=== PATIENT | male | born 1955 | race Caucasian/White ===

== ENCOUNTER 2025-03-04 19:02 | Outpatient (BNV) | payer OTHER, SELFPAY | END 2025-03-17 13:02 | PROVIDERS: Admitting Provider Psychiatry & Neurology Psychiatry; Visit Provider Radiology Diagnostic Radiology | DX: J84.9 Interstitial pulmonary disease, unspecified (principal); Z18.10 Retained metal fragments, unspecified; Z01.818 Encounter for other preprocedural examination | CPT/HCPCS: 70250; 71045; 74018 ==

== ENCOUNTER 2025-03-04 19:02 | Outpatient (BNV) | payer OTHER, SELFPAY | END 2025-03-16 09:00 | PROVIDERS: Admitting Provider Psychiatry & Neurology Psychiatry; Visit Provider Internal Medicine Cardiovascular Disease | DX: Z13.6 Encounter for screening for cardiovascular disorders (principal) | CPT/HCPCS: 93010 ==

== ENCOUNTER 2025-03-04 19:02 | Inpatient (IN) | payer OTHER, SELFPAY ==
--- OUTSIDE RECORDS SUMMARY | 2024-01-24 09:00 | XMS_ITS ---
Author Organization [facility] Address [address] [place] [address] Care Team Providers Care Color Television Console Monitor Name Role Phone King TORRES, Mukesh Primary Care Provider Trev Noel Unavailable [phone] REASON FOR VISIT bladder issues (?uti) [facility] Encounters Encounter Location Date Provider Diagnosis [facility] [address] [place] [address] 01/24/2024 Trev Guaman UTI symptoms R39.9 Assessments Encounter Date Diagnosis (ICD Code) Assessment Notes Treatment Notes Treatment Clinical Notes Section Notes 01/24/2024 UTI symptoms (ICD-10 - R39.9) Plan Of Treatment No Information Progress Notes * Jeff JOSEPH JDOB:[birth year] (69 yo M)Acc No.[id number]:01/24/2024 Progress Notes Patient: Jeff SAEZ Provider: Erin Guaman MD :1955 A ge:68 Y S ex:Male Date:01/24/2024 Address:[address] [id number] Pcp:Mukesh Malik MD Subjective: * Chief Complaints: * 1 . bladder issues (?uti) [facility]. * Medical History: * Implants: Objective: * Vitals: * Physical Examination: Assessment: * Assessment: 1. U TI symptoms - R39.9 Plan: * Treatment: * * Electronic signature of Trev Guaman MD on 03/04/2025 at 10:24 PM EST Sign off status: Pending * Provider: Erin Guaman MD Date: 1 Generated for Ajit spann/Nabil/Carlie on: 1 05/05/2024 10:24 PM EST
--- OUTSIDE RECORDS SUMMARY | 2024-01-24 09:30 | XMS_ITS ---
Author Organization [facility] Address [address] [place] [address] Care Team Providers Care Director Of Digital Marketing Name Role Phone King TORRES, Mukesh Primary Care Provider Trev Noel Unavailable [phone] Encounters Encounter Location Date Provider Diagnosis [facility] [address] [place] [address] 01/24/2024 Trev Guaman Plan Of Treatment No Information Progress Notes * Jeff JOSEPH KristiDOB:[birth year] (69 yo M)Acc No.[id number]:01/24/2024 Patient: Jeff SAEZ Provider: Erin Guaman MD :1955 A ge:68 Y S ex:Male Date:01/24/2024 Address:[address] [id number] Pcp:Mukesh Malik MD Subjective: * Chief Complaints: Objective: Assessment: Plan: * Treatment: * * Electronic signature of Trev Guaman MD on 03/04/2025 at 10:23 PM EST Sign off status: Pending * Provider: Erin Guaman MD Date: Generated for Renitai zana/Nabil/eTransmitting on: 1 05/05/2024 10:23 PM EST
--- OUTSIDE RECORDS SUMMARY | 2024-02-05 09:30 | XMS_ITS ---
Author Organization [facility] Address [address] [place] [address] Care Team Providers Care Custom Tailor Name Role Phone King TORRES, Mukesh Primary Care Provider Trev Noel Unavailable [phone] REASON FOR VISIT bladder issues [facility]CP Dr Malik Encounters Encounter Location Date Provider Diagnosis [facility] [address] [place] [address] 02/05/2024 Trev Guaman Plan Of Treatment No Information Progress Notes * Jeff JOSEPH JDOB:[birth year] (69 yo M)Acc No.[id number]:02/05/2024 Progress Notes Patient: Jeff SAEZ Provider: Erin Guaman MD :1955 A ge:68 Y S ex:Male Date:02/05/2024 Address:[address], [address] [id number] Pcp:Mukesh Malik MD Subjective: * Chief Complaints: * 1 . bladder issues [facility]CP Dr Malik. * Medical History: * Implants: Objective: * Vitals: * Physical Examination: Assessment: Plan: * Treatment: * * Electronic signature of Trev Guaman MD on 03/04/2025 at 10:24 PM EST Sign off status: Pending * Provider: Erin Guaman MD Date: 04/06/2023 Generated for Printi ng/Faxing/eTransmitting on: 05/05/2024 10:24 PM EST
--- OUTSIDE RECORDS SUMMARY | 2024-04-07 08:00 | XMS_ITS ---
Author Organization [facility] Address [address] [place] [address] Care Team Providers Care Mining And Quarrying Machinery Repairer Name Role Phone King TORRES, Mukesh Primary Care Provider Trev Noel Unavailable [phone] Alek Pereira Unavailable [phone] REASON FOR VISIT bladder issues [facility] PCP Dr Malik /pt rs 12.4 Encounters Encounter Location Date Provider Diagnosis [facility] [address] [place] [address] 04/07/2024 Alek Pereira Recurrent UTI N39.0 Assessments Encounter Date Diagnosis (ICD Code) Assessment Notes Treatment Notes Treatment Clinical Notes Section Notes 04/07/2024 Recurrent UTI (ICD-10 - N39.0) Plan Of Treatment No Information Progress Notes * Jeff JOSEPHDOB:[birth year] (69 yo M)Acc No.[id number]:04/07/2024 Progress Notes Patient: Jeff SAEZ Provider: Lucy Pereira PA-C :1955 A ge:68 Y S ex:Male Date:04/07/2024 Address:[address] [place], [place] Pcp:Mukesh Malik MD Subjective: * Chief Complaints: * 1 . bladder issues [facility] PCP Dr Malik /pt rs 12.4. * Medical History: * Implants: Objective: * Vitals: * Physical Examination: Assessment: * Assessment: 1. R ecurrent UTI - N39.0 Plan: * Treatment: * * Electronic signature of Alek Pereira PA-C on 03/04/2025 at 10:22 PM EST Sign off status: Pending * Provider: Lucy Pereira PA-C Date: 0 04/07/2024 Generated for Ajit spann/Nabil/Carlie on: 1 05/05/2024 10:22 PM EST
--- OUTSIDE RECORDS SUMMARY | 2024-04-29 08:00 | XMS_ITS ---
Author Organization [facility] Address [address] [place] [address] Care Team Providers Care Professor Of Biostatistics Name Role Phone King TORRES, Mukesh Primary Care Provider Trev Noel Unavailable [phone] Alek Pereira Unavailable [phone] REASON FOR VISIT bladder issues [facility] P[facility] Dr Malik /pt rs 12.4/pt rs 04/07 hurt back Encounters Encounter Location Date Provider Diagnosis [facility] [address] [facility] [address] [place] [address] 04/29/2024 Alek Pereira Plan Of Treatment No Information Progress Notes * Jeff JOSEPHDOB:[birth year] (69 yo M)Acc No.[id number]:04/29/2024 Progress Notes Patient: Jeff SAEZ Provider: Lucy Pereira PA-C :1955 A ge:68 Y S ex:Male Date:04/29/2024 Address:[address] [id number] Pcp:Mukesh Malik MD Subjective: * Chief Complaints: * 1 . bladder issues [facility] PCP Dr Malik /pt rs 12.4/pt rs 04/07 hurt back. * Medical History: * Implants: Objective: * Vitals: * Physical Examination: Assessment: Plan: * Treatment: * * Electronic signature of Alek Pereira PA-C on 03/04/2025 at 10:24 PM EST Sign off status: Pending * Provider: Lucy Pereira PA-C Date: 0 04/29/2024 Generated for Ajit spann/Nabil/Carlie on: 1 05/05/2024 10:24 PM EST
--- OUTSIDE RECORDS SUMMARY | 2025-03-03 12:51 | XMS_ITS | Encounter Summary ---
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 [address], [facility] [address] [place] [address] * (ABNORMAL) Urinalysis with reflex to culture (03/03/2025 1:45 PM EST) Color, Ur Yellow yellow 03/03/2025 2:09 PM [facility] Appearance, Ur Cloudy slightly cloudy 03/03/2025 2:09 PM [facility] Glucose, Ur negative negative mg/dL 03/03/2025 2:09 PM [facility] Bilirubin, Ur negative negative mg/dL 03/03/2025 2:09 PM [facility] Ketones, Ur 15(A) negative mg/dL 03/03/2025 2:09 PM [facility] Specific [place], Ur 1.015 1.010 - 1.030 03/03/2025 2:09 PM [facility] Blood, Ur negative negative mg/dL 03/03/2025 2:09 PM [facility] pH, Ur 8.0 5.0 - 8.0 03/03/2025 2:09 PM [facility] Protein, Ur 30(A) negative mg/dL 03/03/2025 2:09 PM [facility] Urobilinogen, Ur 1.0 normal E.U./dL 03/03/2025 2:09 PM [facility] Comment:UF REFLEX Nitrite Level, Ur negative negative 03/03/2025 2:09 PM [facility] Leukocytes Est, Ur Moderate(A) negative mg/dL 03/03/2025 2:09 PM [facility] RBC, Ur 3-5(A) 0 - 2 /HPF 03/03/2025 2:18 PM [facility] WBC, Ur >50(H) 0 - 5 /HPF 03/03/2025 2:18 PM EST [facility] Bacteria, Ur Rare none seen /HPF 03/03/2025 2:18 PM EST [facility] Squam Epithel, Ur None Seen absent /HPF 03/03/2025 2:18 PM EST [facility] Hyaline Casts, Ur 0-5 0 - 2 /LPF 03/03/2025 2:18 PM EST [facility] 03/03/2025 1:45 PM EST 03/03/2025 2:04 PM EST us Danisha Brooks FIOS [employer] 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 URINE ORDERABLES Edited Result - Final Performing Organization Address City/[facility]/ZIP Co de Phone Number [facility] [address] [place] [address], [facility] [address] [place] [address] * Buprenorphine Suboxone Screen (03/03/2025 1:45 PM EST) Buprenorphine Suboxone Scrn None Detected 03/03/2025 2:28 PM EST [facility] 03/03/2025 1:45 PM EST 03/03/2025 2:04 PM EST us Danisha Brooks FIOS LINE INSTALLER LAB BLOOD ORDERABLES Final Resu lt [facility] [address] [place] [address], [facility] [address] [place] [id number] * Urine Drug Screen (03/03/2025 1:45 PM EST) Amphetamine Scrn, Ur None Detected 03/03/2025 2:28 PM EST [facility] Benzodiazepine Screen, Urine None Detected 03/03/2025 2:28 PM EST [facility] Cannabinoid Screen, Urine None Detected 03/03/2025 2:28 PM EST [facility] Cocaine Screen, Ur None Detected 03/03/2025 2:28 PM EST [facility] Fentanyl Screen, Urine None Detected 03/03/2025 2:28 PM EST [facility] Comment: This test was developed and its performance characteristics determined by the Clinical Biochemistry Lab. It has not been cleared or approved by the [place] Food and Drug Administration but the [place] regulations permit its development under the laboratory license. This test and method is defined in the clinical lab guide and should not be regarded as investigational or research use only. Methadone Screen, Urine None Detected 03/03/2025 2:28 PM EST [facility] Opiate Screen, Urine None Detected 03/03/2025 2:28 PM EST [facility] Comment: Note: Drug of abuse immunoassay results are from screening methods. Positive screening results that are not confirmed are reported as POSITIVE SCREEN. If confirmatory testing is desired, it must be requested as a separate order to the Toxicology Lab WITHIN 5 DAYS of sample collection. Unconfirmed screening results should only be used for medical purposes. Oxycodone Scrn, Ur None Detected 03/03/2025 2:28 PM EST [facility] Urine 03/03/2025 1:45 PM EST 03/03/2025 2:04 PM EST Danisha Brooks NP URINE ORDERABLES Final Result [facility] [address] [place] [address], [facility] [address] [place] [id number] documented in this encounter Visit Diagnoses Diagnosis Acute psychosis (CMS/HCC)- Primary Bipolar 1 disorder with moderate justin (CMS/HCC) documented in this encounter Administered Medications Active Administered Medications - up to 3 most recent administrations Medication Order MAR Action Action Date Dose Rate Site aspirin (ASA) EC tablet 325 mg 325 mg, Oral, Once Daily, First dose (after last reorder) on Sat03/04/25 at 0800, Until Discontinued, Take with food Given 03/04/2025 9:32 AM EST 325 mg busPIRone (BUSPAR) tablet 15 mg 15 mg, Oral, 2 times daily, First dose on Sat03/03/25 at 2000, Until Discontinued Given 03/04/2025 9:34 AM EST 15 mg cefpodoxime (VANTIN) tablet 400 mg 400 mg, Oral, Every 12 hours scheduled, First dose on Sat03/03/25 at 1500, 28 doses, Last dose on Sat03/16/25 at 2200, Indications: urinary tract infectionIndications:urinary tract infection Given 03/04/2025 9:31 AM EST 400 mg Given 03/03/2025 3:33 PM EST 400 mg divalproex (DEPAKOTE) Delayed Release tablet 1,000 mg 1,000 mg, Oral, 2 times daily, First dose on Sat03/03/25 at 2000, Until Discontinued Given 03/04/2025 9:34 A M EST 1,000 mg escitalopram oxalate (LEXAPRO) tablet 15 mg 15 mg, Oral, Once Daily, First dose on Sat03/04/25 at 0800, Until Discontinued, Indications: Citalopram 30mg po daily was changed to Escitalopram 15mg po dailyIndications:Citalopram 30mg po daily was changed to Escitalopram 15mg po daily Given 03/04/2025 9:32 AM EST 15 mg famotidine (PEPCID) tablet 20 mg 20 mg, Oral, 2 times daily, First dose on Sat03/03/25 at 1999, Until Discontinued Given 03/04/2025 9:31 AM EST 20 m g ferrous sulfate tablet 325 mg 325 mg, Oral, Daily with breakfast, First dose on Sat03/04/25 at 0800, Until Discontinued Given 03/04/2025 9:34 AM EST 325 mg metFORMIN (GLUCOPHAGE) tablet 1,000 mg 1,000 mg, Oral, 2 times daily with meals, First dose on Sat03/03/25 at 1700, Until Discontinued, LOOK-ALIKE/SOUND-ALIKE MEDICATION: Use caution and follow appropriate policies for medication prescribing, dispensing and administration. Given 03/04/2025 9:32 AM EST 1,000 mg Given 03/03/2025 4:28 PM EST 1,000 mg risperiDONE (RisperDAL) tablet 3 mg 3 mg, Oral, 2 times daily, First dose on Sat03/03/25 at 1999, Until Discontinued Given 03/04/2025 9:33 AM EST 3 mg Inactive Administered Medications - up to 3 most recent administrations Medication Order MAR Action Action Date Dose Rate Site diphenhydrAMINE (BENADRYL) 50 mg/mL injection 50 mg 50 mg, Intramuscular, Once, On Susan 03/04/25 at 0100, 1 dose, If given IV Push, Administer undiluted, each 25 mg fraction over 1 minute. Given 03/04/2025 12:54 AM EST 50 mg Left Anterior Thigh LORazepam (ATIVAN) tablet 1 mg 1 mg, Oral, Once, On Sat03/03/25 at 1530, 1 dose Given 03/03/2025 3:33 PM EST 1 mg OLANZapine (ZyPREXA) injection 7.5 mg 7.5 mg, Intramuscular, Once, On Susan 03/04/25 at 0100, 1 dose, LOOK-ALIKE/SOUND-ALIKE MEDICATION: Use caution and follow appropriate policies for medication prescribing, dispensing and administration. Directions for preparation of OLANZapine injection with Sterile Water for Injection: Dissolve the contents of the vial using 2.1 mL of Sterile Water for Injection to provide a solution containing approximately 5 mg/mL of OLANZapine. The resulting solution should appear clear and yellow. OLANZapine injection reconstituted with Sterile Water for Injection should be used immediately (within 1 hour) after reconstitution. Discard any unused portion. The following table provides injection volumes for delivering various doses of OLANZapine injection reconstituted with Sterile Water for Injection. See below for dose to volume instructions: 10 mg Withdraw entire contents of vial 7.5 mg (1.5 mL) 5 mg (1 mL) 2.5 mg (0.5 mL), Indications: Medication RestraintIndications:Medi cation Restraint Given 03/04/2025 12:52 AM EST 7.5 mg Right Anterior Thigh documented in this encounter Active and Recently Administered Medications Times are shown in EST. Scheduled Medication Order 03/02/2025 03/03/2025 03/04/2025 aspirin (ASA) EC tablet 325 mg 325 mg, Oral, Once Daily, First dose (after last reorder) on Sat03/04/25 at 0800, Until Discontinued, Take with food 0932 (Given - Provid er: Aba Petty RN) atorvastatin (LIPITOR) tablet 80 mg 80 mg, Oral, Bedtime, First dose on Sat03/03/25 at 2100, Until Discontinued 2216 (Not Given - Provider: Corry Arzola RN - Reason: Patient refused ordered dose) 2100 (Due) busPIRone (BUSPAR) tablet 15 mg 15 mg, Oral, 2 times daily, First dose on Sat03/03/25 at 2000, Until Discontinued 2216 (Not Given - Provider: Corry Arzola RN - Reason: Patient refused ordered dose) 0934 (Given - Provider: Aba Petty RN)1999 (Due) cefpodoxime (VANTIN) tablet 400 mg 400 mg, Oral, Every 12 hours scheduled, First dose on Sat03/03/25 at 1500, 28 doses, Last dose on Sat03/16/25 at 2200, Indications: urinary tract infection 1533 (Given - Provider: Verna Stewart RN)2214 (Not Given - Provider: Corry Arzola RN - Reason: Patient refused ordered dose - Comment: When offered medcation, pt refused stating, I'll kick it you little slut! I don't want no medication! ) 930 (Given - Provider: Aba Petty RN)2199 (Due) diphenhydrAMINE (BENADRYL) 50 mg/mL injection 50 mg (COMPLETED) 50 mg, Intramuscular, Once, On Sat03/04/25 at 0100, 1 dose, If given IV Push, Administer undiluted, each 25 mg fraction over 1 minute. 005 (Given - Provid er: Corry Arzola RN) divalproex (DEPAKOTE) Delayed Release tablet 1,000 mg 1,000 mg, Oral, 2 times daily, First dose on Sat03/03/25 at 1999, Until Discontinued 2212 (Not Given - Provider: Corry Arzola RN - Reason: Patient refused ordered dose - Comment: When offered medcation, pt refused stating, I'll kick it you little slut! I don't want no medication! ) 933 (Given - Provider: Aba Petty RN)1999 (Due) escitalopram oxalate (LEXAPRO) tablet 15 mg 15 mg, Oral, Once Daily, First dose on Sat03/04/25 at 0800, Until Discontinued, Indications: Citalopram 30mg po daily was changed to Escitalopram 15mg po daily 931 (Given - Provid er: Aba Petty RN) famotidine (PEPCID) tablet 20 mg 20 mg, Oral, 2 times daily, First dose on Sat03/03/25 at 1999, Until Discontinued 2216 (Not Given - Provider: Corry Arzola RN - Reason: Patient refused ordered dose) 0931 (Given - Provider: Aba Petty RN)1999 (Due) ferrous sulfate tablet 325 mg 325 mg, Oral, Daily with breakfast, First dose on Sat03/04/25 at 0800, Until Discontinued 0934 (Given - Provid er: Aba Petty RN) LORazepam (ATIVAN) tablet 1 mg (COMPLETED) 1 mg, Oral, Once, On Sat03/03/25 at 1530, 1 dose 1533 (Given - Provider: Verna Stewart RN) metFORMIN (GLUCOPHAGE) tablet 1,000 mg 1,000 mg, Oral, 2 times daily with meals, First dose on Sat03/03/25 at 1700, Until Discontinued, LOOK-ALIKE/SOUND-ALIKE MEDICATION: Use caution and follow appropriate policies for medication prescribing, dispensing and administration. 1628 (Given - Provider: Verna Stewart RN) 0932 (Given - Provider: Aba Petty RN)1700 (Due) nicotine (NICODERM CQ) 7 mg/24 hr 1 patch 1 patch, Transdermal, Administer over 16 Hours, Once Daily, First dose on Sat03/04/25 at 0800, Until Discontinued, Do not cut patch. Apply a new patch every 24 hours to a clean, dry, hairless site on the upper arm or hip. 42 (Not Given - Provider: Aba Petty RN - Reason: Patient refused ordered dose) OLANZapine (ZyPREXA ZYDIS) disintegrating tablet 5 mg 5 mg, Oral, Once, On Sat03/03/25 at 1715, 1 dose, LOOK-ALIKE/SOUND-ALIKE MEDICATION: Use caution and follow appropriate policies for medication prescribing, dispensing and administration. Once tablet removed from foil, must use immediately. 1720 (Not Given - Provider: Verna Stewart RN - Reason: Patient refused ordered dose - Comment: Pt. refusing to take meds.) OLANZapine (ZyPREXA) injection 7.5 mg (COMPLETED) 7.5 mg, Intramuscular, Once, On Sat03/04/25 at 0100, 1 dose, LOOK-ALIKE/SOUND-ALIKE MEDICATION: Use caution and follow appropriate policies for medication prescribing, dispensing and administration. Directions for preparation of OLANZapine injection with Sterile Water for Injection: Dissolve the contents of the vial using 2.1 mL of Sterile Water for Injection to provide a solution containing approximately 5 mg/mL of OLANZapine. The resulting solution should appear clear and yellow. OLANZapine injection reconstituted with Sterile Water for Injection should be used immediately (within 1 hour) after reconstitution. Discard any unused portion. The following table provides injection volumes for delivering various doses of OLANZapine injection reconstituted with Sterile Water for Injection. See below for dose to volume instructions: 10 mg Withdraw entire contents of vial 7.5 mg (1.5 mL) 5 mg (1 mL) 2.5 mg (0.5 mL), Indications: Medication Restraint 51 (Given - Provid er: Corry Arzola RN) risperiDONE (RisperDAL) tablet 3 mg 3 mg, Oral, 2 times daily, First dose on Sat03/03/25 at 1999, Until Discontinued 2216 (Not Given - Provider: Corry Arzola RN - Reason: Patient refused ordered dose) 09 (Given - Provider: Aba Petty RN)1999 (Due) tamsulosin (FLOMAX) 24 hr capsule 0.4 mg 0.4 mg, Oral, Once Daily, First dose on Sat03/04/25 at 1999, Until Discontinued 1999 (Due) PRN Medication Order 03/02/2025 03/03/2025 03/04/2025 bisacodyL (DULCOLAX) EC tablet 5 mg 5 mg, Oral, Once Daily PRN, constipation (first line), Starting on Sat03/03/25 at 1445, Until Discontinued documented in this encounter Care Teams Building Cleaning Supervisor Relationship Specialty Start Date End Date Mukesh Malik MD [address] [id number] PCP - General Internal Medicine 12/22/24 documented as of this encounter
--- OUTSIDE RECORDS SUMMARY | 2025-03-03 15:00 | XMS_ITS | Encounter Summary ---
Author Organization [facility] Address [address] [place] [address] Care Team Providers Care Radio Tower Technician Name Role Phone Mukesh Malik MD Primary Care Provider [phone] Chris Patel MD Unavailable Gary Alas MD Unavailable [phone] Cari Steve MD Unavailable [phone] Trudi Guerrero FACILITIES MAINTENANCE WORKER Unavailable [phone] Yaritza Kc FACILITIES MAINTENANCE WORKER Unavailable [phone] Sabrina Barbosa FACILITIES MAINTENANCE WORKER Unavailable [phone] Reason for Visit * Diagnostic Imaging (Urgent) - Authorized Specialty Diagnoses / Procedures Referred By Contac t Referred To Contact Radiology Diagnoses Other cirrhosis of liver (HCC) Colovesical fistula Unintentional weight loss Procedures CT abdomen pelvis with contrast Mukesh Malik MD [address] [place] [address] Phone: tel: fax: Referral ID Status Reason Start Date Expiration Date V isits Requested Visits Authorized [id number] Authorized 06/10/2024 06/10/2026 1 1 Encounter Details Date Type Department Care Team (Late st Contact Info) Description 03/03/2025 3:00 PM EST Hospital Encounter [address] [address] Mukesh Malik MD [address] [place], [place] [phone] Social History Tobacco Use Types Packs/Day Years Used Date Smoking Tobacco: Every Day Cigarettes 0.5 40 Started: 08/22/1982; Last attempted to quit: 08/22/2022 Smokeless Tobacco: Never Comments:10 cigs a day- pt s audra he quit last week. Alcohol Use Standard Drinks/Week Comments No 0 (1 standard drink = 0.6 oz pur e alcohol) Housing Stability - SDOH Screener Answer Date Recorded What is your living situation today? Steady hous ing 01/08/2025 Do you need help with Housing/[facility] resources? Not on file 01/08/2025 Patient indicated no issues from the most recent SDOH questionnaire Not on file 01/08/2025 Homeless diagnosis active in problem list or in an encounter in the past year? Not on file 01/08/2025 Health Literacy - SDOH Screener Answer Date Recorded Do you ever need help readin g or understanding information about your medical conditions? Yes 01/13/2024 Patient indicated no issues from the most recent THRIVE questionnaire Not on file 01/13/2024 Oral Health - SDOH Screener Answer Date Recorded Was there a time you needed dental care in the last 12 months but was not received? No 01/13/2024 Patient indicated no issues from the most recent THRIVE questionnaire Not on file 01/13/2024 Transportation - SDOH Screener Answer D ate Recorded Do you have trouble getting transportation to medical appointments? No 01/08/2025 Do you need help with Transp ortation to medical appointments? Not on file 01/08/2025 Patient indicated no issues from the most recent SDOH questionnaire Not on file 01/08/2025 Food Insecurity - SDOH Screener Answer Date Recorded Within the past 12 months, t he food you bought just didn't last and you didn't have money to get more? Never true 01/08/2025 Within the past 12 months, y ou worried whether your food would run out before you got money to buy more? Never true 2024 Do you need help with Food resources? Not on sandra e 01/08/2025 Patient indicated no issues from the most recent SDOH questionnaire Not on file 01/08/2025 Depression Answer Date Recorded PHQ-9 Total Score 2 01/13/2024 [place] Depression Scale Score Not o n file 01/13/2024 EPDS: The thought of harming myself has occurred to me Not on file 01/13/2024 PHQ-A: In the past year have you felt depressed or sad most days, even if you felt okay sometimes? Not on file 01/13/2024 PHQ-A: If you are experienci ng any of the problems on this form, how difficult have these problems made it for you to do your work, take care of things at home or get along with other people? Not on file 01/13/2024 PHQ-A: Has there been a time in the past month when you have had serious thoughts about ending your life? Not on file 12/30 PHQ-A: Have you ever, in you r whole life, tried to kill yourself or made a suicide attempt? Not on file 01/13/2024 PHQ9/A: Thoughts that you wo uld be better off , or of hurting yourself in some way? No 01/13/2024 Care Giving - SDOH Screener Answer Date Recorded Do you have trouble taking c are of a child, family member or friend? No 01/13/2024 Do you need help with Childcare/Daycare? Not on file 01/13/2024 Do you need help with Elder Care Not on file 01/13/2024 Patient indicated no issues from the most recent SDOH questionnaire Not on file 01/13/2024 Employment - SDOH Screener Answer Date Recorded Are you currently unemployed and looking for a j ob? No 01/13/2024 Are you or your parent/guard manolo currently unemployed and looking for a job? (age <= 21) Not on file 01/13/2024 Patient indicated no issues from the most recent THRIVE questionnaire (<22) Not on file 01/13/2024 Patient indicated no issues from the most recent THRIVE questionnaire (22+) Not on file 01/13/2024 Affording Medications - SDOH Screener Answer Date Recorded Do you have trouble paying for medications? No 01/13/2024 Do you need help with Paying for Medicine resour danish? Not on file 01/13/2024 Patient indicated no issues from the most recent SDOH questionnaire Not on file 01/13/2024 Fall Risk Screener Answer Date Recorded Have you had any falls in the past year no 01/13/2024 How many falls in the past year? Not on file 01/13/2024 Any fall injury in the past year? Not on file 01/13/2024 List of falls-related injuries Not on file 1 Utilities - SDOH Screener Answer Date R ecorded Do you have trouble paying y our heating and/or electricity bill? No 01/08/2025 Do you need help with Utilities? Not on file 01/08/2025 Patient indicated no issues from the most recent SDOH questionnaire Not on file 01/08/2025 Social Isolation - SDOH Screener Answer Date Recorded Are you dissatisfied with ho w often you see or talk to people that you care about and feel close to? (For example: talking to friends on the phone, visiting friends or family, going to muslim or club meetings) No 01/13/2024 Patient indicated no issues from the most recent THRIVE questionnaire Not on file 01/13/2024 Adolescent Depression Answer Date Recor ded PHQ-9 Total Score 2 01/13/2024 [place] Depression Scale Score Not o n file 01/13/2024 EPDS: The thought of harming myself has occurred to me Not on file 01/13/2024 PHQ-A: In the past year have you felt depressed or sad most days, even if you felt okay sometimes? Not on file 01/13/2024 PHQ-A: If you are experienci ng any of the problems on this form, how difficult have these problems made it for you to do your work, take care of things at home or get along with other people? Not on file 01/13/2024 PHQ-A: Has there been a time in the past month when you have had serious thoughts about ending your life? Not on file 12/30 PHQ-A: Have you ever, in you r whole life, tried to kill yourself or made a suicide attempt? Not on file 01/13/2024 PHQ9/A: Thoughts that you wo uld be better off , or of hurting yourself in some way? No 01/13/2024 Sex and Gender Information Value Date Recorded Sex Assigned at Male 03/10/2024 2:25 PM EST Legal Sex Male 8:35 PM EDT Gender Identity Male 03/10/2024 2:25 PM EST Sexual Orientation _I choose not to answer 03/10 2:25 PM EST Occupation Industry Job Start Date Job End Date Not on file Not on file Not on file Not on file documented as of this encounter Plan of Treatment Upcoming Encounters Date Type Department Care Team (Late st Contact Info) Description 05/31/2024 Procedure Pass [facility] [address] [place] [address] 03/10/2025 3:00 PM EST [facility] [address] [place] [address] Mukesh Malik MD [address] [place], [place] [phone] 04/13/2025 4:30 PM EST Telemedicine [facility] [address] [place] [address] Byron Fitzgerald MD [facility] [address] [id number] 04/20/2025 2:00 PM EST [facility] [address] [address] Fernando Da Silva MD [address] [place] [address] 05/31/2025 9:00 AM EST Appointment [facility] [address] [place] [address] 06/04/2025 1:00 PM EST [facility] [place] [address] Chris Patel MD [address] [place] [address] Scheduled Orders Name Type Priority Associated Diagnoses Orde r Schedule CT abdomen pelvis with contrast Imaging Urgent Other cirrhosis of liver (HCC) Colovesical fistula Unintentional weight loss 1 Occurrences starting 06/10/2024 until 06/10/2026 documented as of this encounter Visit Diagnoses Not on filedocumented in this encounter Care Teams Radio Tower Technician Relationship Specialty Start Date End Date Mukesh Malik MD [address] [place] [address] PCP - General Internal Medicine 07/03/18 Chris Patel MD [address] [place] [address] Physician Pulmonary Disease 06/11/23 Gary Alas MD [address] [place] [address] Surgeon General Surgery 06/03/24 Cari Steve MD [address] [facility] [place] [address] Physician Hematology and Oncology 06/10/24 Trudi Guerrero NP [address] [place] [address] Nurse Practitioner Internal Medicine 10/06/24 Yaritza Kc NP [address] [place] [address] Nurse Practitioner Internal Medicine 10/06/24 Sabrina Barbosa NP [address] [place] [address] Nurse Practitioner Internal Medicine 10/06/24 documented as of this encounter
--- NOTE | ~2025-03-04 | XR_ITS ---
EXAMINATION: XR CHEST CLINICAL INFORMATION: pre mri COMPARISON: None available. TECHNIQUE: Frontal view of the chest was obtained. FINDINGS: No metallic foreign body. Pulmonary reticular pattern. Cardiomediastinal silhouette size is normal. Hyperinflated lungs. No consolidation pleural fissure pneumothorax. Mild multilevel spondylosis. Degenerative changes in the shoulders. XR/XR chest 1V IMPRESSION: Metallic foreign body. Chronic interstitial lung disease EXAMINATION: XR ABDOMEN KUB CLINICAL INDICATION: pre mri COMPARISON: None available. TECHNIQUE: AP view of the abdomen. FINDINGS: No metallic foreign body. No gross central levels. No intestinal dilatation. Gas throughout intestine. Multilevel spondylosis. No lytic or blastic lesions. IMPRESSION: No metallic foreign body. Electronically signed by: Anant Johnson MD 03/17/2025 02:08 PM [facility]
--- NOTE | ~2025-03-04 | XR_ITS ---
EXAMINATION: XR CHEST CLINICAL INFORMATION: pre mri COMPARISON: None available. TECHNIQUE: Frontal view of the chest was obtained. FINDINGS: No metallic foreign body. Pulmonary reticular pattern. Cardiomediastinal silhouette size is normal. Hyperinflated lungs. No consolidation pleural fissure pneumothorax. Mild multilevel spondylosis. Degenerative changes in the shoulders. XR/XR abdomen 1V IMPRESSION: Metallic foreign body. Chronic interstitial lung disease EXAMINATION: XR ABDOMEN KUB CLINICAL INDICATION: pre mri COMPARISON: None available. TECHNIQUE: AP view of the abdomen. FINDINGS: No metallic foreign body. No gross central levels. No intestinal dilatation. Gas throughout intestine. Multilevel spondylosis. No lytic or blastic lesions. IMPRESSION: No metallic foreign body. Electronically signed by: Anant Johnson MD 03/17/2025 02:08 PM [facility]
--- NOTE | ~2025-03-04 | XR_ITS ---
EXAMINATION: XR SKULL CLINICAL INFORMATION: pre mri COMPARISON: None available. TECHNIQUE: PA and lateral views of the skull FINDINGS: No radiopaque foreign body projects in the region of the orbits. There is dental hardware. XR/XR skull <4V IMPRESSION: No absolute contraindication to MRI is identified. Electronically signed by: Sahil Akbar MD 03/17/2025 02:08 PM EST
--- OUTSIDE RECORDS SUMMARY | 2025-03-04 22:22 | XMS_ITS | Encounter Summary ---
Author Organization [facility] Address [address] [place] [address] Care Team Providers Care Campaign Marketing Manager Name Role Phone Mukesh Malik MD Primary Care Provider [phone] Chris Patel MD Unavailable Gary Alas MD Unavailable [phone] Cari Steve MD Unavailable [phone] Trudi Guerrero OUTSIDE CONTRACTOR SALES Unavailable [phone] Yaritza Kc OUTSIDE CONTRACTOR SALES Unavailable [phone] Sabrina Barbosa OUTSIDE CONTRACTOR SALES Unavailable [phone] Dottie Granado PharmD Unavailable Unavailable Encounter Details Date Type Department Care Team (Late st Contact Info) Description 06/10/2024 Procedure Pass [facility] - [address] [address] Social History Tobacco Use Types Packs/Day Years Used Date Smoking Tobacco: Every Day Cigarettes 0.5 40 Started: 08/22/1982; Last attempted to quit: 08/22/2022 Smokeless Tobacco: Never Comments:10 cigs a day- pt s tates he quit last week. Alcohol Use Standard Drinks/Week Comments No 0 (1 standard drink = 0.6 oz pur e alcohol) Housing Stability - SDOH Screener Answer Date Recorded What is your living situation today? Steady hous ing 01/13/2024 Do you need help with Housing/Long-Term resources? Not on file 01/13/2024 Patient indicated no issues from the most recent SDOH questionnaire Not on file 01/13/2024 Homeless diagnosis active in problem list or in an encounter in the past year? Not on file 01/13/2024 Health Literacy - SDOH Screener Answer Date [...] trouble getting transportation to medical appointments? No 01/13/2024 Do you need help with Transp ortation to medical appointments? Not on file 01/13/2024 Patient indicated no issues from the most recent SDOH questionnaire Not on file 01/13/2024 Food Insecurity - SDOH Screener Answer Date Recorded Within the past 12 months, t he food you bought just didn't last and you didn't have money to get more? Never true 01/13/2024 Within the past 12 months, y ou worried whether your food would run out before you got money to buy more? Never true 2023 Do you need help with Food resources? Not on sandra e 01/13/2024 Patient indicated no issues from the most recent SDOH questionnaire Not on file 01/13/2024 Depression Answer Date Recorded PHQ-9 Total Score 2 01/13/2024 [place] Depression Scale Score Not o n file [...] paying y our heating and/or electricity bill? Yes 01/13/2024 Do you need help with Utilities? Not on file 01/13/2024 Patient indicated no issues from the most recent SDOH questionnaire Not on file 01/13/2024 Social Isolation - SDOH Screener Answer Date Recorded Are you dissatisfied with ho w often you see or talk to people that you care about and feel close to? (For example: talking to friends on the phone, visiting friends or family, going to catholic or club meetings) No 01/13/2024 Patient indicated no issues from the most recent THRIVE questionnaire Not on file 01/13/2024 Adolescent Depression Answer Date Recor ded PHQ-9 Total Score 2 01/13/2024 [place] Depression Scale Score Not o n file [...] st Contact Info) Description 05/31/2024 [facility] [address] [place] [address] 03/10/2025 3:00 PM EST Office Visit [facility] [address] [place] [phone] Mukesh Malik MD [address] [place] [address] 04/13/2025 4:30 PM EST Telemedicine [facility] [address] [place] [phone] Byron Fitzgerald MD [address] [id number] 04/20/2025 2:00 PM EST Office Visit [facility] 235 [facility], [address]nd [place] [phone] Fernando Da Silva MD [address] [place] [address] 05/31/2025 9:00 AM EST Appointment [facility] [address] [place] [address] 06/04/2025 1:00 PM EST Pulmonary Function Test [facility] [address] [place] [phone] Chris Patel MD [address] [place] [address] documented as of this encounter Visit Diagnoses Not on filedocumented in this encounter Care Teams Campaign Marketing Manager Relationship Specialty Start Date End Date Mukesh Malik MD [address] [place] [address] PCP - General Internal Medicine 07/03/18 Chris Patel MD [address] [place] [address] Physician Pulmonary Disease 06/11/23 Gary Alas MD [address] [place] [address] Surgeon General Surgery 06/03/24 Cari Stvee MD [address] [place] [address] Physician Hematology and Oncology 06/10/24 Trudi Guerrero NP [address] [place] [address] Nurse Practitioner Internal Medicine 10/06/24 Yaritza Kc NP [address] [place] [address] Nurse Practitioner Internal Medicine 10/06/24 Sabrina Barbosa NP [address] [place] [address] Nurse Practitioner Internal Medicine 10/06/24 Dottie Granado, PharmD Pharmacist Pharmacy 12/11/24 01/11/25 documented as of this encounter
--- OUTSIDE RECORDS SUMMARY | 2025-03-04 22:22 | XMS_ITS | Encounter Summary ---
Author Organization [facility] [place] Address [address] [place] [address] Care Team Providers Care Crusher Assembler Name Role Phone Mukesh Malik MD Primary Care Provider [phone] Chris Patel MD Unavailable Gary Alas MD Unavailable [phone] Cari Steve MD Unavailable [phone] Trudi Guerrero AUTOMOTIVE DIAGNOSTIC TECHNICIAN Unavailable [phone] Yaritza Kc AUTOMOTIVE DIAGNOSTIC TECHNICIAN Unavailable [phone] Sabrina Barbosa AUTOMOTIVE DIAGNOSTIC TECHNICIAN Unavailable [phone] Reason for Referral * Consultation (Routine/First Available) - Pending Review Specialty Diagnoses / Procedures Referred By Adelfo jacobs Referred To Contact Gastroenterology Diagnoses Colovesical fistula Mukesh Malik MD [address] [place] [address] Phone: tel: fax: Referral ID Status Reason Start Date Expiration Date V isits Requested Visits Authorized [id number] Pending Review 02/21/2025 02/21/2026 1 1 Encounter Details Date Type Department Care Team (Late st Contact Info) Description 02/16/2025 Orders Only [facility] [address] [place] [address] Mukesh Malik MD [address] [place] [address] Colovesical fistula Social History Tobacco Use Types Packs/Day Years Used Date Smoking Tobacco: Every Day Cigarettes 0.5 40 Started: 08/22/1982; Last attempted to quit: 08/22/2022 Smokeless Tobacco: Never Comments:10 cigs a day- pt s zandraes he quit last week. Alcohol Use Standard Drinks/Week Comments No 0 (1 standard drink = 0.6 oz pur e alcohol) Housing Stability - SDOH Screener Answer Date Recorded What is your living situation today? Steady hous ing 01/08/2025 Do you need help with Housing/[facility] resources? Not on file 01/08/2025 Patient indicated [...] Date Recorded PHQ-9 Total Score 2 01/13/2024 [place] Depression Scale Score Not o n file [...] phone, visiting friends or family, going to yazidism or club meetings) No 01/13/2024 Patient indicated no issues from the most recent THRIVE questionnaire Not on file 01/13/2024 Adolescent Depression Answer Date Recor ded PHQ-9 Total Score 2 01/13/2024 [place] Depression Scale Score Not o n file [...] 05/31/2024 Procedure Pass [facility] [address] [place] [address] 03/10/2025 3:00 PM EST Office Visit [facility] [address] [place] [address] Mukesh Malik MD [address] [place], [place] [phone] 04/13/2025 4:30 PM EST Telemedicine [facility] [address] [place] [phone] Byron Fitzgerald MD [facility] [address] [phone] 04/20/2025 2:00 PM EST Office Visit [facility] 235 [facility], [address] [place] [phone] Fernando Da Silva MD [address] [place] [address] 05/31/2025 9:00 AM EST Appointment [facility] [address] [place] [address] 06/04/2025 1:00 PM EST [facility] [place] [phone] Chris Patel MD [address] [place] [address] Scheduled Referrals Name Type Priority Associated Diagnoses Order Schedule Outpatient referral to Gastroenterology Outpatient Referral First Available/Corey Guerreroical fistula Ordered: 02/21/2025 documented as of this encounter Visit Diagnoses Diagnosis Colovesical fistula Intestinovesical fistula documented in this encounter Care Teams Crusher Assembler Relationship Specialty Start Date End Date Mukesh Malik MD [address] [place] [address] PCP - General Internal Medicine 07/03/18 Chris Patel MD [address] [place] [address] Physician Pulmonary Disease 06/11/23 Gary Alas MD [address] [place] [address] Surgeon General Surgery 06/03/24 Cari Steve MD [address] [place] [address] [place] [address] Physician Hematology and Oncology 06/10/24 Trudi Guerrero NP [address] [place] [address] Nurse Practitioner Internal Medicine 10/06/24 Yaritza Kc NP [address] [place] [address] Nurse Practitioner Internal Medicine 10/06/24 Sabrina Barbosa NP [address] [place] [address] Nurse Practitioner Internal Medicine 10/06/24 documented as of this encounter
--- OUTSIDE RECORDS SUMMARY | 2025-03-04 22:22 | XMS_ITS | Encounter Summary ---
Author Organization [facility] Address [address] [place] [address] Care Team Providers Care Whitesmith Name Role Phone Mukesh Malik MD Primary Care Provider [phone] Chris Patel MD Unavailable Gary Alas MD Unavailable [phone] Cari Steve MD Unavailable [phone] Trudi Guerrero BUILDING MAINTENANCE ENGINEER Unavailable [phone] Yaritza Kc BUILDING MAINTENANCE ENGINEER Unavailable [phone] Sabrina Barbosa BUILDING MAINTENANCE ENGINEER Unavailable [phone] Dottie Granado PharmD Unavailable Unavailable Encounter Details Date Type Department Care Team (Late st Contact Info) Description 06/10/2024 Procedure Pass [facility] - [address] [address] Social History Tobacco Use Types [...] ing 01/13/2024 Do you need help with Housing/[facility] resources? Not on file 01/13/2024 Patient indicated [...] Date Recorded PHQ-9 Total Score 2 01/13/2024 [place] Depression Scale Score Not o n file [...] phone, visiting friends or family, going to mu-ism or club meetings) No 01/13/2024 Patient indicated no issues from the most recent THRIVE questionnaire Not on file 01/13/2024 Adolescent Depression Answer Date Recor ded PHQ-9 Total Score 2 01/13/2024 [place] Depression Scale Score Not o n file [...] st Contact Info) Description 05/31/2024 [facility] [address] [place] [address] 03/10/2025 3:00 PM EST Office Visit [facility] [address] [place] [phone] Mukesh Malik MD [address] [place] [address] 04/13/2025 4:30 PM EST Telemedicine [facility] [address] [place] [phone] Byron Fitzgerald MD [address] [phone] 04/20/2025 2:00 PM EST Office Visit [facility] 235 [facility], 2nd [place] [phone] Fernando Da Silva MD [address] [place] [address] 05/31/2025 9:00 AM EST Appointment [facility] [address] [place] [address] 06/04/2025 1:00 PM EST Pulmonary Function Test [facility] [address] [place] [phone] Chris Patel MD [address] [place] [address] documented as of this encounter Visit Diagnoses Not on filedocumented in this encounter Care Teams Whitesmith Relationship Specialty Start Date End Date Mukesh Malik MD [address] [place] [address] PCP - General Internal Medicine 07/03/18 Chris Patel MD [address] [place] [address] Physician Pulmonary Disease 06/11/23 Gary Alas MD [address] [place] [address] Surgeon General Surgery 06/03/24 Cari Steve MD [address] [place] [address] Physician Hematology and Oncology 06/10/24 Trudi Guerrero NP [address] [place] [address] Nurse Practitioner Internal Medicine 10/06/24 Yaritza Kc NP [address] [place] [address] Nurse Practitioner Internal Medicine 10/06/24 Sabrina Barbosa NP [address] [place] [address] Nurse Practitioner Internal Medicine 10/06/24 Dottie Granado, PharmD Pharmacist Pharmacy 12/11/24 01/11/25 documented as of this encounter
--- OUTSIDE RECORDS SUMMARY | 2025-03-04 22:22 | XMS_ITS | Encounter Summary ---
Author Organization [facility] Address [address] [place] [address] Care Team Providers Care Conveyor Belt Repairer Name Role Phone Mukesh Malik MD Primary Care Provider [phone] Chris Patel MD Unavailable Silvana Fernandez MD Unavailable Gary Alas MD Unavailable [phone] Cari Steve MD Unavailable [phone] Trudi Guerrero BLENDING TECHNICIAN Unavailable [phone] Yaritza Kc BLENDING TECHNICIAN Unavailable [phone] Sabrina Barbosa BLENDING TECHNICIAN Unavailable [phone] Dottie Granado PharmD Unavailable Unavailable Encounter Details Date Type Department Care Team (Late st Contact Info) Description 11/24/2021 Procedure Pass [facility] - [address] [address] Social History Tobacco Use Types Packs/Day Years Used Date Smoking Tobacco: Every Day Cigarettes Smokeless Tobacco: Never Comments:5 cigs a day Alcohol Use Standard Drinks/Week Comments No 0 (1 standard drink = 0.6 oz pur e alcohol) Sex and Gender Information Value Date Recorded [...] Info) Description 05/31/2024 [facility] [address] [place] [address] 03/10/2025 3:00 PM EST [facility] [address] [place] [address] Mukesh Malik MD [address] [place], [place] 8[address]60[address] 04/13/2025 4:30 PM EST Telemedicine [facility] [place] [address] Byron Fitzgerald MD [facility] [address] [id number] 04/20/2025 2:00 PM EST Office Visit [facility] 235 [facility], 2nd [place] [address] Fernando Da Silva MD [address] [place], [place] [address] 05/31/2025 9:00 AM EST Appointment [facility] [address] [place] [address] 06/04/2025 1:00 PM EST Pulmonary Function Test [facility] [place] [address] Chris Patel MD [address] [place] [address]27120 documented as of this encounter Visit Diagnoses Not on filedocumented in this encounter Care Teams Conveyor Belt Repairer Relationship Specialty Start Date End Date Mukesh Malik MD [address] [place], [place] [phone] PCP - General Internal Medicine 07/03/18 Chris Patel MD [address] [place] [address] Physician Pulmonary Disease 06/11/23 Silvana Fernandez MD [address] [place] [address] Physician Hematology and Oncology 01/27/24 Gary Alas MD [address] [place] [address] Surgeon General Surgery 06/03/24 Cari Steve MD [address] [place] [address] Physician Hematology and Oncology 06/10/24 Trudi Guerrero NP [address] [place] [address] Nurse Practitioner Internal Medicine 10/06/24 Yaritza Kc NP [address] [place] [address] Nurse Practitioner Internal Medicine 10/06/24 Sabrina Barbosa NP [address] [place] [address] Nurse Practitioner Internal Medicine 10/06/24 Dottie Granado, PharmD Pharmacist Pharmacy 12/11/24 01/11/25 documented as of this encounter
--- OUTSIDE RECORDS SUMMARY | 2025-03-04 22:22 | XMS_ITS | Encounter Summary ---
Author Organization [facility] Address [address] [place] [address] Care Team Providers Care Wire Stitcher Machine Name Role Phone Mukesh Malik MD Primary Care Provider [phone] Chris Patel MD Unavailable Silvana Fernandez MD Unavailable Gary Alas MD Unavailable [phone] Cari Steve MD Unavailable [phone] Trudi Guerrero MANIFOLD BUILDER Unavailable [phone] Yaritza Kc MANIFOLD BUILDER Unavailable [phone] Sabrina Barbosa MANIFOLD BUILDER Unavailable [phone] Dottie Granado PharmD Unavailable Unavailable Reason for Visit * Reason Comments Medication Refill Encounter Details Date Type Department Care Team (Late st Contact Info) Description 12/07/2018 Refill [facility] [address] [place] [address] Mukesh Malik MD [address] [place], [place] [phone] Essential hypertension Social History Tobacco Use Types Packs/Day Years Used Date Smoking Tobacco: Every Day Cigarettes 0.5 3 Started: 04/01/2013; Last attempted to quit: 04/01/2016 Smokeless Tobacco: Never Alcohol Use Standard Drinks/Week Comments No 0 [...] 05/31/2024 Procedure Pass [facility] [address] [place] [address] 03/10/2025 3:00 PM EST [facility] [address] [place] [address] Mukesh Malik MD [address] [place], [place] 7116220 04/13/2025 4:30 PM EST Telemedicine [facility] [address] [place] [address] Byron Fitzgerald MD [facility] [address] [phone] 04/20/2025 2:00 PM EST [facility] 235 [facility], 2nd [place] [address] Fernando Da Silva MD [address] [place], [place] [phone] 05/31/2025 9:00 AM EST [facility]ment [facility] [address] [place] [address] 06/04/2025 1:00 PM EST [facility]0 [place] [address] Chris Patel MD [address] [place] [address] documented as of this encounter Visit Diagnoses Diagnosis Essential hypertension Unspecified essential hypertension documented in this encounter Care Teams Wire Stitcher Machine Relationship Specialty Start Date End Date Mukesh Malik MD [address] [place] [address] PCP - General Internal Medicine 07/03/18 Chris Patel MD [address] [place] [address] Physician Pulmonary Disease 06/11/23 Silvana Fernandez MD [address] [place] [address] Physician Hematology and Oncology 01/27/24 Gary Alas MD [address] [place] [address] Surgeon General Surgery 06/03/24 Cari Steve MD [address] [place] [address] [place] [address] Physician Hematology and Oncology 06/10/24 Trudi Guerrero NP [address] [place] [address] Nurse Practitioner Internal Medicine 10/06/24 Yaritza Kc NP [address] [place] [address] Nurse Practitioner Internal Medicine 10/06/24 Sabrina Barbosa NP [address] [place] [address] Nurse Practitioner Internal Medicine 10/06/24 Dottie Granado, PharmD Pharmacist Pharmacy 12/11/24 01/11/25 documented as of this encounter
--- OUTSIDE RECORDS SUMMARY | 2025-03-04 22:22 | XMS_ITS | Encounter Summary ---
Author Organization [facility] Address [address] [place] [address] Care Team Providers Care Timber Framer Name Role Phone Mukesh Malik MD Primary Care Provider [phone] Chris Patel MD Unavailable Gary Alas MD Unavailable [phone] Cari Steve MD Unavailable [phone] Trudi Guerrero RETAIL SALES DIRECTOR Unavailable [phone] Yaritza Kc RETAIL SALES DIRECTOR Unavailable [phone] Sabrina Barbosa RETAIL SALES DIRECTOR Unavailable [phone] Reason for Visit * Reason Comments Discharge Encounter Details Date Type Department Care Team (Late st Contact Info) Description 02/18/[address] [facility] [address] [place] [address] Mukesh Malik MD [address] [place], [place] [phone] Discharge Social History Tobacco Use Types Packs/Day Years Used Date Smoking Tobacco: Every Day Cigarettes 0.5 40 Started: 08/22/1982; Last attempted to quit: 08/22/2022 Smokeless Tobacco: Never Comments:10 cigs a day- pt s tates he quit last week. Alcohol Use Standard Drinks/Week Comments No 0 (1 standard drink = 0.6 oz pur e alcohol) Housing Stability - [facility] Screener Answer Date Recorded What is your living situation today? Steady hous ing 01/08/2025 Do you need help with Housing/Intermediate resources? Not on file 01/08/2025 Patient indicated [...] Date Recorded PHQ-9 Total Score 2 01/13/2024 [place] Depression Scale Score Not o n file [...] phone, visiting friends or family, going to religious or club meetings) No 01/13/2024 Patient indicated no issues from the most recent THRIVE questionnaire Not on file 01/13/2024 Adolescent Depression Answer Date Recor ded PHQ-9 Total Score 2 01/13/2024 [place] Depression Scale Score Not o n file [...] on file documented as of this encounter Miscellaneous Notes * Telephone Encounter - Kiran Moya - 02/18/2025 8:53 AM EST Copied from [facility] #[id number]. Topic: Incoming Call for Office - Sent to Practice >> Feb 18, 2025 8:51 AM Kiran Tuttle wrote: Caller's name: Patient phone number: [phone] Facility name: [facility] Admit date: 02/14/25 Discharge date: 02/18/25 Diagnosis: Acute systitis Established ? [X] Yes Primary: Dr Mukesh Malik [ ] No Doc of Day: Hospital follow-up appt: Appt scheduled within 5 days(date)? Or within 14 days(date)? If no appointment, why? Nothing available soon with PCP or any of the relief charge nurse (External discharges) Discharge summary requested? Facility fax number: For Service Center Use Only: CALL REASON: DISCHARGE Ensure that all external discharges have our fax number to fax the discharge summary. documented in this encounter Plan of Treatment Upcoming Encounters Date Type Department Care Team (Late st Contact Info) Description 05/31/2024 Procedure Pass [facility] [address] [place] [address] 03/10/2025 3:00 PM EST Office Visit [facility] [address] [place] [address] Mukesh Malik MD [address] [place] [address] 04/13/2025 4:30 PM EST Telemedicine [facility] [address] [place] [address] Byron Fitzgerald MD [address] [place] [address] 04/20/2025 2:00 PM EST Office Visit [facility] [address] [phone] Fernando Da Silva MD [address] [place] [address] 05/31/2025 9:00 AM EST Appointment [facility] [address] [place] [address] 06/04/2025 1:00 PM EST Pulmonary Function Test [facility] [address] [place] [address] Chris Patel MD [address] [place] [address] documented as of this encounter Visit Diagnoses Not on filedocumented in this encounter Care Teams Timber Framer Relationship Specialty Start Date End Date Mukesh Malik MD [address] [place] [address] PCP - General Internal Medicine 07/03/18 Chris Patel MD [facility] [place] [address] Physician Pulmonary Disease 06/11/23 Gary Alas MD [address] [place] [address] Surgeon General Surgery 06/03/24 Cari Steve MD [address] [place] [address] Physician Hematology and Oncology 06/10/24 Trudi Guerrero NP [address] [place] [address] Nurse Practitioner Internal Medicine 10/06/24 Yaritza Kc NP [address] [place] [address] Nurse Practitioner Internal Medicine 10/06/24 Sabrina Barbosa NP [address] [place] [address] Nurse Practitioner Internal Medicine 10/06/24 documented as of this encounter
--- OUTSIDE RECORDS SUMMARY | 2025-03-04 22:22 | XMS_ITS | Encounter Summary ---
Author Organization [facility] Address [address] [place] [address] Care Team Providers Care Customs Entry Writer Name Role Phone Mukesh Malik MD Primary Care Provider [phone] Chris Patel MD Unavailable Gary Alas MD Unavailable [phone] Cari Steve MD Unavailable [phone] Trudi Guerrero ECONOMICS PROFESSOR Unavailable [phone] Yaritza Kc ECONOMICS PROFESSOR Unavailable [phone] Sabrina Barbosa ECONOMICS PROFESSOR Unavailable [phone] Dottie Granado PharmD Unavailable Unavailable Encounter Details Date Type Department Care Team (Late st Contact Info) Description 06/10/2024 Procedure Pass [facility] - [address] [address] Social History Tobacco Use Types [...] ing 01/13/2024 Do you need help with Housing/Custodial resources? Not on file 01/13/2024 Patient indicated [...] Date Recorded PHQ-9 Total Score 2 01/13/2024 [place] Depression Scale Score Not o n file [...] phone, visiting friends or family, going to islam or club meetings) No 01/13/2024 Patient indicated no issues from the most recent THRIVE questionnaire Not on file 01/13/2024 Adolescent Depression Answer Date Recor ded PHQ-9 Total Score 2 01/13/2024 [place] Depression Scale Score Not o n file [...] st Contact Info) Description 05/31/2024 [facility] [address] [place] [address] 03/10/2025 3:00 PM EST Office Visit [facility] [address] [place] [address] Mukesh Malik MD [address] [place] [address] 04/13/2025 4:30 PM EST Telemedicine [facility] [address] [place] [address] Byron Fitzgerald MD [address] [id number] 04/20/2025 2:00 PM EST Office Visit [facility] 235 [facility], 2nd [place] [address] Fernando Da Silva MD [address] [place] [address] 05/31/2025 9:00 AM EST Appointment [facility] [address] [place] [address] 06/04/2025 1:00 PM EST Pulmonary Function Test [facility] [address] [place] [address] Chris Patel MD [address] [place] [address] documented as of this encounter Visit Diagnoses Not on filedocumented in this encounter Care Teams Customs Entry Writer Relationship Specialty Start Date End Date Mukesh Malik MD [address] [place] [address] PCP - General Internal Medicine 07/03/18 Chris Patel MD [address] [place] [address] Physician Pulmonary Disease 06/11/23 Gary Alas MD [address] [place] [address] Surgeon General Surgery 06/03/24 Cari Steve MD [address] [place] [address] Physician Hematology and Oncology 06/10/24 Trudi Guerrero NP [address] [place] [address] Nurse Practitioner Internal Medicine 10/06/24 Yaritza Kc NP [address] [place] [address] Nurse Practitioner Internal Medicine 10/06/24 Sabrina Barbosa NP [address] [place] [address] Nurse Practitioner Internal Medicine 10/06/24 Dottie Granado, PharmD Pharmacist Pharmacy 12/11/24 01/11/25 documented as of this encounter
--- OUTSIDE RECORDS SUMMARY | 2025-03-04 22:22 | XMS_ITS | Encounter Summary ---
Author Organization [facility] Address [address] [place] [address] Care Team Providers Care Handle Bender Name Role Phone Mukesh Malik MD Primary Care Provider [phone] Chris Patel MD Unavailable Gary Alas MD Unavailable [phone] Cari Steve MD Unavailable [phone] Trudi Guerrero BOOKSTORE MANAGER Unavailable Yaritza Kc BOOKSTORE MANAGER Unavailable [phone] Sabrina Barbosa BOOKSTORE MANAGER Unavailable [phone] Reason for Visit * Reason Onset Date Comments Sick Call 02/18/2025 APPT Encounter Details Date Type Department Care Team (Late st Contact Info) Description 02/18/2025 Nurse Triage [facility] [address] [place] [address] Mukesh Malik MD [address] [place] [address] Sick Call (APPT ) Social History Tobacco Use Types Packs/Day Years Used Date Smoking Tobacco: Every Day Cigarettes 0.5 40 Started: 08/22/1982; Last attempted to quit: 08/22/2022 Smokeless Tobacco: Never Comments:10 cigs a day- pt s tates he quit last week. Alcohol Use Standard Drinks/Week Comments No 0 (1 standard drink = 0.6 oz pur e alcohol) Housing Stability - [facility] Screener Answer Date Recorded What is your living situation today? Steady hous ing 01/08/2025 Do you need help with Housing/Long-Term resources? Not on file 01/08/2025 Patient indicated [...] Date Recorded PHQ-9 Total Score 2 01/13/2024 [place] Depression Scale Score Not o n file [...] phone, visiting friends or family, going to confucianism or club meetings) No 01/13/2024 Patient indicated no issues from the most recent THRIVE questionnaire Not on file 01/13/2024 Adolescent Depression Answer Date Recor ded PHQ-9 Total Score 2 01/13/2024 [place] Depression Scale Score Not o n file [...] encounter Miscellaneous Notes * Telephone Encounter - Aicha Bustillos RN - 02/18/2025 6:55 AM EST Reason for Conversation Sick Call (APPT ) Objective and Symptom Summary Pt calling for Disposition Call PCP When Office is Open Reason for Disposition [1] Caller requesting NON-URGENT health information AND [2] PCP's office is the best resource No Initial Assessment on file. No Additional Information on file. Protocols Used Information Only Call - No Triage-A-AH documented in this encounter Plan of Treatment Upcoming Encounters Date Type Department Care Team (Late st Contact Info) Description 05/31/2024 [facility] [address] [place] [address] 03/10/2025 3:00 PM EST [facility] [address] [place] [address] Mukesh Malik MD [address] [place], [place] [address]646[address] 04/13/2025 4:30 PM EST Telemedicine [facility] [address] [place] [address] Byron Fitzgerald MD [address] [id number] 04/20/2025 2:00 PM EST [facility] 235 [facility], 2nd [place] [address] Fernando Da Silva MD [address] [place], [place] [phone] 05/31/2025 9:00 AM EST [facility]ointment [facility] [address] [place] [address] 06/04/2025 1:00 PM EST Pulmonary Function Test [facility] [address] [place] [address] Chirs Patel MD [address] [place], [place] 28226[address] documented as of this encounter Visit Diagnoses Not on filedocumented in this encounter Care Teams Handle Bender Relationship Specialty Start Date End Date Mukesh Malik MD [address] [place] [address] PCP - General Internal Medicine 07/03/18 Chris Patel MD [address] [place] [address] Physician Pulmonary Disease 06/11/23 Gary Alas MD [address] [place] [address] Surgeon General Surgery 06/03/24 Cari Steve MD [address] [place] [address] [place] [address] Physician Hematology and Oncology 06/10/24 Trudi Guerrero NP [address] [place] [address] Nurse Practitioner Internal Medicine 10/06/24 Yaritza Kc NP [address] [place] [address] Nurse Practitioner Internal Medicine 10/06/24 Sabrina Barbosa NP [address] [place] [address] Nurse Practitioner Internal Medicine 10/06/24 documented as of this encounter
--- OUTSIDE RECORDS SUMMARY | 2025-03-04 22:22 | XMS_ITS | Encounter Summary ---
Author Organization [facility] Address [address] [place] [address] Care Team Providers Care Bicycle Repairer Name Role Phone Mukesh Malik MD Primary Care Provider [phone] Chris Patel MD Unavailable Gary Alas MD Unavailable [phone] Cari Steve MD Unavailable [phone] Trudi Guerrero NET APPLICATIONS DEVELOPER Unavailable [phone] Yaritza Kc NET APPLICATIONS DEVELOPER Unavailable [phone] Sabrina Barbosa NET APPLICATIONS DEVELOPER Unavailable [phone] Dottie Granado PharmD Unavailable Unavailable Encounter Details Date Type Department Care Team (Late st Contact Info) Description 06/10/2024 Procedure Pass [facility] - [address] [address] Social History Tobacco Use Types [...] ing 01/13/2024 Do you need help with Housing/Alf resources? Not on file 01/13/2024 Patient indicated [...] Date Recorded PHQ-9 Total Score 2 01/13/2024 [place] Depression Scale Score Not o n file [...] phone, visiting friends or family, going to yazidi or club meetings) No 01/13/2024 Patient indicated no issues from the most recent THRIVE questionnaire Not on file 01/13/2024 Adolescent Depression Answer Date Recor ded PHQ-9 Total Score 2 01/13/2024 [place] Depression Scale Score Not o n file [...] Contact Info) Description 05/31/2024 [facility] [address] [place] [address] 03/10/2025 3:00 PM EST Office Visit [facility] [address] [place] [address] Mukesh Malik MD [address] [place] [address] 04/13/2025 4:30 PM EST Telemedicine [facility] [address] [place] [address] Byron Fitzgerald MD [address] [phone] 04/20/2025 2:00 PM EST Office Visit [facility] 235 [facility], 2nd [place] [address] Fernando Da Silva MD [address] [place] [address] 05/31/2025 9:00 AM EST Appointment [facility] [address] [place] [address] 06/04/2025 1:00 PM EST Pulmonary Function Test [facility] [address] [place] [address] Chris Patel MD [address] [place] [address] documented as of this encounter Visit Diagnoses Not on filedocumented in this encounter Care Teams Bicycle Repairer Relationship Specialty Start Date End Date Mukesh Malik MD [address] [place] [address] PCP - General Internal Medicine 07/03/18 Chris Patel MD [address] [place] [address] Physician Pulmonary Disease 06/11/23 Gary lAas MD [address] [place] [address] Surgeon General Surgery 06/03/24 Cari Steve MD [address] [place] [address] Physician Hematology and Oncology 06/10/24 Trudi Guerrero NP [address] [place] [address] Nurse Practitioner Internal Medicine 10/06/24 Yaritza Kc NP [address] [place] [address] Nurse Practitioner Internal Medicine 10/06/24 Sabrina Barbosa NP [address] [place] [address] Nurse Practitioner Internal Medicine 10/06/24 Dottie Granado, PharmD Pharmacist Pharmacy 12/11/24 01/11/25 documented as of this encounter
--- OUTSIDE RECORDS SUMMARY | 2025-03-04 22:22 | XMS_ITS | Encounter Summary ---
Author Organization [facility] Address [address] [place] [address] Care Team Providers Care Medical Affairs Director Name Role Phone Mukesh Malik MD Primary Care Provider Chris Patel MD Unavailable Gary Alas MD Unavailable [phone] Cari Steve MD Unavailable [phone] Trudi Guerrero MANAGER COMBINATION Unavailable Yaritza Kc MANAGER COMBINATION Unavailable [phone] Sabrina Barbosa MANAGER COMBINATION Unavailable [phone] Dottie Granado PharmD Unavailable Unavailable Reason for Visit * Reason Onset Date Comments urinary symptoms 06/25/2024 Encounter Details Date Type Department Care Team (Late st Contact Info) Description 06/25/2024 Nurse Triage [facility] [address] [place] [address] Mukesh Malik MD [address] [place], [place] [phone] urinary symptoms Social History Tobacco Use Types Packs/Day Years Used Date Smoking Tobacco: Former Cigarettes 0.5 40 0 08/22/1982 - 08/22/2022 Smokeless Tobacco: Never Comments:10 cigs a day- pt s tates he quit last week. Alcohol Use Standard Drinks/Week Comments No 0 (1 standard drink = 0.6 oz pur e alcohol) Housing Stability - [facility] Screener Answer Date Recorded What is your living situation today? Steady hous ing 01/13/2024 Do you need help with Housing/Skilled Nursing resources? Not on file 01/13/2024 Patient indicated [...] Date Recorded PHQ-9 Total Score 2 01/13/2024 [place] Depression Scale Score Not o n file [...] phone, visiting friends or family, going to jew or club meetings) No 01/13/2024 Patient indicated no issues from the most recent THRIVE questionnaire Not on file 01/13/2024 Adolescent Depression Answer Date Recor ded PHQ-9 Total Score 2 01/13/2024 [place] Depression Scale Score Not o n file [...] encounter Miscellaneous Notes * Telephone Encounter - Dulce Maria Mcknight RN - 06/25/2024 2:08 PM EDT Call received from patient. Per last triage note, patient acknowledges symptoms previously documented. He spoke of not being available today for appointment as he can't hold his urine and he is shopping for [employer]. Waiting for call back regarding possible appointment to be seen tomorrow. I advised the message has been sent over to the office, and he should be hearing in regards to an appointment. He acknowledged understanding of same, and will await the call. documented in this encounter Plan of Treatment Upcoming Encounters Date Type Department Care Team (Late st Contact Info) Description 05/31/2024 Procedure Pass [facility] [address] [place] [address] 03/10/2025 3:00 PM EST Office Visit [facility] [address] [place] [address] Mukesh Malik MD [address] [place], [place] [phone] 04/13/2025 4:30 PM EST Telemedicine [facility] [address] [place] [phone] Byron Fitzgerald MD [address] [id number] 04/20/2025 2:00 PM EST Office Visit [facility] 235 [facility], 2nd [place] [address] Fernando Da Silva MD [address] [place], [place] [phone] 05/31/2025 9:00 AM EST Appointment [facility] [address] [place] [address] 06/04/2025 1:00 PM EST Pulmonary Function Test [facility] [place] [address] Chris Patel MD [address] [place] [address] documented as of this encounter Visit Diagnoses Not on filedocumented in this encounter Care Teams Medical Affairs Director Relationship Specialty Start Date End Date Mukesh Malik MD [address] [place] [address] PCP - General Internal Medicine 07/03/18 Chris Patel MD [address] [place] [address] Physician Pulmonary Disease 06/11/23 Gary Alas MD [address] [place] [address] Surgeon General Surgery 06/03/24 Cari Steve MD [address] [place] [address] [place] [address] Physician Hematology and Oncology 06/10/24 Trudi Guerrero NP [address] [place] [address] Nurse Practitioner Internal Medicine 10/06/24 Yaritza Kc NP [address] [place] [address] Nurse Practitioner Internal Medicine 10/06/24 Sabrina Barbosa NP [address] [place] [address] Nurse Practitioner Internal Medicine 10/06/24 Dottie Granado, PharmD Pharmacist Pharmacy 12/11/24 01/11/25 documented as of this encounter
--- OUTSIDE RECORDS SUMMARY | 2025-03-04 22:22 | XMS_ITS | Encounter Summary ---
Author Organization [facility] Address [address] [place] [address] Care Team Providers Care Paralegal Specialist Name Role Phone Mukesh Malik MD Primary Care Provider [phone] Chris Patel MD Unavailable Silvana Fernandez MD Unavailable Gary Alas MD Unavailable [phone] Cari Steve MD Unavailable [phone] Trudi Guerrero CHIEF MEDICAL DIRECTOR Unavailable [phone] Yaritza Kc CHIEF MEDICAL DIRECTOR Unavailable [phone] Sabrina Barbosa CHIEF MEDICAL DIRECTOR Unavailable [phone] Dottie Granado PharmD Unavailable Unavailable Reason for Visit * Reason Comments Medication Refill Encounter Details Date Type Department Care Team (Late st Contact Info) Description 09/08/2018 Refill [facility] [address] [place] [address] Yaritza Kc NP [address] [place], [place] [phone] Right shoulder pain Social History Tobacco Use Types Packs/Day Years [...] 05/31/2024 Procedure Pass [facility] [address] [place] [address] 03/10/2025 3:00 PM EST [facility] [address] [place] [address] Mukesh Malik MD [address] [place], [place] [address] 04/13/2025 4:30 PM EST Telemedicine [facility]0 [place] [address] Byron Fitzgerald MD [facility] [address] [id number] 04/20/2025 2:00 PM EST [facility] 235 [facility], [address] [place] [address] Fernando Da Silva MD [address] [place] [address] 05/31/2025 9:00 AM EST [facility]ment [facility] [address] [place] [address] 06/04/2025 1:00 PM EST Pulmonary [facility] [address] [place] [phone] [place] [address] [place] [address] documented as of this encounter Visit Diagnoses Diagnosis Right shoulder pain Pain in joint, shoulder region documented in this encounter Care Teams Paralegal Specialist Relationship Specialty Start Date End Date Mukesh Malik MD [address] [place] [address] PCP - General Internal Medicine 07/03/18 Chris Patel MD [address] [place] [address] Physician Pulmonary Disease 06/11/23 Silvana Fernandez MD [address] [place] [address] Physician Hematology and Oncology 01/27/24 Gary Alas MD [address] [place] [address] Surgeon General Surgery 06/03/24 Cari Steve MD [address] [place] [address] [place] [address] Physician Hematology and Oncology 06/10/24 Trudi Guerrero NP [address] [place] [address] Nurse Practitioner Internal Medicine 10/06/24 Yaritza Kc NP [address] [place] [address] Nurse Practitioner Internal Medicine 10/06/24 Sabrina Barbosa NP [address] [place] [address] Nurse Practitioner Internal Medicine 10/06/24 Dottie Granado, PharmD Pharmacist Pharmacy 12/11/24 01/11/25 documented as of this encounter
--- OUTSIDE RECORDS SUMMARY | 2025-03-04 22:23 | XMS_ITS | Encounter Summary ---
Author Organization [facility] Address [address] [place] [address] Care Team Providers Care Vision Teacher Name Role Phone Mukesh Malik MD Primary Care Provider [phone] Chris Patel MD Unavailable Gary Alas MD Unavailable [phone] Cari Steve MD Unavailable [phone] Trudi Guerrero SHOVEL ENGINEER Unavailable Yaritza Kc SHOVEL ENGINEER Unavailable [phone] Sabrina Barbosa SHOVEL ENGINEER Unavailable [phone] Dottie Granado PharmD Unavailable Unavailable Reason for Visit * Reason Onset Date Comments Medication Refill 12/11/2024 Encounter Details Date Type Department Care Team (Late st Contact Info) Description 12/11/2024 Refill [facility] [address] [place] [address] Mukesh Malik MD [address] [place], [place] [phone] Social History Tobacco Use Types Packs/Day Years Used Date Smoking Tobacco: Former Cigarettes 0.5 40 0 08/22/1982 - 08/22/2022 Smokeless Tobacco: Never Comments:10 cigs a day- pt s tates he quit last week. Alcohol Use Standard Drinks/Week Comments No 0 (1 standard drink = 0.6 oz pur e alcohol) Housing Stability - [facility] Screener Answer Date Recorded What is your [...] Date Recorded PHQ-9 Total Score 2 01/13/2024 [place] Depression Scale Score Not o n file [...] Recor ded PHQ-9 Total Score 2 01/13/2024 [place] Depression Scale Score Not o n file [...] st Contact Info) Description 05/31/2024 Procedure Pass [facility] [address] [place] [address] 03/10/2025 3:00 PM EST Office Visit [facility] [address] [place] [address] Mukesh Malik MD [address] [place] [address] 04/13/2025 4:30 PM EST Telemedicine [facility] 10[address] [place] [phone] Byron Fitzgerald MD [address] [id number] 04/20/2025 2:00 PM EST Office Visit [facility] [address] [phone] Fernando Da Silva MD 235 [place] [address] 05/31/2025 9:00 AM EST Appointment [facility] [address] [place] [address] 06/04/2025 1:00 PM EST Pulmonary Function Test [facility] 10[address] [place] [phone] Chris Patel MD [address] [place] [address] documented as of this encounter Visit Diagnoses Not on filedocumented in this encounter Care Teams Vision Teacher Relationship Specialty Start Date End Date Mukesh Malik MD [address] [place] [address] PCP - General Internal Medicine 07/03/18 Chris Patel MD [facility] [place] [address] Physician Pulmonary Disease 06/11/23 Gary Alas MD [address] [place] [address] Surgeon General Surgery 06/03/24 Cari Steve MD [address] [place] [address] Physician Hematology and Oncology 06/10/24 Trudi Guerrero NP [address] [place] [address] Nurse Practitioner Internal Medicine 10/06/24 Yaritza Kc NP [address] [place] [address] Nurse Practitioner Internal Medicine 10/06/24 Sabrina Barbosa NP [address] [place] [address] Nurse Practitioner Internal Medicine 10/06/24 Dottie Granado, PharmD Pharmacist Pharmacy 12/11/24 01/11/25 documented as of this encounter
--- OUTSIDE RECORDS SUMMARY | 2025-03-04 22:23 | XMS_ITS | Encounter Summary ---
Author Organization [facility] Address [address] [place] [address] Care Team Providers Care Brooch And Bracelet Maker Name Role Phone Mukesh Malik MD Primary Care Provider [phone] Chris Patel MD Unavailable Gary Alas MD Unavailable [phone] Cari Steve MD Unavailable [phone] Trudi Guerrero HOT SAW HELPER Unavailable Yaritza Kc HOT SAW HELPER Unavailable [phone] Sabrina Barbosa HOT SAW HELPER Unavailable [phone] Dottie Granado PharmD Unavailable Unavailable Reason for Visit * Reason Onset Date Comments Sick Call 01/10/2025 QUESTION ON ANDREO DWCLAU Encounter Details Date Type Department Care Team (Late st Contact Info) Description 01/10/2025 Nurse Triage [facility] [address] [place] [address] Mukesh Malik MD [address] [place], [place] [phone] Sick Call (QUESTION ON BLOODWORK) Social History Tobacco Use Types Packs/Day Years Used Date Smoking Tobacco: Every Day Cigarettes 0.5 40 Started: 08/22/1982; Last attempted to quit: 08/22/2022 Smokeless Tobacco: Never Comments:10 cigs a day- pt s tates he quit last week. Alcohol Use Standard Drinks/Week Comments No 0 (1 standard drink = 0.6 oz pur e alcohol) Housing Stability - [facility] Screener Answer Date Recorded What is your living situation today? Steady hous ing 01/08/2025 Do you need help with Housing/Senior Care resources? Not on file 01/08/2025 Patient indicated [...] Date Recorded PHQ-9 Total Score 2 01/13/2024 [place] Depression Scale Score Not o n file [...] phone, visiting friends or family, going to scientology or club meetings) No 01/13/2024 Patient indicated no issues from the most recent THRIVE questionnaire Not on file 01/13/2024 Adolescent Depression Answer Date Recor ded PHQ-9 Total Score 2 01/13/2024 [place] Depression Scale Score Not o n file [...] encounter Miscellaneous Notes * Telephone Encounter - Deena Mott RN - 01/10/2025 10:04 PM EDT Reason for Conversation Sick Call (QUESTION ON BLOODWORK) Objective and Symptom Summary Pt calling asking for blood results and urine analysis results [phone] is his number for nursingto follow up with him tomorrow. Disposition Call PCP When Office is Open Reason for Disposition [1] Caller requesting NON-URGENT health information AND [2] PCP's office is the best resource 1. REASON FOR CALL or QUESTION: What is your reason for calling today? or How can I best help you? or What question do you have that I can help answer? Lab results No Additional Information on file. Protocols Used Information Only Call - No Triage-A-AH documented in this encounter Plan of Treatment Upcoming Encounters Date Type Department Care Team (Late st Contact Info) Description 05/31/2024 Procedure Pass [facility] [address] [place] [address] 03/10/2025 3:00 PM EST Office Visit [facility] [address] [place] [address] Mukesh Malik MD [address] [place], [place] [phone] 04/13/2025 4:30 PM EST Telemedicine [facility] [address] [place] [phone] Byron Fitzgerald MD [address] [place] [phone] 04/20/2025 2:00 PM EST Office Visit [facility] 235 [facility], [address] [place] [phone] Fernando Da Silva MD [address] [place], [place] [phone] 05/31/2025 9:00 AM EST [facility]ointment [facility] [address] [place] [phone] 06/04/2025 1:00 PM EST Pulmonary Function Test [facility] [address] [place] [address] Chris Patel MD [address] [place] [address] documented as of this encounter Visit Diagnoses Not on filedocumented in this encounter Care Teams Brooch And Bracelet Maker Relationship Specialty Start Date End Date Mukesh Malik MD [address] [place] [address] PCP - General Internal Medicine 07/03/18 Chris Patel MD [address] [place] [address] Physician Pulmonary Disease 06/11/23 Gary Alas MD [address] [place] [address] Surgeon General Surgery 06/03/24 Cari Steve MD [address] [place] [address] Physician Hematology and Oncology 06/10/24 Trudi Guerrero NP [address] [place] [address] Nurse Practitioner Internal Medicine 10/06/24 Yaritza Kc NP [address] [place] [address] Nurse Practitioner Internal Medicine 10/06/24 Sabrina Barbosa NP [address] [place] [address] Nurse Practitioner Internal Medicine 10/06/24 Dottie Granado, PharmD Pharmacist Pharmacy 12/11/24 01/11/25 documented as of this encounter
--- OUTSIDE RECORDS SUMMARY | 2025-03-04 22:23 | XMS_ITS | Encounter Summary ---
Author Organization [facility] Address [address] [place] [address] Care Team Providers Care Nuclear Security Officer Name Role Phone Mukesh Malik MD Primary Care Provider [phone] Chris Patel MD Unavailable Silvana Fernandez MD Unavailable Gary Alas MD Unavailable [phone] Cari Steve MD Unavailable [phone] Trudi Guerrero PLUMBER ASSISTANT Unavailable [phone] Yaritza Kc PLUMBER ASSISTANT Unavailable [phone] Sabrina Barbosa PLUMBER ASSISTANT Unavailable [phone] Dottie Granado PharmD Unavailable Unavailable Encounter Details Date Type Department Care Team (Late st Contact Info) Description 07/03/2021 Procedure Pass [facility] - [address] [address] Social History Tobacco Use Types [...] Description 05/31/2024 [facility] [address] [place] [address] 03/10/2025 3:00 PM EST [facility] [address] [place] [address] Mukesh Malik MD [address] [place], [place] [phone] 04/13/2025 4:30 PM EST [facility]medicine [facility]0 [place] [phone] Byron Fitzgerald MD [facility] [address] [phone] 04/20/2025 2:00 PM EST Office Visit [facility] 235 [facility], 2nd [place] [address] Fernando Da Silva MD 235 [place], [place] [phone] 05/31/2025 9:00 AM EST Appointment [facility] [address] [place] [address] 06/04/2025 1:00 PM EST Pulmonary Function Test [facility]0 [place] [phone] Chris Patel MD [address] [place] [phone] documented as of this encounter Visit Diagnoses Not on filedocumented in this encounter Care Teams Nuclear Security Officer Relationship Specialty Start Date End Date Mukesh Malik MD [address] [place], [place] [phone] PCP - General Internal Medicine 07/03/18 Chris Patel MD [address] [place] [address] Physician Pulmonary Disease 06/11/23 Silvana Fernandez MD [address] [place] [address] Physician Hematology and Oncology 01/27/24 Gary Alas MD [address] [place] [address] Surgeon General Surgery 06/03/24 Cari Steve MD [address] [place] [address] Physician Hematology and Oncology 06/10/24 Trudi Guerrero NP [address] [place] [address] Nurse Practitioner Internal Medicine 10/06/24 Yaritza Kc NP [address] [place] [address] Nurse Practitioner Internal Medicine 10/06/24 Sabrina Barbosa NP [address] [place] [address] Nurse Practitioner Internal Medicine 10/06/24 Dottie Granado, PharmD Pharmacist Pharmacy 12/11/24 01/11/25 documented as of this encounter
--- OUTSIDE RECORDS SUMMARY | 2025-03-04 22:23 | XMS_ITS | Encounter Summary ---
Author Organization [facility] Address [address] [place] [address] Care Team Providers Care Dredge Pump Operator Name Role Phone Daniel Abarca MD Primary Care Provider Dano Monsalve DO Primary Care Provider [phone] Dano Monsalve DO Primary Care Provider [phone] Mukesh Malik MD Primary Care Provider Mukesh Malik MD Primary Care Provider Chris Patel MD Unavailable Silvana Fernandez MD Unavailable Gary Alas MD Unavailable [phone] Cari Steve MD Unavailable Trudi Guerrero MANAGER SUBWAY Unavailable Yaritza Kc MANAGER SUBWAY Unavailable [phone] Sabrina Barbosa MANAGER SUBWAY Unavailable [phone] Dottie Granado PharmD Unavailable Unavailable Reason for Visit * Reason Comments Medication Refill Encounter Details Date Type Department Care Team (Late st Contact Info) Description 06/19/2017 Refill [facility] [address] [place] [phone] Daniel Abarca MD [address] [place], [place] [phone] Social History Tobacco Use Types Packs/Day Years Used Date Smoking Tobacco: Former Cigarettes Q uit: 04/01/2016 Comments:1 cigarette a day p rior Alcohol Use Standard Drinks/Week Comments No 0 [...] st Contact Info) Description 05/31/2024 [facility] [address] [place] [address] 03/10/2025 3:00 PM EST Office Visit [facility] [address] [place] [address] Mukesh Malik MD [address] [place] [address] 04/13/2025 4:30 PM EST Telemedicine [facility] [address] [place] [address] Byron Fitzegrald MD [facility] [address] [address] 04/20/2025 2:00 PM EST Office Visit [facility] [address] [address] Fernando Da Silva MD 235 [place] [address] 05/31/2025 9:00 AM EST [facility]ment [facility] [address] [place] [address] 06/04/2025 1:00 PM EST Pulmonary Function Test [facility] [address] [place] [address] Chris Patel MD [address] [place], [place] documented as of this encounter Visit Diagnoses Not on filedocumented in this encounter Care Teams Dredge Pump Operator Relationship Specialty Start Date End Date Daniel Abarca MD [address] [place] [address] PCP - General Internal Medicine 03/04/15 06/11/18 Dano Monsalve DO [address] [address] PCP - General Internal Medicine 06/12/18 06/15/18 Dano Monsalve DO [address] [address] PCP - General Internal Medicine 06/25/18 07/02/18 Mukesh Malik MD [address] [place] [address] PCP - General Internal Medicine 06/16/18 06/24/18 Mukesh Malik MD [address] [place] [address] PCP - General Internal Medicine 07/03/18 Chris Patel MD [address] [place] [address] Physician Pulmonary Disease 06/11/23 Silvana Fernandez MD [address] [place] [address] Physician Hematology and Oncology 01/27/24 Gary Alas MD [address] [place] [address] Surgeon General Surgery 06/03/24 Cari Steve MD [address] [place] [address] Physician Hematology and Oncology 06/10/24 Trudi Guerrero NP [address] [place] [address] Nurse Practitioner Internal Medicine 10/06/24 Yaritza Kc NP [address] [place] [address] Nurse Practitioner Internal Medicine 10/06/24 Sabrina Barbosa NP [address] [place] [address] Nurse Practitioner Internal Medicine 10/06/24 Dottie Granado, PharmD Pharmacist Pharmacy 12/11/24 01/11/25 documented as of this encounter
--- OUTSIDE RECORDS SUMMARY | 2025-03-04 22:23 | XMS_ITS | Encounter Summary ---
Author Organization [facility] Address [address] [place] [address] Care Team Providers Care Plastics Bench Mechanic Name Role Phone Mukesh Malik MD Primary Care Provider [phone] Chris Patel MD Unavailable Gary Alas MD Unavailable [phone] Cari Steve MD Unavailable [phone] Trudi Guerrero RETAIL PARTS PROFESSIONAL Unavailable [phone] Yaritza Kc RETAIL PARTS PROFESSIONAL Unavailable [phone] Sabrina Barbosa RETAIL PARTS PROFESSIONAL Unavailable [phone] Dottie Granado PharmD Unavailable Unavailable Encounter Details Date Type Department Care Team (Late st Contact Info) Description 01/09/2025 Pharmacy Visit [facility] [address] [place] [address] Social History Tobacco Use Types Packs/Day Years [...] ing 01/08/2025 Do you need help with Housing/Fdc resources? Not on file 01/08/2025 Patient indicated [...] Date Recorded PHQ-9 Total Score 2 01/13/2024 Grant Depression Scale Score Not o n file [...] phone, visiting friends or family, going to mandaen or club meetings) No 01/13/2024 Patient indicated no issues from the most recent THRIVE questionnaire Not on file 01/13/2024 Adolescent Depression Answer Date Recor ded PHQ-9 Total Score 2 01/13/2024 [place] Depression Scale Score Not o n file [...] Info) Description 05/31/2024 [facility] [address] [place] [address] 03/10/2025 3:00 PM EST [facility] [address] [place] [address] Mukesh Malik MD [address] [place] [address] 04/13/2025 4:30 PM EST Telemedicine [facility] [address] [place] [address] Byron Fitzgerald MD [address] [id number] 04/20/2025 2:00 PM EST Office Visit [facility] 235 [facility], [address] [place] [phone] Fernando Da Silva MD [address] [place], [place] [phone] 05/31/2025 9:00 AM EST Appointment [facility] [address] [place] [address] 06/04/2025 1:00 PM EST Pulmonary Function Test [facility] 10[address] [place] [phone] Chris Patel MD [facility] [place] [address] documented as of this encounter Visit Diagnoses Not on filedocumented in this encounter Care Teams Plastics Bench Mechanic Relationship Specialty Start Date End Date Mukesh Malik MD [address] [place] [address] PCP - General Internal Medicine 07/03/18 Chris Patel MD [address] [place] [address] Physician Pulmonary Disease 06/11/23 Gary Alas MD [address] [place] [address] Surgeon General Surgery 06/03/24 Cari Steve MD [address] [place] [address] Physician Hematology and Oncology 06/10/24 Trudi Guerrero NP [address] [place] [address] Nurse Practitioner Internal Medicine 10/06/24 Yaritza Kc NP [address] [place] [address] Nurse Practitioner Internal Medicine 10/06/24 Sabrina Barbosa NP [address] [place] [address] Nurse Practitioner Internal Medicine 10/06/24 Dottie Granado, PharmD Pharmacist Pharmacy 12/11/24 01/11/25 documented as of this encounter
--- OUTSIDE RECORDS SUMMARY | 2025-03-04 22:23 | XMS_ITS | Encounter Summary ---
Author Organization [facility] Address [address] [place] [address] Care Team Providers Care Placement Assistant Name Role Phone Daniel Abarca MD Primary Care Provider Dano Monsalve DO Primary Care Provider Dano Monsalve DO Primary Care Provider Mukesh Malik MD Primary Care Provider Mukesh Malik MD Primary Care Provider Chris Patel MD Unavailable Silvana Fernandez MD Unavailable Gary Alas MD Unavailable [phone] Cari Steve MD Unavailable Trudi Guerrero TAILING MACHINE OPERATOR Unavailable Yaritza Kc TAILING MACHINE OPERATOR Unavailable [phone] Sabrina Barbosa TAILING MACHINE OPERATOR Unavailable [phone] Dottie Granado PharmD Unavailable Unavailable Reason for Visit * Reason Comments Medication Refill Encounter Details Date Type Department Care Team (Late st Contact Info) Description 04/19/2018 Refill [facility] [address] [place] [phone] Daniel Abarca MD [address] [place], [place] [phone] Social History Tobacco Use Types Packs/Day Years Used Date Smoking Tobacco: Every Day Cigarettes Last attempted to quit: 04/01/2016 Smokeless Tobacco: Never Comments:1 cigarette a day p rior; now a half a cig.a day. Alcohol Use Standard Drinks/Week Comments No 0 [...] st Contact Info) Description 05/31/2024 [facility] [address] [place] [address] 03/10/2025 3:00 PM EST [facility] [address] [place] [address] Mukesh Malik MD [address] [place] [address] 04/13/2025 4:30 PM EST [facility]icine [facility] [place] [address] Byron Fitzgerald MD [address] [place] [address] 04/20/2025 2:00 PM EST [facility] [address] [phone] Fernando Da Silva MD 235 [place] [address] 05/31/2025 9:00 AM EST Appointment [facility] [address] [place] [address] 06/04/2025 1:00 PM EST Pulmonary Function Test [facility] [address] [place] [address] Chris Patel MD [address] [place] [address] documented as of this encounter Visit Diagnoses Not on filedocumented in this encounter Care Teams Placement Assistant Relationship Specialty Start Date End Date Daniel Abarca MD [address] [place] [address] PCP - General Internal Medicine 03/04/15 06/11/18 Dano Monsalve DO [address] [address] PCP - General Internal Medicine 06/12/18 06/15/18 Dano Monsalve DO [address] [address] PCP - General Internal Medicine 06/25/18 07/02/18 Mukesh Malik MD [address] [place] [address] PCP - General Internal Medicine 06/16/18 06/24/18 Mukesh Malik MD [address] [place] [address] PCP - General Internal Medicine 07/03/18 Chris Patel MD [address] [place] [address] Physician Pulmonary Disease 06/11/23 Silvana Fernandez MD [address] [place] [address] Physician Hematology and Oncology 01/27/24 Gary Alas MD [address] [place] [address] Surgeon General Surgery 06/03/24 Cari Steve MD [address] [place] [address] Physician Hematology and Oncology 06/10/24 Trudi Guerrero NP [address] [place] [address] Nurse Practitioner Internal Medicine 10/06/24 Yaritza Kc NP [address] [place] [address] Nurse Practitioner Internal Medicine 10/06/24 Sabrina Barbosa NP [address] [place] [address] Nurse Practitioner Internal Medicine 10/06/24 Dottie Granado, PharmD Pharmacist Pharmacy 12/11/24 01/11/25 documented as of this encounter
--- OUTSIDE RECORDS SUMMARY | 2025-03-04 22:23 | XMS_ITS | Encounter Summary ---
Author Organization [facility] Address [address] [place] [address] Care Team Providers Care Pressurised Container Filler Name Role Phone Mukesh Malik MD Primary Care Provider [phone] Chris Patel MD Unavailable Silvana Fernandez MD Unavailable Gary Alas MD Unavailable [phone] Cari Steve MD Unavailable [phone] Trudi Guerrero SYSTEMS DEVELOPMENT CONSULTANT Unavailable [phone] Yaritza Kc SYSTEMS DEVELOPMENT CONSULTANT Unavailable [phone] Sabrina Barbosa SYSTEMS DEVELOPMENT CONSULTANT Unavailable [phone] Dottie Granado PharmD Unavailable Unavailable Encounter Details Date Type Department Care Team (Late st Contact Info) Description 06/28/2020 Procedure Pass [facility] - [address] [address] Social History Tobacco Use Types Packs/Day Years Used Date Smoking Tobacco: Every Day Cigarettes 0.3 3 Smokeless Tobacco: Never Comments:1 cig a day now Alcohol Use Standard Drinks/Week Comments No 0 [...] 05/31/2024 Procedure Pass [facility] [address] [place] [address] 03/10/2025 3:00 PM EST [facility] [address] [place] [address] Mukesh Malik MD [address] [place] [address] 04/13/2025 4:30 PM EST [facility]icine [facility]0 [place] [phone] Byron Fitzgerald MD [facility] [address] [phone] 04/20/2025 2:00 PM EST Office Visit [facility] 235 [facility], 2nd [place] [address] Fernando Da Silva MD 235 [place], [place] [address] 05/31/2025 9:00 AM EST Appointment [facility] [address] [place] [address] 06/04/2025 1:00 PM EST [facility]monary [facility] [place] [address] Chris Patel MD [facility] [place], [place] [phone] documented as of this encounter Visit Diagnoses Not on filedocumented in this encounter Care Teams Pressurised Container Filler Relationship Specialty Start Date End Date Mukesh Malik MD [address] [place], [place] [phone] PCP - General Internal Medicine 07/03/18 Chris Patel MD [address] [place] [address] Physician Pulmonary Disease 06/11/23 Silvana Fernandez MD [address] [place] [address] Physician Hematology and Oncology 01/27/24 Gary Alas MD [address] [place] [address] Surgeon General Surgery 06/03/24 Cari Steve MD [address] [place] [address] [place] [address] Physician Hematology and Oncology 06/10/24 Trudi Guerrero NP [address] [place] [address] Nurse Practitioner Internal Medicine 10/06/24 Yaritza Kc NP [address] [place] [address] Nurse Practitioner Internal Medicine 10/06/24 Sabrina Barbosa NP [address] [place] [address] Nurse Practitioner Internal Medicine 10/06/24 Dottie Granado, PharmD Pharmacist Pharmacy 12/11/24 01/11/25 documented as of this encounter
--- OUTSIDE RECORDS SUMMARY | 2025-03-04 22:23 | XMS_ITS | Encounter Summary ---
Author Organization [facility] Address [address] [place] [address] Care Team Providers Care Administrative Law Judge Name Role Phone Mukesh Malik MD Primary Care Provider [phone] Chris Patel MD Unavailable Gary Alas MD Unavailable [phone] Cari Steve MD Unavailable [phone] Trudi Guerrero MACHINE OPERATOR HAY STACKER Unavailable [phone] Yaritza Kc MACHINE OPERATOR HAY STACKER Unavailable [phone] Sabrina Barbosa MACHINE OPERATOR HAY STACKER Unavailable [phone] Dottie Granado PharmD Unavailable Unavailable Reason for Visit * Reason Comments Results Encounter Details Date Type Department Care Team (Late st Contact Info) Description 01/01/2025 Telephone [facility] [address] [place] [address] Esteban Saenz MD [address] [place] [address] Results Social History Tobacco Use Types Packs/Day Years Used Date Smoking Tobacco: Former Cigarettes 0.5 40 0 08/22/1982 - 08/22/2022 Smokeless Tobacco: Never Comments:10 cigs a day- pt s tates he quit last week. Alcohol Use Standard Drinks/Week Comments No 0 (1 standard drink = 0.6 oz pur e alcohol) Housing Stability - [facility] Screener Answer Date Recorded What is your living situation today? Steady hous ing 01/13/2024 Do you need help with Housing/[facility] resources? 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 Pt states he needs medication today and isnt feeling well. * Telephone Encounter - Jeanne Lam - 01/01/2025 4:15 PM EDT [phone] Pt would like a call back today to advise if something will be called in. Pt uses [facility] listed * Telephone Encounter - Keturah Lin - 01/01/2025 1:36 PM EDT Copied from [facility] #[id number]. Topic: Incoming Call for Office - Sent to Practice >> Jan 01, 2025 1:33 PM Keturah wrote: [phone] Pt called stating his pcp did a urine and was told to call Dr. Saenz to get an antibiotic. He states food particles has been coming out of his urine. He would like a call back. documented in this encounter Plan of Treatment Upcoming Encounters Date Type Department Care Team (Late st Contact Info) Description 05/31/2024 Procedure Pass [facility] [address] [place] [address] 03/10/2025 3:00 PM EST Office Visit [facility] [address] [place] [address] Mukesh Malik MD [address] [place] [address] 04/13/2025 4:30 PM EST Telemedicine [facility] [address] [place] [address] Byron Fitzgerald MD [address] [address] 04/20/2025 2:00 PM EST Office Visit [facility] 235 [facility], [address] [place] [address] Fernando Da Silva MD 235 [place] [address] 05/31/2025 9:00 AM EST Appointment [facility] [address] [place] [address] 06/04/2025 1:00 PM EST Pulmonary Function Test [facility] [address] [place] [phone] Chris Patel MD [address] [place] [address] documented as of this encounter Visit Diagnoses Not on filedocumented in this encounter Care Teams Administrative Law Judge Relationship Specialty Start Date End Date Mukesh Malik MD [address] [place] [address] PCP - General Internal Medicine 07/03/18 Chris Patel MD [address] [place] [address] Physician Pulmonary Disease 06/11/23 Gary Alas MD [address] [place] [address] Surgeon General Surgery 06/03/24 Cari Steve MD [address] [place] [address] Physician Hematology and Oncology 06/10/24 Trudi Guerrero NP [address] [place] [address] Nurse Practitioner Internal Medicine 10/06/24 Yaritza Kc NP [address] [place] [address] Nurse Practitioner Internal Medicine 10/06/24 Sabrina Barbosa NP [address] [place] [address] Nurse Practitioner Internal Medicine 10/06/24 Dottie Granado, PharmD Pharmacist Pharmacy 12/11/24 01/11/25 documented as of this encounter
--- OUTSIDE RECORDS SUMMARY | 2025-03-04 22:23 | XMS_ITS | Encounter Summary ---
Author Organization [facility] Address [address] [place] [address] Care Team Providers Care Template Maker Name Role Phone Mukesh Malik MD Primary Care Provider [phone] Chris Patel MD Unavailable Silvana Fernandez MD Unavailable Gary Alas MD Unavailable [phone] Cari Steve MD Unavailable [phone] Trudi Guerrero AERIAL GUNNER SUPERINTENDENT Unavailable [phone] Yaritza Kc AERIAL GUNNER SUPERINTENDENT Unavailable [phone] Sabrina Barbosa AERIAL GUNNER SUPERINTENDENT Unavailable [phone] Dottie Granado PharmD Unavailable Unavailable Reason for Visit * Reason Comments Medication Refill Encounter Details Date Type Department Care Team (Late st Contact Info) Description 06/05/2021 Refill [facility] [address] [place] [address] Tj King PA [address] [place] [address] Social History Tobacco Use Types Packs/Day Years [...] 05/31/2024 Procedure Pass [facility] [address] [place] [address] 03/10/2025 3:00 PM EST Office Visit [facility] [address] [place] [address] Mukesh Malik MD [address] [place], [place] [address] 04/13/2025 4:30 PM EST Telemedicine [facility] [place] [address] Byron Fitzgerald MD [facility] [address] [address] 04/20/2025 2:00 PM EST Office Visit [facility] 235 [facility], [address] [place] [address] Fernando Da Silva MD [address] [place] [address] 05/31/2025 9:00 AM EST Appointment [facility] [address] [place] [address] 06/04/2025 1:00 PM EST [facility] [place] [address] [place] [address] [place] [address] documented as of this encounter Visit Diagnoses Not on filedocumented in this encounter Care Teams Template Maker Relationship Specialty Start Date End Date Mukesh Malik MD [address] [place] [address] PCP - General Internal Medicine 07/03/18 Chris Patel MD [address] [place] [address] Physician Pulmonary Disease 06/11/23 Silvana Fernandez MD [address] [place] [address] Physician Hematology and Oncology 01/27/24 Gary Alas MD [address] [place] [address] Surgeon General Surgery 06/03/24 Cari Steve MD [address] [place] [address] [place] [address] Physician Hematology and Oncology 06/10/24 Trudi Guerrero NP [address] [place] [address] Nurse Practitioner Internal Medicine 10/06/24 Yaritza Kc NP [address] [place] [address] Nurse Practitioner Internal Medicine 10/06/24 Sabrina Barbosa NP [address] [place] [address] Nurse Practitioner Internal Medicine 10/06/24 Dottie Granado, PharmD Pharmacist Pharmacy 12/11/24 01/11/25 documented as of this encounter
--- OUTSIDE RECORDS SUMMARY | 2025-03-04 22:23 | XMS_ITS | Encounter Summary ---
Author Organization [facility] Address [address] [place] [address] Care Team Providers Care Offset Printing Pressmen Name Role Phone Daniel Abarca MD Primary Care Provider [phone] Dano Monsalve DO Primary Care Provider Dano Monsalve DO Primary Care Provider Mukesh Malik MD Primary Care Provider Mukesh Malik MD Primary Care Provider Chris Patel MD Unavailable Silvana Fernandez MD Unavailable Gary Alas MD Unavailable [phone] Cari Steve MD Unavailable Trudi Guerrero CURRICULUM WRITER Unavailable Yaritza Kc CURRICULUM WRITER Unavailable [phone] Sabrina Barbosa CURRICULUM WRITER Unavailable Dottie Granado PharmD Unavailable Unavailable Reason for Visit * Reason Comments Medication Refill Encounter Details Date Type Department Care Team (Late st Contact Info) Description 10/10/2017 Refill [facility] [address] [place] [phone] Daniel Abarca MD [address] [place], [place] [phone] Social History Tobacco Use Types Packs/Day Years [...] st Contact Info) Description 05/31/2024 [facility] [address] [place] [address] 03/10/2025 3:00 PM EST [facility] [address] [place] [address] Mukesh Malik MD [address] [place] [address] 04/13/2025 4:30 PM EST Telemedicine [facility] [place] [address] Byron Fitzgerald MD [address] [place] [address] 04/20/2025 2:00 PM EST [facility] [address] [phone] Fernando Da Silva MD 235 [place] [address] 05/31/2025 9:00 AM EST [facility]ointment [facility] [address] [place] [address] 06/04/2025 1:00 PM EST Pulmonary Function Test [facility] [address] [place] [address] Chris Patel MD [address] [place] [address] documented as of this encounter Visit Diagnoses Not on filedocumented in this encounter Care Teams Offset Printing Pressmen Relationship Specialty Start Date End Date Daniel Abarca MD [address] [place] [address] PCP - General Internal Medicine 03/04/15 06/11/18 Dano Monsalve DO [address] [address] PCP - General Internal Medicine 06/12/18 06/15/18 Dano Monsalve DO [address] [address] PCP - General Internal Medicine 06/25/18 07/02/18 Mukesh Malik MD [address] [place] [address] PCP - General Internal Medicine 06/16/18 06/24/18 Mukesh Malik MD [address] [place] [address] PCP - General Internal Medicine 07/03/18 Chris Patel MD [address] [place] [address] Physician Pulmonary Disease 06/11/23 Silvana Fernandez MD [address] [place] [address] Physician Hematology and Oncology 01/27/24 Gary Alas MD [address] [place] [address] Surgeon General Surgery 06/03/24 Cari Steve MD [address] [place] [address] Physician Hematology and Oncology 06/10/24 Trudi Guerrero NP [address] [place] [address] Nurse Practitioner Internal Medicine 10/06/24 Yaritza Kc NP [address] [place] [address] Nurse Practitioner Internal Medicine 10/06/24 Sabrina Barbosa NP [address] [place] [address] Nurse Practitioner Internal Medicine 10/06/24 Dottie Granado, PharmD Pharmacist Pharmacy 12/11/24 01/11/25 documented as of this encounter
--- OUTSIDE RECORDS SUMMARY | 2025-03-04 22:23 | XMS_ITS | Clinical Summary ---
Author Organization [facility] Address [address] [place] [address] Care Team Providers Care Supervisor Data Processing Name Role Phone Mukesh Malik MD Primary Care Provider [phone] Chris Patel MD Unavailable Gary Alas MD Unavailable [phone] Cari Steve MD Unavailable [phone] Trudi Guerrero MATTRESS STRIPPER Unavailable Yaritza Kc MATTRESS STRIPPER Unavailable [phone] Sabrina Barbosa MATTRESS STRIPPER Unavailable [phone] Allergies Active Allergy Reactions Criticality Noted Date Comments Prochlorperazine Edisylate 4 Haloperidol Lactate 03/24/2014 Levocetirizine Unable to Recall 12/09/2024 Thiothixene (Tiotixene) 03/24/2014 Fluphenazine 03/24/2014 Chlorpromazine 03/24/2014 Medications citalopram (CeleXA) 20 MG tablet Take 1.5 tablets (30 mg total) by mouth daily Active divalproex (DEPAKOTE) 500 MG EC tablet Take 2 tablets (1,000 mg total) by mouth 2 (two) times a day Active Incontinence Supply Disposable (FITTED BRIEFS LARGE) MISC 2 briefs daily for urinary incontinence 60 each 5 06/15/19 20 Active Additional Information Patient not taking.Reported on 01/20/2025 Continuous Blood Gluc Sensor (FREESTYLE MARINA SENSOR SYSTEM)Indications :Type 2 diabetes mellitus with microalbuminuria, without long-term current use of insulin (HCC) Daily 1 each 2 11/25/19 Active Additional Information Patient not taking.Reported on 01/20/2025 Blood Glucose Monitoring Suppl (PixelOpticsSTYLE LITE) DEVIIndications:Ty pe 2 diabetes mellitus with microalbuminuria, without long-term current use of insulin (HCC) To test BS daily 1 each 11/25/19 Active Additional Information Patient not taking.Reported on 01/20/2025 Lancets (OnlineSheetMusicyle) lancetsIndications :Type 2 diabetes mellitus with microalbuminuria, without long-term current use of insulin (HCC) TEST ONCE DAILY DIRECTED 100 each 2 11/25/19 Active Additional Information Patient not taking.Reported on 01/20/2025 Blood Glucose Monitoring Suppl (PixelOpticsSTYLE LITE) DEVIIndications:Ty pe 2 diabetes mellitus with microalbuminuria, without long-term current use of insulin (HCC) Daily 1 each 11/25/19 Active Additional Information Patient not taking.Reported on 01/20/2025 glucose blood test stripIndications:T ype 2 diabetes mellitus with microalbuminuria, without long-term current use of insulin (HCC) Use as instructed 100 each 11 11/25/19 Active Additional Information Patient not taking.Reported on 01/20/2025 Blood Glucose Monitoring Suppl (PixelOpticsSTYLE LITE) w/Device kitIndications:Typ e 2 diabetes mellitus with microalbuminuria, without long-term current use of insulin (HCC) Check blood sugar daily E11.29 1 kit 09/22/19 23 Active Additional Information Patient not taking.Reported on 01/20/2025 risperiDONE 3 MG tablet Take 1 tablet (3 mg total) by mouth daily 01/17/20 24 Active OIL OF OREGANO ORAL Take 1 tablet by mouth 2 (two) times a day Active nicotine polacrilex 2 MG gumIndications:Tob acco use Chew 1 gum (2 mg total) slowly in mouth every 2 (two) hours as needed for smoking cessation 100 gum 2 04/24/19 25 Active Misc. DevicesIndications :Frequent falls,Left leg weakness,Left knee pain, unspecified chronicity,Unable to manage stairs without assistance,Low back pain, unspecified back pain laterality, unspecified chronicity, unspecified whether sciatica present,Mid back pain Please provide stair lift CHANDLER: 99 1 each 03/14/20 25 Active Additional Information Patient not taking.Reported on 01/20/2025 busPIRone (BUSPAR) 15 MG tabletIndications: Colovesical fistula,UTI symptoms Take 1 tablet (15 mg total) by mouth 3 (three) times a day 09/06/19 25 Active diclofenac sodium 1 % topical gelIndications:Mid back pain,Low back pain, unspecified back pain laterality, unspecified chronicity, unspecified whether sciatica present (REFILL REQUEST) APPLY 2 GRAMS TOPICALLY 4 TIMES DAILY NEEDED FOR MUSCLE PAIN. APPLY TO BACK 100 g 12/14/19 25 Active nicotine 14 MG/24HR transdermal system patchIndications:T obacco use Place 1 patch on the skin daily 28 patch 01/21/20 25 Active aspirin 325 MG EC tablet Take 1 tablet (325 mg total) by mouth daily 90 tablet 3 02/20/20 25 Active oxyBUTYnin 10 MG extended release tablet Take 1 tablet (10 mg total) by mouth daily 90 tablet 1 02/20/20 25 Active simvastatin (ZOCOR) 80 MG tabletIndications: Hyperlipidemia, unspecified hyperlipidemia type Take 1 tablet (80 mg total) by mouth every evening 90 tablet 3 02/20/20 25 Active tamsulosin (FLOMAX) 0.4 MG capsule Take 1 capsule (0.4 mg total) by mouth at bedtime 90 capsule 02/20/20 25 Active famotidine 20 MG tablet Take 1 tablet (20 mg total) by mouth 2 (two) times a day 180 tablet 3 02/20/20 25 Active ferrous sulfate (FEROSUL) 325 mg (65 mg of elemental Iron) per tablet Take 1 tablet (325 mg total) by mouth daily 90 tablet 1 02/20/20 25 Active famotidine 20 MG tablet TAKE 1 TABLET(20 MG) BY MOUTH TWICE DAILY 180 tablet 3 07/16/19 25 025 Discontin ued(Reord er) aspirin 325 MG EC tablet TAKE 1 TABLET(325 MG) BY MOUTH DAILY 90 tablet 3 11/02/19 25 025 Discontin ued(Reord er) FEROSUL 325 mg (65 mg of elemental Iron) per tablet (REFILL REQUEST) TAKE 1 TABLET BY MOUTH EVERY DAY 90 tablet 12/14/19 25 025 Discontin ued(Reord er) oxyBUTYnin 10 MG extended release tablet (REFILL REQUEST) TAKE 1 TABLET BY MOUTH EVERY DAY 90 tablet 12/13/19 25 025 Discontin ued(Reord er) tamsulosin (FLOMAX) 0.4 MG capsule TAKE 1 CAPSULE(0.4 MG) BY MOUTH AT BEDTIME 90 capsule 12/29/19 25 025 Discontin ued(Reord er) simvastatin (ZOCOR) 80 MG tabletIndications: Hyperlipidemia, unspecified hyperlipidemia type TAKE 1 TABLET(80 MG) BY MOUTH EVERY EVENING 90 tablet 3 01/17/20 25 025 Discontin ued(Reord er) Active Problems Problem Noted Date Diagnosed Date Other emphysema 04/30/2024 Elevated PSA 09/16/2023 Other cirrhosis of liver 09/16/2023 Multiple pulmonary nodules 06/21/2022 Tobacco use 01/01/2022 Pleural effusion 01/01/2022 Colovesical fistula 01/18/2020 Pulmonary nodule 01/11/2020 Type 2 diabetes mellitus wit h microalbuminuria, without long-term current use of insulin 09/05/2018 Overview (02/16/2021): Documentation OV 02/15/21 Dr. Veronica TORRES. 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 06/10/2024 Overview (12/30/2021): IMO Update December 2021 automatic problem replacement Cognitive impairment 09/05/2018 024 Depression 02/16/2021 Obesity 02/16/2021 Non-insulin dependent type 2 diabetes mellitus 09/05/2018 Non-insulin dependent type 2 diabetes mellitus 09/05/2018 Overview (03/24/2014): 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 [address] [place] [phone] Mukesh Malik MD 02/19/2025 Telephone [facility] [address] [place] [phone] Mukesh aMlik MD 02/19/2025 Telephone [facility] [address] [place] [phone] Mukesh Malik MD Medication Refill 02/19/2025 Telephone [facility] [address] [place] [phone] Mukesh Malik MD TCM 02/18/2025 Telephone [facility] [address] [place] [phone] Mukesh Malik MD 02/18/2025 Telephone [facility] [address] [place] [phone] Mukesh Malik MD Discharge 02/18/2025 Nurse Triage [facility] [address] [place] [address] Mukesh Malik MD Sick Call (APPT ) 02/16/2025 Orders Only [facility] [address] [place] [address] Mukesh Malik MD Colovesical fistula 02/16/2025 Telephone [facility] [address] [place], [place] [phone] Mukesh Malik MD Office Message 02/12/2025 Telephone [facility] [address] [place], [place] [phone] Mukesh Malik MD VNA 02/08/2025 Telephone [facility] [address] [place], [place] [phone] Mukesh Malik MD Appointment 02/08/2025 Telephone [facility] [address] [place], [place] [phone] Mukesh Malik MD VNA 02/08/2025 Telephone [facility] [address] [place], [place] [phone] Mukesh Malik MD VNA; Follow-up 01/25/2025 Clinical Pharmacy Visit [facility] [address] [place], [place] [phone] Dottie Granado, PharmD 01/21/2025 Telephone [facility] [address] [place], [place] [phone] Mukesh Malik MD Phone Call - Care Team 01/21/2025 [facility] [address] [place] [phone] Mukesh Malik MD 01/20/2025 4:30 PM EDT Office Visit [facility] [address] [place], [place] [phone] Mukesh Malik MD Colovesical fistula (Primary Dx); Type 2 diabetes mellitus with microalbuminuria, without long-term current use of insulin (HCC); Multiple pulmonary nodules; Other emphysema (HCC); Pure hypercholesterolemia; Seizures (HCC); Rising PSA level; Bipolar 1 disorder (HCC); Polypharmacy; Tobacco use 01/19/2025 Telephone [facility] [address] [place], [place] [phone] Mukesh Malik MD TCM 01/15/2025 Refill [facility] [address] [place] [phone] Mukesh Malik MD Hyperlipidemia, unspecified hyperlipidemia type 01/15/2025 Nurse Triage [facility] [address] [place] [phone] Mukesh Malik MD Medication Clarification 01/15/2025 Telephone [facility] [address] [place] [phone] Mukesh Malik MD Question On Medication 01/15/2025 Nurse Triage [facility] [address] [place] [phone] Mukesh Malik MD 01/15/2025 Telephone [facility] [address] [place] [phone] Mukesh Malik MD Discharge 01/14/2025 Telephone [facility] [address] [place] [phone] Mukesh Malik MD Phone Call; information only 01/13/2025 Telephone [facility] [address] [place] [phone] Mukesh Malik MD 01/13/2025 Nurse Triage [facility] [address] [place] [phone] Mukesh Malik MD Advice Only 01/11/2025 Telephone [facility] [address] [place] [phone] Mukesh Malik MD PCP - Notification Patient is Refusing 01/11/2025 Pharmacy Visit [facility] [address] [place] [phone] 01/11/2025 Nurse Triage [facility] [address] [place] [phone] Mukesh Malik MD Advice Only 01/11/2025 Telephone [facility] [address] [place] [phone] Mukesh aMlik MD Results 01/10/2025 Nurse Triage [facility] [address] [place] [address] Mukesh Malik MD Sick Call (QUESTION ON BLOODWORK) 01/09/2025 Nurse Triage [facility] [address] [place] [phone] Mukesh Malik MD PT has discharge questions 01/09/2025 Pharmacy Visit [facility] [address] [place] [phone] 01/09/2025 Telephone [facility] [address] [place] [phone] Mukesh Malik MD Sick Call 01/09/2025 Pharmacy Visit [facility] [address] [place] [address] 01/08/2025 2:51 PM EDT - 01/09/2025 10:16 AM EDT Hospital Encounter [facility] - [address] [phone] Mikhail Trevizo NP Nsereko, Patrick, MD Bittar, Azzam, MD Cystitis due to Pseudomonas (Primary Dx); Colovascular fistula; UTI (urinary tract infection) with pyuria Discharge Disposition: Against Medical Advice (AMA) 01/08/2025 Telephone [facility] [address] [place] [phone] Mukesh Malik MD 01/08/2025 Travel 01/07/2025 Nurse Triage [facility] [address] [place] [phone] Mukesh Malik MD Information Only 01/06/2025 Results Follow-Up [facility] [address] [place] [phone] Mukesh Malik MD Urine Culture and [place] Count, CBC and Auto Differential, Comprehensive metabolic panel, Additional followed-up results: 8 01/05/2025 Telephone [facility] [address] [place] [phone] Mukesh Malik MD Personal Problem 01/05/2025 Telephone [facility] [address] [place] [phone] Mukesh Malik MD Appointment 01/04/2025 11:10 AM EDT Lab [facility] [address] [place] [phone] Abnormal urinalysis; Dark brown urine; Colovesical fistula; Other cirrhosis of liver (HCC); Multiple pulmonary nodules; Primary hypertension; Pure hypercholesterolemia; Urinary tract infection without hematuria, site unspecified; Macrocytic anemia 01/04/2025 Telephone [facility] [address] [place] [phone] Mukesh Malik MD 01/01/2025 Telephone [facility] [address] [place] [address] Esteban Saenz MD 01/01/2025 Telephone [facility] [address] [place] [phone] Esteban Saenz MD Results 01/01/2025 Nurse Triage [facility] [address] [place] [phone] Mukesh Malik MD EAC - Follow Up Call 12/31/2024 12:40 PM EDT Lab [facility] [address] [place] [address] Dark brown urine 12/31/2024 Results Follow-Up [facility] [address] [place] [phone] Yaritza Kc, KATHYA Urinalysis, Reflex to Culture, Urine Microscopic (sediment only), Urine Culture and [place] Count 12/31/2024 Nurse Triage [facility] [address] [place] [phone] Mukesh Malik MD dark brown urine 12/31/2024 Orders Only [facility] - [address] [place] [phone] Samantha Manzano RN 12/27/2024 Refill [facility] [address] [place] [address] Trudi Guerrero, MATTRESS STRIPPER Urinary tract infection without hematuria, site unspecified 12/27/2024 Refill [facility] [address] [place] [address] Esteban Saenz MD 12/24/2024 Nurse Triage [facility] [address] [place] [phone] Mukesh Malik MD urinary symptoms 12/17/2024 Telephone [facility] [address] [place] [phone] Mukesh Malik MD Office Message 12/13/2024 Home Care Visit [facility] [address] [place] [address] Rosa Frausto, SHEREE TELEPHONE ENCOUNTER 12/12/2024 Home Care Visit [facility] [place] [address] [place] [phone] Juanita Green, RN TELEPHONE ENCOUNTER 12/11/2024 Telephone [facility] [address] [place] [address] Mukesh Malik MD 12/11/2024 Refill [facility] [address] [place] [phone] Mukesh Malik MD 12/11/2024 Refill [facility] [address] [place] [address] Mukesh Malik MD Mid back pain; Low back pain, unspecified back pain laterality, unspecified chronicity, unspecified whether sciatica present 12/11/2024 Telephone [facility] [address] [place] [address] Mukesh Malik MD Emergent Symptom 12/11/2024 Telephone [facility] [address] [place] [phone] Mukesh Malik MD 12/11/2024 Refill [facility] [address] [place] [address] Mukesh Malik MD 12/11/2024 Telephone [facility] [address] [place] [phone] Samantha Garcia 12/11/2024 Telephone [facility] [address] [place] [address] Mukesh Malik MD 12/11/2024 Enrollment [facility] 12/11/2024 Clinical Pharmacy Visit [facility] [address] [place] [address] Dottie Granado, PharmD 12/10/2024 Telephone [facility] [address] [place] [address] Samantha Garcia 12/10/2024 Transcribe Orders [facility] [address] [place] [address] Mukesh Malik MD UTI (urinary tract infection) (Primary Dx); HTN (hypertension) 12/10/2024 Results Follow-Up [facility] [address] [place] [address] Mukesh Malik MD Urinalysis, Reflex to Culture, Urine Microscopic (sediment only) 12/10/2024 Telephone [facility] [address] [place] [phone] Mukesh Malik MD urine 12/09/2024 1:30 PM EDT Office Visit [facility] [address] [place] [address] Mukesh Malik MD Colovesical fistula (Primary Dx); Other cirrhosis of liver (HCC); Type 2 diabetes mellitus with microalbuminuria, without long-term current use of insulin (HCC); Multiple pulmonary nodules; Primary hypertension; Seizures (HCC); Pure hypercholesterolemia; Bipolar 1 disorder (HCC); Elevated PSA; Non compliance w medication regimen 12/08/2024 Telephone [facility] [address] [place] [address] Mukesh Malik MD Appointment 12/08/2024 Telephone [facility] [address] [place] [address] Mukesh Malik MD information only 12/05/2024 Nurse Triage [facility] [address] [place] [address] Mukesh Malik MD Sick Call (LOSING A LOT OF WEIGHT AND PT IS WEAK) 12/03/2024 Nurse Triage [facility] [address] [place] [address] Mukesh Malik MD Urinary Tract Infection (PARTICLES OF FOOD IN URINE WELL , CALLED OFFICE 4 X TODAY ) 12/03/2024 Nurse Triage [facility] [address] [place] [address] Mukesh Malik MD Sick Call (PT IS URINATING PARTICLES AND HAS INFECTION) 12/03/2024 Orders Only [facility] [address] [place] [address] Tash Solorio LPN Colovesical fistula (Primary Dx) 12/03/2024 Telephone [facility] [address] [place] [address] Esteban Saenz MD Sick Call 12/03/2024 Nurse Triage [facility] [address] [place] [address] Mukesh Malik MD urinary symptoms 12/03/2024 Telephone [facility] [address] [place] [phone] Mukesh Malik MD 06/10/2024 Procedure Pass [address] [address] 06/10/2024 Procedure Pass [address] [address] 06/10/2024 Procedure Pass [address] [address] 06/10/2024 Procedure Pass [address] [phone] from Last 3 Months Immunizations Immunization Administration Dates Next Due Influenza (Fluad), Trivalent , Adjuvanted, Preservative Free 12/04/2024,12/17/2023 Influenza (Flucelvax), Egg F ree, Quadrivalent, Preservative Free 03/01/2023 Influenza (IM) preservative free 11/12/2012 Influenza Split 11/05/2011 Influenza TIV (IM) 12/04/2024, 4,11/05/2011,11/30,01/03/2010 Influenza, Adult 11/23/2016,11/29/2015, 5 Influenza, Quadrivalent WITH Preservative 01/19/2019 Influenza, Quadrivalent, Pre servative Free 11/20/2021,01/17/2021,12/03/2019,01/19,12/31/2017 Influenza, Trivalent, Preser vative Free 11/23/2016 Pfizer (Covid-19) 30 mcg/0.3 ml, mRNA, PF, philipp-sucrose 07/27/2021 Pfizer (Covid-19) mRNA Vacci ne, Preservative Free 03/03/2021,08/05/2020,07/15/2020 Pneumococcal Conjugate PCV20 , Adjuvant, PF 06/05/2023 Pneumococcal Polysaccharide (PPSV 23/Pneumovax) 12/31/2017,01/01/2008 Respiratory Syncytial Virus (Abrysvo), Bivalent, PF 01/26/2023 TDAP 05/09/2010 Zoster Recombinant (Shingrix) Vaccine 02/02/2021 ,01/18/2020 Family History Medical History Relation Name Comments No Known Problems Father Cancer Mother colon Heart disease Mother Stroke Mother Relation Name Status Comments Brother Alive DM w/kidney dis ease. Father unknown Mother (Age 73) cva, colon cancer Sister 1 Alive leg ulcers, PVD Sister 2 Social History Tobacco Use Types Packs/Day Years Used Date Smoking Tobacco: Every Day Cigarettes 0.5 40 Started: 08/22/1982; Last attempted to quit: 08/22/2022 Smokeless Tobacco: Never Tobacco Cessation:Ready to Q uit: No Comments:10 cigs a day- pt states he quit last week. Alcohol Use Standard Drinks/Week Comments No 0 (1 standard drink = 0.6 oz pur e alcohol) Housing Stability - [facility] Screener Answer Date Recorded What is your living situation today? Steady hous ing 01/08/2025 Do you need help with Housing/Assisted resources? Not on file 01/08/2025 Patient indicated [...] Date Recorded PHQ-9 Total Score 2 01/13/2024 [place] Depression Scale Score Not o n file [...] phone, visiting friends or family, going to jainism or club meetings) No 01/13/2024 Patient indicated no issues from the most recent THRIVE questionnaire Not on file 01/13/2024 Adolescent Depression Answer Date Recor ded PHQ-9 Total Score 2 01/13/2024 [place] Depression Scale Score Not o n file [...] file Not on file Not on file Last Filed Vital Signs Vital Sign Reading Time Taken Comments Blood Pressure 112/80 01/20/2025 4:39 PM EDT Pulse 62 01/20/2025 4:39 PM EDT Temperature 36.9 C (98.5 F) 01/20/2025 4:39 PM EDT Respiratory Rate 16 01/20/2025 4:39 PM EDT Oxygen Saturation 98% 01/20/2025 4:39 PM EDT Inhaled Oxygen Concentration - - Weight 76.2 kg (168 lb) 01/20/2025 4:39 PM EDT Height 180.3 cm (5' 11 ) 01/20/2025 4:39 PM EDT Body Mass Index 23.43 01/20/2025 4:39 PM EDT Plan of Treatment Upcoming Encounters Date Type Department Care Team (Late st Contact Info) Description 05/31/2024 Procedure Pass [facility] [address] [place] [address] 03/10/2025 3:00 PM EST Office Visit [facility] [address] [place] [phone] Mukesh Malik MD [address] [place], [place] [phone] 04/13/2025 4:30 PM EST Telemedicine [facility] [address] [place] [phone] Byron Fitzgerald MD [facility] [address] [phone] 04/20/2025 2:00 PM EST Office Visit [facility] [address] [facility] [place] [phone] Fernando Da Silva MD [address] [place] [address] 05/31/2025 9:00 AM EST Appointment [facility] [address] [place] [address] 06/04/2025 1:00 PM EST Pulmonary Function Test [facility] [facility] [place] [id number] Chris Patel MD [address] [place] [address] Health Maintenance Due Date Last Done Comments Hepatocellular Carcinoma Screening 1955 Hepatitis B Screening 11/12/1975 Hepatitis A Vaccine (1 of 2 - Risk 2-dose series) 1976 CT Colonography 2002 FIT-DNA 2002 FOBT 2002 Sigmoidoscopy 2002 Diabetes Retinopathy Screening 08/13/2015 08/12/2014, 12/24/2011 Diabetes Foot Screening 12/31/2018 01/01/20, 11/26/2016, 11/26/2014, Additional history exists DTaP,Tdap,and Td Vaccines (2 - Td or Tdap) 05/09/2020 05/09/2010 Abdominal Aorta Aneurysm Screening 2022 Medicare Annual Wellness 01/13/2025 01/13/2024 Diabetes Nephropathy Screening 01/16/2025 01/17/2024, 09/13/2023, 04/09/2023, Additional history exists Lung Cancer Screening 05/30/2025 05/29/2024 , 05/22/2023, 12/21/2021, Additional history exists Diabetes LDL Screening 06/16/2025 , 03/10/2024, 01/17/2024, Additional history exists Diabetes A1c Monitoring 07/05/2025 01/05/20, 06/16/2024, 03/10/2024, Additional history exists COVID-19 Vaccine ( season) 2025 01/16/2025, 12/17/2023, 01/26/2023, Additional history exists Diabetes eGFR Screening 01/09/2026 01/10/20, 01/08/2025, 01/04/2025, Additional history exists Colonoscopy 06/02/2029 06/02/2024, 12/31, 12/01/2015 Colorectal Cancer Screening 06/02/2029 Cholesterol Screening 06/16/2029 06/16/2024 , 03/10/2024, 01/17/2024, Additional history exists Hepatitis C Screening Completed 11/26/2014 Zoster Standard Vaccine Completed 02/02/2021, 01/17 RSV Immunization Patients 60+ years or Completed 01/26/2023 Pneumococcal Vaccines 50+ yrs Completed 06/05/2023, 12/31/2017, 01/01/2008 Influenza Vaccine Completed 12/04/2024, , 12/17/2023, Additional history exists HIB Vaccines Aged Out No longer eligi ble based on patient's age to complete this topic Procedures Procedure Name Priority Date/Time Associated Diagnosis Comments CBC (NO DIFFERENTIAL) Routine 01/09/2025 4:50 AM EDT BASIC METABOLIC PANEL Routine 01/09/2025 4:50 AM EDT LACTIC ACID,PLASMA WITH REFLEX STAT 01/08/2025 4:09 PM EDT BLOOD CULTURE STAT 01/08/2025 4:09 PM EDT BLOOD CULTURE STAT 01/08/2025 3:59 PM EDT LIPASE STAT 01/08/2025 2:57 PM EDT COMPREHENSIVE METABOLIC PANEL STAT 01/08/2025 2:57 PM EDT CBC AND AUTO DIFFERENTIAL STAT 01/08/2025 2:57 PM EDT VALPROIC ACID LEVEL STAT 01/08/2025 2 :57 PM EDT IRON AND TIBC Routine 01/04/2025 10:56 AM EDT Macrocytic anemia PROTIME-INR Routine 01/04/2025 10:56 AM EDT Abnormal urinalysis Dark brown urine Colovesical fistula Other cirrhosis of liver (HCC) Multiple pulmonary nodules Primary hypertension Pure hypercholesterolemi a Urinary tract infection without hematuria, site unspecified AFP TUMOR MARKER Routine 01/04/2025 10:5 6 AM EDT Abnormal urinalysis Dark brown urine Colovesical fistula Other cirrhosis of liver (HCC) Multiple pulmonary nodules Primary hypertension Pure hypercholesterolemi a Urinary tract infection without hematuria, site unspecified CK Routine 01/04/2025 10:56 AM EDT Abnormal urinalysis Dark brown urine Colovesical fistula Other cirrhosis of liver (HCC) Multiple pulmonary nodules Primary hypertension Pure hypercholesterolemi a Urinary tract infection without hematuria, site unspecified HEMOGLOBIN A1C Routine 01/04/2025 10:56 AM EDT Abnormal urinalysis Dark brown urine Colovesical fistula Other cirrhosis of liver (HCC) Multiple pulmonary nodules Primary hypertension Pure hypercholesterolemi a Urinary tract infection without hematuria, site unspecified TSH WITH REFLEX TO FREE T4 Routine 01/04/2025 10:56 AM EDT Abnormal urinalysis Dark brown urine Colovesical fistula Other cirrhosis of liver (HCC) Multiple pulmonary nodules Primary hypertension Pure hypercholesterolemi a Urinary tract infection without hematuria, site unspecified COMPREHENSIVE METABOLIC PANEL Routine 01/04/2025 10:56 AM EDT Abnormal urinalysis Dark brown urine Colovesical fistula Other cirrhosis of liver (HCC) Multiple pulmonary nodules Primary hypertension Pure hypercholesterolemi a Urinary tract infection without hematuria, site unspecified CBC AND AUTO DIFFERENTIAL Routine 01/04/2025 10:56 AM EDT Abnormal urinalysis Dark brown urine Colovesical fistula Other cirrhosis of liver (HCC) Multiple pulmonary nodules Primary hypertension Pure hypercholesterolemi a Urinary tract infection without hematuria, site unspecified BLOOD CULTURE Routine 01/04/2025 10:56 AM EDT Abnormal urinalysis Dark brown urine Colovesical fistula Other cirrhosis of liver (HCC) Multiple pulmonary nodules Primary hypertension Pure hypercholesterolemi a Urinary tract infection without hematuria, site unspecified BLOOD CULTURE Routine 01/04/2025 10:56 AM EDT Abnormal urinalysis Dark brown urine Colovesical fistula Other cirrhosis of liver (HCC) Multiple pulmonary nodules Primary hypertension Pure hypercholesterolemi a Urinary tract infection without hematuria, site unspecified URINE CULTURE AND COLONY COUNT Routine 01/04/2025 10:56 AM EDT Abnormal urinalysis URINE MICROSCOPIC (SEDIMENT ONLY) STAT 12/31/2024 12:36 PM EDT Dark brown urine URINALYSIS, REFLEX TO CULTURE STAT 12/31/2024 12:36 PM EDT Dark brown urine URINE CULTURE AND COLONY COUNT STAT 12/31/2024 12:36 PM EDT Dark brown urine URINE MICROSCOPIC (SEDIMENT ONLY) Routine 12/09/2024 1:58 PM EDT Colovesical fistula URINALYSIS, REFLEX TO CULTURE Routine 12/09/2024 1:58 PM EDT Colovesical fistula URINE CULTURE AND COLONY COUNT Routine 12/09/2024 1:58 PM EDT Colovesical fistula LIPID PANEL Routine 06/16/2024 12:41 PM EDT Type 2 diabetes mellitus with microalbuminuria, without long-term current use of insulin (HCC) Other cirrhosis of liver (HCC) Colovesical fistula Colon adenomas Pure hypercholesterolemi a Seizures (HCC) Frequent falls Ataxia Left leg weakness COLONOSCOPY Routine 06/02/2024 9:12 AM EST Intestinovesical fistula CT LUNG SCREENING Routine 05/29/2024 9:1 5 AM EST Personal history of nicotine dependence MICROALBUMIN WITH CREAT, RANDOM URINE Routine 01/17/2024 1:09 PM EDT Type 2 diabetes mellitus with microalbuminuria, without long-term current use of insulin (HCC) Multiple pulmonary nodules 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 Other cirrhosis of liver (HCC) HEPATITIS C AB W/REFLEX TO HCV QUANT NAAT IF POSITIVE Routine 11/26/2014 3:24 PM EDT from Last 3 Months or Most Recently Relevant to Health Maintenance Results * (ABNORMAL) CBC (No Differential) (01/09/2025 4:50 AM EDT) WBC 6.3 4.8 - 11.2 10*3/ L 01/09/2025 5:16 AM EDT [facility] RBC 3.72(L) 4.00 - 5.90 10*6/ L 01/09/2025 5:16 AM EDT [facility] HGB 12.7(L) 14.0 - 17.2 g/dL 01/09/2025 5:16 AM EDT [facility] HCT 37.8(L) 40.0 - 52.0 % 01/09/2025 5:16 AM EDT [facility] MCV 101.6(H) 82.0 - 98.0 fL 01/09/2025 5:16 AM EDT [facility] MCH 34.1 27.0 - 35.0 pg 01/09/2025 5:16 AM EDT [facility] MCHC 33.6 32.0 - 37.0 g/dL 01/09/2025 5:16 AM EDT [facility] RDW 16.5(H) 12.0 - 15.0 % 01/09/2025 5:16 AM EDT [facility] PLT 173 150 - 400 10*3/ L 01/09/2025 5:16 AM EDT [facility] MPV 9.9 7.0 - 14.0 fL 01/09/2025 5:16 AM [facility] Blood Venipuncture / Unknown 01/09/2025 4:50 AM EDT 01/09/2025 5:10 AM EDT us Romie Nicole MD LAB BLOOD ORDERABLES Final Re sult [facility] [address] [place] [phone] * (ABNORMAL) Basic metabolic panel (01/09/2025 4:50 AM EDT) Sodium 141 136 - 145 mEq/L 01/09/2025 5:46 AM EDT [facility] Potassium 4.5 3.5 - 5.1 mEq/L 01/09/2025 5:46 AM EDT [facility] Chloride 106 98 - 109 mEq/L 01/09/2025 5:46 AM EDT [facility] CO2 30 20 - 31 mEq/L 01/09/2025 5:46 AM EDT [facility] Anion Gap 5 4 - 15 mEq/L 01/09/2025 5:46 AM EDT [facility] Glucose 92 70 - 100 mg/dL 01/09/2025 5:46 AM EDT [facility] Creatinine 0.73 0.60 - 1.10 mg/dL 01/09/2025 5:46 AM EDT [facility] eGFR (Male) >60 60 - 115 mL/min 01/09/2025 5:46 AM EDT [facility] BUN 17 9 - 23 mg/dL 01/09/2025 5:46 AM EDT [facility] Calcium 8.2(L) 8.3 - 10.6 mg/dL 01/09/2025 5:46 AM EDT [facility] Blood Venipuncture / Unknown 01/09/2025 4:50 AM EDT 01/09/2025 5:10 AM EDT Narrative [facility] - 01/09/2025 5:46 AM EDT Calculation based on the Chronic Kidney Disease Epidemiology Collaboration (CKD- EPI) equation refit without adjustment for race. us Romie Nicole MD LAB BLOOD ORDERABLES Final Re sult [facility] [address] [place] [address] * Lactic acid (01/08/2025 4:09 PM EDT) Lactate 1.80 0.50 - 2.00 mmol/L 01/08/2025 4:26 PM EDT [facility] Blood Venipuncture / Unknown 01/08/2025 4:09 PM EDT 01/08/2025 4:13 PM EDT us Mikhail Trevizo [employer]PER LAB BLOOD ORDERABLES Final Res ult [facility] [address] [place] [phone] * Blood Culture (01/08/2025 4:09 PM EDT) Only the most recent of4 resultswithin the time period is included. Culture No Growth at 120 hrs. 01/13/2025 4:16 PM EDT [facility] Blood Venipuncture / Unknown 01/08/2025 4:09 PM EDT 01/08/2025 4:13 PM EDT us Romie Nicole MD MICROBIOLOGY - GENERAL ORDERA BLES Final Result Performing Organization Address [facility]/ZIP Co de Phone Number [facility] [address] [place] [phone] * (ABNORMAL) CBC and Auto Differential (01/08/2025 2:57 PM EDT) Only the most recent of2 resultswithin the time period is included. WBC 7.5 4.8 - 11.2 10*3/ L 01/08/2025 3:14 PM EDT [facility] RBC 3.96(L) 4.00 - 5.90 10*6/ L 01/08/2025 3:14 PM EDT [facility] HGB 13.7(L) 14.0 - 17.2 g/dL 01/08/2025 3:14 PM EDT [facility] HCT 39.2(L) 40.0 - 52.0 % 01/08/2025 3:14 PM EDT [facility] MCV 99.0(H) 82.0 - 98.0 fL 01/08/2025 3:14 PM EDT [facility] MCH 34.6 27.0 - 35.0 pg 01/08/2025 3:14 PM EDT [facility] MCHC 34.9 32.0 - 37.0 g/dL 01/08/2025 3:14 PM [facility] RDW 15.9(H) 12.0 - 15.0 % 01/08/2025 3:14 PM T [facility] PLT 181 150 - 400 10*3/ L 01/08/2025 3:14 PM [facility] MPV 9.9 7.0 - 14.0 fL 01/08/2025 3:14 PM T [facility] Neut % 53.8 45.0 - 85.0 % 01/08/2025 3:14 PM [facility] Immature Granulocytes % 0.3 0 - 5.0 % 01/08/2025 3:14 PM [facility] Lymph % 32.9 15.0 - 45.0 % 01/08/2025 3:14 PM [facility] Davie % 12.0 0.0 - 12.0 % 01/08/2025 3:14 PM [facility] Eos % 0.3 0.0 - 7.0 % 01/08/2025 3:14 PM [facility] Baso % 0.7 0.0 - 3.0 % 01/08/2025 3:14 PM [facility] NRBC% 0 0 /100 WBC /100 WBC 01/08/2025 3:14 PM [facility] Neut # 4.1 2.2 - 9.5 10*3/ L 01/08/2025 3:14 PM [facility] Immature Granulocytes Absolute 0.02 0.00 - 0.56 10*3/ L 01/08/2025 3:14 PM [facility] Lym # 2.5 0.7 - 5.0 10*3/ L 01/08/2025 3:14 PM [facility] [place]ie # 0.9 0.0 - 1.3 10*3/ L 01/08/2025 3:14 PM [facility] Eos # 0.0 0.0 - 0.4 10*3/ L 01/08/2025 3:14 PM [facility] Baso # 0.1 0.0 - 0.3 10*3/ L 01/08/2025 3:14 PM EDT [facility] Blood Venipuncture / Unknown 01/08/2025 2:57 PM EDT 01/08/2025 3:02 PM EDT [facility] Santhosh [employer]PER LAB BLOOD ORDERABLES Final Res ult [facility] [address] [place] [phone] * Lipase (01/08/2025 2:57 PM EDT) Lipase 31 12 - 53 U/L 01/08/2025 3:48 PM EDT [facility] Blood Venipuncture / Unknown 01/08/2025 2:57 PM EDT 01/08/2025 3:02 PM EDT [facility] Santhosh [employer] LAB BLOOD ORDERABLES Final Res ult Performing Organization Address [facility] Co de Phone Number [facility] [address] [place] [phone] * Valproic Acid Level (01/08/2025 2:57 PM EDT) Valproic Acid 80.7 50.0 - 100.0 ug/mL 01/08/2025 4:12 PM EDT [facility] Blood Venipuncture / Unknown 01/08/2025 2:57 PM EDT 01/08/2025 3:02 PM EDT [facility] Santhosh [employer] LAB BLOOD ORDERABLES Final Res ult Performing Organization Address [facility] Co de Phone Number [facility] [address] [place] [phone] * (ABNORMAL) Comprehensive metabolic panel (01/08/2025 2:57 PM EDT) Only the most recent of2 resultswithin the time period is included. Sodium 138 136 - 145 mEq/L 01/08/2025 3:48 PM T [facility] Potassium 4.4 3.5 - 5.1 mEq/L 01/08/2025 3:48 PM T [facility] Chloride 104 98 - 109 mEq/L 01/08/2025 3:48 PM T [facility] CO2 26 20 - 31 mEq/L 01/08/2025 3:48 PM T [facility] Anion Gap 8 4 - 15 mEq/L 01/08/2025 3:48 PM [facility] Glucose 147(H) 70 - 100 mg/dL 01/08/2025 3:48 PM [facility] Creatinine 0.85 0.60 - 1.10 mg/dL 01/08/2025 3:48 PM [facility] eGFR (Male) >60 60 - 115 mL/min 01/08/2025 3:48 PM [facility] BUN 19 9 - 23 mg/dL 01/08/2025 3:48 PM [facility] Calcium 9.0 8.3 - 10.6 mg/dL 01/08/2025 3:48 PM [facility] Total Protein 6.5 5.7 - 8.2 g/dL 01/08/2025 3:48 PM [facility] Albumin 3.9 3.2 - 4.8 g/dL 01/08/2025 3:48 PM [facility] A/G Ratio 1.5 1.0 - 2.3 01/08/2025 3:48 PM [facility] Total Bilirubin 0.4 0.2 - 1.0 mg/dL 01/08/2025 3:48 PM [facility] AST 20 13 - 40 U/L 01/08/2025 3:48 PM [facility] Alkaline Phosphatase 56 46 - 116 IU/L 01/08/2025 3:48 PM T [facility] ALT 16 7 - 40 U/L 01/08/2025 3:48 PM EDT [facility] Blood Venipuncture / Unknown 01/08/2025 2:57 PM EDT 01/08/2025 3:02 PM EDT Narrative [facility] - 01/08/2025 3:48 PM EDT Calculation based on the Chronic Kidney Disease Epidemiology Collaboration (CKD- EPI) equation refit without adjustment for race. Mikhail Trevizo NP LAB BLOOD ORDERABLES Final Res ult [facility] [address] [place] [address] * (ABNORMAL) Iron and TIBC (01/04/2025 10:56 AM EDT) Iron 165 65 - 175 ug/dL 01/05/2025 3:59 PM EDT [facility] UIBC 153 110 - 370 ug/dL 01/05/2025 3:59 PM EDT [facility] TIBC 318 250 - 425 ug/dL 01/05/2025 3:59 PM EDT [facility] Iron Saturation 52(H) 20 - 50 % 3:59 PM EDT [facility] Blood Venipuncture / Unknown 01/04/2025 10:56 AM EDT 01/04/2025 10:56 AM EDT Mukesh Malik MD LAB BLOOD ORDERABLES Final Re sult [facility] [address] [place] [address] * AFP tumor marker (01/04/2025 10:56 AM EDT) AFP-Tumor Marker <2.2 0.0 - 8.0 ng/mL 01/04/2025 5:50 PM EDT [facility] Blood Venipuncture / Unknown 01/04/2025 10:56 AM EDT 01/04/2025 10:56 AM EDT [facility] - 01/04/2025 5:50 PM EDT Results determined by assays using different manufacturers or methods may not be comparable. Mukesh Malik MD LAB BLOOD ORDERABLES Final Re sult Performing Organization Address [facility]/ZIP Co de Phone Number [facility] [address] [place] [address] * Protime-INR (01/04/2025 10:56 AM EDT) Protime 12.0 9.4 - 12.5 seconds 01/04/2025 2:18 PM EDT [facility] INR 1.03 0.79 - 1.06 01/04/2025 2:18 PM EDT [facility] Blood Venipuncture / Unknown 01/04/2025 10:56 AM EDT 01/04/2025 10:56 AM EDT [facility] - 01/04/2025 2:18 PM EDT New reference range reflects new method INR Recommendations for Oral Anticoagulant Therapy Populations INR Value Low Intensity OAC Therapy 1.5-2.0 Mod Intensity OAC Therapy 2.0-3.0 High Intensity OAC Therapy 2.5-4.0 Mukesh Malik MD LAB BLOOD ORDERABLES Final Re sult Performing Organization Address City/[facility]/ZIP Co de Phone Number [facility] [address] [place] [phone] * (ABNORMAL) Urine Culture and [place] Count (01/04/2025 10:56 AM EDT) Only the most recent of3 resultswithin the time period is included. Culture < 10,000 colonies/ml Mixed Gram Positive Organisms SUSCEPTIBIL ITY TESTING 01/06/2025 3:04 PM EDT [facility] Culture < 10,000 colonies/ml Pseudomonas aeruginosa(A) 01/06/2025 3:04 PM EDT [facility] Urine Urine specimen obtained by clean catch procedure / Unknown Collection / Unknown 01/04/2025 10:56 AM EDT 01/04/2025 10:56 AM EDT Narrative Organism Antibiotic Method Susceptibility Pseudomonas aeruginosa Cefepime 2: Susceptible Pseudomonas aeruginosa Ceftazidime <=1: Susceptible Pseudomonas aeruginosa Gentamicin Comment:Pseudomonas aeruginosa is intrinsically resistant to Gentamicin Pseudomonas aeruginosa Levofloxacin >=8: Resistant Pseudomonas aeruginosa Meropenem <=0.25: Susceptible Pseudomonas aeruginosa Piperacillin + Tazobactam <=4: Susceptible Pseudomonas aeruginosa Tobramycin <=1: Susceptible Mukesh Malik MD MICROBIOLOGY - GENERAL ORDERA BLES Final Result Performing Organization Address City/[facility]/ZIP Co de Phone Number [facility] [address] [place] [address] * TSH with reflex to Free T4 (01/04/2025 10:56 AM EDT) TSH 3.183 0.550 - 4.780 uIU/mL 01/04/2025 2:56 PM EDT [facility] Blood Venipuncture / Unknown 01/04/2025 10:56 AM EDT 01/04/2025 10:56 AM EDT Mukesh Malik MD LAB BLOOD ORDERABLES Final Re sult [facility] [address] [place] [phone] * Hemoglobin A1c (01/04/2025 10:56 AM EDT) Hemoglobin A1C 5.5 4.0 - 6.0 % 01/04/2025 2:45 PM EDT [facility] Estimated Average Glucose eAG 111.2 85.0 - 126.0 mg/dL 01/04/2025 2:45 PM EDT [facility] Blood Venipuncture / Unknown 01/04/2025 10:56 AM EDT 01/04/2025 10:56 AM EDT us Mukesh Malik MD LAB BLOOD ORDERABLES Final Re sult [facility] [address] [place] [phone] * CK (01/04/2025 10:56 AM EDT) Total CPK 98 46 - 171 IU/L 01/04/2025 2:56 PM EDT [facility] Blood Venipuncture / Unknown 01/04/2025 10:56 AM EDT 01/04/2025 10:56 AM EDT us Mukesh Malik MD LAB BLOOD ORDERABLES Final Re sult Performing Organization Address [facility]/ZIP Co de Phone Number [facility] [address] [place] [phone] * (ABNORMAL) Urine Microscopic (sediment only) (12/31/2024 12:36 PM EDT) Only the most recent of2 resultswithin the time period is included. WBC 51-100(A) 0 - 2 HPF 12/31/2024 2:21 PM EDT [facility] RBC 6-10(A) 0-2 HPF HPF 12/31/2024 2:21 PM EDT [facility] Squam Epithelial Few Few HPF 12/31/2024 2:21 PM EDT [facility] Mucus Few Few HPF 12/31/2024 2:21 PM EDT [facility] Bacteria Few(A) None Seen HPF 12/31/2024 2:21 PM EDT [facility] Urine Urine specimen obtained by clean catch procedure / Unknown Collection / Unknown 12/31/2024 12:36 PM EDT 12/31/2024 12:36 PM EDT us Yaritza Kc [employer]IPPER URINE ORDERABLES Final Result Performing Organization Address City/[facility]/ZIP Co de Phone Number [facility] [address] [place] [phone] * (ABNORMAL) Urinalysis, Reflex to Culture (12/31/2024 12:36 PM EDT) Only the most recent of2 resultswithin the time period is included. Color Yellow Colorless, Yellow, Light-Yellow , Dark-Yellow 12/31/2024 2:10 PM EDT [facility] Clarity, UA Turbid(A) Clear 12/31/2024 2:10 PM EDT [facility] Specific [place] 1.022 1.000 - 1.025 12/31/2024 2:10 PM EDT [facility] pH 6.5 5.0 - 8.0 12/31/2024 2:10 PM EDT [facility] Protein Negative Negative, 10 , 20 mg/dL 12/31/2024 2:10 PM T [facility] Glucose Normal Normal, 30 , 50 mg/dL 12/31/2024 2:[facility] Ketones Negative Negative, Trace mg/dL 12/31/2024 2:10 PM T [facility] Blood Negative Negative, 0.03 mg/dL 12/31/2024 2:10 PM [facility] Bilirubin UA Negative Negative mg/dL 12/31/2024 2:10 PM EDT [facility] Urobilinogen Normal Normal mg/dL 12/31/2024 2:10 PM [facility] Nitrite Negative Negative 12/31/2024 2:10 PM [facility] Leukocyte Esterase 500(A) Negative, 25 Ragini/uL 12/31/2024 2:10 PM T [facility] Urine Urine specimen obtained by clean catch procedure / Unknown Collection / Unknown 12/31/2024 12:36 PM EDT 12/31/2024 12:36 PM EDT Narrative [facility] - 12/31/2024 2:10 PM EDT A urine culture is being performed on this specimen due to established reflex criteria us Yaritza Kc NP URINE ORDERABLES Final Result [facility] [address] [place] [address] * (ABNORMAL) Lipid panel (06/16/2024 12:41 PM EDT) Cholesterol 128 <200 mg/dL 06/16/2024 3:52 PM EDT [facility] Triglycerides 64 <150 mg/dL 06/16/2024 3:52 PM EDT [facility] HDL 49.8(L) >=60.0 mg/dL 06/16/2024 3:52 PM EDT [facility] LDL Calculated 65 0 - 100 mg/dL 06/16/2024 3:52 PM EDT [facility] Cardiac Risk Factor 2.6 0.0 - 5.0 06/16/2024 3:52 PM EDT [facility] Blood Venipuncture / Unknown 06/16/2024 12:41 PM EDT 06/16/2024 12:41 PM EDT Narrative [facility] - 06/16/2024 3:52 PM EDT Cardiac Risk Factor: Males Females 2x Average Risk 9.6 7.1 3x Average Risk 23.4 11.0 us Mukesh Malik MD LAB BLOOD ORDERABLES Final Re sult [facility] [address] [place] [phone] * Colonoscopy (06/02/2024 9:12 AM EST) Anatomical Region Laterality Modality Endoscopy Narrative 06/02/2024 9:16 AM EST Table formatting from the original result was not included. Images from the original result were not included. Colonoscopy Report [facility] Proceduralist Rainer Banks MD Patient Name: Jeff Lay Date of : 1955 PCP Mukesh Malik MD Date of Procedure: 06/02/2024 Pre-op Diagnosis Intestinovesical fistula Post-op Diagnosis Sigmoid tics. Polyps Indication This 68 y/o M has colovescial fistula. Preprocedure A history and physical has been performed, and patient medication allergies have been reviewed. The patient's tolerance of previous anesthesia has been reviewed. The risks and benefits of the procedure and the sedation options and risks were discussed with the patient. All questions were answered and informed consent obtained. Details of the Procedure The patient underwent monitored anesthesia care, which was administered by an anesthesia professional. The patient's blood pressure, heart rate, level of consciousness, oxygen, respirations, ECG and ETCO2 were monitored throughout the procedure. A digital rectal exam was performed. The scope was introduced through the anus and advanced to the cecum. Retroflexion was performed in the rectum. The quality of bowel preparation was evaluated using the [place] Bowel Preparation Scale with scores of: right colon = 3, transverse colon = 3, left colon = 3. The total BBPS score was 9. Bowel prep was adequate. The patient experienced no blood loss. The procedure was not difficult. The patient tolerated the procedure well. There were no apparent adverse events. Findings Multiple diverticula in the mid sigmoid colon, distal sigmoid colon and rectosigmoid 5 mm polyp in the cecum; performed cold snare with complete en bloc removal and retrieved specimen 6 mm sessile polyp in the distal transverse colon; performed cold snare with en bloc removal and retrieved specimen Polyp measuring smaller than 5 mm in the rectosigmoid; performed cold forceps biopsy Specimens ID Type Source Tests Collected by Time A : cold snare cecum polyp Tissue Large Intestine, Cecum SURGICAL PATHOLOGY EXAM Rainer Banks MD 06/02/2024 0900 B : cold snare transverse polyp Tissue Large Intestine, Transverse Colon SURGICAL PATHOLOGY EXAM Rainer Banks MD 06/02/2024 0908 C : cold forcep sigmoid polyp Tissue Large Intestine, Sigmoid Colon SURGICAL PATHOLOGY EXAM Rainer Banks MD 06/02/2024 0911 Events Procedure Events Event Event Time ENDO SCOPE IN TIME 06/02/2024 8:47 AM ENDO SCOPE OUT TIME 06/02/2024 8:49 AM ENDO SCOPE IN TIME 06/02/2024 8:53 AM ENDO CECUM REACHED 06/02/2024 8:59 AM ENDO SCOPE OUT TIME 06/02/2024 9:12 AM No case tracking events are documented in the log. Withdrawal time: 12m 52s Impression Sigmoid diverticulosis Polyps (3) Recommendation IF there are 3 adenomas, then f/u 3 years. If not , then follow up 5 years. Rainer Banks MD GI PROCEDURE ORDERABLES Final Result * CT lung screening (05/29/2024 9:15 AM EST) Anatomical Region Laterality Modality Chest Computed Tomogra phy 05/29/2024 10:2 6 AM EST Impressions 05/29/2024 4:03 PM EST IMPRESSION: No new/concerning pulmonary nodules. Pulmonary nodules measuring up to 5 mm similar to prior. Additional details as above. Lung-RADS Category: 2 - Benign. The patient will be placed in the [facility] Lung Cancer Screening Database and will be scheduled for continued screening in one year. RS: [id number] Narrative 05/29/2024 4:[address] LUNG SCREENING History: Screening for bronchopulmonary malignancy. Over 20 pack years of smoking history Comparison: Prior chest CT examinations most recently 22 May 2023 TECHNIQUE: CT images of the chest were acquired without intravenous contrast as per low- dose lung cancer screening protocol, including MIPS reconstructed images. This exam was performed with the following dose reduction techniques: automated exposure control, adjustment of milliamperage and/or kilovoltage according to patient size, and use of iterative reconstruction technique. FINDINGS: Pleural spaces bilaterally no effusion or pneumothorax. Lungs bilaterally no infiltrate. Emphysematous changes are present. There are calcified granulomas. No new/concerning pulmonary nodule. There is stable pulmonary nodules measuring up to 5 mm. Trachea and mainstem bronchi are clear. Mediastinum, no adenopathy. No pericardial effusion or cardiomegaly. There is atherosclerotic calcification in the coronary arteries. Upper abdomen, limited evaluation demonstrates no discernible acute process. Osseous structures notable for degenerative changes. Procedure Note Zaki Monte MD - 05/29/2024 CT LUNG SCREENING History: Screening for bronchopulmonary malignancy. Over 20 pack years ofsmoking history Comparison: Prior chest CT examinations most recently 22 May 2023 TECHNIQUE: CT images of the chest were acquired without intravenous contrast as perlow-dose lung cancer screening protocol, including MIPS reconstructedimages. This exam was performed with the following dose reduction techniques:automated exposure control, adjustment of milliamperage and/or kilovoltageaccording to patient size, and use of iterative reconstructiontechnique. FINDINGS: Pleural spaces bilaterally no effusion or pneumothorax. Lungs bilaterally no infiltrate. Emphysematous changes are present. Thereare calcified granulomas. No new/concerning pulmonary nodule. There isstable pulmonary nodules measuring up to 5 mm. Trachea and mainstem bronchi are clear. Mediastinum, no adenopathy. No pericardial effusion or cardiomegaly. Thereis atherosclerotic calcification in the coronary arteries. Upper abdomen, limited evaluation demonstrates no discernible acuteprocess. Osseous structures notable for degenerative changes. IMPRESSION: No new/concerning pulmonary nodules. Pulmonary nodules measuring up to 5 mm similar to prior. Additional details as above. Lung-RADS Category: 2 - Benign. [facility] and will be scheduled forcontinued screening in one year. RS: [id number] Mukesh Malik MD IMG CT ORDERABLES Final Resul t * (ABNORMAL) Microalbumin with Creat, Random Urine (01/17/2024 1:09 PM EDT) [facility] Microalb, Ur 31.5(H) 0.0 - 1.9 mg/dL 01/17/2024 6:51 PM EDT [facility] Creatinine, Ur 220.0 20.0 - 400.0 mg/dL 01/17/2024 6:51 PM EDT [facility] Microalb Creat Ratio 143.18(H) 0.00 - 24.90 mcg/mg 01/17/2024 6:51 PM EDT [facility] Urine Collection / Unknown 01/17/2024 1:09 PM EDT 01/17/2024 1:09 PM EDT Mukesh Malik MD URINE ORDERABLES Final Result [facility] [address] [place] [address] * Hepatitis C antibody (11/26/2014 3:24 PM EDT) [facility] HCV Ab NEGATIVE NEGATIVE 11/29/2014 10:18 AM EDT [facility] Comment: A Neg. result does not exclude exposure or infection with HCV as antibody levels can be below detectable limits. A Pos. result may be due to antibodies to HCV recombinant antigens which are unrelated to HCV infection. More specific testing should be considered if clinically indicated. 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 * Full Code (Latest Code Status on File) Date Activated Date Inactivated Comments 01/08/2025 7:05 PM 01/09/2025 1:45 PM * Full Code Date Activated Date Inactivated Comments 10/29/2021 1:20 AM 11/03/2021 5:32 PM Care Teams Supervisor Data Processing Relationship Specialty Start Date End Date Mukesh Malik MD [address] [place] [address] PCP - General Internal Medicine 07/03/18 Chris Patel MD [address] [place] [address] Physician Pulmonary Disease 06/11/23 Gary Alas MD [address] [place] [address] Surgeon General Surgery 06/03/24 Cari Steve MD [address] [place] [address] Physician Hematology and Oncology 06/10/24 Trudi Guerrero NP [address] [place] [address] Nurse Practitioner Internal Medicine 10/06/24 Yaritza Kc NP [address] [place] [address] Nurse Practitioner Internal Medicine 10/06/24 Sabrina Barbosa NP [address] [place] [address] Nurse Practitioner Internal Medicine 10/06/24
--- OUTSIDE RECORDS SUMMARY | 2025-03-04 22:23 | XMS_ITS | Encounter Summary ---
Author Organization [facility] Address [address] [place] [address] Care Team Providers Care School Bus Operator Name Role Phone Mukesh Malik MD Primary Care Provider [phone] Chris Patel MD Unavailable Gary Alas MD Unavailable [phone] Cari Steve MD Unavailable [phone] Trudi Guerrero PRELOAD SUPERVISOR Unavailable [phone] Yaritza Kc PRELOAD SUPERVISOR Unavailable [phone] Sabrina Barbosa PRELOAD SUPERVISOR Unavailable [phone] Dottie Granado PharmD Unavailable Unavailable Reason for Visit * Reason Onset Date Comments Sick Call 01/09/2025 Encounter Details Date Type Department Care Team (Late st Contact Info) Description 01/09/2025 Telephone [facility] [address] [place] [address] Mukesh Malik MD [address] [place], [place] [phone] Sick Call Social History Tobacco Use Types Packs/Day Years Used Date Smoking Tobacco: Every Day Cigarettes 0.5 40 Started: 08/22/1982; Last attempted to quit: 08/22/2022 Smokeless Tobacco: Never Comments:10 cigs a day- pt s tates he quit last week. Alcohol Use Standard Drinks/Week Comments No 0 (1 standard drink = 0.6 oz pur e alcohol) Housing Stability - [facility] Screener Answer Date Recorded What is your living situation today? Steady hous ing 01/08/2025 Do you need help with Housing/Longterm resources? Not on file 01/08/2025 Patient indicated [...] Date Recorded PHQ-9 Total Score 2 01/13/2024 [place] Depression Scale Score Not o n file [...] phone, visiting friends or family, going to mosque or club meetings) No 01/13/2024 Patient indicated no issues from the most recent THRIVE questionnaire Not on file 01/13/2024 Adolescent Depression Answer Date Recor ded PHQ-9 Total Score 2 01/13/2024 [place] Depression Scale Score Not o n file [...] st Contact Info) Description 05/31/2024 Procedure Pass [facility] [address] [place] [phone] 03/10/2025 3:00 PM EST Office Visit [facility] [address] [place] [address] Mukesh Malik MD [address] [place] [address] 04/13/2025 4:30 PM EST Telemedicine [facility] [address] [place] [address] Byron Fitzgerald MD [facility] [address] [phone] 04/20/2025 2:00 PM EST Office Visit [facility] [address] [facility], [address] [place] [address], [place] [address] Fernando Da Silva MD [address] [place] [address] 05/31/2025 9:00 AM EST Appointment [facility] [address] [place] [address] 06/04/2025 1:00 PM EST Pulmonary Function Test [facility] [address] [place] [address] Chris Patel MD [address] [place] [address] documented as of this encounter Visit Diagnoses Not on filedocumented in this encounter Care Teams School Bus Operator Relationship Specialty Start Date End Date Mukesh Malik MD [address] [place] [address] PCP - General Internal Medicine 07/03/18 Chris Patel MD [address] [place] [address] Physician Pulmonary Disease 06/11/23 Gary Alas MD [address] [place] [address] Surgeon General Surgery 06/03/24 Cari Steve MD [address] [place] [address] Physician Hematology and Oncology 06/10/24 Trudi Guerrero NP [address] [place] [address] Nurse Practitioner Internal Medicine 10/06/24 Yaritza Kc NP [address] [place] [address] Nurse Practitioner Internal Medicine 10/06/24 Sabrina Barbosa NP [address] [place] [address] Nurse Practitioner Internal Medicine 10/06/24 Dottie Granado, PharmD Pharmacist Pharmacy 12/11/24 01/11/25 documented as of this encounter
--- OUTSIDE RECORDS SUMMARY | 2025-03-04 22:23 | XMS_ITS | Encounter Summary ---
Author Organization [facility] Address [address] [place] [address] Care Team Providers Care Press Set Up Name Role Phone Mukesh Malik MD Primary Care Provider [phone] Chris Patel MD Unavailable Silvana Fernandez MD Unavailable Gary Alas MD Unavailable [phone] Cari Steve MD Unavailable [phone] Trudi Guerrero ORE CHARGER Unavailable [phone] Yaritza Kc ORE CHARGER Unavailable [phone] Sabrina Barbosa ORE CHARGER Unavailable [phone] Dottie Granado PharmD Unavailable Unavailable Reason for Referral * GI Referral (Routine) - Closed Specialty Diagnoses / Procedures Referred By Contac t Referred To Contact Gastroenterology Diagnoses Intestinovesical fistula Procedures Colonoscopy Rainer Banks MD [address] [facility] [address] [place] [address] Phone: tel: fax: Referral ID Status Reason Start Date Expiration Date Visits Re quested Visits Authorized [id number] Closed 12/05/2023 12/04/2024 1 1 Encounter Details Date Type Department Care Team (Latest Contact Info) Description 12/05/2023 Ancillary Orders [facility] [address] [place] [phone] Rainer Banks MD [address] [place] [address] Intestinovesical fistula (Primary Dx) Social History Tobacco Use Types Packs/Day Years Used Date Smoking Tobacco: Former Cigarettes 0.5 40 0 08/22/1982 - 08/22/2022 Smokeless Tobacco: Never Comments:10 cigs a day- pt s tates he quit last week. Alcohol Use Standard Drinks/Week Comments No 0 (1 standard drink = 0.6 oz pur e alcohol) Housing Stability - [facility] Screener Answer Date Recorded What is your living situation today? Not on file 09/05/2022 Do you need help with Housing/Intermediate resources? Not on file 09/05/2022 Did patient answer all No's for Social Determina nts? Yes 09/05/2022 Homeless diagnosis active in problem list or in an encounter in the past year? Not on file 09/05/2022 Transportation - [facility] Screener Answer D ate Recorded Do you have trouble getting transportation to medical appointments? Not on file 09/05/2022 Do you need help with Transp ortation to medical appointments? Not on file 09/05/2022 Did patient answer all No's for Social Determina nts? Yes 09/05/2022 Food Insecurity - [facility] Screener Answer Date Recorded Within the past 12 months, t he food you bought just didn't last and you didn't have enough money to get more? Not on file 09/2022 Within the past 12 months, y ou worried whether your food would run out before you got money to buy more? Not on file 2022 Do you need help with Food resources? Not on sandra e 09/05/2022 Did patient answer all No's for Social Determina nts? Yes 09/05/2022 Depression Answer Date Recorded PHQ-9 Total Score 0 09/05/2022 [place] Depression Scale Score Not o n file 09/05/2022 EPDS: The thought of harming myself has occurred to me Not on file 09/05/2022 PHQ-A: In the past year have you felt depressed or sad most days, even if you felt okay sometimes? Not on file 09/05/2022 PHQ-A: If you are experienci ng any of the problems on this form, how difficult have these problems made it for you to do your work, take care of things at home or get along with other people? Not on file 09/05/2022 PHQ-A: Has there been a time in the past month when you have had serious thoughts about ending your life? Not on file 09/2022 PHQ-A: Have you ever, in you r whole life, tried to kill yourself or made a suicide attempt? Not on file 09/05/2022 PHQ9/A: Thoughts that you wo uld be better off , or of hurting yourself in some way? No 09/05/2022 Care Giving - [facility] Screener Answer Date Recorded Do you have trouble taking c are of a child, family member or friend? Not on file 09/05/2022 Do you need help with Childcare/Daycare? Not on file 09/05/2022 Do you need help with Elder Care Not on file 09/05/2022 Did patient answer all No's for Social Determina nts? Yes 09/05/2022 Employment - [place] Screener Answer Date Recorded Are you currently unemployed and looking for a job or do you need help with Job Search/Training? (age 22+) Not on file 12/30 Are you or your parent/guard manolo currently unemployed and looking for a job? (age <= 21) Not on file 01/10/2023 Patient indicated no issues from the most recent THRIVE questionnaire (<22) Not on file 01/10/2023 Patient indicated no issues from the most recent THRIVE questionnaire (22+) Yes 01/10/2023 Affording Medications - SDOH Screener Answer Date Recorded Do you have trouble paying for medications? Not on file 09/05/2022 Do you need help with Paying for Medicine resour danish? Not on file 09/05/2022 Did patient answer all No's for Social Determina nts? Yes 09/05/2022 Utilities - SDOH Screener Answer Date R ecorded Do you have trouble paying y our heating/electricity/water bill? Not on file 09/05/2022 Do you need help with Utilities? Not on file 09/05/2022 Did patient answer all No's for Social Determina nts? Yes 09/05/2022 Adolescent Depression Answer Date Recor ded PHQ-9 Total Score 0 09/05/2022 [place] Depression Scale Score Not o n file 09/05/2022 EPDS: The thought of harming myself has occurred to me Not on file 09/05/2022 PHQ-A: In the past year have you felt depressed or sad most days, even if you felt okay sometimes? Not on file 09/05/2022 PHQ-A: If you are experienci ng any of the problems on this form, how difficult have these problems made it for you to do your work, take care of things at home or get along with other people? Not on file 09/05/2022 PHQ-A: Has there been a time in the past month when you have had serious thoughts about ending your life? Not on file 09/2022 PHQ-A: Have you ever, in you r whole life, tried to kill yourself or made a suicide attempt? Not on file 09/05/2022 PHQ9/A: Thoughts that you wo uld be better off , or of hurting yourself in some way? No 09/05/2022 Sex and Gender Information Value Date Recorded [...] 05/31/2024 Procedure Pass [facility] [address] [place] [address] 03/10/2025 3:00 PM EST Office Visit [facility] [address] [place] [phone] Mukesh Malik MD [address] [place] [address] 04/13/2025 4:30 PM EST Telemedicine [facility] [address] [place] [address] Byron Fitzgerald MD [address] [facility] [id number] [place] [address] 04/20/2025 2:00 PM EST Office Visit [facility] 235 [facility], 2nd [place] [phone] Fernando Da Silva MD [address] [place], [place] [phone] 05/31/2025 9:00 AM EST Appointment [facility] [address] [place] [address] 06/04/2025 1:00 PM EST Pulmonary Function Test [facility] [address] [place] [address] Chris Patel MD [address] [place] [address] documented as of this encounter Results * Colonoscopy (06/02/2024 9:12 AM EST) Anatomical Region Laterality Modality Endoscopy Narrative 06/02/2024 9:16 AM EST Table formatting from the original result was not included. Images from the original result were not included. Colonoscopy Report [facility] Proceduralist Rainer Banks MD Patient Name: [...] of bowel preparation was evaluated using the [place] Bowel Preparation Scale with scores of: right [...] not , then follow up 5 years. us Rainer Banks MD GI PROCEDURE ORDERABLES Final Result documented in this encounter Visit Diagnoses Diagnosis Intestinovesical fistula- Primary Intestinovesical fistula Iron deficiency anemia, unspecified iron deficiency anemia type documented in this encounter Care Teams Press Set Up Relationship Specialty Start Date End Date Mukesh Malik MD [address] [place] [address] PCP - General Internal Medicine 07/03/18 Chris Patel MD [address] [place] [address] Physician Pulmonary Disease 06/11/23 Silvana Fernandez MD [address] [place] [address] Physician Hematology and Oncology 01/27/24 Gary Alas MD [address] [place] [address] Surgeon General Surgery 06/03/24 Cari Steve MD [address] [place] [address] [place] [address] Physician Hematology and Oncology 06/10/24 Trudi Guerrero NP [address] [place] [address] Nurse Practitioner Internal Medicine 10/06/24 Yaritza Kc NP [address] [place] [address] Nurse Practitioner Internal Medicine 10/06/24 Sabrina Barbosa NP [address] [place] [address] Nurse Practitioner Internal Medicine 10/06/24 Loy, Printa, PharmD Pharmacist Pharmacy 12/11/24 01/11/25 documented as of this encounter
--- OUTSIDE RECORDS SUMMARY | 2025-03-04 22:23 | XMS_ITS | Encounter Summary ---
Author Organization [facility] Address [address] [place] [address] Care Team Providers Care Postie Name Role Phone Mukesh Malik MD Primary Care Provider Chris Patel MD Unavailable Gary Alas MD Unavailable [phone] Cari Steve MD Unavailable [phone] Trudi Guerrero CUSHION SPRING ASSEMBLER Unavailable [phone] Yaritza Kc CUSHION SPRING ASSEMBLER Unavailable [phone] Sabrina Barbosa CUSHION SPRING ASSEMBLER Unavailable [phone] Dottie Granado PharmD Unavailable Unavailable Encounter Details Date Type Department Care Team (Late st Contact Info) Description 12/11/2024 Telephone [facility] [address] [place] [address] Mukesh Malik MD [address] [place] [id number] Social History Tobacco Use Types Packs/Day Years Used Date Smoking Tobacco: Former Cigarettes 0.5 40 0 08/22/1982 - 08/22/2022 Smokeless Tobacco: Never Comments:10 cigs a day- pt s tates he quit last week. Alcohol Use Standard Drinks/Week Comments No 0 (1 standard drink = 0.6 oz pur e alcohol) Housing Stability - [facility] Screener Answer Date Recorded What is your living situation today? Steady hous ing 01/13/2024 Do you need help with Housing/Correction resources? Not on file 01/13/2024 Patient indicated [...] Date Recorded PHQ-9 Total Score 2 01/13/2024 [place] Depression Scale Score Not o n file [...] phone, visiting friends or family, going to rastafari or club meetings) No 01/13/2024 Patient indicated no issues from the most recent THRIVE questionnaire Not on file 01/13/2024 Adolescent Depression Answer Date Recor ded PHQ-9 Total Score 2 01/13/2024 [place] Depression Scale Score Not o n file [...] Contact Info) Description 05/31/2024 Procedure Pass [facility] [address] [place] [address] 03/10/2025 3:00 PM EST Office Visit [facility] [address] [place] [address] Mukesh Malik MD [address] [place], [place] [phone] 04/13/2025 4:30 PM EST [facility]medicine [email or web address] [address] [place] [address] Byron Fitzgerald MD [address] [id number] 04/20/2025 2:00 PM EST Office Visit [facility] [address] [address] Fernando Da Silva MD [address] [place] [address] 05/31/2025 9:00 AM EST Appointment [facility] [address] [place] [address] 06/04/2025 1:00 PM EST Pulmonary Function Test [facility] [address] [place] [address] Chirs Patel MD [address] [place] [address] documented as of this encounter Visit Diagnoses Not on filedocumented in this encounter Care Teams Postie Relationship Specialty Start Date End Date Mukesh Malik MD [address] [place] [address] PCP - General Internal Medicine 07/03/18 Chris Patel MD [address] [place] [address] Physician Pulmonary Disease 06/11/23 Gary Alas MD [address] [place] [address] Surgeon General Surgery 06/03/24 Cari Steve MD [address] [place] [address] Physician Hematology and Oncology 06/10/24 Trudi Guerrero NP [address] [place] [address] Nurse Practitioner Internal Medicine 10/06/24 Yaritza Kc NP [address] [place] [address] Nurse Practitioner Internal Medicine 10/06/24 Sabrina Barbosa NP [address] [place] [address] Nurse Practitioner Internal Medicine 10/06/24 Dottie Granado, PharmD Pharmacist Pharmacy 12/11/24 01/11/25 documented as of this encounter
--- OUTSIDE RECORDS SUMMARY | 2025-03-04 22:23 | XMS_ITS | Encounter Summary ---
Author Organization [facility] Address [address] [place] [address] Care Team Providers Care College Archivist Name Role Phone Robe Malik MD Primary Care Provider [phone] Chris Patel MD Unavailable Gary Alas MD Unavailable [phone] Cari Steve MD Unavailable [phone] Trudi Guerrero ROOF BOLTER Unavailable [phone] Yaritza Kc ROOF BOLTER Unavailable [phone] Sabrina Barbosa ROOF BOLTER Unavailable [phone] Encounter Details Date Type Department Care Team (Late st Contact Info) Description 03/01/2025 Telephone [facility] [address] [place] [address] Robe Malik MD [address] [place], [place] [phone] Social History Tobacco Use Types Packs/Day Years Used Date Smoking Tobacco: Every Day Cigarettes 0.5 40 Started: 08/22/1982; Last attempted to quit: 08/22/2022 Smokeless Tobacco: Never Comments:10 cigs a day- pt s tates he quit last week. Alcohol Use Standard Drinks/Week Comments No 0 (1 standard drink = 0.6 oz pur e alcohol) Housing Stability - [facility] Screener Answer Date Recorded What is your living situation today? Steady hous ing 01/08/2025 Do you need help with Housing/Long Term resources? Not on file 01/08/2025 Patient indicated [...] Date Recorded PHQ-9 Total Score 2 01/13/2024 [place] Depression Scale Score Not o n file [...] phone, visiting friends or family, going to protestant or club meetings) No 01/13/2024 Patient indicated no issues from the most recent THRIVE questionnaire Not on file 01/13/2024 Adolescent Depression Answer Date Recor ded PHQ-9 Total Score 2 01/13/2024 [place] Depression Scale Score Not o n file [...] encounter Miscellaneous Notes * Telephone Encounter - Cari Urrutia RN - 03/03/2025 1:12 PM EST Attempted to call patient regarding message below. Patient did not answer phone. LMOM informing patient to call office back. * Addendum Note - Robe Malik MD - 03/02/2025 4:18 PM ESTAddended by: ROBE MALIK on: 03/02/2025 04:18 PM Modules accepted: Orders * Telephone Encounter - Robe Malik MD - 03/02/2025 4:10 PM EST [facility] was consulted but they could not get into his house as his house is condemned. IV medications at home will require [facility]. I am not sure if the patient would be able to manage IV medications by himself. I understand that he is taking care of his brother but he needs to take care of himself to be able to take care of his brother. I ordered follow-up labs and urine test for him. If he continues to have urinary tract infection, he will need to go back to the hospital. He needs to bring to his upcoming office visit the medications that he is currently taking not all previously prescribed medications. * Telephone Encounter - Radha Pierson RN - 03/02/2025 11:59 AM EST Patient called back, apologetic about his brother's behavior yesterday. asking about a nurse cominginto his house for medication. This nurse explain to patient again that a nurse cannot come in twice a day for IV medication, that the recommendations are to proceed to the ER. Pt understood, still requesting a nurse to come in to help with his other medications. Pt did report brother in past brother helps him, but did report he has been doing it and doesn't want to make any mistakes. Advised pt again, nursing can not come in multiple times a day for medication administration, reporting they would could possibly come for education. Pt advised message would be sent to provider. * Telephone Encounter - Robe Malik MD - 03/01/2025 1:55 PM EST Agree with recommendations to proceed to the ER. Patient is scheduled on Saturday for CT abdomen, MRI lumbar spine, MRI cervical spine and MRI brain. * Telephone Encounter - Radha Pierson RN - 03/01/2025 12:13 PM EST Patient called reporting that [facility] will be in contact about a nurse coming to the house. Pt also reporting he will be going to have his testing done on Saturday. Pt reporting he looks forward to seeing provider 03/10 ad hung up. Reviewed chart, unsure what testing patient is referring to and came across TE from 02/19 advising patient to seek ED. Attempted to call patient again to advise him to seek ED and to ask what testinghe will be getting done on Saturday. Pt reporting pelvis, spine and brain scan. Advised patient again of going to ED. Pt reporting he cannot because his brother is sick. Advised patient the importance of going and to prevent pt from getting sick. Patient's brother Mike came on the phone without nurse being made aware, yelling What am I suppose to do while he is in the hospital, I am sick in bed, shitting myself in the bed. What am I suppose to do? 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 Mike reporting he will fall out of the bed, reporting he has fell 8 times thisyear, reporting that is what happens when you get old. Mike yelling, asking this nurse. Don't you understand that? What am I suppose to do? I advised Mike I am giving medical recommendations to Jeff, it is his choice to refuse or go through with the recommendations. Advised Mike of [facility] elder for help. Mike reporting he has for the last three weeks, asking what he should do again. Advised Mike of calling again. Mike stated, Are you an idiot? Phone was disconnected by this nurse. documented in this encounter Plan of Treatment Upcoming Encounters Date Type Department Care Team (Late st Contact Info) Description 05/31/2024 [facility] [address] [place] [address] 03/10/2025 3:00 PM EST Office [facility] [address] [place] [address] Robe Malik MD [address] [place], [place] [phone] 04/13/2025 4:30 PM EST [facility] [address] [place] [phone] Byron Fitzgerald MD [address] [place] [address] [phone] 04/20/2025 2:00 PM EST Office Visit [facility] 235 [facility], [address] [place] [phone] Fernando Da Silva MD [address] [place], [place] [phone] 05/31/2025 9:00 AM EST Appointment [facility] [address] [place] [address] 06/04/2025 1:00 PM EST Pulmonary Function Test [facility] [address] [place] [phone] Chris Patel MD [address] [place] [address] [phone] Scheduled Orders Name Type Priority Associated Diagnoses Orde r Schedule CBC and Auto Differential Lab Routine Hyperlipidemia, unspecified hyperlipidemia type Colovesical fistula Seizures (HCC) Bipolar 1 disorder (HCC) Rising PSA level 1 Occurrences starting 03/02/2025 until 03/02/2026 Comprehensive metabolic panel Lab Routine Hyperlipidemia, unspecified hyperlipidemia type Colovesical fistula Seizures (HCC) Bipolar 1 disorder (HCC) Rising PSA level 1 Occurrences starting 03/02/2025 until 03/02/2026 Lipid panel Lab Routine Hyperlipidemia, unspecified hyperlipidemia type Colovesical fistula Seizures (HCC) Bipolar 1 disorder (HCC) Rising PSA level 1 Occurrences starting 03/02/2025 until 03/02/2026 Microalbumin with Creat, Random Urine Lab Routine Hyperlipidemia, unspecified hyperlipidemia type Colovesical fistula Seizures (HCC) Bipolar 1 disorder (HCC) Rising PSA level 1 Occurrences starting 03/02/2025 until 03/02/2026 TSH with reflex to Free T4 Lab Routine Hyperlipidemia, unspecified hyperlipidemia type Colovesical fistula Seizures (HCC) Bipolar 1 disorder (HCC) Rising PSA level 1 Occurrences starting 03/02/2025 until 03/02/2026 Urine Complete Lab Routine Hyperlipidemia, unspecified hyperlipidemia type Colovesical fistula Seizures (HCC) Bipolar 1 disorder (HCC) Rising PSA level 1 Occurrences starting 03/02/2025 until 05/31/2026 Hemoglobin A1c Lab Routine Hyperlipidemia, unspecified hyperlipidemia type Colovesical fistula Seizures (HCC) Bipolar 1 disorder (HCC) Rising PSA level 1 Occurrences starting 03/02/2025 until 03/02/2026 PSA, Diagnostic Lab Routine Hyperlipidemia, unspecified hyperlipidemia type Colovesical fistula Seizures (HCC) Bipolar 1 disorder (HCC) Rising PSA level 1 Occurrences starting 03/02/2025 until 05/31/2026 documented as of this encounter Visit Diagnoses Diagnosis Hyperlipidemia, unspecified hyperlipidemia type- Primary Colovesical fistula Intestinovesical fistula Seizures (HCC) Other convulsions Bipolar 1 disorder (HCC) Rising PSA level documented in this encounter Care Teams College Archivist Relationship Specialty Start Date End Date Robe Malik MD [address] [place] [address] PCP - General Internal Medicine 07/03/18 Chris Patel MD [address] [place] [address] Physician Pulmonary Disease 06/11/23 Gary Alas MD [address] [place] [address] Surgeon General Surgery 06/03/24 Cari Steve MD [address] [place] [address] Physician Hematology and Oncology 06/10/24 Trudi Guerrero NP [address] [place] [address] Nurse Practitioner Internal Medicine 10/06/24 Yaritza Kc NP [address] [place] [address] Nurse Practitioner Internal Medicine 10/06/24 Sabrina Barbosa NP [address] [place] [address] Nurse Practitioner Internal Medicine 10/06/24 documented as of this encounter
--- OUTSIDE RECORDS SUMMARY | 2025-03-04 22:23 | XMS_ITS | Encounter Summary ---
Author Organization [facility] Address [address] [place] [address] Care Team Providers Care Protective Officer Name Role Phone Mukesh Malik MD Primary Care Provider [phone] Chris Patel MD Unavailable Gary Alas MD Unavailable [phone] Cari Steve MD Unavailable [phone] Trudi Guerrero UNIT CONTROL CLERK Unavailable Yaritza Kc UNIT CONTROL CLERK Unavailable [phone] Sabrina Barbosa UNIT CONTROL CLERK Unavailable [phone] Dottie Granado PharmD Unavailable Unavailable Encounter Details Date Type Department Care Team (Late st Contact Info) Description 01/06/2025 Results Follow-Up [facility] [address] [place] [address] Mukesh Malik MD [address] [place], [place] [phone] Urine Culture and [place] Count, CBC and Auto Differential, Comprehensive metabolic panel, Additional followed-up results: 8 Social History Tobacco Use Types Packs/Day Years Used Date Smoking Tobacco: Former Cigarettes 0.5 40 0 08/22/1982 - 08/22/2022 Smokeless Tobacco: Never Comments:10 cigs a day- pt s tates he quit last week. Alcohol Use Standard Drinks/Week Comments No 0 (1 standard drink = 0.6 oz pur e alcohol) Housing Stability - [facility] Screener Answer Date Recorded What is your [...] Date Recorded PHQ-9 Total Score 2 01/13/2024 [place] Depression Scale Score Not o n file [...] phone, visiting friends or family, going to temple or club meetings) No 01/13/2024 Patient indicated no issues from the most recent THRIVE questionnaire Not on file 01/13/2024 Adolescent Depression Answer Date Recor ded PHQ-9 Total Score 2 01/13/2024 [place] Depression Scale Score Not o n file [...] Telephone Encounter - Cari Urrutia RN - 01/08/2025 1:48 PM EDT Patient has not gone to ED at this time. Attempted to contact patient on both phones listed in EMR. Patient did not answer either phone. Unable to leave messages on either phone. One mailbox was full and the other had no voicemail set up. * Telephone Encounter - Cari Urrutia RN - 01/08/2025 8:17 AM EDT Spoke to patient again today to advise him to seek medical care at ED today for positive pseudomonas in urine culture. Patient informed of importance of going to ED. Patient states he will go to ED around noon today. Report called to ED * Telephone Encounter - Cari Urrutia RN - 01/07/2025 11:25 AM EDT Spoke to patient. Patient calling back to state he will go to ED tomorrow. 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 Patient strongly urged to go to ED SAADIA dueto infection. Patient states he will go tomorrow morning. documented in this encounter Plan of Treatment Upcoming Encounters Date Type Department Care Team (Late st Contact Info) Description 05/31/2024 Procedure Pass [facility] [address] [place] [address] 03/10/2025 3:00 PM EST Office Visit [facility] [address] [place] [address] Mukesh Malik MD [address] [place] [address] 04/13/2025 4:30 PM EST Telemedicine [facility] [place] [phone] Byron Fitzgerald MD [address] [address] 04/20/2025 2:00 PM EST Office Visit [facility] 235 [facility], [address] [place] [phone] Fernando Da Silva MD [address] [place] [address] 05/31/2025 9:00 AM EST [facility]ment [facility] [address] [place] [address] 06/04/2025 1:00 PM EST Pulmonary Function Test [facility] [address] [place] [address] Chris Patel MD [address] [place] [address] documented as of this encounter Visit Diagnoses Diagnosis Urinary tract infection without hematuria, site unspecified- Primary documented in this encounter Care Teams Protective Officer Relationship Specialty Start Date End Date Mukesh Malik MD [address] [place] [address] PCP - General Internal Medicine 07/03/18 Chris Patel MD [address] [place] [address] Physician Pulmonary Disease 06/11/23 Gary Alas MD [address] [place] [address] Surgeon General Surgery 06/03/24 Cari Steve MD [address] [place] [address] Physician Hematology and Oncology 06/10/24 Trudi Guerrero NP [address] [place] [address] Nurse Practitioner Internal Medicine 10/06/24 Yaritza Kc NP [address] [place] [address] Nurse Practitioner Internal Medicine 10/06/24 Sabrina Barbosa NP [address] [place] [address] Nurse Practitioner Internal Medicine 10/06/24 Dottie Granado, PharmD Pharmacist Pharmacy 12/11/24 01/11/25 documented as of this encounter
--- OUTSIDE RECORDS SUMMARY | 2025-03-04 22:23 | XMS_ITS | Encounter Summary ---
Author Organization [facility] Address [address] [place] [address] Care Team Providers Care Mold Construction Supervisor Name Role Phone Mukesh Malik MD Primary Care Provider [phone] Chris Patel MD Unavailable Gary Alas MD Unavailable [phone] Cari Steve MD Unavailable [phone] Trudi Guerrero RESIDENTIAL NURSE Unavailable [phone] Yaritza Kc RESIDENTIAL NURSE Unavailable [phone] Sabrina Barbosa RESIDENTIAL NURSE Unavailable [phone] Dottie Granado PharmD Unavailable Unavailable Encounter Details Date Type Department Care Team (Late st Contact Info) Description 01/11/2025 Pharmacy Visit Counts include 234 beds at the [facility] [address] [place] [address] Social History Tobacco Use Types [...] ing 01/08/2025 Do you need help with Housing/Prison resources? Not on file 01/08/2025 Patient indicated [...] Date Recorded PHQ-9 Total Score 2 01/13/2024 [place] Depression Scale Score Not o n file [...] phone, visiting friends or family, going to yarsani or club meetings) No 01/13/2024 Patient indicated no issues from the most recent THRIVE questionnaire Not on file 01/13/2024 Adolescent Depression Answer Date Recor ded PHQ-9 Total Score 2 01/13/2024 [place] Depression Scale Score Not o n file [...] st Contact Info) Description 05/31/2024 [facility] [address] [place] [address] 03/10/2025 3:00 PM EST [facility] [address] [place] [address] Mukesh Malik MD [address] [place] [address] 04/13/2025 4:30 PM EST Telemedicine [facility] [address] [place] [phone] Byron Fitzgerald MD [address] [phone] 04/20/2025 2:00 PM EST Office Visit [facility] 235 [facility], [address] [place] [phone] Fernando Da Silva MD [address] [place], [place] [phone] 05/31/2025 9:00 AM EST Appointment [facility] [address] [place] [address] 06/04/2025 1:00 PM EST Pulmonary Function Test [facility] [address] [place] [phone] Chris Patel MD [facility] [place] [address] documented as of this encounter Visit Diagnoses Not on filedocumented in this encounter Care Teams Mold Construction Supervisor Relationship Specialty Start Date End Date Mukesh Malik MD [address] [place] [address] PCP - General Internal Medicine 07/03/18 Chris Patel MD [address] [place] [address] Physician Pulmonary Disease 06/11/23 Gary Alas MD [address] [place] [address] Surgeon General Surgery 06/03/24 Cari Steve MD [address] [place] [address] Physician Hematology and Oncology 06/10/24 Trudi Guerrero NP [address] [place] [address] Nurse Practitioner Internal Medicine 10/06/24 Yaritza Kc NP [address] [place] [address] Nurse Practitioner Internal Medicine 10/06/24 Sabrina Barbosa NP [address] [place] [address] Nurse Practitioner Internal Medicine 10/06/24 Dottie Granado, PharmD Pharmacist Pharmacy 12/11/24 01/11/25 documented as of this encounter
--- OUTSIDE RECORDS SUMMARY | 2025-03-04 22:23 | XMS_ITS | Encounter Summary ---
Author Organization [facility] Address [address] [place] [address] Care Team Providers Care Cassandra Developer Name Role Phone Mukesh Malik MD Primary Care Provider [phone] Chris Patel MD Unavailable Silvana Fernandez MD Unavailable Gary Alas MD Unavailable [phone] Cari Steve MD Unavailable [phone] Trudi Guerrreo GROUND NUCLEAR WEAPONS ASSEMBLY OFFICER Unavailable [phone] Yaritza Kc GROUND NUCLEAR WEAPONS ASSEMBLY OFFICER Unavailable [phone] Sabrina Barbosa GROUND NUCLEAR WEAPONS ASSEMBLY OFFICER Unavailable [phone] Dottie Granado PharmD Unavailable Unavailable Encounter Details Date Type Department Care Team (Late st Contact Info) Description 10/29/2021 Procedure Pass [facility] - [address] [address] Social History Tobacco Use Types [...] st Contact Info) Description 05/31/2024 [facility] [address] [place] [address] 03/10/2025 3:00 PM EST [facility] [address] [place] [address] Mukesh Malik MD [address] [place], [place] [phone] 04/13/2025 4:30 PM EST Telemedicine [facility] [place] [phone] Byron Fitzgerald MD [facility] [address] [phone] 04/20/2025 2:00 PM EST Office Visit [facility] 235 [facility] [address] [place] [address] Fernando Da Silva MD [address] [place], [place] [phone] 05/31/2025 9:00 AM EST Appointment [facility] [address] [place] [address] 06/04/2025 1:00 PM EST Pulmonary Function Test [facility] [place] [phone] Chris Patel MD [address] [place] [address] [phone] documented as of this encounter Visit Diagnoses Not on filedocumented in this encounter Care Teams Cassandra Developer Relationship Specialty Start Date End Date Mukesh Malik MD [address] [place], [place] [phone] PCP - General Internal Medicine 07/03/18 Chris Patel MD [address] [place] [address] Physician Pulmonary Disease 06/11/23 Silvana Fernandez MD [address] [place] [address] Physician Hematology and Oncology 01/27/24 Gary Alas MD [address] [place] [address] Surgeon General Surgery 06/03/24 Cari Steve MD [address] [place] [address] Physician Hematology and Oncology 06/10/24 Trudi Guerrero NP [address] [place] [address] Nurse Practitioner Internal Medicine 10/06/24 Yaritza Kc NP [address] [place] [address] Nurse Practitioner Internal Medicine 10/06/24 Sabrina Barbosa NP [address] [place] [address] Nurse Practitioner Internal Medicine 10/06/24 Dottie Granado, PharmD Pharmacist Pharmacy 12/11/24 01/11/25 documented as of this encounter
--- OUTSIDE RECORDS SUMMARY | 2025-03-04 22:23 | XMS_ITS | Encounter Summary ---
Author Organization [facility][Note 3] Address [address] [place] [address] Care Team Providers Care Senior Quality Assurance Specialist Name Role Phone Mukesh Malik MD Primary Care Provider [phone] Chris Patel MD Unavailable Gary Alas MD Unavailable [phone] Cari Steve MD Unavailable [phone] Trudi Guerrero LEAD INVESTIGATOR Unavailable Yaritza Kc LEAD INVESTIGATOR Unavailable [phone] Sabrina Barbosa LEAD INVESTIGATOR Unavailable [phone] Dottie Granado PharmD Unavailable Unavailable Reason for Visit * Reason Comments Emergent Symptom Encounter Details Date Type Department Care Team (Late st Contact Info) Description 12/11/2024 Telephone [facility] [address] [place] [address] Mukesh Malik MD [address] [place], [place] [phone] Emergent Symptom Social History Tobacco Use Types Packs/Day Years Used Date Smoking Tobacco: Former Cigarettes 0.5 40 0 08/22/1982 - 08/22/2022 Smokeless Tobacco: Never Comments:10 cigs a day- pt s tates he quit last week. Alcohol Use Standard Drinks/Week Comments No 0 (1 standard drink = 0.6 oz pur e alcohol) Housing Stability - [facility] Screener Answer Date Recorded What is your living situation today? Steady hous ing 01/13/2024 Do you need help with Housing/Long Term resources? Not on file 01/13/2024 Patient indicated [...] Date Recorded PHQ-9 Total Score 2 01/13/2024 [place] Depression Scale Score Not o n file [...] phone, visiting friends or family, going to methodist or club meetings) No 01/13/2024 Patient indicated no issues from the most recent THRIVE questionnaire Not on file 01/13/2024 Adolescent Depression Answer Date Recor ded PHQ-9 Total Score 2 01/13/2024 [place] Depression Scale Score Not o n file [...] encounter Miscellaneous Notes * Telephone Encounter - Mukesh Malik MD - 12/11/2024 3:27 PM EDT Noted * Telephone Encounter - Bere Goddard LPN - 12/11/2024 2:18 PM EDT Patient states today he has shit coming out of his penis Did he prescribe anything yet? This nurse relays that patient was sent in Ceftin to the pharmacy but given current symptoms needs to proceed immediately to the ER. Patient will get a ride from [facility] [email or web address] transportation to [facility] at this time. * Telephone Encounter - Silvestre Lemons - 12/11/2024 2:18 PM EDT Copied from [facility] #[id number]. Topic: Incoming Call for Office - Sent to Practice >> Dec 11, 2024 2:15 PM Silvestre Tuttle wrote: EMERGENT SYMPTOMS Patient reporting one or more of the following symptoms: [ ] ABDOMINAL PAIN [ ] ABNORMAL VITALS WITH SYMPTOMS (PATIENT-REPORTED) VITALS REPORTED [ ] ABUSE/ ASSAULT [ ] ALCOHOL & OPIATE WITHDRAWALS [ ] CHANGE IN MENTAL STATUS [ ] CHEST HEAVINESS / PAIN / TIGHTNESS [ ] DIZZINESS [ ] FACIAL DROOPING [ ] FAINTING / LOSS OF CONSCIOUSNESS [ ] FALL [ ] HEAD TRAUMA [ ] HOMICIDAL / SUICIDAL IDEATION [ ] LEG SWELLING (NEW ONSET / WORSENING) [ ] PERSISTENT VOMITING [ ] SEIZURE [ ] SEVERE HEADACHE [ ] SHORTNESS OF BREATH [ ] SLURRED SPEECH [ ] TINGLING/NUMBNESS OF FACE / EXTREMETIES How long has patient been experiencing this: Poop coming out of penis Warm transferred call to: Bere documented in this encounter Plan of Treatment Upcoming Encounters Date Type Department Care Team (Late st Contact Info) Description 05/31/2024 Procedure Pass [facility] [address] [place] [address] 03/10/2025 3:00 PM EST Office Visit [facility] [address] [place] [address] Mukesh Malik MD [address] [place] [address] 04/13/2025 4:30 PM EST Telemedicine [facility] 10[address] [place] [phone] Byron Fitzgerald MD [address] [address] 04/20/2025 2:00 PM EST Office Visit [facility] 235 [facility], 2nd [place] [address] Fernando Da Silva MD [address] [place], [place] [phone] 05/31/2025 9:00 AM EST Appointment [facility] [address] [place] [address] 06/04/2025 1:00 PM EST Pulmonary Function Test [facility] 10[address] [place] [phone] [place] [address] [place] [address] documented as of this encounter Visit Diagnoses Not on filedocumented in this encounter Care Teams Senior Quality Assurance Specialist Relationship Specialty Start Date End Date Mukesh Malik MD [address] [place] [address] PCP - General Internal Medicine 07/03/18 Chris Patel MD [address] [place] [address] Physician Pulmonary Disease 06/11/23 Gary Alas MD [address] [place] [address] Surgeon General Surgery 06/03/24 Cari Steve MD [address] [place] [address] Physician Hematology and Oncology 06/10/24 Trudi Guerrero NP [address] [place] [address] Nurse Practitioner Internal Medicine 10/06/24 Yaritza Kc NP [address] [place] [address] Nurse Practitioner Internal Medicine 10/06/24 Sabrina Barbosa NP [address] [place] [address] Nurse Practitioner Internal Medicine 10/06/24 Dottie Granado, PharmD Pharmacist Pharmacy 12/11/24 01/11/25 documented as of this encounter
--- OUTSIDE RECORDS SUMMARY | 2025-03-04 22:23 | XMS_ITS | Encounter Summary ---
Author Organization [facility] Address [address] [place] [address] Care Team Providers Care Tour Agent Name Role Phone Mukesh Malik MD Primary Care Provider [phone] Chris Patel MD Unavailable Silvana Fernandez MD Unavailable Gary Alas MD Unavailable [phone] Cari Steve MD Unavailable [phone] Trudi Guerrero TRANSPORTATION ESCORT Unavailable [phone] Yaritza Kc TRANSPORTATION ESCORT Unavailable [phone] Sabrina Barbosa TRANSPORTATION ESCORT Unavailable [phone] Dottie Granado PharmD Unavailable Unavailable Encounter Details Date Type Department Care Team (Late st Contact Info) Description 11/02/2021 Procedure Pass [facility] - [address] [address] Social History Tobacco Use Types [...] st Contact Info) Description 05/31/2024 [facility] [address] [place] [address] 03/10/2025 3:00 PM EST [facility] [address] [place] [address] Mukesh Malik MD [address] [place], [place] [address] 04/13/2025 4:30 PM EST [facility]medicine [facility] [place] [phone] Byron Fitzgerald MD [facility] [address] [id number] 04/20/2025 2:00 PM EST Office Visit [facility] 235 [facility], 2nd [place] [address] Fernando Da Silva MD 235 [place], [place] [phone] 05/31/2025 9:00 AM EST Appointment [facility] [address] [place] [address] 06/04/2025 1:00 PM EST Pulmonary Function Test [facility] [place] [phone] Chris Patel MD [address] [place] [address]6559[address] documented as of this encounter Visit Diagnoses Not on filedocumented in this encounter Care Teams Tour Agent Relationship Specialty Start Date End Date Mukesh Malik MD [address] [place], [place] [phone] PCP - General Internal Medicine 07/03/18 Chris Patel MD [address] [place] [address] Physician Pulmonary Disease 06/11/23 Silvana Fernandez MD [address] [place] [address] Physician Hematology and Oncology 01/27/24 Gary Alas MD [address] [place] [address] Surgeon General Surgery 06/03/24 Cari Steve MD [address] [place] [address] Physician Hematology and Oncology 06/10/24 Trudi Guerrero NP [address] [place] [address] Nurse Practitioner Internal Medicine 10/06/24 Yaritza Kc NP [address] [place] [address] Nurse Practitioner Internal Medicine 10/06/24 Sabrina Barbosa NP [address] [place] [address] Nurse Practitioner Internal Medicine 10/06/24 Dottie Granado, PharmD Pharmacist Pharmacy 12/11/24 01/11/25 documented as of this encounter
--- OUTSIDE RECORDS SUMMARY | 2025-03-04 22:23 | XMS_ITS | Encounter Summary ---
Author Organization [facility] Address [address] [place] [address] Care Team Providers Care Head Concierge Name Role Phone Daniel Abarca MD Primary Care Provider Dano Monsalve DO Primary Care Provider [phone] Dano Monsalve DO Primary Care Provider [phone] Mukesh Malik MD Primary Care Provider Mukesh Malik MD Primary Care Provider Chris Patel MD Unavailable Silvana Fernandez MD Unavailable Gary Alas MD Unavailable [phone] Cari Steve MD Unavailable Trudi Guerrero TISSUE RECOVERY TECHNICIAN Unavailable Yaritza Kc TISSUE RECOVERY TECHNICIAN Unavailable [phone] Sabrina Barbosa TISSUE RECOVERY TECHNICIAN Unavailable [phone] Dottie Granado PharmD Unavailable Unavailable Reason for Visit * Reason Comments Medication Refill Encounter Details Date Type Department Care Team (Late st Contact Info) Description 05/28/2018 Refill [facility] [address] [place] [phone] Monty Marquez MD [address] [place] [address] Social History Tobacco Use Types Packs/Day Years [...] st Contact Info) Description 05/31/2024 [facility] [address] [place] [address] 03/10/2025 3:00 PM EST Office Visit [facility] [address] [place] [address] Mukesh Malik MD [address] [place] [address] 04/13/2025 4:30 PM EST Telemedicine [facility] [address] [place] [address] Byron Fitzgerald MD [address] [place] [address] 04/20/2025 2:00 PM EST [facility] 235 [facility], [address] [place] [phone] Fernando Da Silva MD [address] [place] [address] 05/31/2025 9:00 AM EST [facility]ment [facility] [address] [place] [address] 06/04/2025 1:00 PM EST Pulmonary Function Test [facility] [address] [place] [address] Chris Patel MD [address] [place] [address] documented as of this encounter Visit Diagnoses Not on filedocumented in this encounter Care Teams Head Concierge Relationship Specialty Start Date End Date Daniel Abarca MD [address] [place] [address] PCP - General Internal Medicine 03/04/15 06/11/18 Dano Monsalve DO [address] [address] PCP - General Internal Medicine 06/12/18 06/15/18 Dano Monsalve DO [address] [address] PCP - General Internal Medicine 06/25/18 07/02/18 Mukesh Malik MD [address] [place] [address] PCP - General Internal Medicine 06/16/18 06/24/18 Mukesh Malik MD [address] [place] [address] PCP - General Internal Medicine 07/03/18 Chris Patel MD [address] [place] [address] Physician Pulmonary Disease 06/11/23 Silvana Fernandez MD [address] [place] [address] Physician Hematology and Oncology 01/27/24 Gary Alas MD [address] [place] [address] Surgeon General Surgery 06/03/24 Cari Steve MD [address] [place] [address] Physician Hematology and Oncology 06/10/24 Trudi Guerrero NP [address] [place] [address] Nurse Practitioner Internal Medicine 10/06/24 Yaritza Kc NP [address] [place] [address] Nurse Practitioner Internal Medicine 10/06/24 Sabrina Barbosa NP [address] [place] [address] Nurse Practitioner Internal Medicine 10/06/24 Dottie Granado, PharmD Pharmacist Pharmacy 12/11/24 01/11/25 documented as of this encounter
--- OUTSIDE RECORDS SUMMARY | 2025-03-04 22:23 | XMS_ITS | Encounter Summary ---
Author Organization [facility] Address [address] [place] [address] Care Team Providers Care Audio Technician Name Role Phone Mukesh Malik MD Primary Care Provider [phone] Chris Patel MD Unavailable Gary Alas MD Unavailable [phone] Cari Steve MD Unavailable [phone] Trudi Guerrero ADVERTISING OPERATIONS COORDINATOR Unavailable [phone] Yaritza Kc ADVERTISING OPERATIONS COORDINATOR Unavailable [phone] Sabrina Barbosa ADVERTISING OPERATIONS COORDINATOR Unavailable [phone] Dottie Granado PharmD Unavailable Unavailable Encounter Details Date Type Department Care Team (Late st Contact Info) Description 12/11/2024 Telephone [facility] [address] [place] [address] Mukesh Malik MD [address] [place], [place] [phone] Social History Tobacco Use Types Packs/Day Years Used Date Smoking Tobacco: Former Cigarettes 0.5 40 0 08/22/1982 - 08/22/2022 Smokeless Tobacco: Never Comments:10 cigs a day- pt s tates he quit last week. Alcohol Use Standard Drinks/Week Comments No 0 (1 standard drink = 0.6 oz pur e alcohol) Housing Stability - [facility] Screener Answer Date Recorded What is your living situation today? Steady hous ing 01/13/2024 Do you need help with Housing/Care Home resources? Not on file 01/13/2024 Patient indicated [...] Date Recorded PHQ-9 Total Score 2 01/13/2024 [place] Depression Scale Score Not o n file [...] phone, visiting friends or family, going to sikh or club meetings) No 01/13/2024 Patient indicated no issues from the most recent THRIVE questionnaire Not on file 01/13/2024 Adolescent Depression Answer Date Recor ded PHQ-9 Total Score 2 01/13/2024 [place] Depression Scale Score Not o n file [...] st Contact Info) Description 05/31/2024 Procedure Pass [facility] [address] [place] [address] 03/10/2025 3:00 PM EST Office Visit [facility] 534 [place] [address] Mukesh Malik MD [address] [place], [place] [phone] 04/13/2025 4:30 PM EST [facility]medicine [facility] 10[address] [place] [address] Byron Fitzgerald MD [address] [address] 04/20/2025 2:00 PM EST Office Visit [facility] [address] [address] Fernando Da Silva MD 235 [place] [address] 05/31/2025 9:00 AM EST Appointment [facility] [address] [place] [address] 06/04/2025 1:00 PM EST Pulmonary Function Test [facility] [address] [place] [address] Chris Patel MD [address] [place] [address] documented as of this encounter Visit Diagnoses Not on filedocumented in this encounter Care Teams Audio Technician Relationship Specialty Start Date End Date Mukesh Malik MD [address] [place] [address] PCP - General Internal Medicine 07/03/18 Chris Patel MD [address] [place] [address] Physician Pulmonary Disease 06/11/23 Gary Alas MD [address] [place] [address] Surgeon General Surgery 06/03/24 Cari Steve MD [address] [place] [address] Physician Hematology and Oncology 06/10/24 Trudi Guerrero NP [address] [place] [address] Nurse Practitioner Internal Medicine 10/06/24 Yaritza Kc NP [address] [place] [address] Nurse Practitioner Internal Medicine 10/06/24 Sabrina Barbosa NP [address] [place] [address] Nurse Practitioner Internal Medicine 10/06/24 Dottie Granado, PharmD Pharmacist Pharmacy 12/11/24 01/11/25 documented as of this encounter
--- OUTSIDE RECORDS SUMMARY | 2025-03-04 22:23 | XMS_ITS | Encounter Summary ---
Author Organization [facility] Address [address] [place] [address] Care Team Providers Care Tube Machine Operator Helper Name Role Phone Mukesh Malik MD Primary Care Provider [phone] Chris Patel MD Unavailable Gary Alas MD Unavailable [phone] Cari Steve MD Unavailable [phone] Trudi Guerrero MATERIAL HANDLER 1ST SHIFT Unavailable [phone] Yaritza Kc MATERIAL HANDLER 1ST SHIFT Unavailable [phone] Sabrina Barbosa MATERIAL HANDLER 1ST SHIFT Unavailable [phone] Dottie Granado PharmD Unavailable Unavailable Encounter Details Date Type Department Care Team (Late st Contact Info) Description 01/09/2025 Pharmacy Visit [facility] [address] [place] [address] Social History Tobacco Use Types Packs/Day [...] ing 01/08/2025 Do you need help with Housing/Skilled Nursing resources? Not on file 01/08/2025 Patient indicated [...] Date Recorded PHQ-9 Total Score 2 01/13/2024 [place] Depression Scale Score Not o n file [...] phone, visiting friends or family, going to gnosticism or club meetings) No 01/13/2024 Patient indicated no issues from the most recent THRIVE questionnaire Not on file 01/13/2024 Adolescent Depression Answer Date Recor ded PHQ-9 Total Score 2 01/13/2024 [place] Depression Scale Score Not o n file [...] Contact Info) Description 05/31/2024 [facility] [address] [place] [address] 03/10/2025 3:00 PM EST Office Visit [facility] [address] [place] [address] Mukesh Malik MD [address] [place] [address] 04/13/2025 4:30 PM EST Telemedicine [facility] [address] [place] [address] Byron Fitzgerald MD [address] [address] 04/20/2025 2:00 PM EST Office Visit [facility] 235 [facility], [address] [place] [phone] Fernando Da Silva MD [address] [place], [place] [address] 05/31/2025 9:00 AM EST Appointment [facility] [address] [place] [address] 06/04/2025 1:00 PM EST Pulmonary Function Test [facility] 10[address] [place] [address] Chris Patel MD [address] [place] [address] documented as of this encounter Visit Diagnoses Not on filedocumented in this encounter Care Teams Tube Machine Operator Helper Relationship Specialty Start Date End Date Mukesh Malik MD [address] [place] [address] PCP - General Internal Medicine 07/03/18 Chris Patel MD [address] [place] [address] Physician Pulmonary Disease 06/11/23 Gary Alas MD [address] [place] [address] Surgeon General Surgery 06/03/24 Cari Steve MD [address] [place] [address] Physician Hematology and Oncology 06/10/24 Trudi Guerrero NP [address] [place] [address] Nurse Practitioner Internal Medicine 10/06/24 Yaritza Kc NP [address] [place] [address] Nurse Practitioner Internal Medicine 10/06/24 Sabrina Barbosa NP [address] [place] [address] Nurse Practitioner Internal Medicine 10/06/24 Dottie Granado, PharmD Pharmacist Pharmacy 12/11/24 01/11/25 documented as of this encounter
--- OUTSIDE RECORDS SUMMARY | 2025-03-04 22:23 | XMS_ITS | Encounter Summary ---
Author Organization [facility] Address [address] [place] [address] Care Team Providers Care Pipeline Engineer Name Role Phone Daniel Abarca MD Primary Care Provider Dano Monsalve DO Primary Care Provider Dano Monsalve DO Primary Care Provider Mukesh Malik MD Primary Care Provider [phone] Mukesh Malik MD Primary Care Provider [phone] Chris Patel MD Unavailable Silvana Fernandez MD Unavailable Gary Alas MD Unavailable Cari Steve MD Unavailable Trudi Guerrero TELEPHONE COLLECTOR Unavailable Yaritza Kc TELEPHONE COLLECTOR Unavailable [phone] Sabrina Barbosa TELEPHONE COLLECTOR Unavailable [phone] Dottie Granado PharmD Unavailable Unavailable Reason for Visit * Reason Comments Medication Refill Encounter Details Date Type Department Care Team (Late st Contact Info) Description 05/28/2018 Refill [facility] [address] [place] [phone] Daniel Abarca MD [address] [place], [place] [phone] Social History Tobacco Use Types Packs/Day Years [...] st Contact Info) Description 05/31/2024 [facility] [address] [place] [address] 03/10/2025 3:00 PM EST [facility] [address] [place] [address] Mukesh Malik MD [address] [place] [address] 04/13/2025 4:30 PM EST [facility]medicine [facility] [place] [address] Byron Fitzgerald MD [address] [place] [address] 04/20/2025 2:00 PM EST [facility] [address] [phone] Fernando Da Silva MD [address] [place] [address] 05/31/2025 9:00 AM EST Appointment [facility] [address] [place] [address] 06/04/2025 1:00 PM EST Pulmonary Function Test [facility] [address] [place] [address] Chris Patel MD [address] [place] [address] documented as of this encounter Visit Diagnoses Not on filedocumented in this encounter Care Teams Pipeline Engineer Relationship Specialty Start Date End Date Daniel Abarca MD [address] [place] [address] PCP - General Internal Medicine 03/04/15 06/11/18 Dano Monsalve DO [address] [address] PCP - General Internal Medicine 06/12/18 06/15/18 Dano Monsalve DO [address] [address] PCP - General Internal Medicine 06/25/18 07/02/18 Mukesh Malik MD [address] [place] [address] PCP - General Internal Medicine 06/16/18 06/24/18 Mukesh Malik MD [address] [place] [address] PCP - General Internal Medicine 07/03/18 Chris Patel MD [address] [place] [address] Physician Pulmonary Disease 06/11/23 Silvana Fernandez MD [address] [place] [address] Physician Hematology and Oncology 01/27/24 Gary Alas MD [address] [place] [address] Surgeon General Surgery 06/03/24 Cari Steve MD [address] [place] [address] Physician Hematology and Oncology 06/10/24 Trudi Guerrero NP [address] [place] [address] Nurse Practitioner Internal Medicine 10/06/24 Yaritza Kc NP [address] [place] [address] Nurse Practitioner Internal Medicine 10/06/24 Sabrina Barbosa NP [address] [place] [address] Nurse Practitioner Internal Medicine 10/06/24 Dottie Granado, PharmD Pharmacist Pharmacy 12/11/24 01/11/25 documented as of this encounter
--- OUTSIDE RECORDS SUMMARY | 2025-03-04 22:23 | XMS_ITS | Patient Health Record ---
Author Organization [facility] Address [address] [place] [address] Care Team Providers Care Rd Project Manager Name Role Phone Mukesh Malik MD Primary Care Provider Trev Noel Unavailable [phone] Alek Pereira Unavailable [phone] Results Component Value Reference Range Notes Urine Dipstick (UROLOGY ONLY ) ([facility]) Reviewed date:02/11/2025 02:28:44 PM Interpretation: Performing Lab: Notes/Report: Reason For Referral No Information Encounters Encounter Location Date Provider Diagnosis [facility] [address] [place] [address] 03/06/2024 Trev Guaman Plan Of Treatment Future Test Test Name Order Date CT ABDOMEN AND PELVIS 02/05/2024 Insurance Providers Payer Name Payer Address Payer Phone Subscriber Number Group Number Insured Name Patient Relationship to Insured Coverage Start Date Coverage End Date [facility] [address] [address] [place] [id number] [facility] Barnes Self - patient is the insured 4 Devin [employer] t Plan [address] [address] [place], [place] [id number] [facility] Jeff Mack Self - patient is the insured 9 3 Medicaid [address] [place] [address] [id number] Jeff Lay Self - patient is the insured
--- OUTSIDE RECORDS SUMMARY | 2025-03-04 22:24 | XMS_ITS | Encounter Summary ---
Author Organization [facility] Address [address] [place] [address] Care Team Providers Care Ribbon Winder Name Role Phone Daniel Abarca MD Primary Care Provider [phone] Dano Monsalve DO Primary Care Provider Dano Monsalve DO Primary Care Provider [phone] Mukesh Malik MD Primary Care Provider Mukesh Malik MD Primary Care Provider Chris Patel MD Unavailable Silvana Fernandez MD Unavailable Gary Alas MD Unavailable Cari Steve MD Unavailable Trudi Guerrero OPTICAL GLASS INSPECTOR Unavailable Yaritza Kc OPTICAL GLASS INSPECTOR Unavailable [phone] Sabrina Barbosa OPTICAL GLASS INSPECTOR Unavailable Dottie Granado PharmD Unavailable Unavailable Reason for Referral * Diagnostic (Routine) - Closed Specialty Diagnoses / Procedures Referred By Adelfo jacobs Referred To Contact Procedures COLONOSCOPY [facility] [address] [place] [address] Phone: tel: fax: Referral ID Status Reason Start Date Expiration Date Visits Re quested Visits Authorized [id number] Closed 12/23/2015 06/20/2016 1 1 Encounter Details Date Type Department Care Team (Late st Contact Info) Description 12/23/2015 Orders Only [facility] [address] [place] [address] ProviderЕлена MD [facility] [place], [place] [address] Social History Tobacco Use Types Packs/Day Years Used Date Smoking Tobacco: Light Smoker Comments:1 cigarette a day Alcohol Use Standard Drinks/Week Comments No 0 (1 standard drink = 0.6 oz pur e alcohol) Sex and Gender Information Value Date Recorded Sex Assigned at Male 03/10/2024 2:25 PM EST Legal Sex Male 8:35 PM EDT Gender Identity Male 03/10/2024 2:25 PM EST Sexual Orientation _I choose not to answer 03/10 2:25 PM EST documented as of this encounter Plan of Treatment Upcoming Encounters Date Type Department Care Team (Late st Contact Info) Description 05/31/2024 Procedure Pass [facility] [address] [place] [address] 03/10/2025 3:00 PM EST Office Visit [facility] [address] [place] [address] Mukesh Malik MD [address] [place] [address] 04/13/2025 4:30 PM EST Telemedicine [facility] [address] [place] [address] Byron Fitzgerald MD [address] [address] 04/20/2025 2:00 PM EST Office Visit [facility] 235 [facility], [address] [place] [address] Fernando Da Silva MD [address] [place] [address] 05/31/2025 9:00 AM EST Appointment [facility] [address] [place] [phone] 06/04/2025 1:00 PM EST Pulmonary Function Test [facility] [address] [place] [phone] Chris Patel MD [address] [place] [address] documented as of this encounter Procedures Procedure Name Priority Date/Time Associated Diagnosis Comments COLONOSCOPY Routine 12/01/2015 documented in this encounter Results * COLONOSCOPY (12/01/2015) us Historical Provider HEALTH MAINTENANCE Final Result documented in this encounter Visit Diagnoses Not on filedocumented in this encounter Care Teams Ribbon Winder Relationship Specialty Start Date End Date Daniel Abarca MD [address] [place] [address] PCP - General Internal Medicine 03/04/15 06/11/18 Dano Monsalve DO [address] [address] PCP - General Internal Medicine 06/12/18 06/15/18 Dano Monsalve DO [address] [address] PCP - General Internal Medicine 06/25/18 07/02/18 Mukesh Malik MD [address] [place] [address] PCP - General Internal Medicine 06/16/18 06/24/18 Mukesh Malik MD [address] [place] [address] PCP - General Internal Medicine 07/03/18 Chris Patel MD [address] [place] [address] Physician Pulmonary Disease 06/11/23 Silvana Fernandez MD [address] [place] [address] Physician Hematology and Oncology 01/27/24 Gary Alas MD [address], [place] [address] Surgeon General Surgery 06/03/24 Cari Steve MD [address] [place] [address] [place] [address] Physician Hematology and Oncology 06/10/24 Trudi Guerrero NP [address] [place] [address] Nurse Practitioner Internal Medicine 10/06/24 Yaritza Kc NP [address] [place] [address] Nurse Practitioner Internal Medicine 10/06/24 Sabrina Barbosa NP [address] [place] [address] Nurse Practitioner Internal Medicine 10/06/24 Dottie Granado, PharmD Pharmacist Pharmacy 12/11/24 01/11/25 documented as of this encounter
--- OUTSIDE RECORDS SUMMARY | 2025-03-04 22:24 | XMS_ITS | Encounter Summary ---
Author Organization [facility] Address [address] [place] [address] Care Team Providers Care Blanket Folder Name Role Phone Mukesh Malik MD Primary Care Provider [phone] Chris Patel MD Unavailable Silvana Fernandez MD Unavailable Gary Alas MD Unavailable [phone] Cari Steve MD Unavailable [phone] Trudi Guerrero SEARCH ENGINE OPTIMIZER Unavailable [phone] Yaritza Kc SEARCH ENGINE OPTIMIZER Unavailable [phone] Sabrina Barbosa SEARCH ENGINE OPTIMIZER Unavailable [phone] Dottie Granado PharmD Unavailable Unavailable Encounter Details Date Type Department Care Team (Late st Contact Info) Description 09/25/2023 Procedure Pass [facility] [address] [place] [phone] Social History Tobacco Use Types Packs/Day Years Used Date Smoking Tobacco: Former Cigarettes 0.5 40 0 08/22/1982 - 08/22/2022 Smokeless Tobacco: Never Comments:10 cigs a day- pt s tates he quit last week. Alcohol Use Standard Drinks/Week Comments No 0 (1 standard drink = 0.6 oz pur e alcohol) Housing Stability - SDWI Screener Answer Date Recorded What is your living situation today? Not on file 09/05/2022 Do you need help with Housing/Penitentiary resources? Not on file 09/05/2022 Did patient [...] Date Recorded PHQ-9 Total Score 0 09/05/2022 [place] Depression Scale Score Not o n file [...] Recor ded PHQ-9 Total Score 0 09/05/2022 [place] Depression Scale Score Not o n file [...] st Contact Info) Description 05/31/2024 Procedure Pass [facility] [address] [place] [address] 03/10/2025 3:00 PM EST Office Visit [facility] [address] [place] [address] Mukesh Malik MD [address] [place], [place] [address] 04/13/2025 4:30 PM EST Telemedicine [facility] [address] [place] [phone] Byron Fitzgerald MD [address] [place] [address] 04/20/2025 2:00 PM EST Office Visit [facility] [address] [phone] Fernando Da Silva MD [address] [place] [address] 05/31/2025 9:00 AM EST Appointment [facility] [address] [place] [address] 06/04/2025 1:00 PM EST Pulmonary Function Test [facility] [address] [place] [address] Chris Patel MD [address] [place] [address] documented as of this encounter Visit Diagnoses Not on filedocumented in this encounter Care Teams Blanket Folder Relationship Specialty Start Date End Date Mukesh Malik MD [address] [place] [address] PCP - General Internal Medicine 07/03/18 Chris Patel MD [address] [place] [address] Physician Pulmonary Disease 06/11/23 Silvana Fernandez MD [address] [place] [address] Physician Hematology and Oncology 01/27/24 Gary Alas MD [address] [place] [address] Surgeon General Surgery 06/03/24 Cari Steve MD [address] [place] [address] [place] [address] Physician Hematology and Oncology 06/10/24 Trudi Guerrero NP [address] [place] [address] Nurse Practitioner Internal Medicine 10/06/24 Yaritza Kc NP [address] [place] [address] [place] [address] Nurse Practitioner Internal Medicine 10/06/24 Sabrina Barbosa NP [address] [place] [address] Nurse Practitioner Internal Medicine 10/06/24 Dottie Granado, PharmD Pharmacist Pharmacy 12/11/24 01/11/25 documented as of this encounter
--- OUTSIDE RECORDS SUMMARY | 2025-03-04 22:24 | XMS_ITS | Encounter Summary ---
Author Organization [facility] Address [address] [place] [address] Care Team Providers Care Equal Opportunity Assistant Name Role Phone Mukesh Malik MD Primary Care Provider [phone] Chris Patel MD Unavailable Silvana Fernandez MD Unavailable Gary Alas MD Unavailable [phone] Cari Steve MD Unavailable [phone] Trudi Guerrero SUMMER SCHOOL COORDINATOR Unavailable [phone] Yaritza Kc SUMMER SCHOOL COORDINATOR Unavailable [phone] Sabrina Barbosa SUMMER SCHOOL COORDINATOR Unavailable [phone] Dottie Granado PharmD Unavailable Unavailable Encounter Details Date Type Department Care Team (Late st Contact Info) Description 01/14/2024 Procedure Pass [facility] [address] [address] Social History Tobacco Use Types Packs/Day Years Used Date Smoking Tobacco: Former Cigarettes 0.5 40 0 08/22/1982 - 08/22/2022 Smokeless Tobacco: Never Comments:10 cigs a day- pt s tates he quit last week. Alcohol Use Standard Drinks/Week Comments No 0 (1 standard drink = 0.6 oz pur e alcohol) Housing Stability - SDKS Screener Answer Date Recorded What is your living situation today? Steady hous ing 01/13/2024 Do you need help with Housing/Usp resources? Not on file 01/13/2024 Patient indicated [...] Date Recorded PHQ-9 Total Score 2 01/13/2024 [place] Depression Scale Score Not o n file [...] phone, visiting friends or family, going to [employer] or club meetings) No 01/13/2024 Patient indicated no issues from the most recent THRIVE questionnaire Not on file 01/13/2024 Adolescent Depression Answer Date Recor ded PHQ-9 Total Score 2 01/13/2024 [place] Depression Scale Score Not o n file [...] st Contact Info) Description 05/31/2024 Procedure Pass [facility] [address] [place] [address] 03/10/2025 3:00 PM EST Office Visit [facility] [address] [place] [address] Mukesh Malik MD [address] [place] [address] 04/13/2025 4:30 PM EST Telemedicine [facility] [address] [place] [address] Byron Fitzgerald MD [facility] [address] [phone] 04/20/2025 2:00 PM EST Office Visit [facility] [address] [phone] Fernando Da Silva MD [address] [place] [address] 05/31/2025 9:00 AM EST Appointment [facility] [address] [place] [address] 06/04/2025 1:00 PM EST Pulmonary Function Test [facility]0 [place] [address] Chris Patel MD [address] [place] [address] documented as of this encounter Visit Diagnoses Not on filedocumented in this encounter Care Teams Equal Opportunity Assistant Relationship Specialty Start Date End Date Mukesh Malik MD [address] [place] [address] PCP - General Internal Medicine 07/03/18 Chris Patel MD [address] [place] [address] Physician Pulmonary Disease 06/11/23 Silvana Fernandez MD [address] [place] [address] Physician Hematology and Oncology 01/27/24 Gary Alas MD [address] [place] [address] Surgeon General Surgery 06/03/24 Cari Steve MD [address] [place] [address] Physician Hematology and Oncology 06/10/24 Trudi Guerrero NP [address] [place] [address] Nurse Practitioner Internal Medicine 10/06/24 Yaritza Kc NP [address] [place] [address] Nurse Practitioner Internal Medicine 10/06/24 Sabrina Barbosa NP [address] [place] [address] Nurse Practitioner Internal Medicine 10/06/24 Dottie Granado, PharmD Pharmacist Pharmacy 12/11/24 01/11/25 documented as of this encounter
--- OUTSIDE RECORDS SUMMARY | 2025-03-04 22:24 | XMS_ITS | Encounter Summary ---
Author Organization [facility] Address [address] [place] [address] Care Team Providers Care Mixing Machine Tender Cork Rod Name Role Phone Daniel Abarca MD Primary Care Provider Dano Monsalve DO Primary Care Provider [phone] Dano Monsalve DO Primary Care Provider [phone] Mukesh Malik MD Primary Care Provider Mukesh Malik MD Primary Care Provider Chris Patel MD Unavailable Silvana Fernandez MD Unavailable Gary Alas MD Unavailable [phone] Cari Steve MD Unavailable Trudi Guerrero WIND UP OPERATOR Unavailable Yaritza Kc WIND UP OPERATOR Unavailable [phone] Sabrina Babrosa WIND UP OPERATOR Unavailable Dottie Granado PharmD Unavailable Unavailable Reason for Visit * Reason Comments Medication Refill Encounter Details Date Type Department Care Team (Late st Contact Info) Description 08/24/2016 Refill [facility] [address] [place] [phone] Daniel Abarca MD [address] [place], [place] [phone] Social History Tobacco Use Types Packs/Day Years [...] st Contact Info) Description 05/31/2024 [facility] [address] [place] [address] 03/10/2025 3:00 PM EST Office Visit [facility] [address] [place] [address] Mukesh Malik MD [address] [place] [address] 04/13/2025 4:30 PM EST Telemedicine [facility] [address] [place] [address] Byron Fitzgerald MD [facility] [address] [address] 04/20/2025 2:00 PM EST Office Visit [facility] [address] [address] Fernando Da Silva MD [address] [place] [address] 05/31/2025 9:00 AM EST [facility]ointment [facility] [address] [place] [address] 06/04/2025 1:00 PM EST Pulmonary Function Test [facility] [address] [place] [address] Chris Patel MD [address] [place] documented as of this encounter Visit Diagnoses Not on filedocumented in this encounter Care Teams Mixing Machine Tender Cork Rod Relationship Specialty Start Date End Date Daniel Abarca MD [address] [place] [address] PCP - General Internal Medicine 03/04/15 06/11/18 Dano Monsalve DO [address] [address] PCP - General Internal Medicine 06/12/18 06/15/18 Dano Monsalve DO [address] [address] PCP - General Internal Medicine 06/25/18 07/02/18 Mukesh Malik MD [address] [place] [address] PCP - General Internal Medicine 06/16/18 06/24/18 Mukesh Malik MD [address] [place] [address] PCP - General Internal Medicine 07/03/18 Chris Patel MD [address] [place] [address] Physician Pulmonary Disease 06/11/23 Silvana Fernandez MD [address] [place] [address] Physician Hematology and Oncology 01/27/24 Gary Alas MD [address] [place] [address] Surgeon General Surgery 06/03/24 Cari Steve MD [address] [place] [address] Physician Hematology and Oncology 06/10/24 Trudi Guerrero NP [address] [place] [address] Nurse Practitioner Internal Medicine 10/06/24 Yaritza Kc NP [address] [place] [address] Nurse Practitioner Internal Medicine 10/06/24 Sabrina Barbosa NP [address] [place] [address] Nurse Practitioner Internal Medicine 10/06/24 Dottie Granado, PharmD Pharmacist Pharmacy 12/11/24 01/11/25 documented as of this encounter
--- OUTSIDE RECORDS SUMMARY | 2025-03-04 22:24 | XMS_ITS | Encounter Summary ---
Author Organization [facility] Address [address] [place] [address] Care Team Providers Care Airplane Patroller Name Role Phone Mukesh Malik MD Primary Care Provider [phone] Chris Patel MD Unavailable Silvana Fernandez MD Unavailable Gary Alas MD Unavailable [phone] Cari Steve MD Unavailable [phone] Trudi Guerrero LLAMA FARMER Unavailable [phone] Yaritza Kc LLAMA FARMER Unavailable [phone] Sabrina Barbosa LLAMA FARMER Unavailable [phone] Dottie Granado PharmD Unavailable Unavailable Reason for Referral * Diagnostic (Routine) - Authorized Specialty Diagnoses / Procedures Referred By Contac t Referred To Contact Radiology Diagnoses Neck pain Procedures X-ray cervical spine complete 4 or 5 views X-ray cervical spine 2 or 3 views Timi Hyde NP [address] [place] [address] Phone: tel: fax: Referral ID Status Reason Start Date Expiration Date V isits Requested Visits Authorized [id number] Authorized 01/24/2024 01/23/2026 1 1 Encounter Details Date Type Department Care Team (Late st Contact Info) Description 03/10/2024 Ancillary Orders [facility] [address] [place] [address] Timi Hyde, LLAMA FARMER [address] [place] [address] Neck pain (Primary Dx); Macrocytosis; Colovesical fistula Social History Tobacco Use Types [...] ing 01/13/2024 Do you need help with Housing/Halfway resources? Not on file 01/13/2024 Patient indicated [...] Date Recorded PHQ-9 Total Score 2 01/13/2024 [place] Depression Scale Score Not o n file [...] phone, visiting friends or family, going to hoahaoism or club meetings) No 01/13/2024 Patient indicated no issues from the most recent THRIVE questionnaire Not on file 01/13/2024 Adolescent Depression Answer Date Recor ded PHQ-9 Total Score 2 01/13/2024 [place] Depression Scale Score Not o n file [...] st Contact Info) Description 05/31/2024 [facility] [address] [place] [address] 03/10/2025 3:00 PM EST [facility] [address] [place] [address] Mukesh Malik MD [address] [place], [place] [address] 04/13/2025 4:30 PM EST Telemedicine [facility] [address] [place] [phone] Byron Fitzgerald MD [address] [address] 04/20/2025 2:00 PM EST Office Visit [facility] [address] [address] Fernando Da Silva MD [address] [place] [address] 05/31/2025 9:00 AM EST Appointment [facility] [address] [place] [address] 06/04/2025 1:00 PM EST Pulmonary Function Test [facility] [address] [place] [address] Chris Patel MD [address] [place] [address] documented as of this encounter Results * X-ray cervical spine complete 4 or 5 views (03/10/2024 2:55 PM EST) Anatomical Region Laterality Modality C-spine, Ortho C-spine Digital R adiography 03/10/2024 3:50 PM EST Impressions 03/10/2024 11:39 PM EST FINDINGS / IMPRESSION: Cervical spine: There is preservation of vertebral body heights. There is straightening and slight reversal of the cervical lordosis with 2 mm anterolisthesis C3 on C4. There is loss of intervertebral space C5-6 and C6-7. Oblique views demonstrate neural foraminal narrowing in the upper and mid cervical spine bilaterally. Thoracic spine: There is preservation of vertebral body heights. Thoracic kyphosis is preserved. There is multilevel degenerative change. Lumbar spine: L2 vertebral body demonstrates 25% compression deformity which appears chronic There is grade 1 anterolisthesis of L5 on S1 with bilateral spondylolysis. Otherwise lumbar lordosis is preserved. There is multilevel facet joint hypertrophy. Left knee: No dislocation or acute fracture. No effusion. RS: [id number] Narrative 03/10/2024 11:39 PM EST History: low back pain/Low back pain, unspecified back pain laterality, unspecified chronicity, unspecified whether sciatica present Procedure Note Zaki Monte MD - 03/10/2024 History: low back pain/Low back pain, unspecified back pain laterality, unspecifiedchronicity, unspecified whether sciatica present FINDINGS / IMPRESSION: Cervical spine: There is preservation of vertebral body heights. There is straightening and slight reversal of the cervical lordosis with 2mm anterolisthesis C3 on C4. There is loss of intervertebral space C5-6 and C6-7. Oblique views demonstrate neural foraminal narrowing in the upper and midcervical spine bilaterally. Thoracic spine: There is preservation of vertebral body heights. Thoracic kyphosis is preserved. There is multilevel degenerative change. Lumbar spine: L2 vertebral body demonstrates 25% compression deformity which appearschronic There is grade 1 anterolisthesis of L5 on S1 with bilateral spondylolysis.Otherwise lumbar lordosis is preserved. There is multilevel facet joint hypertrophy. Left knee: No dislocation or acute fracture. No effusion. RS: [id number] Timi Khan Barrett LLAMA FARMER IMG DIAGNOSTIC IMAGING LARA MEYER Final Result documented in this encounter Visit Diagnoses Diagnosis Neck pain Cervicalgia Acute pain of left knee Low back pain, unspecified back pain laterality, unspecified chronicity, unspecified whether sciatica present Mid back pain Neck pain- Primary Cervicalgia Macrocytosis Other specified diseases of blood and blood-forming organs Colovesical fistula Intestinovesical fistula documented in this encounter Care Teams Airplane Patroller Relationship Specialty Start Date End Date Mukesh Malik MD [address] [place] [address] PCP - General Internal Medicine 07/03/18 Chris Patel MD [address] [place] [address] Physician Pulmonary Disease 06/11/23 Silvana Fernandez MD [address] [place] [address] Physician Hematology and Oncology 01/27/24 Gary Alas MD [address] [place] [address] Surgeon General Surgery 06/03/24 Cari Steve MD 206 [facility] [address] Physician Hematology and Oncology 06/10/24 Trudi Guerrero NP [address] [place] [address] Nurse Practitioner Internal Medicine 10/06/24 Yaritza Kc NP [address] [place] [address] Nurse Practitioner Internal Medicine 10/06/24 Sabrina Barbosa NP [address] [place] [address] Nurse Practitioner Internal Medicine 10/06/24 Dottie Granado, PharmD Pharmacist Pharmacy 12/11/24 01/11/25 documented as of this encounter
--- OUTSIDE RECORDS SUMMARY | 2025-03-04 22:24 | XMS_ITS | Encounter Summary ---
Author Organization [facility] Address [address] [place] [address] Care Team Providers Care Analytical Technician Name Role Phone Mukesh Malik MD Primary Care Provider [phone] Chris Patel MD Unavailable Gary Alas MD Unavailable [phone] Cari Steve MD Unavailable [phone] Trudi Guerrero DRUM SANDER OFFBEARER Unavailable [phone] Yaritza Kc DRUM SANDER OFFBEARER Unavailable [phone] Sabrina Barbosa DRUM SANDER OFFBEARER Unavailable [phone] Dottie Granado PharmD Unavailable Unavailable Encounter Details Date Type Department Care Team (Late st Contact Info) Description 10/14/2024 Telephone [facility] [address] [place] [address] Mukesh Malik MD [address] [place], [place] [phone] Social History Tobacco Use Types Packs/Day Years Used Date Smoking Tobacco: Former Cigarettes 0.5 40 0 08/22/1982 - 08/22/2022 Smokeless Tobacco: Never Comments:10 cigs a day- pt s tates he quit last week. Alcohol Use Standard Drinks/Week Comments No 0 (1 standard drink = 0.6 oz pur e alcohol) Housing Stability - [facility] Screener Answer Date Recorded What is your living situation today? Steady hous ing 01/13/2024 Do you need help with Housing/Residential resources? Not on file 01/13/2024 Patient indicated [...] Date Recorded PHQ-9 Total Score 2 01/13/2024 [place] Depression Scale Score Not o n file [...] phone, visiting friends or family, going to jehovah's witness or club meetings) No 01/13/2024 Patient indicated no issues from the most recent THRIVE questionnaire Not on file 01/13/2024 Adolescent Depression Answer Date Recor ded PHQ-9 Total Score 2 01/13/2024 [place] Depression Scale Score Not o n file [...] encounter Miscellaneous Notes * Telephone Encounter - Emely uStherland RN - 10/15/2024 10:51 AM EDT Pt returning call, pt can be reached at [phone]. * Telephone Encounter - Candi Santos RN - 10/14/2024 1:20 PM EDT 1:15pm- placed call to patient returning his call from this morning. He had question regarding chair lift. I left a message with my name and contact info asking him to call me back documented in this encounter Plan of Treatment Upcoming Encounters Date Type Department Care Team (Late st Contact Info) Description 05/31/2024 [facility] [address] [place] [address] 03/10/2025 3:00 PM EST [facility] [address] [place] [address] Mukesh Malik MD [address] [place] [address] 04/13/2025 4:30 PM EST Telemedicine [facility]0 [place] [address] Byron Fitzgerald MD [address] [place] [address] 04/20/2025 2:00 PM EST [facility] 235 [facility], [address] [place] [address] Fernando Da Silva MD [address] [place] [address] 05/31/2025 9:00 AM EST Appointment [facility] [address] [place] [address] 06/04/2025 1:00 PM EST Pulmonary Function Test [facility]0 [place] [address] Chris Patel MD [address] [place] [address] documented as of this encounter Visit Diagnoses Not on filedocumented in this encounter Care Teams Analytical Technician Relationship Specialty Start Date End Date Mukesh Malik MD [address] [place] [address] PCP - General Internal Medicine 07/03/18 Chris Patel MD [address] [place] [address] Physician Pulmonary Disease 06/11/23 Gary Alas MD [address] [place] [address] Surgeon General Surgery 06/03/24 Cari Steve MD [address] [place] [address] [place] [address] Physician Hematology and Oncology 06/10/24 Trudi Guerrero NP [address] [place] [address] Nurse Practitioner Internal Medicine 10/06/24 Yaritza Kc NP [address] [place] [address] Nurse Practitioner Internal Medicine 10/06/24 Sabrina Barbosa NP [address] [place] [address] Nurse Practitioner Internal Medicine 10/06/24 Dottie Granado, PharmD Pharmacist Pharmacy 12/11/24 01/11/25 documented as of this encounter
--- OUTSIDE RECORDS SUMMARY | 2025-03-04 22:24 | XMS_ITS | Encounter Summary ---
Author Organization [facility] Address [address] [place] [address] Care Team Providers Care Customer Complaint Clerk Name Role Phone Mukesh Malik MD Primary Care Provider [phone] Chris Patel MD Unavailable Silvana Fernandez MD Unavailable Gary Alas MD Unavailable [phone] Cari Steve MD Unavailable [phone] Trudi Guerrero CHILD WELFARE SOCIAL WORKER Unavailable [phone] Yaritza Kc CHILD WELFARE SOCIAL WORKER Unavailable [phone] Sabrina Barbosa CHILD WELFARE SOCIAL WORKER Unavailable [phone] Dottie Granado PharmD Unavailable Unavailable Encounter Details Date Type Department Care Team (Late st Contact Info) Description 12/10/2022 Procedure Pass [facility] - [address] [address] Social History Tobacco Use Types Packs/Day Years Used Date Smoking Tobacco: Former Cigarettes 0.5 40 0 08/22/1982 - 08/22/2022 Smokeless Tobacco: Never Comments:10 cigs a day- pt s tates he quit last week. Alcohol Use Standard Drinks/Week Comments No 0 (1 standard drink = 0.6 oz pur e alcohol) Housing Stability - [facility] Screener Answer Date Recorded What is your living situation today? Not on file 09/05/2022 Do you need help with Housing/Senior Living resources? Not on file 09/05/2022 Did patient [...] Date Recorded PHQ-9 Total Score 0 09/05/2022 [place] Depression Scale Score Not o n file [...] No's for Social Determina nts? Yes 09/05/2022 Affording Medications - SDOH Screener Answer Date [...] Recor ded PHQ-9 Total Score 0 09/05/2022 [place] Depression Scale Score Not o n file [...] 05/31/2024 Procedure Pass [facility] [address] [place] [address] 03/10/2025 3:00 PM EST Office Visit [facility] [address] [place] [address] Mukesh Malik MD [address] [place], [place] [address] 04/13/2025 4:30 PM EST Telemedicine [facility] [address] [place] [address] Byron Fitzgerald MD [facility] [id number] 04/20/2025 2:00 PM EST Office Visit [facility] 235 [facility], [address] [place] [address] Fernando Da Silva MD [address] [place] [address] 05/31/2025 9:00 AM EST Appointment [facility] [address] [place] [address] 06/04/2025 1:00 PM EST Pulmonary Function Test [facility]0 [place] [phone] Chris Patel MD [address] [place] [address] documented as of this encounter Visit Diagnoses Not on filedocumented in this encounter Care Teams Customer Complaint Clerk Relationship Specialty Start Date End Date Mukesh Malik MD [address] [place] [address] PCP - General Internal Medicine 07/03/18 Chris Patel MD [address] [place] [address] Physician Pulmonary Disease 06/11/23 Silvana Fernandez MD [address] [place] [address] Physician Hematology and Oncology 01/27/24 Gary Alas MD [address] [place] [address] Surgeon General Surgery 06/03/24 Cari Steve MD [address] [facility] [place] [address] Physician Hematology and Oncology 06/10/24 Turdi Guerrero NP [address] [place] [address] Nurse Practitioner Internal Medicine 10/06/24 Yaritza Kc NP [address] [place] [address] Nurse Practitioner Internal Medicine 10/06/24 Sabrina Barbosa NP [address] [place] [address] Nurse Practitioner Internal Medicine 10/06/24 Dottie Granado, PharmD Pharmacist Pharmacy 12/11/24 01/11/25 documented as of this encounter
--- OUTSIDE RECORDS SUMMARY | 2025-03-04 22:24 | XMS_ITS | Encounter Summary ---
Author Organization [facility] Address [address] [place] [address] Care Team Providers Care Human Resources Operations Manager Name Role Phone Mukesh Malik MD Primary Care Provider Chris Patel MD Unavailable Silvana Fernandez MD Unavailable Gary Alas MD Unavailable [phone] Cari Steve MD Unavailable [phone] Trudi Guerrero RETAIL CLIENT MANAGER Unavailable [phone] Yaritza Kc RETAIL CLIENT MANAGER Unavailable [phone] Sabrina Barbosa RETAIL CLIENT MANAGER Unavailable [phone] Dottie Granado PharmD Unavailable Unavailable Reason for Visit * Reason Comments Medication Refill Encounter Details Date Type Department Care Team (Late st Contact Info) Description 01/30/2020 Refill [facility] [address] [place] [address] Rina Hyde, RETAIL CLIENT MANAGER [address] [place] [address] Social History Tobacco Use Types Packs/Day Years Used Date Smoking Tobacco: Every Day Cigarettes 1 3 Started: 04/01/2013; Last attempted to quit: [...] Telephone Encounter - Rina Hyde NP - 02/02/2020 8:51 AM EST Pending surgery. Needs to follow up documented in this encounter Plan of Treatment Upcoming Encounters Date Type Department Care Team (Late st Contact Info) Description 05/31/2024 Procedure Pass [facility] [address] [place] [address] 03/10/2025 3:00 PM EST [facility] [address] [place] [address] Mukesh Malik MD [address] [place] [address] 04/13/2025 4:30 PM EST Telemedicine [facility] [place] [address] Byron Fitzgerald MD [address] [place] [address] 04/20/2025 2:00 PM EST Office Visit [facility] 235 [facility] [place] [address] Fernando Da Silva MD [address] [place] [address] 05/31/2025 9:00 AM EST Appointment [facility] [address] [place] [address] 06/04/2025 1:00 PM EST Pulmonary Function Test [facility] [address] [place] [address] Chris Patel MD [address] [place] [address] documented as of this encounter Visit Diagnoses Not on filedocumented in this encounter Care Teams Human Resources Operations Manager Relationship Specialty Start Date End Date Mukesh Malik MD [address] [place] [address] PCP - General Internal Medicine 07/03/18 Chris Patel MD [address] [place] [address] Physician Pulmonary Disease 06/11/23 Silvana Fernandez MD [address] [place] [address] Physician Hematology and Oncology 01/27/24 Gary Alas MD [address] [place] [address] Surgeon General Surgery 06/03/24 Cari Steve MD [address] [place] [address] [place] [address] Physician Hematology and Oncology 06/10/24 Trudi Guerrero NP [address] [place] [address] Nurse Practitioner Internal Medicine 10/06/24 Yaritza Kc NP [address] [place] [address] Nurse Practitioner Internal Medicine 10/06/24 Sabrina Barbosa NP [address] [place] [address] Nurse Practitioner Internal Medicine 10/06/24 Dottie Granado, PharmD Pharmacist Pharmacy 12/11/24 01/11/25 documented as of this encounter
--- OUTSIDE RECORDS SUMMARY | 2025-03-04 22:24 | XMS_ITS | Encounter Summary ---
Author Organization [facility] Address [address] [place] [address] Care Team Providers Care Malthouse Laborer Name Role Phone Daniel Abarca MD Primary Care Provider Terry Shoemaker MD Primary Care Provider [phone] Daniel Abarca MD Primary Care Provider [phone] Dano Monsalve DO Primary Care Provider [phone] Dano Monsalve DO Primary Care Provider Mukesh Malik MD Primary Care Provider Mukesh Malik MD Primary Care Provider Chris Patel MD Unavailable Silvana Fernandez MD Unavailable Gary Alas MD Unavailable [phone] Cari Steve MD Unavailable Trudi Guerrero MALT HOUSE OPERATOR Unavailable Yaritza Kc MALT HOUSE OPERATOR Unavailable [phone] Sabrina Barbosa MALT HOUSE OPERATOR Unavailable [phone] Dottie Granado PharmD Unavailable Unavailable Reason for Visit * Reason Comments Medication Refill Encounter Details Date Type Department Care Team (Late st Contact Info) Description 09/27/2014 Refill [facility] [address] [place] [address] Daniel Abarca MD [address] [place] [address] Social History Tobacco Use Types Packs/Day Years [...] 05/31/2024 Procedure Pass [facility] [address] [place] [address] 03/10/2025 3:00 PM EST Office Visit [facility] [address] [place] [address] Mukesh Malik MD [address] [place] [address] 04/13/2025 4:30 PM EST Telemedicine [facility] [address] [place] [address] Byron Fitzgerald MD [facility] [address] [address] 04/20/2025 2:00 PM EST Office Visit [facility] 235 [facility], 2nd [place] [address] Fernando Da Silva MD [address] [place] [address] 05/31/2025 9:00 AM EST Appointment [facility] [address] [place] [address] 06/04/2025 1:00 PM EST Pulmonary Function Test [facility] [address] [place] [address] Chris Patel MD [address] [place] [address] documented as of this encounter Visit Diagnoses Not on filedocumented in this encounter Care Teams Malthouse Laborer Relationship Specialty Start Date End Date Daniel Abarca MD [address] [place] [address] PCP - General Internal Medicine 05/04/14 11/25/14 Terry Shoemaker MD [address] [place] [address] [place] [address] PCP - General 11/26/14 03/03/15 Daniel Abarca MD [address] [place] [address] PCP - General Internal Medicine 03/04/15 06/11/18 Dano Monsalve DO 40 [facility] 103 [place] [address] PCP - General Internal Medicine 06/12/18 06/15/18 Dano Monsalve DO 40 [facility] 103 [place] [address] PCP - General Internal Medicine 06/25/18 07/02/18 Mukesh Malik MD [address] [place] [address] PCP - General Internal Medicine 06/16/18 06/24/18 Mukesh Malik MD [address] [place] [address] PCP - General Internal Medicine 07/03/18 Chris Patel MD [address] [place] [address] Physician Pulmonary Disease 06/11/23 Silvana Fernandez MD [address] [place] [address] Physician Hematology and Oncology 01/27/24 Gary Alas MD [address] [place] [address] Surgeon General Surgery 06/03/24 Cari Steve MD [address] [place] [address] [place] [address] Physician Hematology and Oncology 06/10/24 Trudi Guerrero NP [address] [place] [address] Nurse Practitioner Internal Medicine 10/06/24 Yaritza Kc NP [address] [place] [address] Nurse Practitioner Internal Medicine 10/06/24 Sabrina Barbosa NP [address] [place] [address] Nurse Practitioner Internal Medicine 10/06/24 Dottie Granado, PharmD Pharmacist Pharmacy 12/11/24 01/11/25 documented as of this encounter
--- OUTSIDE RECORDS SUMMARY | 2025-03-04 22:24 | XMS_ITS | Encounter Summary ---
Author Organization [facility] Address [address] [place] [address] Care Team Providers Care Spool Winder Name Role Phone Daniel Abarca MD Primary Care Provider [phone] Terry Shoemaker MD Primary Care Provider [phone] Daniel Abarca MD Primary Care Provider Dano Monsalve DO Primary Care Provider [phone] Dano Monsalve DO Primary Care Provider Mukesh Malik MD Primary Care Provider Mukesh Malik MD Primary Care Provider [phone] Chris Patel MD Unavailable Silvana Fernandez MD Unavailable Gary Alas MD Unavailable [phone] Cari Steve MD Unavailable Trudi Guerrero SUMAC TANNER Unavailable [phone] Yaritza Kc SUMAC TANNER Unavailable [phone] Sabrina Barbosa SUMAC TANNER Unavailable [phone] Dottie Granado PharmD Unavailable Unavailable Reason for Visit * Reason Comments Medication Refill Encounter Details Date Type Department Care Team (Late st Contact Info) Description 10/30/2014 Refill [facility] [address] [place] [address] Daniel Abarca MD [address] [place] [address] Social History Tobacco Use Types Packs/Day Years [...] 05/31/2024 Procedure Pass [facility] [address] [place] [address] 03/10/2025 3:00 PM EST Office Visit [facility] 534 [place] [address] Mukesh Malik MD [address] [place] [address] 04/13/2025 4:30 PM EST Telemedicine [facility] 10[address] [place] [address] Byron Fitzgerald MD [facility] [address] [address] 04/20/2025 2:00 PM EST Office Visit [facility] 235 [facility], 2nd [place] [address] Fernando Da Silva MD [address] [place] [address] 05/31/2025 9:00 AM EST Appointment [facility] [address] [place] [address] 06/04/2025 1:00 PM EST Pulmonary Function Test [facility] 10[address] [place] [address] Chris Patel MD [address] [place] [address] documented as of this encounter Visit Diagnoses Not on filedocumented in this encounter Care Teams Spool Winder Relationship Specialty Start Date End Date Daniel Abarca MD [address] [place] [address] PCP - General Internal Medicine 05/04/14 11/25/14 Terry Shoemaker MD [address] [place] [address] [place] [address] PCP - General 11/26/14 03/03/15 Daniel Abarca MD [address] [place] [address] PCP - General Internal Medicine 03/04/15 06/11/18 Dano Monsalve DO 40 [facility] 103 [place] [address] PCP - General Internal Medicine 06/12/18 06/15/18 Dano Monsalve DO 40 [facility] 103 [place] [address] PCP - General Internal Medicine 06/25/18 07/02/18 Mukesh Malik MD [address] [place] [address] PCP - General Internal Medicine 06/16/18 06/24/18 Mukesh Malik MD [address] [place] [address] PCP - General Internal Medicine 07/03/18 Chris Patel MD [address] [place] [address] Physician Pulmonary Disease 06/11/23 Silvana Fernandez MD [address] [place] [address] Physician Hematology and Oncology 01/27/24 Gary Alas MD [address] [place] [address] Surgeon General Surgery 06/03/24 Cari Steve MD [address] [place] [address] [place] [address] Physician Hematology and Oncology 06/10/24 Trudi Guerrero NP [address] [place] [address] Nurse Practitioner Internal Medicine 10/06/24 Yaritza Kc NP [address] [place] [address] Nurse Practitioner Internal Medicine 10/06/24 Sabrina Barbosa NP [address] [place] [address] Nurse Practitioner Internal Medicine 10/06/24 Dottie Granado, PharmD Pharmacist Pharmacy 12/11/24 01/11/25 documented as of this encounter
--- OUTSIDE RECORDS SUMMARY | 2025-03-04 22:24 | XMS_ITS | Encounter Summary ---
Author Organization [facility] Address [address] [place] [address] Care Team Providers Care Ornamental Iron Worker Apprentice Name Role Phone Mukesh Malik MD Primary Care Provider [phone] Chris Patel MD Unavailable Gary Alsa MD Unavailable [phone] Cari Steve MD Unavailable [phone] Trudi Guerrero CHISELER HEAD Unavailable [phone] Yaritza Kc CHISELER HEAD Unavailable [phone] Sabrina Barbosa CHISELER HEAD Unavailable [phone] Dottie Granado PharmD Unavailable Unavailable Reason for Visit * Auth/Cert (Routine) Specialty Diagnoses / Procedures Referred By Contac t Referred To Contact Diagnoses Colovesical fistula Procedures NV LAPAROSCOPY COLECTOMY PARTIAL W/ANASTOMOSIS NV CYSTO W/INSERT URETERAL STENT LAPAROSCOPIC SIGMOID RESECTION, takedown colovesical fistula, ureteral stents by Urology CYSTOSCOPY, PREOP STENT INSERTION URETERAL STENTS Referral ID Status Reason Start Date Expiration Date Visits Re quested Visits Authorized [id number] 1 1 Encounter Details Date Type Department Care Team (Late st Contact Info) Description 07/27/2024 Hospital Encounter [facility] - [address] [address] Gary Alas MD [address] [place] [address] Social History Tobacco Use Types Packs/Day Years [...] ing 01/08/2025 Do you need help with Housing/Half-Way resources? Not on file 01/08/2025 Patient indicated [...] Recorded PHQ-9 Total Score 2 01/13/2024 [place] Depression Scale Score Not o n file [...] phone, visiting friends or family, going to advent or club meetings) No 01/13/2024 Patient indicated no issues from the most recent THRIVE questionnaire Not on file 01/13/2024 Adolescent Depression Answer Date Recor ded PHQ-9 Total Score 2 01/13/2024 [place] Depression Scale Score Not o n file [...] as of this encounter Miscellaneous Notes * Significant Event - Gary Alas MD - 07/14/2024 10:32 AM EDT I spoke to Jeff. My office has been in touch with administration and risk management. He is cancel surgery multiple times. He is still having gas in his urine. He did not undergo a CT scan recommended by his primary care physician and he has not had cross-sectional imaging in the long time. I expressed to him my desire to still proceed with surgery and that I would help him in whatever way I can. I did indicate to him that if he cancel his surgery again, I will no longer be able to helphim. He expressed an eagerness to undergo his surgery. He also expressed understanding of the necessity of the CT scan prior to surgery for surgical planning and ruling out any other ongoing intra-abdominal pathology, given unexplained weight loss, as per the physician who ordered the scan. He expressed willingness to undergo the scan and a desire to then undergo surgery. He expressed a commitment to treating my office staff with respect. He also expressed gratitude for my office staff. He did bring up getting some kind of special chair lift for his house. I indicated that after his surgery, he will be seen by Physical therapy in the hospital, and he will not be sent home if he can not safely go up and down stairs. Sometimes patients need rehab for that reason. I do not anticipatethat the surgery will have any long-term functional impact on his baseline ambulatory status. documented in this encounter Plan of Treatment Upcoming Encounters Date Type Department Care Team (Late st Contact Info) Description 05/31/2024 Procedure Pass [facility] [address] [place] [address] 03/10/2025 3:00 PM EST Office Visit [facility] [address] [place] [address] Mukesh Malik MD [address] [place] [address] 04/13/2025 4:30 PM EST Telemedicine [facility] [address] [place] [phone] Byron Fitzgerald MD [address] [address] 04/20/2025 2:00 PM EST Office Visit [facility] 235 [facility], 2nd [place] [address] Fernando Da Silva MD [address] [place] [address] 05/31/2025 9:00 AM EST Appointment [facility] [address] [place] [address] 06/04/2025 1:00 PM EST Pulmonary Function Test [facility] [address] [place] [address] Chris Patel MD [address] [place] [address] documented as of this encounter Visit Diagnoses Not on filedocumented in this encounter Care Teams Ornamental Iron Worker Apprentice Relationship Specialty Start Date End Date Mukesh Malik MD [address] [place] [address] PCP - General Internal Medicine 07/03/18 Chris Patel MD [address] [place] [address] Physician Pulmonary Disease 06/11/23 Gary Alas MD [address] [place] [address] Surgeon General Surgery 06/03/24 Cari Steve MD [address] [place] [address] Physician Hematology and Oncology 06/10/24 Trudi Guerrero NP [address] [place] [address] Nurse Practitioner Internal Medicine 10/06/24 Yaritza Kc NP [address] [place] [address] Nurse Practitioner Internal Medicine 10/06/24 Sabrina Barbosa NP [address] [place] [address] Nurse Practitioner Internal Medicine 10/06/24 Dottie Granado, PharmD Pharmacist Pharmacy 12/11/24 01/11/25 documented as of this encounter
--- OUTSIDE RECORDS SUMMARY | 2025-03-04 22:24 | XMS_ITS | Encounter Summary ---
Author Organization [facility] Address [address] [place] [address] Care Team Providers Care Marine Radio Installer And Servicer Name Role Phone Mukesh Malik MD Primary Care Provider [phone] Chris Patel MD Unavailable Gary Alas MD Unavailable [phone] Cari Steve MD Unavailable [phone] Trudi Guerrero IT SUPPORT TECHNICIAN Unavailable Yaritza Kc IT SUPPORT TECHNICIAN Unavailable [phone] Sabrina Barbosa IT SUPPORT TECHNICIAN Unavailable [phone] Dottie Granado PharmD Unavailable Unavailable Reason for Visit * Reason Onset Date Comments Release of Information 09/29/2024 Encounter Details Date Type Department Care Team (Late st Contact Info) Description 09/29/2024 Telephone [facility] [address] [place] [address] Mukesh Malik MD [address] [place], [place] [phone] Release of Information Social History Tobacco Use Types Packs/Day Years Used Date Smoking Tobacco: Former Cigarettes 0.5 40 0 08/22/1982 - 08/22/2022 Smokeless Tobacco: Never Comments:10 cigs a day- pt s tates he quit last week. Alcohol Use Standard Drinks/Week Comments No 0 (1 standard drink = 0.6 oz pur e alcohol) Housing Stability - [facility] Screener Answer Date Recorded What is [...] Date Recorded PHQ-9 Total Score 2 01/13/2024 Firth Depression Scale Score Not o n file [...] phone, visiting friends or family, going to hinduism or club meetings) No 01/13/2024 Patient indicated no issues from the most recent THRIVE questionnaire Not on file 01/13/2024 Adolescent Depression Answer Date Recor ded PHQ-9 Total Score 2 01/13/2024 Firth Depression Scale Score Not o n file [...] encounter Miscellaneous Notes * Telephone Encounter - Gonsalo Graff RN - 09/30/2024 11:03 AM EDT Incoming call Jeff Lay Calling to wish office and PCP Happy and Safe September * Telephone Encounter - Mukesh Malik MD - 09/29/2024 3:32 PM EDT Addressed in different encounter * Telephone Encounter - Gustavo Burt RN - 09/29/2024 11:28 AM EDT Pt calling, asking to speak to Dr. Malik about his new doctor, Galdino Patel. documented in this encounter Plan of Treatment Upcoming Encounters Date Type Department Care Team (Late st Contact Info) Description 05/31/2024 Procedure Pass [facility] [address] [place] [address] 03/10/2025 3:00 PM EST Office Visit [facility] [address] [place] [address] Mukesh Malik MD [address] [place] [address] 04/13/2025 4:30 PM EST Telemedicine [facility] [place] [address] Byron Fitzgerald MD [address] [place] [address] 04/20/2025 2:00 PM EST Office Visit [facility] [address] [phone] Fernando Da Silva MD 235 [place] [address] 05/31/2025 9:00 AM EST Appointment [facility] [address] [place] [address] 06/04/2025 1:00 PM EST Pulmonary Function Test [facility] [address] [place] [address] Chris Patel MD [address] [place] [address] documented as of this encounter Visit Diagnoses Not on filedocumented in this encounter Care Teams Marine Radio Installer And Servicer Relationship Specialty Start Date End Date Mukesh Malik MD [address] [place] [address] PCP - General Internal Medicine 07/03/18 Chris Patel MD [address] [place] [address] Physician Pulmonary Disease 06/11/23 Gary Alas MD [address] [place] [address] Surgeon General Surgery 06/03/24 Cari Steve MD [address] [place] [address] Physician Hematology and Oncology 06/10/24 Trudi Guerrero NP [address] [place] [address] Nurse Practitioner Internal Medicine 10/06/24 Yaritza Kc NP [address] [place] [address] Nurse Practitioner Internal Medicine 10/06/24 Sabrina Barbosa NP [address] [place] [address] Nurse Practitioner Internal Medicine 10/06/24 Dottie Granado, PharmD Pharmacist Pharmacy 12/11/24 01/11/25 documented as of this encounter
--- OUTSIDE RECORDS SUMMARY | 2025-03-04 22:24 | XMS_ITS | Encounter Summary ---
Author Organization [facility] Address [address] [place] [address] Care Team Providers Care Cashier Parking Lot Name Role Phone Mukesh Malik MD Primary Care Provider [phone] Chris Patel MD Unavailable Silvana Fernandez MD Unavailable Gary Alas MD Unavailable [phone] Cair Steve MD Unavailable [phone] Trudi Guerrero LAST WAXER Unavailable [phone] Yaritza Kc LAST WAXER Unavailable [phone] Sabrina Barbosa LAST WAXER Unavailable [phone] Dottie Granado PharmD Unavailable Unavailable Reason for Referral * Diagnostic Imaging (Routine) - Closed Specialty Diagnoses / Procedures Referred By Contac t Referred To Contact Radiology Diagnoses Tobacco abuse Unintentional weight loss Procedures CT chest with contrast CT chest without contrast Mukesh Malik MD [address] [place] [address] Phone: tel: fax: [facility] - [address] [address] Phone: tel: fax: Referral ID Status Reason Start Date Expiration Date Visits Re quested Visits Authorized [id number] Closed 11/26/2019 05/24/2020 1 1 Encounter Details Date Type Department Care Team (Late st Contact Info) Description 12/23/2019 Ancillary Orders [facility] [address] [place] [address] Mukesh Malik MD [address] [place] [address] Tobacco abuse; Unintentional weight loss Social History Tobacco Use Types Packs/Day Years [...] 05/31/2024 Procedure Pass [facility] [address] [place] [address] 03/10/2025 3:00 PM EST Office Visit [facility] [address] [place] [address] Mukesh Malik MD [address] [place] [address] 04/13/2025 4:30 PM EST Telemedicine [facility] [place] [address] Byron Fitzgerald MD [address] [place] [address] 04/20/2025 2:00 PM EST Office Visit [facility] [address] [phone] Fernando Da Silva MD 235 [facility] [place] [address] 05/31/2025 9:00 AM EST Appointment [facility] 263 [place] [address] 06/04/2025 1:00 PM EST Pulmonary Function Test [facility] 1030 [facility] [place] [phone] Chris Patel MD [address]30 [facility] [place] [address] documented as of this encounter Results * CT chest with contrast (12/23/2019 1:13 PM EDT) Anatomical Region Laterality Modality Chest, Ortho Chest Computed Lucien graphy 12/23/2019 2:42 PM EDT Impressions 12/24/2019 9:42 AM EDT IMPRESSION: Abnormal appearance of the urinary bladder and sigmoid colon concerning for fistulous communication and chronic infection. Underlying mass not excluded. Close clinical correlation recommended. No occult malignancy clearly identified chest abdomen and pelvis. 8 mm pulmonary nodule. Recommend follow-up as below. Additional findings as above. IMAGING RECOMMENDATIONS (Needs follow-up marked in EPIC): According to the UPDATED 2017 Fleischner Society recommendations, the advised follow-up imaging for a single pure ground-glass nodule measuring 6 mm or greater is: CT at 6-12 months to confirm persistence, then CT every 2 years until 5 years if it persists. Narrative 12/24/2019 9:[address] CHEST WITH CONTRAST CT ABDOMEN PELVIS WITH CONTRAST History: 100 pound weight loss. Smoker. Comparison: No prior relevant cross-sectional imaging available for comparison. TECHNIQUE: Multiple contrast enhanced axial images were acquired from the thoracic inlet through the greater trochanters. Coronal and sagittal reformatting was performed. This exam was performed with the following dose reduction techniques: automated exposure control and adjustment of milliamperage and/or kilovoltage according to patient size. FINDINGS - CHEST: No pleural effusion or pneumothorax. No dense focal pulmonary infiltrates. Emphysematous changes in the lungs. There is a 8.5 mm groundglass subpleural nodule left lower lobe (axial image 41). No mediastinal adenopathy. No pericardial effusion or cardiomegaly. There is atherosclerotic calcification of the thoracic aorta and the coronary arteries. There is degenerative change in the spine. FINDINGS - ABDOMEN AND PELVIS: Liver demonstrates fatty infiltration. There is a subcentimeter low-density focus noted in segment 8 and in segment 2/3 (axial image 49 and 51 respectively) these are incompletely characterized. Gallbladder, spleen, adrenal glands unremarkable. There is a degree of pancreatic atrophy. No solid mass identified. No ductal dilatation. Bilaterally no hydronephrosis. No small bowel obstruction. Distal colon is thickened and particularly the sigmoid colon. There is extensive colonic diverticulosis. There is loss of the fat plane between the colon and the superior anterior aspect of the urinary bladder with apparent communication (coronal image 70, sagittal image 120). There is accompanying abnormal thickening of the urinary bladder and gas within the urinary bladder. Fat stranding seen surrounding the urinary bladder. No drainable fluid collection. No free air. The abdominal aorta is nonaneurysmal. Atherosclerotic calcification is present. Degenerative changes noted in the spine and hips. Mukesh Malik MD IMG CT ORDERABLES Edited Resu lt - Final documented in this encounter Visit Diagnoses Diagnosis Tobacco abuse Tobacco use disorder Unintentional weight loss Loss of weight Pneumaturia Other specified disorders of urinary tract Tobacco abuse Tobacco use disorder Unintentional weight loss Loss of weight documented in this encounter Care Teams Cashier Parking Lot Relationship Specialty Start Date End Date Mukesh Malik MD [address] [place] [address] PCP - General Internal Medicine 07/03/18 Chris Patel MD [address] [place] [address] Physician Pulmonary Disease 06/11/23 Silvana Fernandez MD [address] [place] [address] Physician Hematology and Oncology 01/27/24 Gary Alas MD [address] [place] [address] Surgeon General Surgery 06/03/24 Cari Steve MD [address] [place] [address] Physician Hematology and Oncology 06/10/24 Trudi Guerrero NP [address] [place] [address] Nurse Practitioner Internal Medicine 10/06/24 Yaritza Kc NP [address] [place] [address] Nurse Practitioner Internal Medicine 10/06/24 Sabrina Barbosa NP [address] [place] [address] Nurse Practitioner Internal Medicine 10/06/24 Dottie Granado, PharmD Pharmacist Pharmacy 12/11/24 01/11/25 documented as of this encounter
--- OUTSIDE RECORDS SUMMARY | 2025-03-04 22:24 | XMS_ITS | Encounter Summary ---
Author Organization [facility] Address [address] [place] [address] Care Team Providers Care Local Company Truck Driver Name Role Phone Mukesh Malik MD Primary Care Provider [phone] Chris Patel MD Unavailable Silvana Fernandez MD Unavailable Gary Alas MD Unavailable [phone] Cari Stvee MD Unavailable [phone] Trudi Guerrero REHABILITATION INSPECTOR Unavailable [phone] Yaritza Kc REHABILITATION INSPECTOR Unavailable [phone] Sabrina Barbosa REHABILITATION INSPECTOR Unavailable [phone] Dottie Granado PharmD Unavailable Unavailable Encounter Details Date Type Department Care Team (Late st Contact Info) Description 03/07/2020 Procedure Pass [facility] - [address] [address] Social History Tobacco Use Types [...] 05/31/2024 Procedure Pass [facility] [address] [place] [address] 03/10/2025 3:00 PM EST Office Visit [facility] [address] [place] [address] Mukesh Malik MD [address] [place], [place] [phone] 04/13/2025 4:30 PM EST Telemedicine [facility] 10[address] [place] [phone] Byron Fitzgerald MD [facility] [address] [id number] 04/20/2025 2:00 PM EST Office Visit [facility] 235 [facility], 2nd [place] [address] Fernando Da Silva MD [address] [place], [place] [phone] 05/31/2025 9:00 AM EST Appointment [facility] [address] [place] [address] 06/04/2025 1:00 PM EST Pulmonary Function [facility] 10[address] [place] [address] Chris Patel MD [address] [place], [place] [phone] documented as of this encounter Visit Diagnoses Not on filedocumented in this encounter Care Teams Local Company Truck Driver Relationship Specialty Start Date End Date Mukesh Malik MD [address] [place] [address] PCP - General Internal Medicine 07/03/18 Chris Patel MD [address] [place] [address] Physician Pulmonary Disease 06/11/23 Silvana Fernandez MD [address] [place] [address] Physician Hematology and Oncology 01/27/24 Gary Alas MD [address] [place] [address] Surgeon General Surgery 06/03/24 Cari Steve MD [address] [place] [address] [place] [address] Physician Hematology and Oncology 06/10/24 Trudi Guerrero NP [address] [place] [address] Nurse Practitioner Internal Medicine 10/06/24 Yaritza Kc NP [address] [place] [address] Nurse Practitioner Internal Medicine 10/06/24 Sabrina Barbosa NP [address] [place] [address] Nurse Practitioner Internal Medicine 10/06/24 Dottie Granado, PharmD Pharmacist Pharmacy 12/11/24 01/11/25 documented as of this encounter
--- OUTSIDE RECORDS SUMMARY | 2025-03-04 22:24 | XMS_ITS | Encounter Summary ---
Author Organization [facility] Address [address] [place] [address] Care Team Providers Care Sock Examiner Name Role Phone Mukesh Malik MD Primary Care Provider [phone] Chris Patel MD Unavailable Gary Alas MD Unavailable [phone] Cari Steve MD Unavailable [phone] Trudi Guerrero TEASEL SETTER Unavailable [phone] Yaritza Kc TEASEL SETTER Unavailable [phone] Sabrina Barbosa TEASEL SETTER Unavailable [phone] Dottie Granado PharmD Unavailable Unavailable Reason for Visit * Reason Comments Medical Record Encounter Details Date Type Department Care Team (Late st Contact Info) Description 11/02/2024 Telephone [facility] [address] [place] [address] Mukesh Malik MD [address] [place], [place] [phone] Medical Record Social History Tobacco Use Types Packs/Day Years Used Date Smoking Tobacco: Former Cigarettes 0.5 40 0 08/22/1982 - 08/22/2022 Smokeless Tobacco: Never Comments:10 cigs a day- pt s tates he quit last week. Alcohol Use Standard Drinks/Week Comments No 0 (1 standard drink = 0.6 oz pur e alcohol) Housing Stability - [employer] Screener Answer Date Recorded What is your [...] Date Recorded PHQ-9 Total Score 2 01/13/2024 Sel[place] Depression Scale Score Not o n file [...] phone, visiting friends or family, going to mormonism or club meetings) No 01/13/2024 Patient indicated no issues from the most recent THRIVE questionnaire Not on file 01/13/2024 Adolescent Depression Answer Date Recor ded PHQ-9 Total Score 2 01/13/2024 [place] Depression Scale Score Not o n file [...] Telephone Encounter - Cari Urrutia RN - 11/03/2024 11:35 AM EDT See other TE * Telephone Encounter - Jose Manuel Veto Everett - 11/02/2024 9:46 AM EDT Copied from [facility] #[id number]. Topic: Incoming Call for Office - Sent to Practice >> Nov 02, 2024 9:42 AM Jose Manuel Tuttle wrote: Who is Calling:? Gustavo( Protective Yardage Control Operator Forming)@[email or web address] Call Back number: [phone] What documents are they requesting(when possible please be specific i.e. mri of hip etc. )? Gustavo is requesting a med list if pt has ant diagnosis and if he is getting any services . Please advise Date needed by: as soon as possible How are they being requested? If Fax: Include fax number: [phone] Department/office: Is this going to anyone's attention? Yes [ ] No [ ] If yes, who: For Service Center Use Only: CALL REASON: MEDICAL RECORDS Whenever possible, by specific as to what medical records are being requested. For example: patientneeds blood work from last visit, patient needs MRI of hip from July. Just putting medical records doesn't let the office know what they are looking for. *Please use appropriate SmartPhrase/DotPhrase and delete this line* documented in this encounter Plan of Treatment Upcoming Encounters Date Type Department Care Team (Late st Contact Info) Description 05/31/2024 Procedure Pass [facility] [address] [place] [address] 03/10/2025 3:00 PM EST Office Visit [facility] [address] [place] [address] Mukesh Malik MD [address] [place] [address] 04/13/2025 4:30 PM EST Telemedicine [facility] [address] [place] [address] Byron Fitzgerald MD [address] [address] 04/20/2025 2:00 PM EST Office Visit [facility] 235 [facility], [address]nd [place] [address] Fernando Da Silva MD 235 [place] [address] 05/31/2025 9:00 AM EST Appointment [facility] [address] [place] [address] 06/04/2025 1:00 PM EST Pulmonary Function Test [facility] 10[address] [place] [address] Chris Patel MD [address] [place] [address] documented as of this encounter Visit Diagnoses Not on filedocumented in this encounter Care Teams Sock Examiner Relationship Specialty Start Date End Date Mukesh Malik MD [address] [place] [address] PCP - General Internal Medicine 07/03/18 Chris Patel MD [address] [place] [address] Physician Pulmonary Disease 06/11/23 Gary Alas MD [address] [place] [address] Surgeon General Surgery 06/03/24 Cari Steve MD [address] [place] [address] Physician Hematology and Oncology 06/10/24 Trudi Guerrero NP [address] [place] [address] Nurse Practitioner Internal Medicine 10/06/24 Yaritza Kc NP [address] [place] [address] Nurse Practitioner Internal Medicine 10/06/24 Sabrina Barbosa NP [address] [place] [address] Nurse Practitioner Internal Medicine 10/06/24 Dottie Granado, PharmD Pharmacist Pharmacy 12/11/24 01/11/25 documented as of this encounter
--- OUTSIDE RECORDS SUMMARY | 2025-03-04 22:24 | XMS_ITS | Encounter Summary ---
Author Organization [facility] Address [address] [place] [address] Care Team Providers Care Computer Networking Instructor Adjunct Name Role Phone Mukesh Malik MD Primary Care Provider [phone] Chris Patel MD Unavailable Gary Alas MD Unavailable [phone] Cari Steve MD Unavailable [phone] Trudi Guerrero MACROECONOMICS PROFESSOR Unavailable [phone] Yaritza Kc MACROECONOMICS PROFESSOR Unavailable [phone] Sabrina Barbosa MACROECONOMICS PROFESSOR Unavailable [phone] Dottie Granado PharmD Unavailable Unavailable Encounter Details Date Type Department Care Team (Late st Contact Info) Description 07/27/2024 Procedure Pass [facility] - [address] [address] Social History Tobacco Use Types [...] Date Recorded PHQ-9 Total Score 2 01/13/2024 Arrey Depression Scale Score Not o n file [...] Recor ded PHQ-9 Total Score 2 01/13/2024 Arrey Depression Scale Score Not o n file [...] Contact Info) Description 05/31/2024 [facility] [address] [place] [address] 03/10/2025 3:00 PM EST Office Visit [facility] [address] [place] [address] Mukesh Malik MD [address] [place] [address] 04/13/2025 4:30 PM EST Telemedicine [facility] 10[address] [place] [address] Byron Fitzgerald MD [address] [phone] 04/20/2025 2:00 PM EST Office Visit [facility] 235 [facility], 2nd [place] [address] Fernando Da Silva MD [address] [place] [address] 05/31/2025 9:00 AM EST Appointment [facility] [address] [place] [address] 06/04/2025 1:00 PM EST Pulmonary Function Test [facility] [address] [place] [phone] Chris Patel MD [address] [place] [address] documented as of this encounter Visit Diagnoses Not on filedocumented in this encounter Care Teams Computer Networking Instructor Adjunct Relationship Specialty Start Date End Date Mukesh Malik MD [address] [place] [address] PCP - General Internal Medicine 07/03/18 Chris Patel MD [address] [place] [address] Physician Pulmonary Disease 06/11/23 Gary Alas MD [address] [place] [address] Surgeon General Surgery 06/03/24 Cari Steve MD [address] [place] [address] Physician Hematology and Oncology 06/10/24 Trudi Guerrero NP [address] [place] [address] Nurse Practitioner Internal Medicine 10/06/24 Yaritza Kc NP [address] [place] [address] Nurse Practitioner Internal Medicine 10/06/24 Sabrina Barbosa NP [address] [place] [address] Nurse Practitioner Internal Medicine 10/06/24 Dottie Granado, PharmD Pharmacist Pharmacy 12/11/24 01/11/25 documented as of this encounter
--- OUTSIDE RECORDS SUMMARY | 2025-03-04 22:24 | XMS_ITS | Encounter Summary ---
Author Organization [facility] Address [address] [place] [address] Care Team Providers Care Utilization Management Um Nurse Name Role Phone Mukesh Malik MD Primary Care Provider [phone] Chris Patel MD Unavailable Silvana Fernandez MD Unavailable Gary Alas MD Unavailable [phone] Cari Steve MD Unavailable [phone] Trudi Guerrero CORRECTION WARDEN Unavailable [phone] Yaritza Kc [employer]RECTION WARDEN Unavailable [phone] Sabrina Barbosa CORRECTION WARDEN Unavailable [phone] Dottie Granado PharmD Unavailable Unavailable Reason for Visit * Reason Comments Medication Refill Encounter Details Date Type Department Care Team (Late st Contact Info) Description 03/31/2020 Refill [facility] [address] [place] [address] Mukesh Malik MD [address] [place], [place] [phone] Type 2 diabetes mellitus without complication, without long-term current use of insulin (HCC) Social History Tobacco Use Types Packs/Day Years [...] encounter Miscellaneous Notes * Telephone Encounter - Briana Jon RN - 03/31/2020 8:17 AM EST Reviewed medication refill documentation including date of last refill, date of last appointment, date of next appointment, & that appropriate lab work has been ordered or completed. documented in this encounter Plan of Treatment Upcoming Encounters Date Type Department Care Team (Late st Contact Info) Description 05/31/2024 [facility] [address] [place] [address] 03/10/2025 3:00 PM EST Office Visit [facility] [address] [place] [address] Mukesh Malik MD [address] [place] [address] 04/13/2025 4:30 PM EST Telemedicine [facility] [place] [address] Byron Fitzgerald MD [address] [place] [address] 04/20/2025 2:00 PM EST Office Visit [facility] [address] [address] Fernando Da Silva MD [address] [place] [address] 05/31/2025 9:00 AM EST Appointment [facility] [address] [place] [address] 06/04/2025 1:00 PM EST Pulmonary Function Test [facility] [address] [place] [address] Chris Patel MD [address] [place] [address] documented as of this encounter Visit Diagnoses Diagnosis Type 2 diabetes mellitus without complication, without long-term current use of insulin (HCC) documented in this encounter Care Teams Utilization Management Um Nurse Relationship Specialty Start Date End Date Mukesh Malik MD [address] [place] [address] PCP - General Internal Medicine 07/03/18 Chris Patel MD [address] [place] [address] Physician Pulmonary Disease 06/11/23 Silvana Fernandez MD [address] [place] [address] Physician Hematology and Oncology 01/27/24 Gary Alas MD [address] [place] [address] Surgeon General Surgery 06/03/24 Cari Steve MD [address] [place] [address] Physician Hematology and Oncology 06/10/24 Trudi Guerrero, CORRECTION WARDEN [address] [place] [address] Nurse Practitioner Internal Medicine 10/06/24 Yaritza Kc NP [address] [place] [address] Nurse Practitioner Internal Medicine 10/06/24 Sabrina Barbosa NP [address] [place] [address] Nurse Practitioner Internal Medicine 10/06/24 Dottie Granado, PharmD Pharmacist Pharmacy 12/11/24 01/11/25 documented as of this encounter
--- OUTSIDE RECORDS SUMMARY | 2025-03-04 22:24 | XMS_ITS | Encounter Summary ---
Author Organization [facility] Address [address] [place] [address] Care Team Providers Care Salon Supervisor Name Role Phone Daniel Abarca MD Primary Care Provider [phone] Dano Monsalve DO Primary Care Provider Dano Monsalve DO Primary Care Provider [phone] Mukesh Malik MD Primary Care Provider Mukesh Malik MD Primary Care Provider Chris Patel MD Unavailable Silvana Fernandez MD Unavailable Gary Alas MD Unavailable Cari Steve MD Unavailable Trudi Guerrero HOGSHEAD HAND Unavailable Yaritza Kc [employer]GSHEAD HAND Unavailable [phone] Sabrina Barbosa [employer]GS[employer] HAND Unavailable [phone] Dottie Granado PharmD Unavailable Unavailable Reason for Visit * Reason Comments Medication Refill Encounter Details Date Type Department Care Team (Late st Contact Info) Description 09/27/2016 Refill [facility] [address] [place] [phone] Daniel Abarca MD [address] [place], [place] [phone] Social History Tobacco Use Types Packs/Day Years [...] st Contact Info) Description 05/31/[address] [facility] [address] [place] [address] 03/10/2025 3:00 PM EST Office Visit [facility] [address] [place] [address] Mukesh Malik MD [address] [place] [address] 04/13/2025 4:30 PM EST Telemedicine [facility] [address] [place] [address] Byron Fitzgerald MD [facility] [address] [address] 04/20/2025 2:00 PM EST Office Visit [facility] [address] [address] Fernando Da Silva MD [address] [place] [address] 05/31/2025 9:[address] [facility] [address] [place] [address] 06/04/2025 1:00 PM EST Pulmonary Function Test [facility] [address] [place] [address] Chris Patel MD [address] [place], [place] documented as of this encounter Visit Diagnoses Not on filedocumented in this encounter Care Teams Salon Supervisor Relationship Specialty Start Date End Date Daniel Abarca MD [address] [place] [address] PCP - General Internal Medicine 03/04/15 06/11/18 Dano Monsalve DO [address] [address] PCP - General Internal Medicine 06/12/18 06/15/18 Dano Monsalve DO [address] [address] PCP - General Internal Medicine 06/25/18 07/02/18 Mukesh Malik MD [address] [place] [address] PCP - General Internal Medicine 06/16/18 06/24/18 Mukesh Malik MD [address] [place] [address] PCP - General Internal Medicine 07/03/18 Chris Patel MD [address] [place] [address] Physician Pulmonary Disease 06/11/23 Silvana Fernandez MD [address] [place] [address] Physician Hematology and Oncology 01/27/24 Gary Alas MD [address] [place] [address] Surgeon General Surgery 06/03/24 Cari Steve MD [address] [place] [address] Physician Hematology and Oncology 06/10/24 Trudi Guerrero NP [address] [place] [address] Nurse Practitioner Internal Medicine 10/06/24 Yaritza Kc NP [address] [place] [address] Nurse Practitioner Internal Medicine 10/06/24 Sabrina Barbosa NP [address] [place] [address] Nurse Practitioner Internal Medicine 10/06/24 Dottie Granado, PharmD Pharmacist Pharmacy 12/11/24 01/11/25 documented as of this encounter
--- OUTSIDE RECORDS SUMMARY | 2025-03-04 22:24 | XMS_ITS | Encounter Summary ---
Author Organization [facility] Address [address] [place] [address] Care Team Providers Care Air Conditioning Installer Name Role Phone Mukesh Malik MD Primary Care Provider [phone] Chris Patel MD Unavailable Gary Alas MD Unavailable [phone] Cari Steve MD Unavailable [phone] Trudi Guerrero SURVEY RESEARCH ASSOCIATE Unavailable [phone] Yaritza Kc SURVEY RESEARCH ASSOCIATE Unavailable [phone] Sabrina Barbosa SURVEY RESEARCH ASSOCIATE Unavailable [phone] Dottie Granado PharmD Unavailable Unavailable Reason for Visit * Reason Onset Date Comments call back 09/02/2024 Encounter Details Date Type Department Care Team (Late st Contact Info) Description 09/02/2024 Telephone [facility] [address] [place] [address] Chris Patel MD [address] [place], [place] [phone] call back Social History Tobacco Use Types Packs/Day Years Used Date Smoking Tobacco: Former Cigarettes 0.5 40 0 08/22/1982 - 08/22/2022 Smokeless Tobacco: Never Comments:10 cigs a day- pt s tates he quit last week. Alcohol Use Standard Drinks/Week Comments No 0 (1 standard drink = 0.6 oz pur e alcohol) Housing Stability - [facility] Screener Answer Date Recorded What [...] Date Recorded PHQ-9 Total Score 2 01/13/2024 [place] Depression Scale Score Not o n file [...] phone, visiting friends or family, going to denominational or club meetings) No 01/13/2024 Patient indicated no issues from the most recent THRIVE questionnaire Not on file 01/13/2024 Adolescent Depression Answer Date Recor ded PHQ-9 Total Score 2 01/13/2024 [place] Depression Scale Score Not o n file [...] encounter Miscellaneous Notes * Telephone Encounter - Aditi Handy RN - 09/02/2024 3:24 PM EDT Per MS: Does he want nicotine patch and gum? Can pend that to me. Noted Rx pended to MS Tc to pt, aware of MS message and req nicotine patch He verbalized instructions, expressed understanding and in agreement Pt had no further questions or concerns Thanks * Telephone Encounter - Aditi Handy RN - 09/02/2024 2:14 PM EDT Pt returned call reports cont to smoke one pack a day Pt req if he may have something to quit Pt was previously taking nicotine patch 14mg and nicotine gum Pt aware MS is seeing pts and may not respond until end of day, pt expressed understanding and willing wait Pt also aware EA not in office, pt reported he is all set with the other question re: ines smoke Pt last ov with EA on 06/04/24 Please advise for tx Pt preferred [facility] Thanks * Telephone Encounter - Aditi Handy RN - 09/02/2024 10:39 AM EDT Tc to pt no ans lvm to return call Thanks * Telephone Encounter - Keturah Lin - 09/02/2024 10:27 AM EDT [phone] Pt called stating he has an appt next Saturday but he is smoking a little bit and wants to know if something can be prescribed to stop. He also has other questions regarding when he is out side about ines smoke in the air if it will affect him. documented in this encounter Plan of Treatment Upcoming Encounters Date Type Department Care Team (Late st Contact Info) Description 05/31/2024 Procedure Pass [facility] [address] [place] [address] 03/10/2025 3:00 PM EST Office Visit [facility] [address] [place] [address] Mukesh Malik MD [address] [place], [place] [address] 04/13/2025 4:30 PM EST Telemedicine [facility] [address] [place] [address] Byron Fitzgerald MD [facility] [address] [phone] 04/20/2025 2:00 PM EST Office Visit [facility] [address] [address] Fernando Da Silva MD [address] [place] [address] 05/31/2025 9:00 AM EST Appointment [facility] [address] [place] [address] 06/04/2025 1:00 PM EST Pulmonary Function Test [facility] [place] [address] Chris Patel MD [address] [place] [address] documented as of this encounter Visit Diagnoses Diagnosis Tobacco use documented in this encounter Care Teams Air Conditioning Installer Relationship Specialty Start Date End Date Mukesh Malik MD [address] [place] [address] PCP - General Internal Medicine 07/03/18 Chris Patel MD [address] [place], [place] [address] [address] Physician Pulmonary Disease 06/11/23 Gary Alas MD [address] [place] [address] Surgeon General Surgery 06/03/24 Cari Steve MD [address] [place] [address] Physician Hematology and Oncology 06/10/24 Trudi Guerrero NP [address] [place] [address] Nurse Practitioner Internal Medicine 10/06/24 Yaritza Kc NP [address] [place] [address] Nurse Practitioner Internal Medicine 10/06/24 Sabrina Barbosa NP [address] [place] [address] Nurse Practitioner Internal Medicine 10/06/24 Dottie Granado, PharmD Pharmacist Pharmacy 12/11/24 01/11/25 documented as of this encounter
--- OUTSIDE RECORDS SUMMARY | 2025-03-04 22:24 | XMS_ITS | Encounter Summary ---
Author Organization [facility] Address [address] [place] [address] Care Team Providers Care House Rn Name Role Phone Mukesh Malik MD Primary Care Provider [phone] Chris Patel MD Unavailable Silvana Fernandez MD Unavailable Gary Alas MD Unavailable [phone] Cari Steve MD Unavailable [phone] Trudi Guerrero SALES MERCHANDISE ASSOCIATE Unavailable [phone] Yaritza Kc SALES MERCHANDISE ASSOCIATE Unavailable [phone] Sabrina Barbosa SALES MERCHANDISE ASSOCIATE Unavailable [phone] Dottie Granado PharmD Unavailable Unavailable Reason for Visit * Reason Comments Medication Refill Encounter Details Date Type Department Care Team (Late st Contact Info) Description 04/28/2020 Refill [facility] [address] [place] [address] Mukesh Malik MD [address] [place], [place] [phone] Hyperlipidemia, unspecified hyperlipidemia type Social History Tobacco Use Types Packs/Day Years [...] Telephone Encounter - Briana Jon RN - 04/28/2020 6:22 PM EST Reviewed medication refill documentation including date of last refill, date of last appointment, date of next appointment, & that appropriate lab work has been ordered or completed. documented in this encounter Plan of Treatment Upcoming Encounters Date Type Department Care Team (Late st Contact Info) Description 05/31/2024 [facility] [address] [place] [address] 03/10/2025 3:00 PM EST Office Visit [facility] [address] [place] [address] Mukesh Malik MD [address] [place] [address] 04/13/2025 4:30 PM EST Telemedicine [facility] [address] [place] [address] Byron Fitzgerald MD [address] [place] [address] 04/20/2025 2:00 PM EST Office Visit [facility] [address] [address] Fernando Da Silva MD [address] [place] [address] 05/31/2025 9:00 AM EST [facility]ment [facility] [address] [place] [address] 06/04/2025 1:00 PM EST Pulmonary Function Test [facility] [address] [place] [address] Chris Patel MD [address] [place] [address] documented as of this encounter Visit Diagnoses Diagnosis Hyperlipidemia, unspecified hyperlipidemia type documented in this encounter Care Teams House Rn Relationship Specialty Start Date End Date Mukesh Malik MD [address] [place] [address] PCP - General Internal Medicine 07/03/18 Chris Patel MD [address] [place] [address] Physician Pulmonary Disease 06/11/23 Silvana Fernandez MD [address] [place] [address] Physician Hematology and Oncology 01/27/24 Gary Alas MD [address] [place] [address] Surgeon General Surgery 06/03/24 Cari Steve MD [address] [place] [address] [place] [address] Physician Hematology and Oncology 06/10/24 Trudi Guerrero NP [address] [place] [address] Nurse Practitioner Internal Medicine 10/06/24 Yaritza Kc NP [address] [place] [address] Nurse Practitioner Internal Medicine 10/06/24 Sabrina Barbosa NP [address] [place] [address] Nurse Practitioner Internal Medicine 10/06/24 Dottie Granado, PharmD Pharmacist Pharmacy 12/11/24 01/11/25 documented as of this encounter
--- OUTSIDE RECORDS SUMMARY | 2025-03-04 22:24 | XMS_ITS ---
Author Name [facility] Organization Unknown History of Medication Use Medication Directions Dispensed Refills Start Date End Date Stat docusate sodium (COLACE) capsule 100 mg 100 mg, Oral, 2 times daily, First dose on Sat02/16/25 at 1999, Until Discontinued 02/17/2025 active escitalopram oxalate (LEXAPRO) tablet 10 mg 10 mg, Oral, Once Daily, First dose on Sat02/15/25 at 0800, Until Discontinued 02/15/2025 active nicotine (NICODERM CQ) 7 mg/24 hr 1 patch 1 patch, Transdermal, Administer over 24 Hours, Once Daily, First dose on Sat02/15/25 at 0800, Until Discontinued, Do not cut patch. Apply a new patch every 24 hours to a clean, dry, hairless site on the upper arm or hip. 02/15/2025 active risperiDONE (RisperDAL) tablet 3 mg 3 mg, Oral, 2 times daily, First dose on Sat02/14/25 at 1999, Until Discontinued 02/15/2025 active morphine injection 2 mg 2 mg, Intravenous, Every 4 hours PRN, severe pain, moderate pain, Starting on Sat02/16/25 at 0728, Until Sat02/18/25 at 0727, [place] MEDICATION: Use caution and follow appropriate policies for medication prescribing, dispensing and administration., If ordered PRN for pain control, 02/14/2025 02/19/20 completed famotidine (PEPCID) injection 20 mg 20 mg, Intravenous, Once, On Sat02/14/25 at 0600, 1 dose 02/14/2025 02/15/20 completed HYDROmorphone (DILAUDID) injection 1 mg 1 mg, Intravenous, Once, On Sat02/14/25 at 1230, 1 dose, [place] MEDICATION: Use caution and follow appropriate policies for medication prescribing, dispensing and administration., If ordered PRN for pain control, patient may request to receive this medication even if experiencing h 02/14/2025 02/15/20 completed iohexoL (OMNIPAQUE) 350 mg iodine/mL injection 100 mL 100 mL, Intravenous, Once in imaging, First dose on Sat02/14/25 at 0715, 1 dose 02/14/2025 02/15/20 completed metroNIDAZOLE (FLAGYL) IVPB 500 mg 500 mg, Intravenous, Administer over 60 Minutes, Every 12 hours, First dose on Sat02/15/25 at 1900, Until Discontinued, [place] MEDICATION: Use caution and follow appropriate policies for medication prescribing, dispensing and administration., Indications: intraabdominal infection 02/14/2025 02/15/20 active ondansetron (ZOFRAN) injection 4 mg 4 mg, Intravenous, Once, On Sat02/14/25 at 0600, 1 dose, For IM use, administer undiluted; for IV push, undiluted over 2 to 5 minutes; for IV infusion, dilute and administer over 15 to 30 minutes. 02/14/2025 02/15/20 completed sodium chloride 0.9% bolus (NS) 1,000 mL 1,000 mL, Intravenous, Administer over 30 Minutes, Once, On Sat02/14/25 at 0600, 1 dose 02/14/2025 02/15/20 completed dextrose 10 % (D10W) 10% bolus 125 mL 125 mL (12.5 g), Intravenous, at 500 mL/hr, Every 15 min PRN, If blood glucose is between 50-69 mg/dL, and patient unable to swallow, or NPO, or unconscious, or rapidly deteriorating, Starting on Sat02/14/25 at 1136, Until Discontinued, Administer Dextrose 10%, 125 mL. Recheck fingerstick BG in - 02/14/2025 active dextrose 10 % (D10W) 10% bolus 250 mL 250 mL (25 g), Intravenous, at 999 mL/hr, Every 15 min PRN, If blood glucose is less than 50 mg/dL, and patient unable to swallow, or NPO, or unconscious, or rapidly deteriorating, Starting on Sat02/14/25 at 1136, Until Discontinued, Administer Dextrose 10%, 250 mL. Recheck fingerstick BG in 15-30 02/14/2025 active insulin lispro (AdmeLOG, HumaLOG) injection 0-3 Units 0-3 Units, Subcutaneous, Bedtime, First dose on Sat02/14/25 at 2100, Until Discontinued, Correction: Medium Dose Blood Sugar Insulin dose < 70 Contact practitioner 71-149 No Insulin 150-199 No Insulin 200-249 No Insulin 250 02/14/2025 active cefepime (MAXIPIME) 2 g in sodium chloride 0.9 % 50 mL IVPB (2g vial + bag) 2 g, Intravenous, at 100 mL/hr, Every 8 hours, First dose (after last reorder) on Sat01/14/25 at 0100, Until Discontinued, Indications: urinary tract infection 01/14/2025 01/15/20 aborted aspirin (ASA) EC tablet 325 mg 325 mg, Oral, Once Daily, First dose on Sat01/14/25 at 0800, Until Discontinued, Take with food 01/14/2025 active atorvastatin (LIPITOR) tablet 20 mg 20 mg, Oral, Bedtime, First dose on Sat01/13/25 at 2100, Until Discontinued 01/14/2025 active busPIRone (BUSPAR) tablet 15 mg 15 mg, Oral, 2 times daily, First dose on Sat01/13/25 at 2100, Until Discontinued 01/14/2025 active divalproex (DEPAKOTE ER) 24 hr tablet 1,000 mg 1,000 mg, Oral, 2 times daily, First dose on Sat01/13/25 at 2100, Until Discontinued 01/14/2025 active escitalopram oxalate (LEXAPRO) tablet 15 mg 15 mg, Oral, Once Daily, First dose on Sat01/14/25 at 0800, Until Discontinued 01/14/2025 active fenofibrate (TRICOR) tablet 48 mg 48 mg, Oral, Once Daily, First dose on Sat01/14/25 at 0800, Until Discontinued 01/14/2025 active metFORMIN (GLUCOPHAGE) tablet 1,000 mg 1,000 mg, Oral, 2 times daily with meals, First dose on Sat01/13/25 at 2200, Until Discontinued, [place] MEDICATION: Use caution and follow appropriate policies for medication prescribing, dispensing and administration. 01/14/2025 active phenazopyridine (PYRIDIUM) tablet 100 mg 100 mg (rounded from 95 mg), Oral, 3 times daily with meals, First dose on Sat01/13/25 at 2100, Until Discontinued 01/14/2025 active polyethylene glycol (MIRALAX) packet 17 g 17 g, Oral, Once Daily, First dose on Sat01/14/25 at 0800, Until Discontinued, Occasional constipation: Stir powder in 4-8 ounces of water, juice, soda, coffee, or tea until dissolved and drink. 01/14/2025 active risperiDONE (RisperDAL) tablet 2 mg 2 mg, Oral, 2 times daily, First dose on Sat01/13/25 at 2100, Until Discontinued 01/14/2025 active sodium chloride 0.9 % infusion 125 mL/hr, Intravenous, Continuous, Starting on Sat01/13/25 at 1930, Until Susan 01/14/25 at 2048 01/13/2025 01/16/20 completed cefepime (MAXIPIME) injection 2 g 2 g, Intravenous, Once, On Sat01/13/25 at 1715, 1 dose, IV Route: Reconstitute with 10 mL of normal saline for a concentration of 160 mg/mL. For IV push administration, give over 2 to 5 minutes, Indications: urinary tract infection 01/13/2025 01/14/20 completed lactated ringers bolus 1,000 mL 1,000 mL, Intravenous, Administer over 1 Hours, at 1,000 mL/hr, Once, On Sat01/13/25 at 1645, 1 dose 01/13/2025 01/14/20 completed lactated ringers bolus 1,500 mL 1,500 mL, Intravenous, Administer over 1 Hours, at 1,500 mL/hr, Once, On Sat01/13/25 at 1715, 1 dose 01/13/2025 01/14/20 completed sodium chloride flush 3 mL [Order 1 Start] Name: Insert peripheral IV Signed Summary: STAT, Once, On Sat01/13/25 at 1603, For 1 occurrence [Order 1 End] [Order 2 Start] Name: Maintain IV access Signed Summary: STAT, Until discontinued, Starting on Sat01/13/25 at 1603, Until Specified [Order 2 End] [Order 3 Start] Name: Sali 01/13/2025 active busPIRone (BUSPAR) 15 MG tablet 11/12/2024 active nicotine (NICODERM CQ) 14 mg/24 [address] 1 (one) patch on the skin daily. 09/29/2024 active simvastatin (ZOCOR) 80 MG tablet Take 1 (one) tablet (80 mg total) by mouth once daily. 07/19/2024 active nicotine polacrilex (NICORETTE) 2 mg gum Take 1 (one) each (2 mg total) by mouth every 2 (two) hours as needed. 04/24/2024 active diclofenac (VOLTAREN) 1 % topical gel 03/11/2024 active diclofenac (VOLTAREN) 1 % topical gel Apply 2 (two) g topically 4 (four) times a day as needed (for muscle pain). Apply to the back 03/10/2024 active RISPERDAL 3 mg tablet Take 1 tablet twice a day by oral route. 01/17/2024 active nicotine (NICODERM CQ) 7 mg/24 hr 24 hour patch 01/13/2024 active aspirin (ASA) 325 MG tablet Take 1 (one) tablet (325 mg total) by mouth once daily. active bisacodyL (DULCOLAX, BISACODYL,) 5 mg enteric coated tablet 1 (one) tablet (5 mg total) as needed. active citalopram (CELEXA) 20 MG tablet Take 1 (one) tablet (20 mg total) by mouth once daily. active citalopram (CELEXA) 20 MG tablet Take 1.5 (one and a half) tablets (30 mg total) by mouth once daily. active divalproex (DEPAKOTE) 500 MG Delayed Release tablet Take 2 (two) tablets (1,000 mg total) by mouth 2 (two) times a day. active divalproex (DEPAKOTE) 500 MG Delayed Release tablet Take 1 (one) tablet (500 mg total) by mouth 2 (two) times a day. active famotidine 20 MG tablet Take 1 (one) tablet (20 mg total) by mouth 2 (two) times a day. active ferrous sulfate 325 (65 FE) MG tablet Take 1 (one) tablet (325 mg total) by mouth daily with breakfast. active gemfibroziL (LOPID) 600 MG tablet Take 1 (one) tablet (600 mg total) by mouth 2 (two) times a day. active ibuprofen (MOTRIN) 200 MG tablet 1 (one) tablet (200 mg total) as needed. active metFORMIN (GLUCOPHAGE) 1000 MG tablet Take 1 (one) tablet (1,000 mg total) by mouth 2 (two) times a day. Pt not on it active No known medications No known medications active OREGANO OIL ORAL Take 1 tablet by mouth 2 (two) times a day. active oxyBUTYNIN (DITROPAN-XL) 10 MG 24 hr tablet Take 1 (one) tablet (10 mg total) by mouth once daily. active phenazopyridine 95 MG tablet Take by oral route. activ e polyethylene glycol (MIRALAX) 17 gram packet Take by mouth. active tamsulosin (FLOMAX) 0.4 mg capsule Take 1 (one) capsule (0.4 mg total) by mouth once daily. active Allergies Allergen Reaction Severity Comment Documented Date Source Statu s LEVOCETIRIZINE OTHER (SEE COMMENTS) 12/09/2024 [facility] active HALOPERIDOL DECANOATE HIVES 11/29/2024 [facility] active CHLORPROMAZINE OTHER (SEE COMMENTS) 03/24/2014 [facility] active FLUPHENAZINE HIVES 03/24/2014 [facility] activ e HALOPERIDOL LACTATE 03/24/2014 [facility] active PROCHLORPERAZINE EDISYLATE HIVES 03/24/2014 [facility] active THIOTHIXENE HIVES 03/24/2014 [facility] active Problems Problem Status Onset Date Problem Type Date of Resolution Source Failure to thrive in adult active EncounterDiagnosisAct [facility] Multiple pulmonary nodules active 2019-12-31 2 ProblemAct [facility] Depressive disorder active 2020-07-01 2 ProblemAct [facility] Tobacco use active 3 ProblemAct [facility] Type 2 diabetes mellitus with microalbuminuria, without long-term current use of insulin active 7 ProblemAct [facility] Cystitis due to Pseudomonas active 2024-12-30 0 ProblemAct [facility] Restrictive lung disease active 2018-05-30 8 ProblemAct [facility] Bipolar 1 disorder active 2020-07-01 2 ProblemAct [facility] Elevated PSA active 2023-08-31 7 ProblemAct [facility] Hypercholesteremia active 2 ProblemAct [facility] Sepsis due to Pseudomonas active 2024-12-30 5 ProblemAct [facility] Other cirrhosis of liver active 2023-08-31 7 ProblemAct [facility] Shoulder dislocation active 2 ProblemAct [facility] Cigarette nicotine dependence active 2018-05-30 8 ProblemAct [facility] Hyperlipidemia active 2020-07-01 2 ProblemAct [facility] Seizures active 2018-05-30 8 ProblemAct [facility] UTI (urinary tract infection) with pyuria active 2021-10-01 1 ProblemAct [facility] Benign hypertension active 2 ProblemAct [facility] Acute cystitis active EncounterDiagnosisAct [facility] Colon adenomas active 2 ProblemAct [facility] Other emphysema active 2024-04-03 0 ProblemAct [facility] Pleural effusion active 3 ProblemAct [facility] Colovesical fistula active 2019-12-31 9 ProblemAct [facility] Immunizations Vaccine Date Source Lot Number Status Influenza, adjuvanted, trivalent, PF 12/04/2024 [facility] [id number] completed Influenza TIV (IM) 12/04/2024 [facility] [id number] comple teagan Influenza, adjuvanted, trivalent, PF 12/17/2023 [facility] [id number] completed SARS-COV-2(COVID-19) vaccine, UNSPECIFIED 12/17/2023 [facility] [id number] completed Prevnar 20 Pneumococcal Conj. 20 Valent 06/05/2023 [facility] [id number] completed Respiratory syncytial vaccin e Adult, preF, subunit, bivalent, for intramuscular use (0.5ml PF) 01/26/2023 [facility] [id number] completed Zoster Recombinant (Shingrix) 02/02/2021 [facility] [id number] completed Magnasense COVID-19 Vaccine (Pur ple), mRNA, LNP-S, PF, 30 mcg/0.3 mL dose 08/05/2020 [facility] co mpleted PFIZER COVID-19 Vaccine (Pur ple), mRNA, LNP-S, PF, 30 mcg/0.3 mL dose 08/05/2020 [facility] co mpleted Zoster Recombinant (Shingrix) 01/18/2020 [facility] [id number] completed Zoster Recombinant (Shingrix) 01/18/2020 [facility] [id number] completed Pneumococcal Polysaccharide 12/31/2017 [facility] [id number] completed Tdap 05/09/2010 [facility] completed Pneumococcal Polysaccharide 01/01/2008 [facility] completed Encounters Encounter Type Encounter Reason Primary Diagnosis Location Date Emergency Acute psychosis ([facility] Acute psychosis ([facility] 03/03/2025 Emergency Failure to thrive in adult Failure to thrive in adult [facility] 02/22/2025 Inpatient Acute cystitis Acute cystitis [facility] 02/14/2025 Inpatient Sepsis ([facility]) Sepsis ([facility]) [facility] 01/13/2025 Emergency Chest wall pain Chest wall pain [facility] 12/20/2024 Emergency Syncope, unspecified syncope type Syncope, unspecified syncope type [facility] 11/30/2024 Emergency Acute pain of right shoulder Acute pain of right shoulder [facility] 11/29/2024 Care Team Organization Name Specialty Phone Email Start Date End Da te [facility] 2024 [facility] 2024
--- OUTSIDE RECORDS SUMMARY | 2025-03-04 22:24 | XMS_ITS | Encounter Summary ---
Author Organization [facility] Address [address] [place] [address] Care Team Providers Care Liquor Merchant Name Role Phone Mukesh Malik MD Primary Care Provider [phone] Chris Patel MD Unavailable Silvana Fernandez MD Unavailable Gary Alas MD Unavailable [phone] Cari Steve MD Unavailable [phone] Trudi Guerrero CLEARANCE REPRESENTATIVE Unavailable [phone] Yaritza Kc CLEARANCE REPRESENTATIVE Unavailable [phone] Sabrina Barbosa CLEARANCE REPRESENTATIVE Unavailable [phone] Dottie Granado PharmD Unavailable Unavailable Encounter Details Date Type Department Care Team (Late st Contact Info) Description 09/06/2022 Procedure Pass [facility] - [address] [phone] Social History Tobacco Use Types Packs/Day Years Used Date Smoking Tobacco: Former Cigarettes 0.5 40 0 08/22/1982 - 08/22/2022 Smokeless Tobacco: Never Comments:10 cigs a day- pt s tates he quit last week. Alcohol Use Standard Drinks/Week Comments No 0 (1 standard drink = 0.6 oz pur e alcohol) Housing Stability - [facility] Screener Answer Date Recorded What is your living situation today? Not on file 09/05/2022 Do you need help with Housing/Residential resources? Not on file 09/05/2022 Did patient [...] Date Recorded PHQ-9 Total Score 0 09/05/2022 [place] Depression Scale Score Not o n file [...] Recor ded PHQ-9 Total Score 0 09/05/2022 [place] Depression Scale Score Not o n file [...] 05/31/2024 Procedure Pass [facility] [address] [place] [address] 03/10/2025 3:00 PM EST Office Visit [facility] [address] [place] [address] Mukesh Malki MD [address] [place], [place] [phone] 04/13/2025 4:30 PM EST Telemedicine [facility] [address] [place] [phone] Byron Fitzgerald MD [facility] [address] [phone] 04/20/2025 2:00 PM EST Office Visit [facility] [address] [facility], [address] [place] [phone] Fernando Da Silva MD [address] [place] [address] 05/31/2025 9:00 AM EST Appointment [facility] [address] [place] [address] 06/04/2025 1:00 PM EST Pulmonary Function Test [facility] [place] [phone] Chris Patel MD [address] [place] [address] documented as of this encounter Visit Diagnoses Not on filedocumented in this encounter Care Teams Liquor Merchant Relationship Specialty Start Date End Date Mukesh Malik MD [address] [place] [address] PCP - General Internal Medicine 07/03/18 Chris Patel MD [address] [place] [address] Physician Pulmonary Disease 06/11/23 Silvana Fernandez MD [address] [place] [address] Physician Hematology and Oncology 01/27/24 Gary Alas MD [address] [place] [address] Surgeon General Surgery 06/03/24 Cari Steve MD [address] [facility] [place] [address] Physician Hematology and Oncology 06/10/24 Trudi Guerrero NP [address] [place] [address] Nurse Practitioner Internal Medicine 10/06/24 Yaritza Kc NP [address] [place] [address] Nurse Practitioner Internal Medicine 10/06/24 Sabrina Barbosa NP [address] [place] [address] Nurse Practitioner Internal Medicine 10/06/24 Dottie Granado, PharmD Pharmacist Pharmacy 12/11/24 01/11/25 documented as of this encounter
--- OUTSIDE RECORDS SUMMARY | 2025-03-04 22:24 | XMS_ITS | Encounter Summary ---
Author Organization [facility] Address [address] [place] [address] Care Team Providers Care Flash Developer Name Role Phone Mukesh Malik MD Primary Care Provider [phone] Chris Patel MD Unavailable Gary Alas MD Unavailable [phone] Cari Steve MD Unavailable [phone] Trudi Guerrero TAX ATTORNEY Unavailable Yaritza Kc TAX ATTORNEY Unavailable [phone] Sabrina Barbosa TAX ATTORNEY Unavailable [phone] Dottie Granado PharmD Unavailable Unavailable Reason for Visit * Reason Onset Date Comments Release of Information 09/28/2024 Encounter Details Date Type Department Care Team (Late st Contact Info) Description 09/28/2024 Telephone [facility] [address] [place] [address] Mukesh Malik MD [address] [place], [place] [phone] Release of Information Social History Tobacco Use Types Packs/Day Years Used Date Smoking Tobacco: Former Cigarettes 0.5 40 0 08/22/1982 - 08/22/2022 Smokeless Tobacco: Never Comments:10 cigs a day- pt s tates he quit last week. Alcohol Use Standard Drinks/Week Comments No 0 (1 standard drink = 0.6 oz pur e alcohol) Housing Stability - [facility] Screener Answer Date Recorded What is [...] Date Recorded PHQ-9 Total Score 2 01/13/2024 [place] Depression Scale Score Not o n file [...] phone, visiting friends or family, going to orthodoxy or club meetings) No 01/13/2024 Patient indicated no issues from the most recent THRIVE questionnaire Not on file 01/13/2024 Adolescent Depression Answer Date Recor ded PHQ-9 Total Score 2 01/13/2024 [place] Depression Scale Score Not o n file [...] encounter Miscellaneous Notes * Telephone Encounter - Gustavo Burt RN - 09/28/2024 8:18 AM EDT Pt calling for time of appt tomorrow w/Dr. Patel. Pt given time & the office phone number. Pt satisfied documented in this encounter Plan of Treatment Upcoming Encounters Date Type Department Care Team (Late st Contact Info) Description 05/31/2024 Procedure Pass [facility] [address] [place] [address] 03/10/2025 3:00 PM EST Office Visit [facility] [address] [place] [address] Mukesh Malik MD [address] [place] [address] 04/13/2025 4:30 PM EST Telemedicine [facility] [address] [place] [phone] Byron Fitzgerald MD [address] [place] [phone] 04/20/2025 2:00 PM EST [facility] [address] [facility], [address]nd [place] [phone] Fernando Da Silva MD [address] [place] [address] 05/31/2025 9:00 AM EST Appointment [facility] [address] [place] [address] 06/04/2025 1:00 PM EST Pulmonary Function Test [facility] [address] [place] [phone] Chris Patel MD [address] [place] [phone] documented as of this encounter Visit Diagnoses Not on filedocumented in this encounter Care Teams Flash Developer Relationship Specialty Start Date End Date Mukesh Malik MD [address] [place] [address] PCP - General Internal Medicine 07/03/18 Chris Patel MD [address] [place] [address] Physician Pulmonary Disease 06/11/23 Gary Alas MD [address] [place] [address] Surgeon General Surgery 06/03/24 Cari Steve MD [address] [place] [address] Physician Hematology and Oncology 06/10/24 Trudi Guerrero NP [address] [place] [address] Nurse Practitioner Internal Medicine 10/06/24 Yaritza Kc NP [address] [place] [address] Nurse Practitioner Internal Medicine 10/06/24 Sabrina Barbosa NP [address] [place] [address] Nurse Practitioner Internal Medicine 10/06/24 Dottie Granado, PharmD Pharmacist Pharmacy 12/11/24 01/11/25 documented as of this encounter
--- OUTSIDE RECORDS SUMMARY | 2025-03-04 22:24 | XMS_ITS | Encounter Summary ---
Author Organization [facility] Address [address] [place] [address] Care Team Providers Care Bell Tier Name Role Phone Terry Shoemaker MD Primary Care Provider Daniel Abarca MD Primary Care Provider [phone] Dano Monsalve DO Primary Care Provider [phone] Dano Monsalve DO Primary Care Provider Mukesh Malik MD Primary Care Provider [phone] Mukesh Malik MD Primary Care Provider Chris Patel MD Unavailable Silvana Fernandez MD Unavailable Gary Alas MD Unavailable Cari Steve MD Unavailable Trudi Guerrero MIRROR FRAMER Unavailable Yaritza Kc MIRROR FRAMER Unavailable [phone] Sabrina Barbosa MIRROR FRAMER Unavailable [phone] Dottie Granado PharmD Unavailable Unavailable Reason for Visit * Reason Comments Medication Refill Encounter Details Date Type Department Care Team (Late st Contact Info) Description 02/27/2015 Refill [facility] [address] [place] [phone] Daniel Abarca MD [address] [place] [address] Social History Tobacco Use Types [...] st Contact Info) Description 05/31/2024 [facility] [address] [place] [address] 03/10/2025 3:00 PM EST [facility] [address] [place] [address] Mukesh Malik MD [address] [place] [address] 04/13/2025 4:30 PM EST Telemedicine [facility] [address] [place] [phone] Byron Fitzgerald MD [address] [address] 04/20/2025 2:00 PM EST Office Visit [facility] 235 [facility], 2nd [place] [address] Fernando Da Silva MD [address] [place] [address] 05/31/2025 9:00 AM EST Appointment [facility] [address] [place] [address] 06/04/2025 1:00 PM EST Pulmonary Function Test [facility] 10[address] [place] [address] Chris Patel MD 1030 [facility] [place] [address] documented as of this encounter Visit Diagnoses Not on filedocumented in this encounter Care Teams Bell Tier Relationship Specialty Start Date End Date Terry Shoemaker MD 103 [facility] [address] [place] [address] PCP - General 11/26/14 03/03/15 Daniel Abarca MD 1029 [facility] [place] [place] PCP - General Internal Medicine 03/04/15 06/11/18 Dano Monsalve DO 40 [facility] [address] [place] [address] PCP - General Internal Medicine 06/12/18 06/15/18 Dano Monsalve DO [address] [address] PCP - General Internal Medicine 06/25/18 07/02/18 Mukesh Malik MD [address] [place] [address] PCP - General Internal Medicine 06/16/18 06/24/18 Mukesh Malik MD [address] [place] [address] PCP - General Internal Medicine 07/03/18 Chris Patel MD 0 [place] [address] Physician Pulmonary Disease 06/11/23 Silvana Fernandez MD [address] [place] [address] Physician Hematology and Oncology 01/27/24 Gary Alas MD [address] [place] [address] Surgeon General Surgery 06/03/24 Cari Steve MD [address] [place] [address] Physician Hematology and Oncology 06/10/24 Trudi Guerrero NP [address] [place] [address] Nurse Practitioner Internal Medicine 10/06/24 Yaritza Kc NP [address] [place] [address] Nurse Practitioner Internal Medicine 10/06/24 Sabrina Barbosa NP [address] [place] [address] Nurse Practitioner Internal Medicine 10/06/24 Dottie Granado, PharmD Pharmacist Pharmacy 12/11/24 01/11/25 documented as of this encounter
--- OUTSIDE RECORDS SUMMARY | 2025-03-04 22:24 | XMS_ITS | Encounter Summary ---
Author Organization [facility] Address [address] [place] [address] Care Team Providers Care Wireless Architect Name Role Phone Daniel Abarca MD Primary Care Provider [phone] Terry Shoemaker MD Primary Care Provider [phone] Daniel Abarca MD Primary Care Provider [phone] Dano Monsalve DO Primary Care Provider [phone] Dano Monsalve DO Primary Care Provider [phone] Mukesh Malik MD Primary Care Provider Mukesh Malik MD Primary Care Provider [phone] Chris Patel MD Unavailable Silvana Fernandez MD Unavailable Gary Alas MD Unavailable [phone] Cari Steve MD Unavailable Trudi Guerrero SEWER CLEANER Unavailable [phone] Yaritza Kc SEWER CLEANER Unavailable [phone] Sabrina Barbosa SEWER CLEANER Unavailable [phone] Dottie Granado PharmD Unavailable Unavailable Reason for Visit * Reason Comments Medication Refill Encounter Details Date Type Department Care Team (Late st Contact Info) Description 03/02/2014 Refill [facility] [address] [place] [address] Daniel Abarca MD [address]30 [place] [address] Social History Tobacco Use Types Packs/Day Years Used Date Smoking Tobacco: Never Assessed Sex and Gender Information Value Date Recorded [...] [facility] [address] [place] [address] 03/10/2025 3:00 PM EST [facility] [address] [place] [address] Mukesh Malik MD [address] [place] [address] 04/13/2025 4:30 PM EST Telemedicine [facility] [address] [place] [phone] Byron Fitzgerald MD [address] [address] 04/20/2025 2:00 PM EST Office Visit [facility] 235 [facility], 2nd [place] [address] Fernando Da Silva MD [address] [place] [address] 05/31/2025 9:00 AM EST Appointment [facility] [address] [place] [address] 06/04/2025 1:00 PM EST Pulmonary Function Test [facility]0 [place] [phone] Chris Patel MD 1030 [facility] [place] [address] documented as of this encounter Visit Diagnoses Not on filedocumented in this encounter Care Teams Wireless Architect Relationship Specialty Start Date End Date Daniel Abarca MD 1030 [facility] [place] [address] PCP - General Internal Medicine 05/04/14 11/25/14 Terry Shoemaker MD 1030 [facility] [address] [place] [address] PCP - General 11/26/14 03/03/15 Daniel Abarca MD 1030 [facility] [address] PCP - General Internal Medicine 03/04/15 06/11/18 Dano Monsalve DO 40 [facility] 103 [place] [address] PCP - General Internal Medicine 06/12/18 06/15/18 Dano Monsalve DO 40 [facility] 103 [place] [address] PCP - General Internal Medicine 06/25/18 07/02/18 Mukesh Malik MD [address] [place] [address] PCP - General Internal Medicine 06/16/18 06/24/18 Mukesh Malik MD [address] [place] [address] PCP - General Internal Medicine 07/03/18 Chris Patel MD [address] [place] [address] Physician Pulmonary Disease 06/11/23 Silvana Fernandez MD [address] [place] [address] Physician Hematology and Oncology 01/27/24 Gary Alas MD [address] [place] [address] Surgeon General Surgery 06/03/24 Cari Steve MD [address] [place] [address] [place] [address] Physician Hematology and Oncology 06/10/24 Trudi Guerrero NP [address] [place] [address] Nurse Practitioner Internal Medicine 10/06/24 Yaritza Kc NP [address] [place] [address] Nurse Practitioner Internal Medicine 10/06/24 Sabrina Barbosa NP [address] [place] [address] Nurse Practitioner Internal Medicine 10/06/24 Dottie Granado, PharmD Pharmacist Pharmacy 12/11/24 01/11/25 documented as of this encounter
--- OUTSIDE RECORDS SUMMARY | 2025-03-04 22:24 | XMS_ITS | Encounter Summary ---
Author Organization [facility] Address [address] [place] [address] Care Team Providers Care Pulmonary Physician Name Role Phone Mukesh Malik MD Primary Care Provider [phone] Chris Patel MD Unavailable Gary Alas MD Unavailable [phone] Cari Steve MD Unavailable [phone] Trudi Guerrero MANIPULATOR OPERATOR Unavailable Yaritza Kc MANIPULATOR OPERATOR Unavailable [phone] Sabrina Barbosa MANIPULATOR OPERATOR Unavailable [phone] Dottie Granado PharmD Unavailable Unavailable Reason for Visit * Reason Onset Date Comments sched. telehealth 09/22/2024 Encounter Details Date Type Department Care Team (Late st Contact Info) Description 09/22/2024 Telephone [facility] [address] [place] [address] Byron Fitzgerald MD [address] [id number] sched. telehealth Social History Tobacco Use Types Packs/Day Years [...] Date Recorded PHQ-9 Total Score 2 01/13/2024 [place] Depression Scale Score Not o n file [...] phone, visiting friends or family, going to baptist or club meetings) No 01/13/2024 Patient indicated no issues from the most recent THRIVE questionnaire Not on file 01/13/2024 Adolescent Depression Answer Date Recor ded PHQ-9 Total Score 2 01/13/2024 [place] Depression Scale Score Not o n file [...] encounter Miscellaneous Notes * Telephone Encounter - Gurpreet Gonzalez - 09/22/2024 2:33 PM EDT Appt has been changed to a telehealth * Telephone Encounter - Kylie Clayton - 09/22/2024 2:23 PM EDT [phone] Pt called office to sched his [address] month follow up with Dr Fitzgerald. Pt is asking for a televisit. I can not sched televisit. Could office please change visit on 04/06/25 at 4:15pm to a televisit. * Telephone Encounter - Gurpreet Gonzalez - 09/22/2024 2:21 PM EDT Called and LVM for the patient to call the office back to R/S his appt in January ( in office) with Dr. Fitzgerald. Please connect to office. (GURPREET) * Telephone Encounter - Kiley Tineo - 09/22/2024 2:12 PM EDT Telephone Information: Pt of Dr. Fitzgerald calling to schedule 6 mo telehealth f/u documented in this encounter Plan of Treatment Upcoming Encounters Date Type Department Care Team (Late st Contact Info) Description 05/31/2024 Procedure Pass [facility] [address] [place] [address] 03/10/2025 3:00 PM EST Office Visit [facility] [address] [place] [address] Mukesh Malik MD [address] [place] [address] 04/13/2025 4:30 PM EST Telemedicine [facility] [address] [place] [phone] Byron Fitzgerald MD [address] [address] 04/20/2025 2:00 PM EST Office Visit [facility] 235 [facility], [address] [place] [address] Fernando Da Silva MD [address] [place] [address] 05/31/2025 9:00 AM EST Appointment [facility] [address] [place] [address] 06/04/2025 1:00 PM EST Pulmonary Function Test [facility] [place] [address] Chris Patel MD [address] [place] [address] documented as of this encounter Visit Diagnoses Not on filedocumented in this encounter Care Teams Pulmonary Physician Relationship Specialty Start Date End Date Mukesh Malik MD [address] [place] [address] PCP - General Internal Medicine 07/03/18 Chris Patel MD [address] [place] [address] Physician Pulmonary Disease 06/11/23 Gary Alas MD [address] [place] [address] Surgeon General Surgery 06/03/24 Cari Steve MD [address] [place] [address] Physician Hematology and Oncology 06/10/24 Trudi Guerrero NP 4 [place] [address] Nurse Practitioner Internal Medicine 10/06/24 Yaritza Kc NP [address] [place] [address] Nurse Practitioner Internal Medicine 10/06/24 Sabrina Barbosa NP [address] [place] [address] Nurse Practitioner Internal Medicine 10/06/24 Dottie Granado, PharmD Pharmacist Pharmacy 12/11/24 01/11/25 documented as of this encounter
--- OUTSIDE RECORDS SUMMARY | 2025-03-04 22:24 | XMS_ITS | Encounter Summary ---
Author Organization [facility] Address [address] [place] [address] Care Team Providers Care Candle Wicker Name Role Phone Mukesh Malik MD Primary Care Provider Chris Patel MD Unavailable Silvana Fernandez MD Unavailable Gary Alas MD Unavailable [phone] Cari Steve MD Unavailable [phone] Trudi Guerrero HYDROELECTRIC PLANT ELECTRICAL ENGINEER Unavailable [phone] Yaritza Kc HYDROELECTRIC PLANT ELECTRICAL ENGINEER Unavailable [phone] Sabrina Barbosa HYDROELECTRIC PLANT ELECTRICAL ENGINEER Unavailable [phone] Dottie Granado PharmD Unavailable Unavailable Reason for Referral * Diagnostic Imaging (Routine) - Closed Specialty Diagnoses / Procedures Referred By Contac t Referred To Contact Radiology Diagnoses Pneumaturia Procedures CT abdomen pelvis with contrast CT abdomen pelvis with and without contrast Rina Hyde NP [address] [place] [address] Phone: tel: fax: [facility] [address] [place] [address] Phone: tel: fax: Referral ID Status Reason Start Date Expiration Date Visits Re quested Visits Authorized [id number] Closed 12/11/2019 06/08/2020 1 1 Encounter Details Date Type Department Care Team (Late st Contact Info) Description 12/23/2019 Ancillary Orders [facility] [address] [place] [address] Rina Hyde NP [address] [place] [address] Pneumaturia Social History Tobacco Use Types Packs/Day Years [...] st Contact Info) Description 05/31/2024 Procedure Pass [facility] [address] [place] [address] 03/10/2025 3:00 PM EST [facility] [address] [place] [address] Mukesh Malik MD [address] [place] [address] 04/13/2025 4:30 PM EST Telemedicine [facility] 10[address] [place] [phone] Byron Fitzgerald MD [facility] [address] [address] 04/20/2025 2:00 PM EST Office Visit [facility] [address] [place] [address] Fernando Da Silva MD 235 [place] [address] 05/31/2025 9:00 AM EST Appointment [facility] 263 [place] [address] 06/04/2025 1:00 PM EST Pulmonary Function Test [facility] 1030 [facility] [place] [phone] Chris Patel MD 1030 [facility] [place] [phone] documented as of this encounter Results * CT abdomen pelvis with contrast (12/23/2019 1:13 PM EDT) Anatomical Region Laterality Modality Abdomen, Ortho Abdomen Computed Tomography 12/23/2019 2:42 PM EDT Impressions 12/24/2019 9:42 [...] changes noted in the spine and hips. Procedure Note Zaki Monte MD - 12/24/2019 CT CHEST WITH CONTRAST CT ABDOMEN PELVIS WITH CONTRAST History: 100 pound weight loss. Smoker. Comparison: No prior relevant cross-sectional imaging available forcomparison. TECHNIQUE: Multiple contrast enhanced axial images were acquired from the thoracicinlet through the greater trochanters. Coronal and sagittal reformattingwas performed. This exam was performed with the following dose reduction techniques:automated exposure control and adjustment of milliamperage and/orkilovoltage according to patient size. FINDINGS - CHEST: No pleural effusion or pneumothorax. No dense focal pulmonary infiltrates. Emphysematous changes in the lungs.There is a 8.5 mm groundglass subpleural nodule left lower lobe (axialimage 41). No mediastinal adenopathy. No pericardial effusion or cardiomegaly. Thereis atherosclerotic calcification of the thoracic aorta and the coronaryarteries. There is degenerative change in the spine. FINDINGS - ABDOMEN AND PELVIS: Liver demonstrates fatty infiltration. There is a subcentimeterlow-density focus noted in segment 8 and in segment 2/3 (axial image 49and 51 respectively) these are incompletely characterized. Gallbladder, spleen, adrenal glands unremarkable. There is a degree of pancreatic atrophy. No solid mass identified. Noductal dilatation. Bilaterally no hydronephrosis. No small bowel obstruction. Distal colon is thickened and particularly thesigmoid colon. There is extensive colonic diverticulosis. There is loss ofthe fat plane between the colon and the superior anterior aspect of theurinary bladder with apparent communication (coronal image 70, sagittal image 120). There isaccompanying abnormal thickening of the urinary bladder and gas within theurinary bladder. Fat stranding seen surrounding the urinary bladder. No drainable fluid collection. No free air. The abdominal aorta is nonaneurysmal. Atherosclerotic calcification ispresent. Degenerative changes noted in the spine and hips. IMPRESSION: Abnormal appearance of the urinary bladder and sigmoid colon concerningfor fistulous communication and chronic infection. Underlying mass notexcluded. Close clinical correlation recommended. No occult malignancy clearly identified chest abdomen and pelvis. 8 mm pulmonary nodule. Recommend follow-up as below. Additional findings as above. IMAGING RECOMMENDATIONS (Needs follow-up marked in EPIC): According to the UPDATED 2017 Fleischner Society recommendations, theadvised follow-up imaging for a single pure ground-glass nodule measuring6 mm or greater is: CT at 6-12 months to confirm persistence, then CT every 2 years until 5years if it persists. Rina Hyde HYDROELECTRIC PLANT ELECTRICAL ENGINEER IMG CT ORDERABLES Final Res ult documented in this encounter Visit Diagnoses Diagnosis Tobacco abuse Tobacco use disorder Unintentional weight loss Loss of weight Pneumaturia Other specified disorders of urinary tract Pneumaturia Other specified disorders of urinary tract documented in this encounter Care Teams Candle Wicker Relationship Specialty Start Date End Date Mukesh Malik MD [address] [place] [address] PCP - General Internal Medicine 07/03/18 Chris Patel MD [address] [place] [address] Physician Pulmonary Disease 06/11/23 Silvana Fernandez MD [address] [place] [address] Physician Hematology and Oncology 01/27/24 Gary Alas MD [address] [place] [address] Surgeon General Surgery 06/03/24 Cari Steve MD [address] [place] [address] Physician Hematology and Oncology 06/10/24 Trudi Guerrero NP [address] [place] [address] Nurse Practitioner Internal Medicine 10/06/24 Yaritza Kc NP [address] [place] [address] Nurse Practitioner Internal Medicine 10/06/24 Sabrina Barbosa NP [address] [place] [address] Nurse Practitioner Internal Medicine 10/06/24 Dottie Granado, PharmD Pharmacist Pharmacy 12/11/24 01/11/25 documented as of this encounter
--- OUTSIDE RECORDS SUMMARY | 2025-03-04 22:24 | XMS_ITS | Encounter Summary ---
Author Organization [facility] Address [address] [place] [address] Care Team Providers Care Facilities Maintenance Manager Name Role Phone Mukesh Malik MD Primary Care Provider [phone] Chirs Patel MD Unavailable Silvana Fernandez MD Unavailable Gary Alas MD Unavailable [phone] Cari Steve MD Unavailable [phone] Trudi Guerrero JAILKEEPER Unavailable [phone] Yaritza Kc JAILKEEPER Unavailable [phone] Sabrina Barbosa JAILKEEPER Unavailable [phone] Dottie Granado PharmD Unavailable Unavailable Encounter Details Date Type Department Care Team (Late st Contact Info) Description 06/14/2020 Procedure Pass [facility] - [address] [address] Social History Tobacco Use Types [...] 05/31/2024 Procedure Pass [facility] [address] [place] [address] 03/10/2025 3:00 PM EST [facility] [address] [place] [address] Mukesh Malik MD [address] [place] [address] 04/13/2025 4:30 PM EST [facility]medicine [facility] [place] [phone] Byron Fitzgerald MD [facility] [address] [phone] 04/20/2025 2:00 PM EST Office Visit [facility] 235 [facility], 2nd [place] [address] Fernando Da Silva MD 235 [place], [place] [address] 05/31/2025 9:00 AM EST Appointment [facility] [address] [place] [address] 06/04/2025 1:00 PM EST Pulmonary Function [facility] [place] [phone] Chris Patel MD [facility] [place], [place] [phone] documented as of this encounter Visit Diagnoses Not on filedocumented in this encounter Care Teams Facilities Maintenance Manager Relationship Specialty Start Date End Date Mukesh Malik MD [address] [place], [place] [phone] PCP - General Internal Medicine 07/03/18 Chris Patel MD [address] [place] [address] Physician Pulmonary Disease 06/11/23 Silvana Fernandez MD [address] [place] [address] Physician Hematology and Oncology 01/27/24 Gary Alas MD [address] [place] [address] Surgeon General Surgery 06/03/24 Cari Steve MD [address] [place] [address] [place] [address] Physician Hematology and Oncology 06/10/24 Trudi Guerrero NP [address] [place] [address] Nurse Practitioner Internal Medicine 10/06/24 Yaritza Kc NP [address] [place] [address] Nurse Practitioner Internal Medicine 10/06/24 Sabrina Barbosa NP [address] [place] [address] Nurse Practitioner Internal Medicine 10/06/24 Dottie Granado, PharmD Pharmacist Pharmacy 12/11/24 01/11/25 documented as of this encounter
--- OUTSIDE RECORDS SUMMARY | 2025-03-04 22:24 | XMS_ITS | Encounter Summary ---
Author Organization [facility] Address [address] [place] [address] Care Team Providers Care Put In Beat Adjuster Name Role Phone Mukesh Malik MD Primary Care Provider [phone] Chris Patel MD Unavailable Silvana Fernandez MD Unavailable Gary Alas MD Unavailable [phone] Cari Steve MD Unavailable [phone] Trudi Guerrero MERGERS AND ACQUISITIONS MANAGER Unavailable [phone] Yaritza Kc MERGERS AND ACQUISITIONS MANAGER Unavailable [phone] Sabrina Barbosa MERGERS AND ACQUISITIONS MANAGER Unavailable [phone] Dottie Granado PharmD Unavailable Unavailable Encounter Details Date Type Department Care Team (Late st Contact Info) Description 12/05/2023 Procedure Pass [facility] - [address] [address] Social History Tobacco Use Types Packs/Day Years Used Date Smoking Tobacco: Former Cigarettes 0.5 40 0 08/22/1982 - 08/22/2022 Smokeless Tobacco: Never Comments:10 cigs a day- pt s tates he quit last week. Alcohol Use Standard Drinks/Week Comments No 0 (1 standard drink = 0.6 oz pur e alcohol) Housing Stability - [facility] Screener Answer Date Recorded What is your living situation today? Not on file 09/05/2022 Do you need help with Housing/Usp resources? Not on file 09/05/2022 Did patient [...] Date Recorded PHQ-9 Total Score 0 09/05/2022 [place] Depression Scale Score Not o n file [...] Recor ded PHQ-9 Total Score 0 09/05/2022 [place] Depression Scale Score Not o n file [...] [facility] [address] [place] [address] 03/10/2025 3:00 PM EST Office [facility] [address] [place] [address] Mukesh Malik MD [address] [place] [address] 04/13/2025 4:30 PM EST Telemedicine [facility]0 [place] [address] Byron Fitzgerald MD [address] [place] [address] 04/20/2025 2:00 PM EST [facility] [address] [phone] Fernando Da Silva MD [address] [place] [address] 05/31/2025 9:00 AM EST Appointment [facility] [address] [place] [address] 06/04/2025 1:00 PM EST Pulmonary Function Test [facility] [address] [place] [address] Chris Patel MD [address] [place] [address] documented as of this encounter Visit Diagnoses Not on filedocumented in this encounter Care Teams Put In Beat Adjuster Relationship Specialty Start Date End Date Mukesh Malik MD [address] [place] [address] PCP - General Internal Medicine 07/03/18 Chris Patel MD [address] [place] [address] Physician Pulmonary Disease 06/11/23 Silvana Fernandez MD [address] [place] [address] Physician Hematology and Oncology 01/27/24 Gary Alas MD [address] [place] [address] Surgeon General Surgery 06/03/24 Cari Steve MD [address] [place] [address] [place] [address] Physician Hematology and Oncology 06/10/24 Trudi Guerrero NP [address] [place] [address] Nurse Practitioner Internal Medicine 10/06/24 Yaritza Kc NP [address] [place] [address] Nurse Practitioner Internal Medicine 10/06/24 Sabrina Barbosa NP [address] [place] [address] Nurse Practitioner Internal Medicine 10/06/24 Dottie Granado, PharmD Pharmacist Pharmacy 12/11/24 01/11/25 documented as of this encounter
--- OUTSIDE RECORDS SUMMARY | 2025-03-04 22:24 | XMS_ITS | Encounter Summary ---
Author Organization [facility] Address [address] [place] [address] Care Team Providers Care Fleet Manager Name Role Phone Mukesh Malik MD Primary Care Provider [phone] Chris Patel MD Unavailable Silvana Fernandez MD Unavailable Gary Alas MD Unavailable [phone] Cari Steve MD Unavailable [phone] Trudi Guerrero LADDER OPERATOR Unavailable [phone] Yaritza Kc LADDER OPERATOR Unavailable [phone] Sabrina Barbosa LADDER OPERATOR Unavailable [phone] Dottie Granado PharmD Unavailable Unavailable Reason for Referral * Diagnostic (Routine) - Authorized Specialty Diagnoses / Procedures Referred By Contac t Referred To Contact Radiology Diagnoses Mid back pain Procedures X-ray thoracic spine 2 views X-ray thoracic spine 4+ views Mukesh Malik MD [address] [place] [address] Phone: tel: fax: Referral ID Status Reason Start Date Expiration Date V isits Requested Visits Authorized [id number] Authorized 03/09/2024 03/09/2026 1 1 Encounter Details Date Type Department Care Team (Latest Contact Info) Description 03/10/2024 Ancillary Orders [facility] [address] [place] [address] Mukesh Malik MD [address] [place] [address] Pure hypercholesterolemia (Primary Dx); Low back pain, unspecified back pain laterality, unspecified chronicity, unspecified whether sciatica present; Mid back pain; Colon adenomas; Type 2 diabetes mellitus with microalbuminuria, without long-term current use of insulin (HCC); Other cirrhosis of liver (HCC); Secondary diabetes mellitus with ophthalmic complication (HCC); Pulmonary nodule; Primary hypertension; Bipolar 1 disorder (HCC); Seizures (HCC) Social History Tobacco Use Types Packs/Day [...] Date Recorded PHQ-9 Total Score 2 01/13/2024 [place] Depression Scale Score Not o n file [...] Recor ded PHQ-9 Total Score 2 01/13/2024 [place] Depression Scale Score Not o n file [...] st Contact Info) Description 05/31/2024 Procedure Pass [facility] [address] [place] [address] 03/10/2025 3:00 PM EST Office Visit [facility] [address] [place] [address] Mukesh Malik MD [address] [place] [address] 04/13/2025 4:30 PM EST Telemedicine [facility] [place] [address] Byron Fitzgerald MD [address] [place] [address] 04/20/2025 2:00 PM EST Office Visit [facility] [address] [phone] Fernando Da Silva MD 235 [place] [address] 05/31/2025 9:00 AM EST Appointment [facility] [address] [place] [address] 06/04/2025 1:00 PM EST Pulmonary Function Test [facility] [address] [place] [address] Chris Patel MD [address] [place] [address] documented as of this encounter Results * X-ray thoracic spine 2 views (03/10/2024 2:55 PM EST) Anatomical Region Laterality Modality C-spine, Ortho Spine Digital Rad iography 03/10/2024 3:50 PM EST Impressions 03/10/2024 11:39 [...] dislocation or acute fracture. No effusion. RS: [id number] Narrative 03/10/2024 11:39 PM EST History: low [...] dislocation or acute fracture. No effusion. RS: [id number] Mukesh Malik MD IMG DIAGNOSTIC IMAGING ORDERA BLES Final Result documented in this encounter Visit Diagnoses Diagnosis Neck pain Cervicalgia Acute pain of left knee Low back pain, unspecified back pain laterality, unspecified chronicity, unspecified whether sciatica present Mid back pain Pure hypercholesterolemia- Primary Low back pain, unspecified back pain laterality, unspecified chronicity, unspecified whether sciatica present Mid back pain Colon adenomas Benign neoplasm of colon Type 2 diabetes mellitus with microalbuminuria, without long-term current use of insulin (HCC) Other cirrhosis of liver (HCC) Secondary diabetes mellitus with ophthalmic complication (HCC) Pulmonary nodule Other diseases of lung, not elsewhere classified Primary hypertension Unspecified essential hypertension Bipolar 1 disorder (HCC) Seizures (HCC) Other convulsions documented in this encounter Care Teams Fleet Manager Relationship Specialty Start Date End Date Mukesh Malik MD [address] [place] [address] PCP - General Internal Medicine 07/03/18 Chris Patel MD [address] [place] [address] Physician Pulmonary Disease 06/11/23 Silvana Fernandez MD [address] [place] [address] Physician Hematology and Oncology 01/27/24 Gary Alas MD [address] [place] [address] Surgeon General Surgery 06/03/24 Cari Steve MD [address] [place] [address] Physician Hematology and Oncology 06/10/24 Trudi Guerrero NP [address] [place] [address] Nurse Practitioner Internal Medicine 10/06/24 Yaritza Kc NP [address] [place] [address] Nurse Practitioner Internal Medicine 10/06/24 Sabrina Barbosa NP [address] [place] [address] Nurse Practitioner Internal Medicine 10/06/24 Dottie Granado, PharmD Pharmacist Pharmacy 12/11/24 01/11/25 documented as of this encounter
--- OUTSIDE RECORDS SUMMARY | 2025-03-04 22:24 | XMS_ITS | Encounter Summary ---
Author Organization [facility] Address [address] [place] [address] Care Team Providers Care Pie Crust Mixer Name Role Phone Mukesh Malik MD Primary Care Provider [phone] Chris Patel MD Unavailable Gary Alas MD Unavailable [phone] Cari Steve MD Unavailable [phone] Trudi Guerrero HEEL SCORER Unavailable Yaritza Kc HEEL SCORER Unavailable [phone] Sabrina Barbosa HEEL SCORER Unavailable [phone] Dottie Granado PharmD Unavailable Unavailable Reason for Visit * Reason Comments Office Message Encounter Details Date Type Department Care Team (Late st Contact Info) Description 10/30/2024 Telephone [facility] [address] [place] [address] Mukesh Malik MD [address] [place], [place] [phone] Office Message Social History Tobacco Use Types Packs/Day Years Used Date Smoking Tobacco: Former Cigarettes 0.5 40 0 08/22/1982 - 08/22/2022 Smokeless Tobacco: Never Comments:10 cigs a day- pt s tates he quit last week. Alcohol Use Standard Drinks/Week Comments No 0 (1 standard drink = 0.6 oz pur e alcohol) Housing Stability - [facility] Screener Answer Date Recorded What is your living situation today? Steady hous ing 01/13/2024 Do you need help with Housing/Intermediate resources? Not on file 01/13/2024 Patient indicated [...] Date Recorded PHQ-9 Total Score 2 01/13/2024 [place] Depression Scale Score Not o n file [...] Recor ded PHQ-9 Total Score 2 01/13/2024 [place] Depression Scale Score Not o n file [...] Encounter - Cari Urrutia RN - 11/03/2024 11:58 AM EDT Received fax from Gustavo at [facility] with information needed on letter head. Spoke with Gustavo and he was given answers to questions he had regarding patient. * Telephone Encounter - Cari Urrutia RN - 11/03/2024 11:35 AM EDT Received second message from Gustavo: Who is Calling:? Gustavo( Protective R D Engineer)@[email or web address] Call Back number: [phone] What documents are they requesting(when possible please be specific i.e. mri of hip etc. )? Gustavo is requesting a med list if pt has ant diagnosis and if he is getting any services . Please advise Date needed by: as soon as possible How are they being requested? fax number: [phone] Spoke to Gustavo and he was informed he will need to sent a fax on his letterhead requesting the information needed. Gustavo in agreement with plan. * Telephone Encounter - Christine Tapia RN - 10/30/2024 3:25 PM EDT Attempted to contact Gustavo, no answer. LMTCB * Telephone Encounter - Mukesh Malik MD - 10/30/2024 3:22 PM EDT He is making his own decisions. He consults with his brother * Telephone Encounter - Jose Manuel Everett - 10/30/2024 1:37 PM EDT Copied from [facility] #[id number]. Topic: Incoming Call for Office - Sent to Practice >> Oct 30, 2024 1:33 PM Jose Manuel Tuttle wrote: Incoming caller to practice: MercedesProtective R D Engineer) @ [facility] Communication Message: Gustavo is calling in seeking some information on pt on whether or not he has a guardian assisting him or if he is on his own in decision making. Please advise Requesting a call back: yes For Service Center Use Only: Use this smartphrase when the call is anything that is not covered under normal call reasons/smart phrases and does not need a nurse triage *Please use appropriate SmartPhrase/DotPhrase and delete this line* documented in this encounter Plan of Treatment Upcoming Encounters Date Type Department Care Team (Late st Contact Info) Description 05/31/2024 [facility] [address] [place] [address] 03/10/2025 3:00 PM EST Office [facility] [address] [place] [address] Mukesh Malik MD [address] [place], [place] [address] 04/13/2025 4:30 PM EST [facility]icine [facility] [address] [place] [address] Byron Fitzgerald MD [facility] [address] [address] 04/20/2025 2:00 PM EST Office Visit [facility] 235 [facility], 2nd [place] [address] Fernando Da Silva MD [address] [place] [address] 05/31/2025 9:00 AM EST Appointment [facility] [address] [place] [address] 06/04/2025 1:00 PM EST Pulmonary Function Test [facility] [place] [address] Chris Patel MD [address] [place] [address] documented as of this encounter Visit Diagnoses Not on filedocumented in this encounter Care Teams Pie Crust Mixer Relationship Specialty Start Date End Date Mukesh Malik MD [address] [place] [address] PCP - General Internal Medicine 07/03/18 Chris Patel MD [address] [place] [address] Physician Pulmonary Disease 06/11/23 Gary Alas MD [address] [place] [address] Surgeon General Surgery 06/03/24 Cari Steve MD [address] [place] [address] Physician Hematology and Oncology 06/10/24 Trudi Guerrero NP [address] [place] [address] Nurse Practitioner Internal Medicine 10/06/24 Yaritza Kc NP [address] [place] [address] Nurse Practitioner Internal Medicine 10/06/24 Sabrina Barbosa NP [address] [place] [address] Nurse Practitioner Internal Medicine 10/06/24 Dottie Granado, PharmD Pharmacist Pharmacy 12/11/24 01/11/25 documented as of this encounter
--- OUTSIDE RECORDS SUMMARY | 2025-03-04 22:24 | XMS_ITS | Encounter Summary ---
Author Organization [facility] Address [address] [place] [address] Care Team Providers Care Sausage Smoker Name Role Phone Daniel Abarca MD Primary Care Provider [phone] Terry Shoemaker MD Primary Care Provider [phone] Daniel Abarca MD Primary Care Provider [phone] Dano Monsalve DO Primary Care Provider Dano Monsalve DO Primary Care Provider Mukesh Malik MD Primary Care Provider [phone] Mukesh Malik MD Primary Care Provider Chris Patel MD Unavailable Silvana Fernandez MD Unavailable Gary Alas MD Unavailable [phone] Cari Steve MD Unavailable [phone] Trudi Guerrero CLEAN ROOM ASSEMBLER Unavailable Yaritza Kc CLEAN ROOM ASSEMBLER Unavailable [phone] Sabrina Barbosa CLEAN ROOM ASSEMBLER Unavailable [phone] Dottie Granado PharmD Unavailable Unavailable Reason for Visit * Reason Comments Medication Refill Encounter Details Date Type Department Care Team (Late st Contact Info) Description 03/05/2014 Refill [facility] [address] [place] [address] Daniel Abarca MD [address] [place] [address] Social History Tobacco Use Types Packs/Day Years [...] st Contact Info) Description 05/31/2024 [facility] [address] [place] [address] 03/10/2025 3:00 PM EST Office [facility] [address] [place] [address] Mukesh Malik MD [address] [place] [address] 04/13/2025 4:30 PM EST Telemedicine [facility] [address] [place] [address] Byron Fitzgerald MD [address] [address] 04/20/2025 2:00 PM EST Office Visit [facility] 235 [facility], 2nd [place] [address] Fernando Da Silva MD [address] [place] [address] 05/31/2025 9:00 AM EST Appointment [facility] [address] [place] [address] 06/04/2025 1:00 PM EST Pulmonary Function Test [facility] [place] [address] Chris Patel MD [address] [facility] [place] [address] documented as of this encounter Visit Diagnoses Not on filedocumented in this encounter Care Teams Sausage Smoker Relationship Specialty Start Date End Date Daniel Abarca MD [address] [facility] [place] [address] PCP - General Internal Medicine 05/04/14 11/25/14 Terry Shoemaker MD 1030 [facility] [address] [place] [address] PCP - General 11/26/14 03/03/15 Daniel Abarca MD [address] [facility] [address] PCP - General Internal Medicine 03/04/15 06/11/18 Dano Monsalve DO 40 [facility] [place] [facility] [address] [place] [address] PCP - General Internal Medicine 06/12/18 06/15/18 Dano Monsalve DO 40 [facility] 103 [place] [address] PCP - General Internal Medicine 06/25/18 07/02/18 Mukesh Malik MD [address] [place] [address] PCP - General Internal Medicine 06/16/18 06/24/18 Mukesh Malik MD [address] [place] [address] PCP - General Internal Medicine 07/03/18 Chris Patel MD [address] [place] [address] Physician Pulmonary Disease 06/11/23 Silvana Fernandez MD [address] [place] [address] Physician Hematology and Oncology 01/27/24 Gary Alas MD [address] [place] [address] Surgeon General Surgery 06/03/24 Cari Steve MD [address] [place] [address] [place] [address] Physician Hematology and Oncology 06/10/24 Trudi Guerrero NP [address] [place] [address] Nurse Practitioner Internal Medicine 10/06/24 Yaritza Kc NP [address] [place] [address] Nurse Practitioner Internal Medicine 10/06/24 Sabrina Barbosa NP [address] [place] [address] Nurse Practitioner Internal Medicine 10/06/24 Dottie Granado, PharmD Pharmacist Pharmacy 12/11/24 01/11/25 documented as of this encounter
--- OUTSIDE RECORDS SUMMARY | 2025-03-04 22:25 | XMS_ITS | Encounter Summary ---
Author Organization [facility] Address [address] [place] [address] Care Team Providers Care Sample Cutter Name Role Phone Mukesh Malik MD Primary Care Provider [phone] Chris Patel MD Unavailable Silvana Fernandez MD Unavailable Gary Alas MD Unavailable [phone] Cari Steve MD Unavailable [phone] Trudi Guerrero LUNCH WAGON OPERATOR Unavailable [phone] Yaritza Kc LUNCH WAGON OPERATOR Unavailable [phone] Sabrina Barbosa LUNCH WAGON OPERATOR Unavailable [phone] Dottie Granado PharmD Unavailable Unavailable Reason for Visit * Reason Comments Medication Refill Encounter Details Date Type Department Care Team (Late st Contact Info) Description 09/13/2022 Refill [facility] [address] [place] [phone] Rina [place], LUNCH WAGON OPERATOR [address] [place] [address] Social History Tobacco Use Types Packs/Day Years Used Date Smoking Tobacco: Former Cigarettes 0.5 40 0 08/22/1982 - 08/22/2022 Smokeless Tobacco: Never Comments:10 cigs a day- pt s tates he quit last week. Alcohol Use Standard Drinks/Week Comments No 0 (1 standard drink = 0.6 oz pur e alcohol) Housing Stability - [facility] Screener Answer Date Recorded What is your living situation today? Not on file 09/05/2022 Do you need help with Housing/Fpc resources? Not on file 09/05/2022 Did patient [...] Date Recorded PHQ-9 Total Score 0 09/05/2022 [place] Depression Scale Score Not o n file [...] Recor ded PHQ-9 Total Score 0 09/05/2022 [place] Depression Scale Score Not o n file [...] 05/31/2024 Procedure Pass [facility] [address] [place] [address] 03/10/2025 3:00 PM EST Office Visit [facility] [address] [place] [address] Mukesh Malik MD [address] [place], [place] [address] 04/13/2025 4:30 PM EST Telemedicine [facility] [address] [place] [address] Byron Fitzgerald MD [facility]0 [address] [address] 04/20/2025 2:00 PM EST Office Visit [facility] [address] [address] Fernando Da Silva MD [address] [place] [address] 05/31/2025 9:00 AM EST Appointment [facility] [address] [place] [address] 06/04/2025 1:00 PM EST [facility]0 [place] [address] Chris Patel MD [facility] [place] [address] documented as of this encounter Visit Diagnoses Not on filedocumented in this encounter Care Teams Sample Cutter Relationship Specialty Start Date End Date Mukesh Malik MD [address] [place] [address] PCP - General Internal Medicine 07/03/18 Chris Patel MD [address] [place] [address] Physician Pulmonary Disease 06/11/23 Silvana Fernandez MD [address] [place] [address] Physician Hematology and Oncology 01/27/24 Gary Alas MD [address], [place] [address] Surgeon General Surgery 06/03/24 Cari Steve MD [address] [place] [address] [place] [address] Physician Hematology and Oncology 06/10/24 Trudi Guerrero NP [address] [place] [place] [address] Nurse Practitioner Internal Medicine 10/06/24 Yaritza Kc NP [address] [place] [address] Nurse Practitioner Internal Medicine 10/06/24 Sabrina Barbosa NP [address] [place] [address] Nurse Practitioner Internal Medicine 10/06/24 Dottie Granado, PharmD Pharmacist Pharmacy 12/11/24 01/11/25 documented as of this encounter
--- OUTSIDE RECORDS SUMMARY | 2025-03-04 22:25 | XMS_ITS | Encounter Summary ---
Author Organization [facility] Address [address] [place] [address] Care Team Providers Care Engineering Assistant Name Role Phone Mukesh Malik MD Primary Care Provider [phone] Chris Patel MD Unavailable Silvana Fernandez MD Unavailable Gary Alas MD Unavailable [phone] Cari Steve MD Unavailable [phone] Trudi Guerrero MACHINE SETTER Unavailable [phone] Yaritza Kc MACHINE SETTER Unavailable [phone] Sabrina Barbosa MACHINE SETTER Unavailable [phone] Dottie Granado PharmD Unavailable Unavailable Reason for Visit * Reason Comments Medication Refill Encounter Details Date Type Department Care Team (Late st Contact Info) Description 04/06/2019 Refill [facility] [address] [place] [address] Mukesh Malik MD [address] [place], [place] [phone] Essential hypertension Social History Tobacco Use Types [...] encounter Miscellaneous Notes * Telephone Encounter - Jaja Dc MA - 04/09/2019 11:35 AM EST Pt informed per Mukesh Valerio LPN about completing his labs before his next office visit and also that 2 of his PT-1 forms have been approved 1 still pending Misti Quiñones note made. * Telephone Encounter - Jaja Dc MA - 04/09/2019 10:02 AM EST LMOM for pt to call office note made. * Telephone Encounter - Mukesh Valerio LPN - 04/08/2019 6:25 PM EST Scripts sent. Labs ordered. * Telephone Encounter - Mukesh Henley MD - 04/08/2019 6:24 PM EST Ok to refill. Please order CBC, CMP, TSH, lipid, A1c, urine albumin, cpk before next OV. * Telephone Encounter - Mukesh Valerio LPN - 04/08/2019 6:02 PM EST Last office visit 02/23/19, next office visit 06/23/19. enalapril (VASOTEC) 5 MG tablet, TAKE 1 TABLET BY MOUTH EVERY DAY. Last filled 02/06/19. famotidine (PEPCID) 20 MG tablet, Take 1 tablet (20 mg total) by mouth 2 (two) times a day. Last filled 10/16/18. gemfibrozil (LOPID) 600 MG tablet, TAKE 1 TABLET BY MOUTH TWICE DAILY WITH MEALS. Last filled 02/06/19. metFORMIN (GLUCOPHAGE) 1000 MG tablet, TAKE 1 TABLET BY MOUTH TWICE DAILY. Last filled 02/06/19. When trying to fill: Drug-Drug: gemfibrozil and simvastatin The risk of myopathy and rhabdomyolysis may be increased by co-administration of statin therapy andgemfibrozil Specifically, co-administration of lovastatin or simvastatin with gemfibrozil should beavoided or is contraindicated in official package labeling. Reduced maximum doses of statins (otherthan lovastatin or simvastatin) may be recommended for patients receiving gemfibrozil in official package labeling for the other statin products. Okay to fill? documented in this encounter Plan of Treatment Upcoming Encounters Date Type Department Care Team (Late st Contact Info) Description 05/31/2024 [facility] [address] [place] [address] 03/10/2025 3:00 PM EST [facility] [address] [place] [phone] Mukesh Malik MD [address] [place] [address] 04/13/2025 4:30 PM EST Telemedicine [facility] [address] [place] [phone] Byron Fitzgerald MD [address] [place] [address] 04/20/2025 2:00 PM EST Office Visit [facility] [address] [place] [phone] Fernando Da Silva MD [address] [place] [address] 05/31/2025 9:00 AM EST Appointment [facility] [address] [place] [address] 06/04/2025 1:00 PM EST Pulmonary Function Test [facility] 10[address] [facility] [place] [phone] Chris Patel MD [address] [facility] [place] [address] documented as of this encounter Results * Hemoglobin A1c (06/03/2019 4:21 PM EST) [facility] Hemoglobin A1C 5.5 4.6 - 6.0 % 06/03/2019 7:52 PM EST [facility] Estimated Average Glucose eAG 111.2 85.0 - 126.0 mg/dL 06/03/2019 7:52 PM EST [facility] Blood specimen (specimen) Venipuncture / Unknown 06/03/2019 4:21 PM EST 06/03/2019 4:21 PM EST us Mukesh Malik MD LAB BLOOD ORDERABLES Final Re sult [facility] [address] [place], [place] * CK Total (06/03/2019 4:21 PM EST) [facility] Total CPK 124 70 - 155 IU/L 06/03/2019 6:29 PM EST [facility] Blood specimen (specimen) Venipuncture / Unknown 06/03/2019 4:21 PM EST 06/03/2019 4:21 PM EST Mukesh Malik MD LAB BLOOD ORDERABLES Final Re sult [facility] [address] [place] [address] * (ABNORMAL) Microalbumin Urine, Random (06/03/2019 4:21 PM EST) Microalb, Ur 25.0(H) 0.0 - 1.9 mg/dL 06/03/2019 8:06 PM EST [facility] Creatinine, Ur 307.1 mg/dL 06/03/2019 8:06 PM EST [facility] Microalb Creat Ratio 81.35(H) 0.00 - 24.90 mcg/mg 06/03/2019 8:06 PM EST [facility] Urine specimen (specimen) Collection / Unknown 06/03/2019 4:21 PM EST 06/03/2019 4:21 PM EST us Mukesh Malik MD URINE ORDERABLES Final Result [facility] [address] [place], [place] * Lipid panel (06/03/2019 4:21 PM EST) Pathologist [facility] Cholesterol 118 0 - 199 mg/dL 06/03/2019 6:14 PM EST [facility] Triglycerides 65 10 - 200 mg/dL 06/03/2019 6:14 PM EST [facility] HDL 49.4 >=40.0 mg/dL 06/03/2019 6:14 PM EST [facility] LDL Calculated 56 0 - 100 mg/dL 06/03/2019 6:14 PM EST [facility] Cardiac Risk Factor 2.4 0.0 - 5.0 06/03/2019 6:14 PM EST [facility] Blood specimen (specimen) Venipuncture / Unknown 06/03/2019 4:21 PM EST 06/03/2019 4:21 PM EST Narrative [facility] - 06/03/2019 6:14 PM EST Cardiac Risk Factor: Males Females 2x Average Risk 9.6 7.1 3x Average Risk 23.4 11.0 us Mukesh Malik MD LAB BLOOD ORDERABLES Final Re sult [facility] [address] [place] [address] * TSH with reflex to Free T4 (06/03/2019 4:21 PM EST) TSH 2.650 0.350 - 5.500 uIU/mL 06/03/2019 6:35 PM [facility] Blood specimen (specimen) Venipuncture / Unknown 06/03/2019 4:21 PM EST 06/03/2019 4:21 PM EST us Mukesh Malik MD LAB BLOOD ORDERABLES Final Re sult [facility] [address] [place] [address] * (ABNORMAL) Comprehensive metabolic panel (06/03/2019 4:21 PM EST) Pathologist [facility] Sodium 139 137 - 147 mEq/L 06/03/2019 6:14 PM [facility] Potassium 4.7 3.5 - 5.4 mEq/L 06/03/2019 6:14 PM [facility] Chloride 101 96 - 107 mEq/L 06/03/2019 6:14 PM [facility] CO2 24 24 - 34 mEq/L 06/03/2019 6:14 PM [facility] Anion Gap 14 4 - 15 mEq/L 06/03/2019 6:14 PM [facility] Glucose 106(H) 70 - 100 mg/dL 06/03/2019 6:14 PM [facility] Creatinine 0.84 0.60 - 1.50 mg/dL 06/03/2019 6:14 PM [facility] eGFR >60 60 - 115 mL/min 06/03/2019 6:14 PM [facility] BUN 14 6 - 26 mg/dL 06/03/2019 6:14 PM [facility] Calcium 9.3 8.7 - 10.5 mg/dL 06/03/2019 6:14 PM [facility] Total Protein 7.0 6.4 - 8.6 g/dL 06/03/2019 6:14 PM [facility] Albumin 3.9 3.4 - 4.8 g/dL 06/03/2019 6:14 PM [facility] A/G Ratio 1.3 1.0 - 2.3 06/03/2019 6:14 PM [facility] Total Bilirubin 0.5 0.2 - 1.2 mg/dL 06/03/2019 6:14 PM [facility] AST 22 0 - 40 U/L 06/03/2019 6:14 PM [facility] Alkaline Phosphatase 53 40 - 150 IU/L 06/03/2019 6:14 PM [facility] ALT 13 0 - 45 U/L 06/03/2019 6:14 PM [facility] Blood specimen (specimen) Venipuncture / Unknown 06/03/2019 4:21 PM EST 06/03/2019 4:21 PM EST us Mukesh Malik MD LAB BLOOD ORDERABLES Final Re sult Performing Organization Address City/State/[facility] Co de Phone Number [facility] [address] [place] [address] * (ABNORMAL) CBC and Auto Differential (06/03/2019 4:21 PM EST) WBC 10.1 4.8 - 11.2 10*3/ L 06/03/2019 6:13 PM [facility] RBC 4.31 4.00 - 5.90 10*6/ L 06/03/2019 6:13 PM [facility] HGB 15.3 14.0 - 17.2 g/dL 06/03/2019 6:13 PM [facility] HCT 43.7 40.0 - 52.0 % 06/03/2019 6:13 PM [facility] MCV 101.2(H) 82.0 - 98.0 fL 06/03/2019 6:13 PM [facility] MCH 35.4(H) 27.0 - 35.0 pg 06/03/2019 6:13 PM [facility] MCHC 35.0 32.0 - 37.0 g/dL 06/03/2019 6:13 PM [facility] RDW 14.7 12.0 - 15.0 % 06/03/2019 6:13 PM [facility] PLT 225 150 - 400 10*3/ L 06/03/2019 6:13 PM [facility] MPV 9.0 7.0 - 14.0 fL 06/03/2019 6:13 PM [facility] Neut % 64.5 45.0 - 85.0 % 06/03/2019 6:13 PM [facility] Lymph % 24.0 15.0 - 45.0 % 06/03/2019 6:13 PM [facility] [place] % 10.9 0.0 - 12.0 % 06/03/2019 6:13 PM [facility] Eos % 0.2 0.0 - 7.0 % 06/03/2019 6:13 PM [facility] Baso % 0.4 0.0 - 3.0 % 06/03/2019 6:13 PM [facility] NRBC% 0 0 /100 WBC /100 WBC 06/03/2019 6:13 PM [facility] Neut # 6.5 2.2 - 9.5 10*3/ L 06/03/2019 6:13 PM [facility] Lym # 2.4 0.7 - 5.0 10*3/ L 06/03/2019 6:13 PM [facility] [place] # 1.1 0.0 - 1.3 10*3/ L 06/03/2019 6:13 PM [facility] Eos # 0.0 0.0 - 0.4 10*3/ L 06/03/2019 6:13 PM [facility] Baso # 0.0 0.0 - 0.3 10*3/ L 06/03/2019 6:13 PM [facility] Blood specimen (specimen) Venipuncture / Unknown 06/03/2019 4:21 PM EST 06/03/2019 4:21 PM EST us Mukesh Malik MD LAB BLOOD ORDERABLES Final Re sult [facility] [address] [place] [address] documented in this encounter Visit Diagnoses Diagnosis Essential hypertension Unspecified essential hypertension documented in this encounter Care Teams Engineering Assistant Relationship Specialty Start Date End Date Mukesh Malik MD [address] [place] [address] PCP - General Internal Medicine 07/03/18 Chris Patel MD [address] [place] [address] Physician Pulmonary Disease 06/11/23 Silvana Fernandez MD [address] [place] [address] Physician Hematology and Oncology 01/27/24 Gary Alas MD [address] [place] [address] Surgeon General Surgery 06/03/24 Cari Steve MD [address] [place] [address] [place] [address] Physician Hematology and Oncology 06/10/24 Trudi Guerrero NP [address] [place] [address] Nurse Practitioner Internal Medicine 10/06/24 Yaritza Kc NP [address] [place] [address] Nurse Practitioner Internal Medicine 10/06/24 Sabrina Barbosa NP [address] [place] [address] Nurse Practitioner Internal Medicine 10/06/24 Dottie Granado, PharmD Pharmacist Pharmacy 12/11/24 01/11/25 documented as of this encounter
--- OUTSIDE RECORDS SUMMARY | 2025-03-04 22:25 | XMS_ITS | Encounter Summary ---
Author Organization [facility] Address [address] [place] [address] Care Team Providers Care Data Science And Iot Manager Name Role Phone Mukesh Malik MD Primary Care Provider [phone] Chris Patel MD Unavailable Silvana Fernandez MD Unavailable Gary Alas MD Unavailable [phone] Cari Steve MD Unavailable [phone] Trudi Guerrero DIFFERENTIAL SPECIALIST Unavailable [phone] Yaritza Kc DIFFERENTIAL SPECIALIST Unavailable [phone] Sabrina Barbosa DIFFERENTIAL SPECIALIST Unavailable [phone] Dottie Granado PharmD Unavailable Unavailable Reason for Visit * Reason Comments Medication Refill Encounter Details Date Type Department Care Team (Late st Contact Info) Description 10/03/2019 Refill [facility] [address] [place] [phone] Mukesh Malik MD [address] [place], [place] [phone] Type 2 diabetes mellitus without complication, without [...] 05/31/2024 Procedure Pass [facility] [address] [place] [address] 03/10/2025 3:00 PM EST [facility] [address] [place] [address] Mukesh Malik MD [address] [place] [address] 04/13/2025 4:30 PM EST Telemedicine [facility] [address] [place] [address] Byron Fitzgerald MD [address] [address] 04/20/2025 2:00 PM EST [facility] [address] [phone] Fernando Da Silva MD [address] [place] [address] 05/31/2025 9:00 AM EST [facility] [address] [place] [address] 06/04/2025 1:00 PM EST Pulmonary Function Test [facility] [place] [phone] Chris Patel MD [address] [place] [address] documented as of this encounter Visit Diagnoses Diagnosis Type 2 diabetes mellitus without complication, without long-term current use of insulin (HCC) documented in this encounter Care Teams Data Science And Iot Manager Relationship Specialty Start Date End Date Mukesh Malik MD [address] [place] [address] PCP - General Internal Medicine 07/03/18 Chris Patel MD [address] [place] [address] Physician Pulmonary Disease 06/11/23 Silvana Fernandez MD [address] [place] [address] Physician Hematology and Oncology 01/27/24 Gary Alas MD [address] [place] [address] Surgeon General Surgery 06/03/24 Cari Steve MD [address] [place] [address] [place] [address] Physician Hematology and Oncology 06/10/24 Trudi Guerrero NP [address] [place] [address] Nurse Practitioner Internal Medicine 10/06/24 Yaritza Kc NP [address] [place] [address] Nurse Practitioner Internal Medicine 10/06/24 Sabrina Barbosa NP [address] [place] [address] Nurse Practitioner Internal Medicine 10/06/24 Dottie Granado, PharmD Pharmacist Pharmacy 12/11/24 01/11/25 documented as of this encounter
--- OUTSIDE RECORDS SUMMARY | 2025-03-04 22:25 | XMS_ITS | Encounter Summary ---
Author Organization [facility] Address [address] [place] [address] Care Team Providers Care Roping Machine Tender Name Role Phone Mukesh Malik MD Primary Care Provider [phone] Chris Patel MD Unavailable Silvana Fernandez MD Unavailable Gary Alas MD Unavailable [phone] Cari Steve MD Unavailable [phone] Trudi Guerrero HEAD PASTRY CHEF Unavailable [phone] Yaritza Kc HEAD PASTRY CHEF Unavailable [phone] Sabrina Barbosa HEAD PASTRY CHEF Unavailable [phone] Dottie Granado PharmD Unavailable Unavailable Reason for Referral * MRI/CAT/PET Scan (Routine) - Authorized Specialty Diagnoses / Procedures Referred By Contac t Referred To Contact Radiology Diagnoses Personal history of nicotine dependence Procedures CT lung screening Mukesh Malik MD [address] [place] [address] Phone: tel: fax: Referral ID Status Reason Start Date Expiration Date V isits Requested Visits Authorized [id number] Authorized 09/25/2023 09/24/2025 1 1 Encounter Details Date Type Department Care Team (Late st Contact Info) Description 09/25/2023 Ancillary Orders [facility] [address] [place] [phone] Mukesh Malik MD [address] [place] [address] Personal history of nicotine dependence (Primary Dx) Social History Tobacco Use Types [...] file 09/05/2022 Do you need help with Housing/Chcf resources? Not on file 09/05/2022 Did patient [...] Date Recorded PHQ-9 Total Score 0 09/05/2022 Harrah Depression Scale Score Not o n file [...] Recor ded PHQ-9 Total Score 0 09/05/2022 Harrah Depression Scale Score Not o n file [...] 05/31/2024 Procedure Pass [facility] [address] [place] [address] 03/10/2025 3:00 PM EST Office Visit [facility] [address] [place] [phone] Mukesh Malik MD [address] [place] [address] 04/13/2025 4:30 PM EST Telemedicine [facility] [address] [place] [address] Byron Fitzgerald MD 1030 [facility] [address] [address] 04/20/2025 2:00 PM EST Office Visit [facility] 235 [facility], [address] [place] [address] Fernando Da Silva MD [address] [place] [address] 05/31/2025 9:00 AM EST Appointment [facility] [address] [place] [address] 06/04/2025 1:00 PM EST Pulmonary Function Test [facility] [address] [place] [address] Chris Patel MD [address] [place] [address] documented as of this encounter Results * CT lung screening (05/29/2024 9:15 AM EST) Anatomical Region Laterality Modality Chest Computed Tomogra phy 05/29/2024 10:2 6 AM EST Impressions 05/29/2024 4:03 PM EST IMPRESSION: No new/concerning pulmonary nodules. Pulmonary nodules measuring up to 5 mm similar to prior. Additional details as above. Lung-RADS Category: 2 - Benign. The patient will be placed in the [facility] Lung Cancer Screening Database and will be scheduled for continued screening in one year. RS: [id number] Narrative 05/29/2024 4:[address] LUNG [...] Benign. [facility] and will be scheduled forcontinued screening in one year. RS: [id number] Mukesh Malik MD [facility] CT ORDERABLES Final Resul t documented in this encounter Visit Diagnoses Diagnosis Personal history of nicotine dependence- Primary Personal history of nicotine dependence documented in this encounter Care Teams Roping Machine Tender Relationship Specialty Start Date End Date Mukesh Malik MD [address] [place] [address] PCP - General Internal Medicine 07/03/18 Chris Patel MD [address] [place] [address] Physician Pulmonary Disease 06/11/23 Silvana Fernandez MD [address] [place] [address] Physician Hematology and Oncology 01/27/24 Gary Alas MD [address], [place] [address] Surgeon General Surgery 06/03/24 Cari Steve MD [address] [place] [address] [place] [address] Physician Hematology and Oncology 06/10/24 Trudi Guerrero NP [address] [place] [address] Nurse Practitioner Internal Medicine 10/06/24 Yaritza Kc NP [address] [place] [address] Nurse Practitioner Internal Medicine 10/06/24 Sabrina Barbosa NP [address] [place] [address] Nurse Practitioner Internal Medicine 10/06/24 Dottie Granado, PharmD Pharmacist Pharmacy 12/11/24 01/11/25 documented as of this encounter
--- OUTSIDE RECORDS SUMMARY | 2025-03-04 22:25 | XMS_ITS | Encounter Summary ---
Author Organization [facility] Address [address] [place] [address] Care Team Providers Care Mold Cutting Machine Operator Name Role Phone Mukesh Malik MD Primary Care Provider [phone] Chris Patel MD Unavailable Silvana Fernandez MD Unavailable Gary Alas MD Unavailable [phone] Cari Steve MD Unavailable [phone] Trudi Guerrero VICE PRESIDENT [employer] Unavailable [phone] Yaritza Kc VICE PRESIDENT [employer] Unavailable [phone] Sabrina Barbosa [employer]IDENT [employer] Unavailable [phone] Dottie Granado PharmD Unavailable Unavailable Encounter Details Date Type Department Care Team (Late st Contact Info) Description 11/24/2021 Procedure Pass [facility] - [address] [address] Social History Tobacco Use Types [...] st Contact Info) Description 05/31/2024 [facility] [address] [place] [address] 03/10/2025 3:00 PM EST [facility] [address] [place] [address] Mukesh Malik MD [address] [place], [place] [phone] 04/13/2025 4:30 PM EST [facility]medicine [facility]0 [place] [phone] Byron Fitzgerald MD [facility] [address] [phone] 04/20/2025 2:00 PM EST Office Visit [facility] 235 [facility], 2nd [place] [address] Fernando Da Silva MD [address] [place], [place] [phone] 05/31/2025 9:00 AM EST Appointment [facility] [address] [place] [address] 06/04/2025 1:00 PM EST Pulmonary Function Test [facility] [place] [phone] Chris Patel MD [address] [place] [address] documented as of this encounter Visit Diagnoses Not on filedocumented in this encounter Care Teams Mold Cutting Machine Operator Relationship Specialty Start Date End Date Mukesh Malik MD [address] [place], [place] [phone] PCP - General Internal Medicine 07/03/18 Chris Patel MD [address] [place] [address] Physician Pulmonary Disease 06/11/23 Silvana Fernandez MD [address] [place] [address] Physician Hematology and Oncology 01/27/24 Gary Alas MD [address] [place] [address] Surgeon General Surgery 06/03/24 Cari Steve MD [address] [place] [address] Physician Hematology and Oncology 06/10/24 Trudi Guerrero NP [address] [place] [address] Nurse Practitioner Internal Medicine 10/06/24 Yaritza Kc NP [address] [place] [address] Nurse Practitioner Internal Medicine 10/06/24 Sabrina Barbosa NP [address] [place] [address] Nurse Practitioner Internal Medicine 10/06/24 Dottie Granado, PharmD Pharmacist Pharmacy 12/11/24 01/11/25 documented as of this encounter
--- OUTSIDE RECORDS SUMMARY | 2025-03-04 22:25 | XMS_ITS | Encounter Summary ---
Author Organization Formerly Named [facility] Address [address] [place] [address] Care Team Providers Care Ice Skating Instructor Name Role Phone Mukesh Malik MD Primary Care Provider [phone] Chris Patel MD Unavailable Silvana Fernandez MD Unavailable Gary Alas MD Unavailable [phone] Cari Steve MD Unavailable [phone] Trudi Guerrero SHRINK PIT SUPERVISOR Unavailable [phone] Yaritza Kc SHRINK PIT SUPERVISOR Unavailable [phone] Sabrina Barbosa SHRINK PIT SUPERVISOR Unavailable [phone] Dottie Granado PharmD Unavailable Unavailable Reason for Visit * Reason Comments Medication Refill Encounter Details Date Type Department Care Team (Late st Contact Info) Description 03/23/2022 Refill [facility] [address] [place] [phone] Rina Hyde, SHRINK PIT SUPERVISOR [address] [place] [address] Social History Tobacco Use Types Packs/Day Years Used Date Smoking Tobacco: Former Cigarettes Smokeless Tobacco: Never Comments:10 cigs a day- [...] 05/31/2024 Procedure Pass [facility] [address] [place] [address] 03/10/2025 3:00 PM EST Office Visit [facility] [address] [place] [address] Mukesh Malik MD [address] [place], [place] [id number] 04/13/2025 4:30 PM EST Telemedicine [facility] [address] [place] [phone] Byron Fitzgerald MD [facility] [address] [id number] 04/20/2025 2:00 PM EST Office Visit [facility] [address] [facility], [address] [place] [address] Fernando Da Silva MD [address] [place] [address] 05/31/2025 9:00 AM EST Appointment [facility] [address] [place] [address] 06/04/2025 1:00 PM EST Pulmonary Function Test [facility] [place] [phone] Chris Patel MD [address] [place] [address] documented as of this encounter Visit Diagnoses Not on filedocumented in this encounter Care Teams Ice Skating Instructor Relationship Specialty Start Date End Date Mukesh Malik MD [address] [place] [address] PCP - General Internal Medicine 07/03/18 Chris Patel MD [address] [place] [address] Physician Pulmonary Disease 06/11/23 Silvana Fernandez MD [address] [place] [address] Physician Hematology and Oncology 01/27/24 Gary Alas MD [address] [place] [address] Surgeon General Surgery 06/03/24 Cari Steve MD [address] [place] [address] [place] [address] Physician Hematology and Oncology 06/10/24 Trudi Guerrero NP [address] [place] [place] [address] Nurse Practitioner Internal Medicine 10/06/24 Yaritza Kc NP [address] [place] [address] Nurse Practitioner Internal Medicine 10/06/24 Sabrina Barbosa NP [address] [place] [address] Nurse Practitioner Internal Medicine 10/06/24 Dottie Granado, PharmD Pharmacist Pharmacy 12/11/24 01/11/25 documented as of this encounter
--- OUTSIDE RECORDS SUMMARY | 2025-03-04 22:25 | XMS_ITS | Encounter Summary ---
Author Organization [facility] Address [address] [place] [address] Care Team Providers Care Olive Grower Name Role Phone Mukesh Malik MD Primary Care Provider [phone] Chris Patel MD Unavailable Silvana Fernandez MD Unavailable Gary Alas MD Unavailable [phone] Cari Steve MD Unavailable [phone] Trudi Guerrero DIE MAINTENANCE TECHNICIAN Unavailable [phone] Yaritza Kc DIE MAINTENANCE TECHNICIAN Unavailable [phone] Sabrina Barbosa DIE MAINTENANCE TECHNICIAN Unavailable [phone] Dottie Granado PharmD Unavailable Unavailable Reason for Visit * Reason Comments Medication Refill Encounter Details Date Type Department Care Team (Late st Contact Info) Description 08/17/2022 Refill [facility] [address] [place] [phone] Rina Hyde, DIE MAINTENANCE TECHNICIAN [address] [place] [address] Social History Tobacco Use Types Packs/Day Years [...] 05/31/2024 Procedure Pass [facility] [address] [place] [address] 03/10/2025 3:00 PM EST [facility] [address] [place] [address] Mukesh Malik MD [address] [place], [place] [phone] 04/13/2025 4:30 PM EST Telemedicine [facility] [address] [place] [phone] Byron Fitzgerald MD [facility] [address] [id number] 04/20/2025 2:00 PM EST Office Visit [facility] [address] [facility], [address] [place] [address] Fernando Da Silva MD [address] [place] [address] 05/31/2025 9:00 AM EST Appointment [facility] [address] [place] [address] 06/04/2025 1:00 PM EST Pulmonary Function [facility] [place] [phone] Chris Patel MD [address] [place] [address] documented as of this encounter Visit Diagnoses Not on filedocumented in this encounter Care Teams Olive Grower Relationship Specialty Start Date End Date Mukesh Malik MD [address] [place] [address] PCP - General Internal Medicine 07/03/18 Chris Patel MD [address] [place] [address] Physician Pulmonary Disease 06/11/23 Silvana Fernandez MD [address] [place] [address] Physician Hematology and Oncology 01/27/24 Gary Alas MD [address] [place] [address] Surgeon General Surgery 06/03/24 Cari Steve MD [address] [place] [address] [place] [address] Physician Hematology and Oncology 06/10/24 Trudi Guerrero NP [address] [place] [address] Nurse Practitioner Internal Medicine 10/06/24 Yaritza Kc NP [address] [place] [address] Nurse Practitioner Internal Medicine 10/06/24 Sabrina Barbosa NP [address] [place] [address] Nurse Practitioner Internal Medicine 10/06/24 Dottie Granado, PharmD Pharmacist Pharmacy 12/11/24 01/11/25 documented as of this encounter
--- OUTSIDE RECORDS SUMMARY | 2025-03-04 22:25 | XMS_ITS | Encounter Summary ---
Author Organization [facility] Address [address] [place] [address] Care Team Providers Care Creative Services Specialist Name Role Phone Mukesh Malik MD Primary Care Provider [phone] Chris Patel MD Unavailable Silvana Fernandez MD Unavailable Gary Alas MD Unavailable [phone] Cari Steve MD Unavailable [phone] Trudi Guerrero BUSINESS EDITOR Unavailable [phone] Yaritza Kc BUSINESS EDITOR Unavailable [phone] Sabrina Barbosa BUSINESS EDITOR Unavailable [phone] Dottie Granado PharmD Unavailable Unavailable Reason for Referral * Diagnostic Imaging (Routine) - Closed Specialty Diagnoses / Procedures Referred By Contac t Referred To Contact Radiology Diagnoses Weight loss Current smoker Procedures CT chest with contrast CT chest without contrast Timi Hyde NP [address] [place] [address] Phone: tel: fax: Referral ID Status Reason Start Date Expiration Date Visits Re quested Visits Authorized [id number] Closed 12/19/2021 06/17/2022 1 1 * Diagnostic Imaging (Routine) - Closed Specialty Diagnoses / Procedures Referred By Contac t Referred To Contact Radiology Diagnoses Weight loss Current smoker Procedures CT abdomen pelvis with contrast CT abdomen pelvis with and without contrast Timi Hyde NP [address] [place] [address] Phone: tel: fax: Referral ID Status Reason Start Date Expiration Date Visits Re quested Visits Authorized [id number] Closed 12/19/2021 06/17/2022 1 1 Encounter Details Date Type Department Care Team (Late st Contact Info) Description 12/21/2021 Ancillary Orders [facility] [address] [place] [phone] Timi Hyde NP [address] [place] [address] Weight loss; Current smoker Social History Tobacco Use Types Packs/Day Years [...] 05/31/2024 Procedure Pass [facility] [address] [place] [address] 03/10/2025 3:00 PM EST Office Visit [facility] [address] [place] [address] Mukesh Malik MD [address] [place] [address] 04/13/2025 4:30 PM EST Telemedicine [facility] [address] [place] [address] Byron Fitzgerald MD [address] [facility] [address] [place] [address] 04/20/2025 2:00 PM EST Office Visit [facility] 235 [facility], [address] [place] [address] Fernando Da Silva MD [address] [place] [address] 05/31/2025 9:00 AM EST Appoint[facility] [address] [place] [address] 06/04/2025 1:00 PM EST Pulmonary Function [facility] [address] [place] [phone] Chris Patel MD [address] [place] [address] documented as of this encounter Results * CT chest with contrast (12/21/2021 7:07 PM EDT) Anatomical Region Laterality Modality Chest, Ortho Chest Computed Lucien graphy 12/22/2021 10:2 5 AM EDT Impressions 12/24/2021 9:29 AM EDT IMPRESSION: No occult malignancy identified in the chest abdomen and pelvis. Multiple stable pulmonary nodules. Persistent fistulous claudication between the sigmoid colon and the urinary bladder. There is marked thickening of the urinary bladder. Underlying lesion is not excluded. New small bilateral pleural effusions with associated atelectasis. Additional findings as above Narrative 12/24/2021 9:[address] CHEST WITH CONTRAST CT ABDOMEN PELVIS WITH CONTRAST History: Weight loss. Smoker. Evaluate for occult malignancy. Pulmonary nodule follow-up. Comparison: Comparison is made to multiple prior examinations most recent CT abdomen pelvis 01 Aug [address] 29 December 2020. TECHNIQUE: Multiple contrast enhanced axial images were acquired from the thoracic inlet through the greater trochanters. Coronal and sagittal reformatting was performed. This exam was performed with the following dose reduction techniques: automated exposure control and adjustment of milliamperage and/or kilovoltage according to patient size. FINDINGS - CHEST: Bilaterally there are small pleural effusions new from the prior examination. No pneumothorax. Emphysematous changes noted in the apices. The following pulmonary nodules are noted: -5 mm right middle lobe (axial image 34) stable -Sub-4 mm right middle lobe (axial image 35) stable -3 mm left upper lobe subsolid (axial image 20) stable -4 mm left upper lobe subpleural (axial image 28) stable -9 mm left lower lobe subsolid (axial image 38) stable No mediastinal adenopathy. No pericardial effusion or cardiomegaly. There is atherosclerotic calcification thoracic aorta and coronary arteries. There are degenerative changes in the thoracic spine. There is a healing fracture of the proximal aspect of the right 10th and 11th ribs. There are degenerative changes in the shoulders. FINDINGS - ABDOMEN AND PELVIS: There is a stable subcentimeter low-density focus in segment 5 (axial image 63). Gallbladder, spleen, pancreas, adrenal glands unremarkable. Bilaterally no hydronephrosis. There is a stable partially exophytic 12 mm fluid attenuation structure that arises from the lateral aspect of the right kidney. No small bowel obstruction. There is moderate stool throughout the colon. There is extensive diverticulosis. There is a fistulous communication between the sigmoid colon and the superior aspect of the urinary bladder. Urinary bladder is markedly thickened in particular superiorly. No drainable fluid collection. No free air. The abdominal aorta is nonaneurysmal. Atherosclerotic calcification is present. There are degenerative changes in the lumbar spine and hips. Procedure Note Zaki Monte MD - 12/24/[address] CT CHEST WITH CONTRAST CT ABDOMEN PELVIS WITH CONTRAST History: Weight loss. Smoker. Evaluate for occult malignancy. Pulmonarynodule follow-up. Comparison: Comparison is made to multiple prior examinations most recentCT abdomen pelvis 01 Aug [address] 29 December 2020. TECHNIQUE: Multiple contrast enhanced axial images were acquired from the thoracicinlet through the greater trochanters. Coronal and sagittal reformattingwas performed. This exam was performed with the following dose reduction techniques:automated exposure control and adjustment of milliamperage and/orkilovoltage according to patient size. FINDINGS - CHEST: Bilaterally there are small pleural effusions new from the priorexamination. No pneumothorax. Emphysematous changes noted in the apices. The following pulmonary nodulesare noted: -5 mm right middle lobe (axial image 34) stable -Sub-4 mm right middle lobe (axial image 35) stable -3 mm left upper lobe subsolid (axial image 20) stable -4 mm left upper lobe subpleural (axial image 28) stable -9 mm left lower lobe subsolid (axial image 38) stable No mediastinal adenopathy. No pericardial effusion or cardiomegaly. Thereis atherosclerotic calcification thoracic aorta and coronary arteries. There are degenerative changes in the thoracic spine. There is a healingfracture of the proximal aspect of the right 10th and 11th ribs. There aredegenerative changes in the shoulders. FINDINGS - ABDOMEN AND PELVIS: There is a stable subcentimeter low-density focus in segment 5 (axialimage 63). Gallbladder, spleen, pancreas, adrenal glands unremarkable. Bilaterally no hydronephrosis. There is a stable partially exophytic 12 mmfluid attenuation structure that arises from the lateral aspect of theright kidney. No small bowel obstruction. There is moderate stool throughout the colon.There is extensive diverticulosis. There is a fistulous communicationbetween the sigmoid colon and the superior aspect of the urinary bladder.Urinary bladder is markedly thickened in particular superiorly. No drainable fluid collection. No free air. The abdominal aorta is nonaneurysmal. Atherosclerotic calcification ispresent. There are degenerative changes in the lumbar spine and hips. IMPRESSION: No occult malignancy identified in the chest abdomen and pelvis. Multiple stable pulmonary nodules. Persistent fistulous claudicationbetween the sigmoid colon and the urinary bladder. There is markedthickening of the urinary bladder. Underlying lesion is not excluded. New small bilateral pleural effusions with associated atelectasis. Additional findings as above us Timi Hyde NP IMMaria Del Carmen CT ORDERABLES Final Res ult * CT abdomen pelvis with contrast (12/21/2021 7:07 PM EDT) Anatomical Region Laterality Modality Abdomen, Ortho Abdomen Computed Tomography 12/22/2021 10:2 5 AM EDT Impressions 12/24/2021 9:29 AM EDT IMPRESSION: No occult malignancy identified in the chest abdomen and pelvis. Multiple stable pulmonary nodules. Persistent fistulous claudication between the sigmoid colon and the urinary bladder. There is marked thickening of the urinary bladder. Underlying lesion is not excluded. New small bilateral pleural effusions with associated atelectasis. Additional findings as above Narrative 12/24/2021 9:[address] CHEST WITH CONTRAST CT ABDOMEN PELVIS WITH CONTRAST History: Weight loss. Smoker. Evaluate for occult malignancy. Pulmonary nodule follow-up. Comparison: Comparison is made to multiple prior examinations most recent CT abdomen pelvis 01 Aug [address] 29 December 2020. TECHNIQUE: Multiple contrast enhanced axial images were acquired from the thoracic inlet through the greater trochanters. Coronal and sagittal reformatting was performed. This exam was performed with the following dose reduction techniques: automated exposure control and adjustment of milliamperage and/or kilovoltage according to patient size. FINDINGS - CHEST: Bilaterally there are small pleural effusions new from the prior examination. No pneumothorax. Emphysematous changes noted in the apices. The following pulmonary nodules are noted: -5 mm right middle lobe (axial image 34) stable -Sub-4 mm right middle lobe (axial image 35) stable -3 mm left upper lobe subsolid (axial image 20) stable -4 mm left upper lobe subpleural (axial image 28) stable -9 mm left lower lobe subsolid (axial image 38) stable No mediastinal adenopathy. No pericardial effusion or cardiomegaly. There is atherosclerotic calcification thoracic aorta and coronary arteries. There are degenerative changes in the thoracic spine. There is a healing fracture of the proximal aspect of the right 10th and 11th ribs. There are degenerative changes in the shoulders. FINDINGS - ABDOMEN AND PELVIS: There is a stable subcentimeter low-density focus in segment 5 (axial image 63). Gallbladder, spleen, pancreas, adrenal glands unremarkable. Bilaterally no hydronephrosis. There is a stable partially exophytic 12 mm fluid attenuation structure that arises from the lateral aspect of the right kidney. No small bowel obstruction. There is moderate stool throughout the colon. There is extensive diverticulosis. There is a fistulous communication between the sigmoid colon and the superior aspect of the urinary bladder. Urinary bladder is markedly thickened in particular superiorly. No drainable fluid collection. No free air. The abdominal aorta is nonaneurysmal. Atherosclerotic calcification is present. There are degenerative changes in the lumbar spine and hips. Procedure Note Zaki Monte MD - 12/24/[address]21 CT CHEST WITH CONTRAST CT ABDOMEN PELVIS WITH CONTRAST History: Weight loss. Smoker. Evaluate for occult malignancy. Pulmonarynodule follow-up. Comparison: Comparison is made to multiple prior examinations most recentCT abdomen pelvis 01 Aug [address] 29 December 2020. TECHNIQUE: Multiple contrast enhanced axial images were acquired from the thoracicinlet through the greater trochanters. Coronal and sagittal reformattingwas performed. This exam was performed with the following dose reduction techniques:automated exposure control and adjustment of milliamperage and/orkilovoltage according to patient size. FINDINGS - CHEST: Bilaterally there are small pleural effusions new from the priorexamination. No pneumothorax. Emphysematous changes noted in the apices. The following pulmonary nodulesare noted: -5 mm right middle lobe (axial image 34) stable -Sub-4 mm right middle lobe (axial image 35) stable -3 mm left upper lobe subsolid (axial image 20) stable -4 mm left upper lobe subpleural (axial image 28) stable -9 mm left lower lobe subsolid (axial image 38) stable No mediastinal adenopathy. No pericardial effusion or cardiomegaly. Thereis atherosclerotic calcification thoracic aorta and coronary arteries. There are degenerative changes in the thoracic spine. There is a healingfracture of the proximal aspect of the right 10th and 11th ribs. There aredegenerative changes in the shoulders. FINDINGS - ABDOMEN AND PELVIS: There is a stable subcentimeter low-density focus in segment 5 (axialimage 63). Gallbladder, spleen, pancreas, adrenal glands unremarkable. Bilaterally no hydronephrosis. There is a stable partially exophytic 12 mmfluid attenuation structure that arises from the lateral aspect of theright kidney. No small bowel obstruction. There is moderate stool throughout the colon.There is extensive diverticulosis. There is a fistulous communicationbetween the sigmoid colon and the superior aspect of the urinary bladder.Urinary bladder is markedly thickened in particular superiorly. No drainable fluid collection. No free air. The abdominal aorta is nonaneurysmal. Atherosclerotic calcification ispresent. There are degenerative changes in the lumbar spine and hips. IMPRESSION: No occult malignancy identified in the chest abdomen and pelvis. Multiple stable pulmonary nodules. Persistent fistulous claudicationbetween the sigmoid colon and the urinary bladder. There is markedthickening of the urinary bladder. Underlying lesion is not excluded. New small bilateral pleural effusions with associated atelectasis. Additional findings as above us Timi Hyde BUSINESS EDITOR IMG CT ORDERABLES Final Res ult documented in this encounter Visit Diagnoses Diagnosis Weight loss Loss of weight Current smoker Weight loss Loss of weight Current smoker documented in this encounter Care Teams Creative Services Specialist Relationship Specialty Start Date End Date Mukesh Malik MD [address] [place] [address] PCP - General Internal Medicine 07/03/18 Chris Patel MD [address] [place] [address] Physician Pulmonary Disease 06/11/23 Silvana Fernandez MD [address] [place] [address] Physician Hematology and Oncology 01/27/24 Gary Alas MD [address] [place] [address] Surgeon General Surgery 06/03/24 Cari Steve MD [address] [facility] [place] [address] Physician Hematology and Oncology 06/10/24 Trudi Guerrero BUSINESS EDITOR [address] [place] [address] Nurse Practitioner Internal Medicine 10/06/24 Yaritza Kc NP [address] [place] [address] Nurse Practitioner Internal Medicine 10/06/24 Sabrina Barbosa NP [address] [place] [address] Nurse Practitioner Internal Medicine 10/06/24 Dottie Granado, PharmD Pharmacist Pharmacy 12/11/24 01/11/25 documented as of this encounter
--- OUTSIDE RECORDS SUMMARY | 2025-03-04 22:25 | XMS_ITS | Data Portability ---
Author Organization [facility] Address [address] [facility] [address] [place] [address] Care Team Providers Care Streets And Buildings Decorator Name Role Phone HERMINIOLISAROBE LATHAM Primary Care Provider NICKI LOREDO General Surgeon JAVIER VILLA Front Clerk KATIE RENTERIA Urologist Assessment No assessment recorded. Plan of Treatment Reminders Order Date Submit Date Provider Last Modified By Organization Details Last Modified Time Details Appointments None recorded. Lab urinalysi s, dipstick, reflex micro 2024 [email or web address], [address], [place], [address], 5 23:29:32 Referral general surgeon referral 2024 025 [email or web address] Chaparro MD, [address] [place] [address] [address], [place], [address], 5 09:01:08 urologist referral - r/o malignanc y prior to surgery 2020 021 [email or web address] Terry Matthews MD, [address] [place] [address], [address], 1 14:19:16 gastroent erologist referral - r/o malignanc y prior to surgery 2020 021 [email or web address] Not available 10:36:04 Procedures cystoscop y (PROC) 2024 025 [email or web address] Not available 04:23:07 Surgeries None recorded. Imaging None recorded. Medication Orders None recorded. Patient TargetsNo targets recorded. Patient InstructionsNo instructions recorded. 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 Referring Physician: Katie Renteria, Urology, Encounter Date: 10/15/2024 Results Created Date Observation Date Name Description Value Unit Range Abnormal Flag Note LastModifiedBy Organization Detail LastModifiedTime 06/17/1906/16/2024 PSA, serum or plasm a PSA 2.100 Not Available Not Availa ble 10/05/2024 15:16:37 10/16/19 25 10/15/2024 URINA LYSIS REFLE X color YELLOW yellow normal Not Available [facility] [address], [address], 10/15/2024 14:32:25 10/16/19 25 10/15/2024 URINA LYSIS REFLE X appearance CLEAR clear normal Not Available [facility] [address], [address], 10/15/2024 14:32:25 10/16/19 25 10/15/2024 URINA LYSIS REFLE X specific gravity 1.020 1.001- 1.035 normal Not Available [facility] [address], [address], 10/15/2024 14:32:25 10/16/19 25 10/15/2024 URINA LYSIS REFLE X pH 7.5 5.0-8. 0 normal Not Available [facility] [address], [place], [address], 10/15/2024 14:32:25 10/16/19 25 10/15/2024 URINA LYSIS REFLE X glucose NEGATI VE negati ve normal Not Available [facility] [address], [place], [address], 10/15/2024 14:32:25 10/16/19 25 10/15/2024 URINA LYSIS REFLE X bilirubin NEGATI VE negati ve normal Not Available [facility] [address], [place], [address], 10/15/2024 14:32:25 10/16/19 25 10/15/2024 URINA LYSIS REFLE X ketones TRACE negati ve abnormal Not Available [facility] [address], [place], [address], 10/15/2024 14:32:25 10/16/19 25 10/15/2024 URINA LYSIS REFLE X occult blood NEGATI VE negati ve normal Not Available [facility] [address], [place], [address], 10/15/2024 14:32:25 10/16/19 25 10/15/2024 URINA LYSIS REFLE X protein NEGATI VE negati ve normal Not Available [facility] [address], [place], [address], 10/15/2024 14:32:25 10/16/19 25 10/15/2024 URINA LYSIS REFLE X nitrite NEGATI VE negati ve normal Not Available [facility] [address], [place], [address], 10/15/2024 14:32:25 10/16/19 25 10/15/2024 URINA LYSIS REFLE X leukocyte esterase 1+ negati ve abnormal Not Available [facility] [address], [place], [address], 10/15/2024 14:32:25 10/16/19 25 10/15/2024 URINA LYSIS REFLE X WBC 10-20 /hpf 0-5 abnormal Not Available [facility] [address], [place], [address], 10/15/2024 14:32:25 10/16/19 25 10/15/2024 URINA LYSIS REFLE X RBC NONE SEEN /hpf 0-2 normal Not Available [facility] [address], [place], [address], 10/15/2024 14:32:25 10/16/19 25 10/15/2024 URINA LYSIS REFLE X squamous epithelial cells 0-5 /hpf < or = 5 normal Not Available [facility] [address], [place], [address], 10/15/2024 14:32:25 10/16/19 25 10/15/2024 URINA LYSIS REFLE X bacteria FEW /hpf none seen abnormal Not Available [facility] [address], [place], [address], 10/15/2024 14:32:25 10/16/19 25 10/15/2024 URINA LYSIS REFLE X hyaline cast NONE SEEN /lpf none seen normal Not Available [facility] [address], [place], [address], 10/15/2024 14:32:25 10/16/19 25 10/15/2024 MICRO SCOPI C NBAA GE note This urine was vik zed for the prese nce of WBC, RBC, bacte jenn, casts , and other forme d eleme nts. Only those eleme nts seen were repor teagan. Not Available [facility] [address], [place], [address], 10/15/2024 14:32:26 03/24/20 24 05/22/2023 CT, abdom en + pelvi s, w/ contr ast No observ ation record ed. [email or web address] Not Available 10:15:10 Result Notes None recorded. Problems Name Problem SNOMED Code Status Onset Date Resolution Date Notes Provider Name and Address Organization Details Recorded Time Bipolar I disorder 567754183 Active 2020 Kaity Merissaami null, [facility] 16:26:17 Depressive disorder 97708311 Active 2020 Kaity Sellami null, [facility] 16:26:31 Hyperlipidemia 09994034 Active 2020 Kaity Sellami null, [facility] 16:26:41 Hypertensive disorder 24560492 Active 2020 Kaity Sellami null, [facility] 16:26:51 Type 2 diabetes mellitus 59893356 Active [address] [facility] null, [facility] 16:28:11 Problem Notes None recorded. Procedures Surgical History Date Name Laterality Status Provider Name and Address Organization Details Recorded Time 9 colonoscopy completed Rosa Yoo-Quiac [facility] 03/24/2024 10:16:59 6 colonoscopy completed Rosa Yoo-Quiac [facility] 03/24/2024 10:19:49 other completed Kaity Sellami [facility] 07/21/2020 16:29:50 Imaging Results None recorded. Procedure Notes None recorded. Medical Equipment None Reported. Allergies Allergen ID Allergen Name Allergen Category Reaction Reaction Severity Criticality Documentation Date Start Date Code Code System Note Provider Name and Address Organization Details Recorded Time 875384 Compazine medicatio n Not available Not available Not available 07/21/202058848 6 RxNorm Kaity Sellami null, [facility] 1 16:20:32 553282 Haldol medicatio n Not available Not available Not available 07/21/2020 58283 9 RxNorm Kaity Joshi null, [facility] 1 16:20:40 758752 Navane medicatio n Not available Not available Not available 07/21/2020 14271 9 RxNorm Kaity Joshi null, [facility] 16:20:46 292194 fluphenaz ine hydrochlo ride medicatio n Not available Not available Not available 07/21/2020 08058 7 RxNorm Kaity jacob, [facility] 16:20:53 317930 chlorprom azine hydrochlo ride medicatio n Not available Not available Not available 07/21/2020 53954 8 RxNorm Kaity jacob, [facility] 16:21:01 Medications Name Sig Start Date Stop Date Status Note LastModified by Organization Details LastModified Time Miralax 17 gram oral powder packet Take by oral route. active not on medicati on list 10/15/24 ac Not Available Not Available Not Available Flomax 0.4 mg capsule Take 1 capsule every day by oral route at bedtime. active Not Available Not Available No t Available oxybutyni n chloride ER 10 mg tablet,ex tended release 24 hr Take 1 tablet every day by oral route. active Not Available Not Available No t Available aspirin 325 mg tablet Take 1 tablet every day by oral route. active Not Available Not Available No t Available nicotine (polacril ex) 2 mg gum Chew 1 piece of gum every 4 hours by oral route as needed. active Not Available Not Available No t Available metronida zole 500 mg tablet Take 1 tablet every 8 hours by oral route. active (flagyl) not on medicati on list 10/15/24 ac Not Available Not Available Not Available simvastat in 80 mg tablet Take 1 tablet every day by oral route. active Not Available Not Available No t Available citalopra m 20 mg tablet Take 1.5 tablets every day by oral route. active Not Available Not Available No t Available famotidin e 20 mg tablet Take 1 tablet twice a day by oral route. active Not Available Not Available No t Available phenazopy ridine 95 mg tablet Take by oral route. active Not Available Not Available No t Available gemfibroz il 600 mg tablet Take 1 tablet twice a day by oral route. 10/15 completed Not Available Not Available Not Available ferrous sulfate 325 mg (65 mg iron) tablet Take 1 tablet every day by oral route. active Not Available Not Available No t Available metformin 1,000 mg tablet Take 1 tablet twice a day by oral route. active not on medicati on list 10/15/24 ac Not Available Not Available Not Available Risperdal 3 mg tablet Take 1 tablet twice a day by oral route. active Not Available Not Available No t Available Depakote 500 mg tablet,de layed release Take 2 tablets twice a day by oral route. active Not Available Not Available No t Available buspirone 15 mg tablet Take 1 tablet 3 times a day by oral route. 10/15 completed Not Available Not Available Not Available Dulcolax (bisacody l) 5 MG PRN active Not Available Not Available Not Available ibuprofen 200 MG PRN active Not Available Not Available No t Available Maxipime active (cefepim e) IVPB Not Available Not Available Not Available neomycin sulfate (bulk) active 500mgnot on medicati on list 10/15/24 ac Not Available Not Available Not Available Voltaren Arthritis Pain 1 % topical gel APPLY 2 GRAMS TO THE AFFECTED AREA(S) BY TOPICAL ROUTE 4 TIMES PER DAY active Not Available Not Available No t Available Vitals Date Recorded Body weight Body mass index (BMI) Body height Systolic And Diastolic Provider Name and Address Organization Details Last Updated DateTime 07/22/2020 78597.17 g 30.6 kg/m2 177.8 cm 128/60 mm[Hg] Kaity Joshi [facility] 07/22/2020 11:14:23 Date Recorded Body height Body mass index (BMI) Body weight Systolic And Diastolic Provider Name and Address Organization Details Last Updated DateTime 10/15/2024 180.34 cm 24 kg/m2 50484.89 g 116/64 mm[Hg] Shahida Pfeiffer [facility] 10/15/2024 15:11:28 Social History Question Answer Notes LastModified by Organizat ion Details LastModified Time Tobacco Smoking Status Current Every Day Smoker Shahida Kentrell [facility] 10/15/2024 15:12:32 What Is Your Level Of Caffeine Consumption? Moderate 1-2 Coffee Daily Information not available 10/15/2024 What Type Of Diet Are You Following? REGULAR Information not available 07/22/2020 Which Illicit Or Recreational Drugs Have You Used? None Information not available 07/22/2020 What Was The Date Of Your Most Recent Tobacco Screening? 10/15/2024 Information not available 10/15/2024 How Many Children Do You Have? 0 Information not available 10/15/2024 What Is Your Relationship Status? Single Information not available 10/15/2024 How Much Tobacco Do You Smoke? 0.5 PPD Information not available 10/15/2024 Sex: Unknown Functional Status Question Answer Note LastModified by Organizat ion Details LastModified Time Do you use any illicit or recreational drugs? No Information not available 10/15/2024 Do you or have you ever used any other forms of tobacco or nicotine? No Information not available 10/15/2024 What is your level of alcohol consumption? None Information not available 07/22/2020 Are you currently employed? No disability Information not available 10/15/2024 Do you or have you ever used any nicotine-free cigarettes, vape, or chewing tobacco? No Information not available 10/15/2024 Mental Status None recorded. Family History Relationship Description Onset Age of this Age Resolved Age Notes LastModified by Organization Details LastModified Time Mother Malignant neoplasm of colon hsellami Not available 2020 16:29:01 Mother Cerebrovascu lar accident hsellami Not available 11:11:16 Notes:unsure if anyone in [facility] was diagnosed with bladder, kidney, or prostate cancer Medical History Condition Response HIV or AIDS N cancer N STROKE N DIVERTICULITIS N LUNG CANCER N no past medical history reported N DIABETES Y PERIPHERAL VASCULAR DISEASE N depression Y COPD N parkinson's disease N SEIZURE DISORDER Y bladder cancer N BLOOD CLOTS N BLEEDING DISORDER N aortic aneurysm N BOWEL PROBLEMS N COLON CANCER N HEART CONDITION N ANEMIA Y kidney stones N KIDNEY DISEASE N renal cancer N LIVER DISEASE N pacemaker / defibrillator N dementia N BREAST CANCER N HYPERTENSION Y prostate cancer N other Y ANXIETY DISORDER N hepatitis N ATRIAL FIBRILLATION N GLAUCOMA N Past Encounters Encounter ID Performer Location Encounter Start Date Encounter Closed Date Diagnosis/Indication Diagnosis SNOMED-CT Code Diagnosis ICD10 Code Diagnosis IMO Codes Diagnosis Note [id number] Nicki Loredo MD [facility] [address] [place] [place] [address] 07/22/2020 10:51:57 07/22/2020 15:50:10 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 I explained the findings to Jeff. Given his recurrent urinary tract infections , surgery would be indicated. I will schedule for preoperati ve colonoscop y and cystoscopy to rule out malignancy preoperati vely. I will have him follow-up after gastroente rology and urology consultati ons to further discuss and schedule surgery. 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 Now more interested in treatment. To refer to general surgery.Pl an for cystoscopy to rule out malignancy in office.May need stents at the time of surgery. Benign pro static hyperplasia with outflow obstruction 926113919 N40.1 N13.8 105538 He has signficant BPH symptoms with LUTS.Also with fistula. He is on tamsulosin 0.4 daily.Tab mmend to continue on the tamsulosin .He is on oxybutynin as well.PVR is 0 cc.PSA on 06/16/2024 was 2.1 Urgent layne marie to urinate 36622791 R39.15 112675 He presents on oxybutynin ER 10 mg daily, and PVR is 0 cc.Reviewe d with patient and to monitor his voiding. Health Concerns Section Related Observation LastModified by Organization Detai ls LastModified Time None Recorded Concern Status LastModified by Organization Details LastModified Time None Recorded Advance Directives Directive None Recorded Payers Insurance Date Sequence Insurance Name Policy Number Policy Alves Covered Member ID Alves Member ID Guarantor Name 10/15/2024 1 [place] [facility] Jeff Lay [id number] Jeff Lay 12/23/2024 2 [place] Lay [id number] Jeff Lay 12/23/2024 1 [facility] Jeff Lay [id number] Jeff Lay 10/15/2024 1 [facility] (MEDICAID HMO) [facility] Jeff Lay [id number] Jeff Lay Notes Date Note Type Note Provider Name and Address Organization Details Recorded Time 07/22/2020 text/html Jeff is a 64-year-old male who I been requested to evaluate and treat for colovesical fistula. He states that he denies any symptoms. He has had some urinary tract infections. CT scan of the abdomen and pelvis last fall revealed what appeared to be a colovesical fistula. He states that he had a colonoscopy approximately 3 years ago with some polyps. He denies any other complaints. 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 He reports air in the urine, and gas bubbles. He has nocturia x 5.On 10/15/2024 his IPSS is 35/35, Noc x 5, and QOL 5/6. Discussed his options for surgery, but this would be for his colon aspect with general surgery. He lives in [place]. Katie Renteria MD [address] [place] [address], [phone], [facility] 10/15/2024 15:47:39
--- OUTSIDE RECORDS SUMMARY | 2025-03-04 22:25 | XMS_ITS | Encounter Summary ---
Author Organization [facility] Address [address] [place] [address] Care Team Providers Care Hypertrichologist Name Role Phone Mukesh Malik MD Primary Care Provider [phone] Chris Patel MD Unavailable Silvana Fernandez MD Unavailable Gary Alas MD Unavailable [phone] Cari Steve MD Unavailable [phone] Trudi Guerrero PROFESSOR OF ECONOMICS Unavailable [phone] Yaritza Kc PROFESSOR OF ECONOMICS Unavailable [phone] Sabrina Barbosa PROFESSOR OF ECONOMICS Unavailable [phone] Dottie Granado PharmD Unavailable Unavailable Reason for Visit * Reason Onset Date Comments Knee Pain 02/12/2024 Encounter Details Date Type Department Care Team (Late st Contact Info) Description 02/12/2024 Nurse Triage [facility] [address] [place] [address] Mukesh Malik MD [address] [place], [place] [phone] Knee Pain Social History Tobacco Use Types Packs/Day Years [...] Date Recorded PHQ-9 Total Score 2 01/13/2024 [place] Depression Scale Score Not o n file [...] Recor ded PHQ-9 Total Score 2 01/13/2024 [place] Depression Scale Score Not o n file [...] encounter Miscellaneous Notes * Telephone Encounter - Trupti Nair RN - 02/12/2024 8:58 AM EST Patient calling regarding knee pain. Patient stated that it has been ongoing for over two weeks. Noted appointment for tomorrow with MD for knee pain. Reviewed care advice, tylenol dosage to take, medication safety. Patient in agreement with plan of care. Patient requesting call back from Michelle. Reason for Disposition MODERATE pain (e.g., symptoms interfere with work or school, limping) and present > 3 days Answer Assessment - Initial Assessment Questions 1. LOCATION and RADIATION: Where is the pain located? L Knee 2. QUALITY: What does the pain feel like? (e.g., sharp, dull, aching, burning) Sharp pain 3. SEVERITY: How bad is the pain? What does it keep you from doing? (Scale 1-10; or mild, moderate, severe) - MILD (1-3): doesn't interfere with normal activities - MODERATE (4-7): interferes with normal activities (e.g., work or school) or awakens from sleep, limping - SEVERE (8-10): excruciating pain, unable to do any normal activities, unable to walk Pain is mod-severe 4. ONSET: When did the pain start? Does it come and go, or is it there all the time? 2 weeks ago 5. RECURRENT: Have you had this pain before? If Yes, ask: When, and what happened then? no 6. SETTING: Has there been any recent work, exercise or other activity that involved that part of the body? no 7. AGGRAVATING FACTORS: What makes the knee pain worse? (e.g., walking, climbing stairs, running) Stairs/walking 8. ASSOCIATED SYMPTOMS: Is there any swelling or redness of the knee? no 9. OTHER SYMPTOMS: Do you have any other symptoms? (e.g., chest pain, difficulty breathing, fever, calf pain) no 10. : Is there any chance you are ? When was your last menstrual period? no Protocols used: Knee Pain-A-[place] documented in this encounter Plan of Treatment Upcoming Encounters Date Type Department Care Team (Late st Contact Info) Description 05/31/2024 Procedure Pass [facility] [address] [place] [phone] 03/10/2025 3:00 PM EST Office Visit [facility] [address] [place] [address] Mukesh Malik MD [address] [place] [address] 04/13/2025 4:30 PM EST Telemedicine [facility] [address] [place] [phone] Byron Fitzgerald MD [facility] [address] [phone] 04/20/2025 2:00 PM EST Office Visit [facility] [address] [facility], [address] [place] [phone] Fernando Da Silva MD [address] [place], [place] [phone] 05/31/2025 9:00 AM EST Appointment [facility] [address] [place] [address] 06/04/2025 1:00 PM EST Pulmonary Function Test [facility] [address] [place] [phone] Chris Patel MD [facility] [place] [address] documented as of this encounter Visit Diagnoses Not on filedocumented in this encounter Care Teams Hypertrichologist Relationship Specialty Start Date End Date Mukesh Malik MD [address] [place], [place] [phone] PCP - General Internal Medicine 07/03/18 Chris Patel MD [address] [place] [address] [id number] Physician Pulmonary Disease 06/11/23 Silvana Fernandez MD [address] [place] [address] Physician Hematology and Oncology 01/27/24 Gary Alas MD [address] [place] [address] Surgeon General Surgery 06/03/24 Cari Steve MD [address] [place] [address] Physician Hematology and Oncology 06/10/24 Trudi Guerrero NP [address] [place] [address] Nurse Practitioner Internal Medicine 10/06/24 Yaritza Kc NP [address] [place] [address] Nurse Practitioner Internal Medicine 10/06/24 Sabrina Barbosa NP [address] [place] [address] Nurse Practitioner Internal Medicine 10/06/24 Dottie Granado, PharmD Pharmacist Pharmacy 12/11/24 01/11/25 documented as of this encounter
--- OUTSIDE RECORDS SUMMARY | 2025-03-04 22:25 | XMS_ITS | Clinical Summary ---
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 Active famotidine 20 MG tablet Take 1 (one) tablet (20 mg total) by mouth 2 (two) times a day. Active ferrous sulfate 325 (65 FE) MG tablet Take 1 (one) tablet (325 mg total) by mouth daily with breakfast. Active tamsulosin (FLOMAX) 0.4 mg capsule Take 1 (one) capsule (0.4 mg total) by mouth once daily. Active metFORMIN (GLUCOPHAGE) 1000 MG tablet Take 1 (one) tablet (1,000 mg total) by mouth 2 (two) times a day. Pt not on it Active phenazopyridine 95 MG tablet Take by oral route. Active RISPERDAL 3 mg tablet Take 1 tablet twice a day by oral route. 4 Active simvastatin (ZOCOR) 80 MG tablet Take 1 (one) tablet (80 mg total) by mouth once daily. 5 Active busPIRone (BUSPAR) 15 MG tablet 5 Active nicotine (NICODERM CQ) 7 mg/24 hr 24 hour patch 4 Active nicotine polacrilex (NICORETTE) 2 mg gum Take 1 (one) each (2 mg total) by mouth every 2 (two) hours as needed. 5 Active citalopram (CELEXA) 20 MG tablet Take 1.5 (one and a half) tablets (30 mg total) by mouth once daily. Active divalproex (DEPAKOTE) 500 MG Delayed Release tablet Take 2 (two) tablets (1,000 mg total) by mouth 2 (two) times a day. Active OREGANO OIL ORAL Take 1 tablet by mouth 2 (two) times a day. Active polyethylene glycol (MIRALAX) 17 gram packet Take by mouth. Active bisacodyL (DULCOLAX, BISACODYL,) 5 mg enteric coated tablet 1 (one) tablet (5 mg total) as needed. Active diclofenac (VOLTAREN) 1 % topical gel 4 Active gemfibroziL (LOPID) 600 MG tablet Take 1 (one) tablet (600 mg total) by mouth 2 (two) times a day. Active ibuprofen (MOTRIN) 200 MG tablet 1 (one) tablet (200 mg total) as needed. 02/15/20 25 Discontinu ed(Clinici an Decision) Active Problems Problem Noted Date Diagnosed Date Sepsis due to Pseudomonas 01/13/2025 Cystitis due to Pseudomonas 01/08/2025 Benign hypertension 12/01/2024 Hypercholesteremia 12/01/2024 Colon adenomas 12/01/2024 Overview (12/01/2024): with need for colonoscopy 09/14 Shoulder dislocation 12/01/2024 Overview (12/01/2024): partial right Encounter for pre-operative cardiovascular clear ance 06/12/2024 Other emphysema 04/30/2024 Elevated PSA 09/16/2023 Other cirrhosis of liver 09/16/2023 Pleural effusion 01/01/2022 Tobacco use 01/01/2022 Bipolar 1 disorder 07/21/2020 Depressive disorder 07/21/2020 Hypertension 07/21/2020 Hyperlipidemia 07/21/2020 Colovesical fistula 01/18/2020 Multiple pulmonary nodules 01/11/2020 Type 2 diabetes mellitus wit h microalbuminuria, without long-term current use of insulin 09/05/2018 Overview (12/01/2024): Documentation OV 02/15/21 Dr. Veronica TORRES. Cigarette nicotine dependence 06/16/2018 Restrictive lung disease 06/16/2018 Seizures 06/16/2018 Resolved Problems Problem Noted Date Diagnosed Date Resolved Date UTI (urinary tract infection) with pyuria 10/29/2021 03/01/2025 Encounters Date Type Department Care Team Description 03/03/2025 12:51 PM EST - 03/04/2025 4:38 PM EST Emergency [facility] Emergency Medicine [address] [place] [id number] Terry Craft MD Fox, Victoria E, MD Ignatius, David, MD Volk, Jill, Estella, Reji, DO Acute psychosis (CMS/HCC) (Primary Dx); Bipolar 1 disorder with moderate justin (CMS/HCC) Discharge Disposition: Psych[facility] Hospital with Planned Acute Inpatient Readmission 02/22/2025 11:14 AM EST - 02/22/2025 12:20 PM EST Emergency [facility] Emergency Medicine [address] [place] [id number] Failure to thrive in adult (Primary Dx) Discharge Disposition: Left Without Being Seen (LWBS) 02/14/2025 4:57 AM EST - 02/18/2025 1:20 PM EST Hospital Encounter [address] [phone] Bhavya Nelson MD Vieira-Salvatore, Lisa, MD Wang, Xiaodan, MD Cao, Shanjin, MD Singla, Raju, MD Acute cystitis (Primary Dx); Colovesical fistula Discharge Disposition: Left Against Medical Advice 01/13/2025 4:00 PM EDT - 01/15/2025 11:33 AM EDT Hospital Encounter [address] [phone] Liv Jimenez MD Wang, Xiaodan, MD Singla, Raju, MD Sepsis ([facility]) (Primary Dx); Urinary tract infection with hematuria, site unspecified; Colovesical fistula Discharge Disposition: Home or Self Care 12/20/2024 11:37 AM EDT - 12/20/2024 12:24 PM EDT Emergency [facility] Emergency Medicine [address] [place] [phone] Rajendra Rg MD Chest wall pain (Primary Dx) Discharge Disposition: Home or Self Care from Last 3 Months Immunizations Name Administration Dates Next Due Influenza, adjuvanted, trivalent, PF 12/04/2024, 12/17/2023 Influenza TIV (IM) 12/04/2024 PFIZER COVID-19 Vaccine (Pur ple), mRNA, LNP-S, PF, 30 mcg/0.3 mL dose 08/05/2020 Pneumococcal Polysaccharide 12/31/2017, 8 Prevnar 20 Pneumococcal Conj. 20 Valent 06/05/19 24 Respiratory syncytial vaccin e Adult, preF, subunit, bivalent, for intramuscular use (0.5ml PF) 01/26/2023 SARS-COV-2(COVID-19) vaccine, UNSPECIFIED 2023 Tdap 05/09/2010 Zoster Recombinant (Shingrix) 02/02/2021, 020 Family History Medical History Relation Name Comments Colon cancer Mother malignant tumor of Colon Stroke Mother Relation Name Status Comments Mother Social History Tobacco Use Types Packs/Day Years Used Date Smoking Tobacco: Every Day Cigarettes Tobacco Cessation:Ready to Q uit: Not Asked; Counseling Given: Not Answered Alcohol Use Standard Drinks/Week Comments Never 0 (1 standard drink = 0.6 oz pur e alcohol) [facility] Utilities Answer Date Recorded In the past 12 months has e [place], gas, oil, or water freee threatened to shut off services in your [...] any time in the past 12 m [facility], were you homeless or living in a group home (including now)? No 02/14/2025 Substance Use Answer [...] on file Sexual Orientation Not on file Last Filed Vital Signs [...] Mass Index 24.47 03/03/2025 1:12 PM EST Plan of Treatment Upcoming Encounters Date Type Department Care Team (Late st Contact Info) Description 04/08/2025 3:00 PM EST Procedure visit [facility] Urology [address] [facility] [address] [place] [address] Elie Renteria MD [address] [place] [address] Health Maintenance Due Date Last Done Comments DIABETIC EYE EXAM 1956 FOOT EXAM 11/12/1967 HEPATITIS C SCREENING 1974 COLONOSCOPY (CRC) 2002 COLORECTAL CANCER SCREENING (CRC) 2002 CT COLONOGRAPHY (CRC) 2002 FIT-DNA (CRC) 2002 FIT/iFOBT (CRC) 2002 SIGMOIDOSCOPY (CRC) 2002 DTAP/TDAP/TD VACCINES (2 - Td or Tdap) 05/09/2020 05/09/2010 ABDOMINAL AORTIC ANEURYSM (AAA) SCREEN 2021 URINE MICROALBUMIN 01/16/2025 01/17/2024 HEMOGLOBIN A1C 07/16/2025 01/15/2025 eGFR Screening 03/03/2026 03/03/2025, 01/31, 02/17/2025, Additional history exists ZOSTER VACCINE Completed 02/02/2021, 01/18/2020 RSV IMMUNIZATION Completed 01/26/2023 PNEUMOCOCCAL VACCINE: 50+ YEARS Completed 06/05/2023, 12/31/2017, 01/01/2008 COVID-19 IMMUNIZATION Completed 12/17/2023 , 01/26/2023, 01/10/2022, Additional history exists INFLUENZA VACCINE Completed 12/04/2024, , 12/17/2023 IPV VACCINES Aged Out No longer eligi ble based on patient's age to complete this topic MENINGOCOCCAL B VACCINE Aged Out No l onger eligible based on patient's age to complete this topic Procedures Procedure Name Priority Date/Time Associated Diagnosis Comments ECG 12-LEAD STAT 03/04/2025 2:35 PM EST ACETAMINOPHEN LEVEL STAT 03/03/2025 2 :30 PM EST SALICYLATE LEVEL STAT 03/03/2025 2:30 PM EST ETHANOL LEVEL STAT 03/03/2025 2:30 PM EST CBC WITH DIFF STAT 03/03/2025 2:30 PM EST BASIC METABOLIC PANEL STAT 03/03/2025 2:30 PM EST URINALYSIS WITH REFLEX TO CULTURE Routine 03/03/2025 1:45 PM EST CONVERSION BUPRENORPHINE SUBOXONE SCREEN Routine 03/03/2025 1:45 PM EST URINE DRUG SCREEN STAT 03/03/2025 1:4 5 PM EST CULTURE, URINE Routine 03/03/2025 1:45 PM EST +GLUMETER Routine 02/18/2025 11:25 AM EST +GLUMETER Routine 02/18/2025 7:11 AM EST BASIC METABOLIC PANEL Routine 02/18/2025 5:54 AM EST HC AUTO CBC WITH DIFF Routine 02/18/2025 5:54 AM EST +GLUMETER Routine 02/17/2025 9:08 PM EST +GLUMETER Routine 02/17/2025 3:53 PM EST +GLUMETER Routine 02/17/2025 11:02 AM EST +GLUMETER Routine 02/17/2025 6:55 AM EST BASIC METABOLIC PANEL Routine 02/17/2025 5:50 AM EST HC AUTO CBC WITH DIFF Routine 02/17/2025 5:50 AM EST +GLUMETER Routine 02/16/2025 9:13 PM EST BASIC METABOLIC PANEL Timed 02/16/2025 7:53 PM EST HC AUTO CBC WITH DIFF Timed 02/16/2025 7:53 PM EST +GLUMETER Routine 02/16/2025 4:10 PM EST +GLUMETER Routine 02/16/2025 11:16 AM EST +GLUMETER Routine 02/16/2025 7:25 AM EST +GLUMETER Routine 02/15/2025 8:53 PM EST +GLUMETER Routine 02/15/2025 4:02 PM EST +GLUMETER Routine 02/15/2025 11:07 AM EST BASIC METABOLIC PANEL Routine 02/15/2025 7:41 AM EST HC AUTO CBC WITH DIFF Routine 02/15/2025 7:41 AM EST +GLUMETER Routine 02/15/2025 7:06 AM EST +GLUMETER Routine 02/14/2025 8:54 PM EST +GLUMETER Routine 02/14/2025 3:50 PM EST CULTURE, BLOOD Routine 02/14/2025 10:20 AM EST LACTIC ACID, PLASMA Routine 02/14/2025 1 0:03 AM EST CULTURE, BLOOD Routine 02/14/2025 10:[address] ABDOMEN PELVIS W IV CONTRAST STAT 02/14/2025 7:15 AM EST URINALYSIS WITH REFLEX TO CULTURE Routine 02/14/2025 6:16 AM EST LIPASE LEVEL STAT 02/14/2025 6:16 AM EST COMPREHENSIVE METABOLIC PANEL STAT 02/14/2025 6:16 AM EST PHOSPHORUS LEVEL STAT 02/14/2025 6:16 AM EST MAGNESIUM LEVEL, BLOOD STAT 6:16 AM EST HC AUTO CBC WITH DIFF STAT 02/14/2025 6:16 AM EST CULTURE, URINE Routine 02/14/2025 6:16 AM EST BASIC METABOLIC PANEL Routine 01/15/2025 6:04 AM EDT HC AUTO CBC WITH DIFF Routine 01/15/2025 6:04 AM EDT A1C Routine 01/15/2025 6:04 AM EDT LACTIC ACID, PLASMA Routine 01/14/2025 7 :35 PM EDT MAGNESIUM LEVEL, BLOOD Routine 6:00 AM EDT BASIC METABOLIC PANEL Routine 01/14/2025 6:00 AM EDT HC AUTO CBC WITH DIFF Routine 01/14/2025 6:00 AM EDT +GLUMETER Routine 01/13/2025 9:14 PM EDT CULTURE, BLOOD Routine 01/13/2025 4:52 PM EDT URINALYSIS WITH REFLEX TO CULTURE Routine 01/13/2025 4:42 PM EDT LACTIC ACID, PLASMA Routine 01/13/2025 4 :42 PM EDT TROPONIN T HIGH SENSITIVITY, TIMED (BUHMA ONLY) STAT 01/13/2025 4:42 PM EDT SED RATE STAT 01/13/2025 4:42 PM EDT C-REACTIVE PROTEIN STAT 01/13/2025 4: 42 PM EDT LIPASE LEVEL STAT 01/13/2025 4:42 PM EDT HEPATIC FUNCTION PANEL STAT 4:42 PM EDT BASIC METABOLIC PANEL STAT 01/13/2025 4:42 PM EDT HC AUTO CBC WITH DIFF STAT 01/13/2025 4:42 PM EDT CULTURE, BLOOD Routine 01/13/2025 4:42 PM EDT ECG 12-LEAD STAT 01/13/2025 4:39 PM EDT CULTURE, URINE Routine 01/13/2025 4:36 PM EDT X-RAY CHEST PA AND LATERAL STAT 12/20/2024 12:07 PM EDT TROPONIN T HIGH SENSITIVITY, TIMED (BUHMA ONLY) STAT 12/20/2024 11:42 AM EDT HC AUTO CBC WITH DIFF STAT 12/20/2024 11:39 AM EDT BASIC METABOLIC PANEL STAT 12/20/2024 11:39 AM EDT ECG 12-LEAD STAT 12/20/2024 11:30 AM EDT from Last 3 Months Results * (ABNORMAL) Basic Metabolic Panel (03/03/2025 2:30 PM EST) Only the most recent of9 resultswithin the time period is included. Glucose 147(H) 67 - 99 MG/DL 03/03/2025 3:18 PM [facility] BUN 18 6 - 24 MG/DL 03/03/2025 3:18 PM [facility] Creat Level 0.70 0.64 - 1.27 MG/DL 03/03/2025 3:18 PM [facility] eGFR 101 >90 mL/min/1.7 3m exp2 03/03/2025 3:18 PM [facility] Comment:Calculated using the CKD-epi 2020 race-free equation. BUN Creatinine Ratio 26 03/03/2025 3:18 PM [facility] Sodium 140 135 - 145 mEq/L 03/03/2025 3:18 PM [facility] Potassium 4.2 3.6 - 5.1 mEq/L 03/03/2025 3:18 PM [facility] Chloride 103 98 - 110 mEq/L 03/03/2025 3:18 PM [facility] CO2 26 20 - 29 mEq/L 03/03/2025 3:18 PM [facility] Anion Gap 11 3 - 13 03/03/2025 3:18 PM [facility] Calcium 9.4 8.4 - 10.2 MG/DL 03/03/2025 3:18 PM [facility] Blood 03/03/2025 2:30 PM EST 03/03/2025 2:37 PM EST us Danisha Todd RASHEED LAB BLOOD ORDERABLES Final Resu lt [facility] [address] [place] [address], [facility] [address] [place] [address] * (ABNORMAL) CBC WITH DIFF (03/03/2025 2:30 PM EST) Only the most recent of10 resultswithin the time period is included. WBC 6.9 4.2 - 10.0 [id number]/L 03/03/2025 2:45 PM [facility] RBC 4.30(L) 4.50 - 5.60 [id number]/ L 03/03/2025 2:[address] [facility] Hemoglobin 14.5 13.4 - 16.0 g/dL 03/03/2025 2:45 PM [facility] Hematocrit 43.1 41.2 - 51.0 % 03/03/2025 2:45 PM [facility] MCV 100.2 85.2 - 100.2 fL 03/03/2025 2:45 PM [facility] MCH 33.7(H) 27.0 - 32.4 pg 03/03/2025 2:45 PM [facility] MCHC 33.6 29.5 - 34.2 g/dL 03/03/2025 2:45 PM [facility] RDW 12.7 11.8 - 14.4 % 03/03/2025 2:45 PM [facility] Platelets 343 168 - 382 [id number] 03/03/2025 2:[address] [facility] MPV 9.3(L) 9.6 - 12.5 fL 03/03/2025 2:45 PM [facility] NRBC % 0.0 -1.0 - 0.0 % 03/03/2025 2:[address] [facility] NRBC (absolute) 0.0 [id number] 2:[address] [facility] Immature Granulocytes % 0.3 % 03/03/2025 2:[address] [facility] Immature Granulocytes (absolute) 0.0 0.0 - 0.1 [id number]/L 03/03/2025 2:45 PM EST [facility] Seg Neutrophil % 56.5 % 03/03/20 2:45 PM EST [facility] Seg Neutrophil (absolute) 3.9 1.9 - 6.7 [id number]/L 03/03/2025 2:45 PM EST [facility] Lymphocyte % 34.6 % 03/03/2025 2:45 PM EST [facility] Lymphocyte (absolute) 2.4 1.0 - 3.3 [id number]/L 03/03/2025 2:45 PM EST [facility] Monocyte % 7.9 % 03/03/2025 2:45 PM EST [facility] Monocyte (absolute) 0.6 0.3 - 0.9 [id number]/L 03/03/2025 2:45 PM EST [facility] Eosinophil % 0.1 % 03/03/2025 2:45 PM EST [facility] Eosinophil (absolute) 0.0 0.0 - 0.4 [id number]/L 03/03/2025 2:45 PM [facility] Basophil % 0.6 % 03/03/2025 2:45 PM EST [facility] Basophil (absolute) 0.0 0.0 - 0.1 [id number]/L 03/03/2025 2:45 PM EST [facility] 03/03/2025 2:30 PM EST 03/03/2025 2:37 PM EST us Danisha Brooks NP LAB BLOOD ORDERABLES Final Resu lt [facility] [address] [place] [address], [facility] [address] [place] [address] * Ethanol Level (03/03/2025 2:30 PM EST) Ethanol Level Not Detected Not Detected MG/DL 03/03/2025 3:18 PM EST [facility] Blood 03/03/2025 2:30 PM EST 03/03/2025 2:37 PM EST us Danisha Brooks PONY ROUGHER LAB BLOOD ORDERABLES Final Resu lt Performing Organization Address City/[facility]/ZIP Co de Phone Number [facility] [address] [place] [address], [facility] [address] [place] [address] * Acetaminophen Level (03/03/2025 2:30 PM EST) Acetaminophen Level <5 0 - 5 ug/mL 03/03/2025 3:18 PM EST [facility] Comment:Acetaminophen Refere nce Range: Negative <5 ug/mL Blood 03/03/2025 2:30 PM EST 03/03/2025 2:37 PM EST us Danisha Brooks PONY ROUGHER LAB BLOOD ORDERABLES Final Resu lt Performing Organization Address [facility] Co de Phone Number [facility] [address] [place] [address], [facility] [address] [place] [address] * (ABNORMAL) Salicylate Level (03/03/2025 2:30 PM EST) Salicylate Level 1.0(A) MG/DL 03/03/2025 3:18 PM EST [facility] Comment: Salicylate Reference Range: Negative <1.0 mg/dL Therapeutic Range: 2.0-20.0 mg/dL Blood 03/03/2025 2:30 PM EST 03/03/2025 2:37 PM EST us Danisha Brooks PONY ROUGHER LAB BLOOD ORDERABLES Final Resu lt Performing Organization Address City/[facility]/ZIP Co de Phone Number [facility] [address] [place] [address], [facility] [address] [place] [phone] * (ABNORMAL) Urinalysis with reflex to culture (03/03/2025 1:45 PM EST) Only the most recent of3 resultswithin the time period is included. Color, Ur Yellow yellow 03/03/2025 2:09 PM [facility] Appearance, Ur Cloudy slightly cloudy 03/03/2025 2:09 PM [facility] Glucose, Ur negative negative mg/dL 03/03/2025 2:09 PM [facility] Bilirubin, Ur negative negative mg/dL 03/03/2025 2:09 PM [facility] Ketones, Ur 15(A) negative mg/dL 03/03/2025 2:09 PM [facility] Specific Pierce, Ur 1.015 1.010 - 1.030 03/03/2025 2:09 PM [facility] Blood, Ur negative negative mg/dL 03/03/2025 2:09 PM [facility] pH, Ur 8.0 5.0 - 8.0 03/03/2025 2:09 PM [facility] Protein, Ur 30(A) negative mg/dL 03/03/2025 2:09 PM [facility] Urobilinogen, Ur 1.0 normal E.U./dL 03/03/2025 2:09 PM [facility] Comment:UF REFLEX Nitrite Level, Ur negative negative 03/03/2025 2:09 PM [facility] Leukocytes Est, Ur Moderate(A) negative mg/dL 03/03/2025 2:09 PM [facility] RBC, Ur 3-5(A) 0 - 2 /HPF 03/03/2025 2:18 PM [facility] WBC, Ur >50(H) 0 - 5 /HPF 03/03/2025 2:18 PM [facility] Bacteria, Ur Rare none seen /HPF 03/03/2025 2:18 PM [facility] Squam Epithel, Ur None Seen absent /HPF 03/03/2025 2:18 PM [facility] Hyaline Casts, Ur 0-5 0 - 2 /LPF 03/03/2025 2:18 PM [facility] 03/03/2025 1:45 PM EST 03/03/2025 2:04 PM EST Danisha Todd PONY ROUGHER URINE ORDERABLES Edited Result - Final [facility] [address] [place] [address], [facility] [address] [place] [address] * Urine Drug Screen (03/03/2025 1:45 PM EST) Amphetamine Scrn, Ur None Detected 03/03/2025 2:28 PM EST [facility] Benzodiazepine Screen, Urine None Detected 03/03/2025 2:28 PM [facility] Cannabinoid Screen, Urine None Detected 03/03/2025 2:28 PM [facility] Cocaine Screen, Ur None Detected 03/03/2025 2:28 PM EST [facility] Fentanyl Screen, Urine None Detected 03/03/2025 2:28 PM EST [facility] Comment: This test was developed and [...] Urine None Detected 03/03/2025 2:28 PM EST [facility] Opiate Screen, Urine None Detected 03/03/2025 2:28 PM [facility] Comment: Note: Drug of abuse [...] Scrn, Ur None Detected 03/03/2025 2:28 PM [facility] Urine 03/03/2025 1:45 PM EST 03/03/2025 2:04 PM EST Danisha Brooks PONY ROUGHER URINE ORDERABLES Final Result [facility] [address] [place] [address], [facility] [address] [place] [address] * Buprenorphine Suboxone Screen (03/03/2025 1:45 PM EST) Buprenorphine Suboxone Scrn None Detected 03/03/2025 2:28 PM EST [facility] 03/03/2025 1:45 PM EST 03/03/2025 2:04 PM EST us Danisha Brooks NP LAB BLOOD ORDERABLES Final Resu lt Performing Organization Address City/[facility]/ZIP Co de Phone Number [facility] [address] [place] [address], [facility] [address] [place] [address] * (ABNORMAL) Glumeter (02/18/2025 11:25 AM EST) Only the most recent of17 resultswithin the time period is included. Glumeter 100(H) 67 - 99 MG/DL 02/18/2025 11:25 AM EST [facility] 02/18/2025 11:2 5 AM EST 02/18/2025 11:27 AM EST us Angel Abad MD LAB BLOOD ORDERABLES Final Resul t Performing Organization Address City/[facility]/ZIP Co de Phone Number [facility] [address] [place], [place] [id number], [facility] [address] [place] [phone] * Culture, Blood (BUHMA ONLY) (02/14/2025 10:20 AM EST) Only the most recent of4 resultswithin the time period is included. BLOOD CULTURE, ROUTINE Final report 02/20/2025 12:06 AM EST [facility] Comment: Performed at: [facility] [place] [address], [address], [place], [place] [id number] Osteologist: Herman Goode MD, Phone: [phone] Previous comment was Preliminary report Performed at: [facility] [place] [address], [place], [place] [id number] Osteologist: Herman Goode MD, Phone: [phone], verified by I/AUT at 00:06 on 02/20/25. Corrected result; previously reported as: SEE BELOW reported 02/19/25 19: 06 by I/AUT SPECIMEN SOURCE Peripheral 10:07 AM EST [facility] BLOOD CULTURE RESULT 1 Comment 02/20/2025 12:06 AM EST [facility] Comment: No aerobic or anaerobic growth in five days. Performed at: [facility] [place] [address], [address], [place], [place] [id number] Osteologist: Herman Goode MD, Phone: [phone] Previous comment was No growth in 48 hours. Performed at: [facility] [employer] [facility] [address], [address], [place], [place] [id number] Osteologist: Herman Goode MD, Phone: [phone], verified by I/AUT at 00:06 on 02/20/25. 02/14/2025 10:2 0 AM EST 02/14/2025 9:41 AM EST Candi Bhakta MD MICROBIOLOGY - GENERAL ORDERABLES Edited Result - Final [facility] [address] [place] [address], [facility] [address] [place] [address] * Lactic Acid, Plasma (02/14/2025 10:03 AM EST) Only the most recent of3 resultswithin the time period is included. Lactic Acid 1.1 0.2 - 1.9 mEq/L 02/14/2025 10:34 AM EST [facility] 02/14/2025 10:0 3 AM EST 02/14/2025 10:07 AM EST Candi Bhakta MD LAB BLOOD ORDERABLES Fi nal Result Performing Organization Address City/[facility]/ZIP Co de Phone Number [facility] [address] [place] [address], [facility] [address] [place] [address] * CT Abdomen Pelvis W IV Contrast (02/14/2025 7:15 AM EST) Anatomical Region Laterality Modality Computed Tomogra phy 02/14/2025 7:08 AM EST Impressions 02/14/2025 8:54 AM EST IMPRESSION: Ground-glass airspace opacities in bilateral lung [...] workup is recommended. COMMENTS: Consistent with the [employer]'s Incidental Findings Committee white paper (J Am Abimael Radiol 2018): Any incidental renal lesion less than 1 cm or classified as too small to characterize, or any incidental cystic renal lesion characterized as simple-appearing, is likely benign. No follow-up imaging is recommended for these lesions per consensus recommendations based on imaging criteria. THIS DOCUMENT HAS BEEN ELECTRONICALLY SIGNED BY VÍCTOR CHAPA MD on 02/14/2025 08:54 AM Narrative 02/14/2025 8:54 AM EST PROCEDURE INFORMATION: Exam: CT Abdomen And Pelvis [...] old fractures. Soft tissues: See Bones/joints finding. Procedure Note Víctor Chapa - 02/14/2025 PROCEDURE INFORMATION: Exam: CT Abdomen And Pelvis With Contrast Exam date and time: 02/14/2025 7:08 AM Age: 69 years old Clinical indication: Abdominal pain; Additional info: Rlq abd tender TECHNIQUE: Imaging protocol: Computed tomography of the abdomen and pelvis withcontrast. Radiation optimization: All CT scans at this facility use at least one ofthese dose optimization techniques: automated exposure control; mA and/or kV adjustment per patient size (includes targeted exams where dose is matchedto clinical indication); or iterative reconstruction. Contrast material: OMNI 350; Contrast volume: 80 ml; Contrast route: INTRAVENOUS (IV); COMPARISON: CR X-RAY CHEST PA AND LATERAL 12/20/2024 12:01 PM FINDINGS: Lungs: Ground-glass airspace opacities in bilateral lung bases mayrepresent inflammation versus edema. There is focal nodule in the left lower lobe measuring 6.3 mm, (series 4, image 3). Nodule in the right lung basemeasuring 3 mm, (series 4, image 2). Coronary arteries: Mild coronary calcifications partially seen. Liver: Mild diffuse fatty infiltration of liver. There is 8.5 mm low-attenuation area in the dome of the liver and another in the rightlobe of the liver with Hounsfield unit density of water likely representing simple cyst. Measuring approximately 12.5 mm Gallbladder and biliary ducts: Normal. No calcified stones. No ductaldilation. Pancreas: Normal. No ductal dilation. Spleen: Normal. No splenomegaly. Adrenal glands: Normal. No mass. Kidneys and ureters: Simple cyst in the interpolar region of the rightkidney measuring 20 mm. 5 mm simple cyst in the upper pole of the left kidney. Stomach and bowel: There is marked thickening of the cecum withsurrounding inflammatory changes and small fluid. Focal thickening of the sigmoidcolon with loss of fat plan between the urinary bladder and the sigmoid colon as described below. Appendix: No evidence of appendicitis. Intraperitoneal space: Unremarkable. No free air. No significant fluid collection. Vasculature: Unremarkable. No abdominal aortic aneurysm. Lymph nodes: There are few scattered subcentimeter lymph nodes in theiliac chain on the right. Multiple subcentimeter tiny retroperitoneal andmesenteric root lymph nodes. Urinary bladder: Urinary bladder is not well distended.There is the lossof fat plan between the urinary bladder and adjacent thickened sigmoid colon with surrounding inflammatory changes . There is air in the dome of theurinary bladder with bladder wall thickening and surrounding inflammation.Findings may represent cystitis and recent instrumentation, however, given focal thickening of the sigmoid colon and loss of fat plan between the urinary bladder and the sigmoid colon, fistulous communication cannot becompletely excluded. Further workup is recommended. Reproductive: Unremarkable as visualized. Bones/joints: There is 50% loss of height of superior endplate of L2 with7.7 mm retropulsion of superior endplate resulting moderate to severe central spinal canal stenosis. Findings appears to be chronic. Posterior [id number], 10th and 9th rib fractures with callus formation representing oldfractures. Soft tissues: See Bones/joints finding. IMPRESSION: Ground-glass airspace opacities in bilateral lung bases may represent inflammation versus edema. There is focal nodule in the left lower lobe measuring 6.3 mm, (series 4, image 3). Nodule in the right lung basemeasuring 3 mm, (series 4, image 2). Further evaluation with CT chest isrecommended. There is marked thickening of the cecum with surrounding inflammatorychanges and small fluid and adjacent subcentimeter lymph nodes. Findings mayrepresent infection, however, underlying cecal mass cannot be completely excluded, further evaluation with colonoscopy is recommended. There is the loss of fat plan between the urinary bladder and adjacent thickened sigmoid colon with surrounding inflammatory changes . There isair in the dome of the urinary bladder with bladder wall thickening andsurrounding inflammation. Findings may represent cystitis and recent instrumentation, however, given focal thickening of the sigmoid colon and loss of fat plan between the urinary bladder and the sigmoid colon, fistulous communication cannot be completely excluded. Further workup is recommended. COMMENTS: Consistent with the [employer]'s Incidental Findings Committee white paper (J Am Abimael Radiol 2018): Any incidental renal lesionless than 1 cm or classified as too small to characterize, or any incidentalcystic renal lesion characterized as simple-appearing, is likely benign. Nofollow-up imaging is recommended for these lesions per consensus recommendationsbased on imaging criteria. THIS DOCUMENT HAS BEEN ELECTRONICALLY SIGNED BY VÍCTOR CHAPA MD on02/14/2025 08:54 AM us Bhavya Nelson MD IMG CT ORDERABLES Final Re sult * Magnesium Level, Blood (02/14/2025 6:16 AM EST) Only the most recent of2 resultswithin the time period is included. MAGNESIUM LEVEL, BLOOD 1.7 1.6 - 2.3 mg/dL 02/14/2025 7:02 AM EST [facility] 02/14/2025 6:16 AM EST 02/14/2025 6:20 AM EST us Bhavya Nelson MD LAB BLOOD ORDERABLES Final Result Performing Organization Address City/[facility]/ZIP Co de Phone Number [facility] [address] [place] [address], [facility] [address] [place] [address] * Culture, Urine (BUHMA ONLY) (02/14/2025 6:16 AM EST) Only the most recent of2 resultswithin the time period is included. URINE CULTURE, ROUTINE Final report 02/15/2025 5:06 PM [facility] Comment: Performed at: [facility] [address], [address], [place], [place] [id number] Osteologist: Herman Goode MD, Phone: [phone] SPECIMEN SOURCE Clean catch 02/14/2025 9:26 AM [facility] URINE CULTURE RESULT 1 Comment 02/15/2025 5:06 PM EST [facility] Comment: Mixed urogenital uvaldo Greater than 100,000 colony forming units per mL Performed at: [facility] [address], [address], [place], [place] [id number] Osteologist: Herman Goode MD, Phone: [phone] 02/14/2025 6:16 AM EST 02/14/2025 6:21 AM EST us Bhavya Nelson MD MICROBIOLOGY - GENERAL ORD ERABLES Final Result [facility] [address] [place] [address], [facility] [address] [place] [address] * (ABNORMAL) Comprehensive Metabolic Panel (02/14/2025 6:16 AM [facility]) Glucose 158(H) 67 - 99 MG/DL 02/14/2025 7:02 AM [facility] BUN 20 6 - 24 MG/DL 02/14/2025 7:02 AM [facility] Creat Level 0.60(L) 0.64 - 1.27 MG/DL 02/14/2025 7:02 AM [facility] eGFR 106 >90 mL/min/1.7 3m exp2 02/14/2025 7:02 AM [facility] Comment:Calculated using the CKD-epi 2020 race-free equation. BUN Creatinine Ratio 33 02/14/2025 7:02 AM [facility] Sodium 136 135 - 145 mEq/L 02/14/2025 7:02 AM [facility] Potassium 4.8 3.6 - 5.1 mEq/L 02/14/2025 7:02 AM [facility] Comment:Specimen hemolyzed, results affected Chloride 102 98 - 110 mEq/L 02/14/2025 7:02 AM [facility] CO2 22 20 - 29 mEq/L 02/14/2025 7:02 AM [facility] Anion Gap 12 3 - 13 02/14/2025 7:02 AM [facility] Albumin 3.7 3.4 - 5.1 G/DL 02/14/2025 7:02 AM [facility] Alkaline Phosphatase 59 40 - 129 U/L 02/14/2025 7:02 AM [facility] ALT 11(L) 14 - 63 U/L 02/14/2025 7:02 AM [facility] Comment:Gross hemolysis, kayleigh luate with caution AST (SGOT) 27 15 - 41 U/L 02/14/2025 7:02 AM [facility] Bilirubin, Total 0.4 0.1 - 1.2 mg/dL 02/14/2025 7:02 AM [facility] Calcium 9.2 8.4 - 10.2 MG/DL 02/14/2025 7:02 AM EST [facility] Protein, Total 7.0 6.1 - 8.3 g/dL 02/14/2025 7:02 AM EST [facility] Blood 02/14/2025 6:16 AM EST 02/14/2025 6:20 AM EST us Bhavya Nelson MD LAB BLOOD ORDERABLES Final Result [facility] [address] [place] [address], [facility] [address] [place] [phone] * (ABNORMAL) Phosphorus Level (02/14/2025 6:16 AM EST) Phosphorus 2.3(L) 2.4 - 4.8 MG/DL 02/14/2025 7:02 AM EST [facility] Blood 02/14/2025 6:16 AM EST 02/14/2025 6:20 AM EST us Bhavya Nelson MD LAB BLOOD ORDERABLES Final Result Performing Organization Address [facility]/ZIP Co de Phone Number [facility] [address] [place] [address], [facility] [address] [place] [address] * Lipase Level (02/14/2025 6:16 AM EST) Only the most recent of2 resultswithin the time period is included. Lipase 21 13 - 55 IU/L 02/14/2025 7:02 AM EST [facility] Blood 02/14/2025 6:16 AM EST 02/14/2025 6:20 AM EST us Bhavya Nelson MD LAB BLOOD ORDERABLES Final Result Performing Organization Address City/[facility]/ZIP Co de Phone Number [facility] [address] [place] [address], [facility] [address] [place] [address] * A1C (01/15/2025 6:04 AM EDT) A1C 5.4 4.3 - 5.6 % 01/15/2025 7:35 AM EDT [facility] Comment: The [place] [employer] recommends the following: Non-Diabetic <5.7% Prediabetes 5.7 6.4% Diabetes >/= 6.5% Blood 01/15/2025 6:04 AM EDT 01/15/2025 6:37 AM EDT us Angel Abad MD LAB BLOOD ORDERABLES Final Resul t [facility] [address] [place] [address], [facility] [address] [place] [address] * Troponin T High Sensitivity, Timed (01/13/2025 4:42 PM EDT) Only the most recent of2 resultswithin the time period is included. TROPONIN T HIGH SENSITIVITY, BASELINE 9 0 - 14 ng/L 01/13/2025 5:15 PM EDT [facility] Comment: Normal range: Females <9 ng/L Males <14 ng/L Values greater than or equal to 52 ng/L indicates acute myocardial injury/infarction Values between '10 and 51 ng/L' (for females) or '15 and 51 ng/L' (for males) require clinical correlation and is not diagnostic of acute myocardial injury. Consider repeat at 1 and 3 hours. A dynamic increase of g reater than 5 ng/L at 1 hour or 3 hours indicates of acute myocardial injury/infarction. For a patient with an estimated GFR of less than 30 mL/min/1.73 m2 or receiving dialysis, a dynamic increase of greater than 20% at 3 hours indicates acute myocardial injury. A value of less than 9 ng/L (in females) or less than 14 ng/L (in males) with a dynamic change of less than 3 ng/L, greater than 3 hours after symptom onset, generally rules out acute myocardial injury/infarction. Refer to Chest Pain order sets for additional clinical decision support (using the HEART score for the ED or the ROBBIE score for the inpatient setting). TROPONIN T HIGH SENSITIVITY, 1 HOUR 9 0 - 14 ng/L 01/13/2025 7:40 PM EDT [facility] Comment: Normal range: Females <9 ng/L Males <14 ng/L Values greater than or equal to 52 ng/L indicates acute myocardial injury/infarction Values between '10 and 51 ng/L' (for females) or '15 and 51 ng/L' (for males) require clinical correlation and is not diagnostic of acute myocardial injury. Consider repeat at 1 and 3 hours. A dynamic increase of g reater than 5 ng/L at 1 hour or 3 hours indicates of acute myocardial injury/infarction. For a patient with an estimated GFR of less than 30 mL/min/1.73 m2 or receiving dialysis, a dynamic increase of greater than 20% at 3 hours indicates acute myocardial injury. A value of less than 9 ng/L (in females) or less than 14 ng/L (in males) with a dynamic change of less than 3 ng/L, greater than 3 hours after symptom onset, generally rules out acute myocardial injury/infarction. Refer to Chest Pain order sets for additional clinical decision support (using the HEART score for the ED or the ROBBIE score for the inpatient setting). 01/13/2025 4:42 PM EDT 01/13/2025 4:49 PM EDT Liv ARDON LAB BLOOD ORDERABLES Final R esult Performing Organization Address City/[facility]/ZIP Co de Phone Number [facility] [address] [place] [address], [facility] [address] [place] [address] * Sed Rate (01/13/2025 4:42 PM EDT) Sed Rate <1 0 - 20 mm/h 01/13/2025 6:38 PM EDT [facility] Blood 01/13/2025 4:42 PM EDT 01/13/2025 4:49 PM EDT Liv Salazar [place] LAB BLOOD ORDERABLES Final R esult [facility] [address] [place] [address], [facility] [address] [place] [address] * C-reactive Protein (01/13/2025 4:42 PM EDT) CRP <0.30 0.00 - 0.50 mg/dL 01/13/2025 6:24 PM EDT [facility] Blood 01/13/2025 4:42 PM EDT 01/13/2025 4:49 PM EDT Liv ARDON LAB BLOOD ORDERABLES Final R esult [facility] [address] [place] [address], [facility] [address] [place] [address] * (ABNORMAL) Hepatic Function Panel (01/13/2025 4:42 PM EDT) Pathologist [facility] Albumin 3.3(L) 3.4 - 5.1 G/DL 01/13/2025 5:40 PM EDT [facility] Bilirubin, Total <0.2 0.1 - 1.2 mg/dL 01/13/2025 5:40 PM EDT [facility] Bilirubin, Direct <0.1 0.0 - 0.4 MG/DL 01/13/2025 6:24 PM EDT [facility] Alkaline Phosphatase 50 40 - 129 U/L 01/13/2025 5:40 PM EDT [facility] Protein, Total 5.7(L) 6.1 - 8.3 g/dL 01/13/2025 5:40 PM EDT [facility] ALT 13(L) 14 - 63 U/L 01/13/2025 5:40 PM EDT [facility] AST (SGOT) 23 15 - 41 U/L 01/13/2025 5:40 PM EDT [facility] Blood 01/13/2025 4:42 PM EDT 01/13/2025 4:49 PM EDT Liv ARDON LAB BLOOD ORDERABLES Final R esult [facility] [address] [place] [address], [facility] [address] [place] [address] * X-Ray Chest PA and Lateral (12/20/2024 12:07 PM EDT) Anatomical Region Laterality Modality Radiographic Yomaira ging Impressions 12/20/2024 12:17 PM EDT IMPRESSION: No acute pulmonary disease. Signing Doctor: Rainer Baca Contributing Doctor: Date Signed:12/20/2024 12:17 PM Patient DOS:12/20/2024 12:00 PM Exam:[id number] X-RAY CHEST PA AND LATERAL Narrative 12/20/2024 12:17 PM EDT PROCEDURE: X-RAY CHEST PA AND LATERAL INDICATION: Chest Pain ED Protocol COMPARISON: None. FINDINGS: Lines and Tubes: None. Heart and Mediastinum: The heart is not enlarged. The mediastinal contours are unremarkable. Lungs/Pleura: The lungs are clear. There are no pleural effusions. Skeletal Structures: The visualized skeletal structures are unremarkable for age. Procedure Note Rainer Baca MD - 12/20/2024 PROCEDURE: X-RAY CHEST PA AND LATERAL INDICATION: Chest Pain ED Protocol COMPARISON: None. FINDINGS: Lines and Tubes: None. Heart and Mediastinum: The heart is not enlarged. The mediastinal contoursare unremarkable. Lungs/Pleura: The lungs are clear. There are no pleural effusions. Skeletal Structures: The visualized skeletal structures are unremarkablefor age. IMPRESSION: No acute pulmonary disease. Signing Doctor: Rainer Baca Contributing Doctor:Date Signed:12/20/2024 12:17 PM Patient DOS:12/20/2024 12:00 PM Exam:[id number] X-RAY CHEST PA AND LATERAL Rajendra DUMONTG DIAGNOSTIC IMAGING ORDERABLE S Final Result from Last 3 Months Insurance [employer] MEDICARE [facility] Advance Directives For more information, please contact: [phone] Documents on File Type Date Recorded Patient Database Admin Expl anation Advance Directives and Living Will 02/14/2025 3:11 PM health care proxy * Full Code (Latest Code Status on File) Date Activated Date Inactivated Comments 02/14/2025 11:36 AM 02/22/2025 11:14 AM * Full Code Date Activated Date Inactivated Comments 01/13/2025 7:04 PM 02/14/2025 4:57 AM Care Teams Repairer [employer] Relationship Specialty Start Date End Date Mukesh Malik MD [address] [place] [address] [place] [address] PCP - General Internal Medicine 12/22/24
--- OUTSIDE RECORDS SUMMARY | 2025-03-04 22:25 | XMS_ITS | Encounter Summary ---
Author Organization [facility] Address [address] [place] [address] Care Team Providers Care Test Lab Technician Name Role Phone Mukesh Malik MD Primary Care Provider [phone] Chris Patel MD Unavailable Gary Alas MD Unavailable [phone] Cari Steve MD Unavailable [phone] Trudi Guerrero NUMERICAL CONTROL OPERATOR Unavailable [phone] Yaritza Kc NUMERICAL CONTROL OPERATOR Unavailable [phone] Sabrina Barbosa NUMERICAL CONTROL OPERATOR Unavailable [phone] Dottie Granado PharmD Unavailable Unavailable Reason for Visit * Reason Comments Medication Refill Encounter Details Date Type Department Care Team (Late st Contact Info) Description 07/19/2024 Refill [facility] [address] [place] [phone] Esteban Saenz MD [address] [place] [address] Social History Tobacco Use Types Packs/Day Years Used Date Smoking Tobacco: Former Cigarettes 0.5 40 0 08/22/1982 - 08/22/2022 Smokeless Tobacco: Never Comments:10 cigs a day- pt s tates he quit last week. Alcohol Use Standard Drinks/Week Comments No 0 (1 standard drink = 0.6 oz pur e alcohol) Housing Stability - [facility] Screener Answer Date Recorded What is your living situation today? Steady hous ing 01/13/2024 Do you need help with Housing/Prison resources? Not on file 01/13/2024 Patient indicated [...] Date Recorded PHQ-9 Total Score 2 01/13/2024 [place] Depression Scale Score Not o n file [...] Recor ded PHQ-9 Total Score 2 01/13/2024 [place] Depression Scale Score Not o n file [...] [facility] [address] [place] [address] 03/10/2025 3:00 PM EST Office Visit [facility] [address] [place] [address] Mukesh Malik MD [address] [place], [place] [id number] 04/13/2025 4:30 PM EST Telemedicine [facility] [address] [place] [phone] Byron Fitzgerald MD [address] [id number] 04/20/2025 2:00 PM EST Office Visit [facility] [address] [phone] Fernando Da Silva MD [address] [place], [place] [phone] 05/31/2025 9:00 AM EST Appointment [facility] [address] [place] [address] 06/04/2025 1:00 PM EST Pulmonary Function Test [facility] [address] [place] [phone] Chris Patel MD [facility] [place] [address] documented as of this encounter Visit Diagnoses Not on filedocumented in this encounter Care Teams Test Lab Technician Relationship Specialty Start Date End Date Mukesh Malik MD [address] [place] [address] PCP - General Internal Medicine 07/03/18 Crhis Patel MD [address] [place] [address] Physician Pulmonary Disease 06/11/23 Gary Alas MD [address] [place] [address] Surgeon General Surgery 06/03/24 Cari Steve MD [address] [place] [address] Physician Hematology and Oncology 06/10/24 Trudi Guerrero NP [address] [place] [address] Nurse Practitioner Internal Medicine 10/06/24 Yaritza Kc NP [address] [place] [address] Nurse Practitioner Internal Medicine 10/06/24 Sabrina Barbosa NP [address] [place] [address] Nurse Practitioner Internal Medicine 10/06/24 Dottie Granado, PharmD Pharmacist Pharmacy 12/11/24 01/11/25 documented as of this encounter
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
--- NOTE | 2025-03-05 13:25 | P.CONHOSP_ITS ---
History of Present Illness Data of Consult Service Date: 03/05/25 Primary Care Provider: Unknown Physician HPI Reason for consult: Medical consult 69-year-old male with a past medical history of bipolar disorder, depressive disorder, history of brain damage secondary to huffing in a young adulthood, hypertension, hyperlipidemia, elevated PSA, history of pulmonary nodules, cirrhosis of liver, emphysema, seizure disorder, type 2 diabetes, anemia, cognitive disorder and aggression was brought to the emergency department at [facility] after EMS and police conducted a safety check of him in his brother and found the home to be inconsolable condition. Patient was also living with his brother who was nonambulatory and they appeared to be unable to meet each other as needs. During transport the patient became combative with EMS, and was aggressive and threatening in the emergency department requiring restraints for his own and staff safety. His tox screen was negative. Found to have a urinary tract infection. Renal function with a creatinine level of 0.70 on admit. No leukocytosis, no anemia. When I attempted to examine the patient, he was yelling loudly that ?he wants a specialty transformer assembler?. Unable to deescalate patient, unable to examine him. Review of Systems Review of Systems: Unable to obtain review of systems due to patient's mental status PMFSH Social History Household Members: Family Housing: Apartment Do you presently have visiting nurse or other home services: Yes Patient Tobacco Use Status: Current everyday Tobacco user Tobacco use type: Cigarette Smoked in Last 30 Days: Yes e-Cigarette/Vaping Use: Currently Using Patient Interested in Nicotine Replacement: Yes Patient Given Instructions on How to Stop Smoking: No (Pt. refusing all interventions) Second Hand Smoke Exposure: Yes Currently Displaying Signs/Symptoms of Drug Intoxication Withdrawal: No Do you feel safe in your current relationship?: No Current Relationship Advance Directives: No Advance Directives Information Provided: No Do you have thoughts of harming others: None Do you have a plan to hurt others: No Plan Recently lost weight without trying: Yes How much weight loss: Unsure Meds Allergies Allergy/AdvReac Type Severity Reaction Status Date / Time chlorpromazine Allergy Unknown Verified 03/04/25 19:57 fluphenazine Allergy Unknown Verified 03/04/25 19:57 haloperidol (From Haldol) Allergy Unknown Verified 03/04/25 19:57 levocetirizine Allergy Unknown Verified 03/04/25 19:57 prochlorperazine Allergy Unknown Verified 03/04/25 19:57 thiothixene Allergy Unknown Verified 03/04/25 19:57 Active Medications: Current Medications Acetaminophen (Acetaminophen 325 Mg Tablet) 650 mg PO Q6H PRN PRN Reason: Headache/Pain, Scale 1-10 Al Hydroxide/Mg Hydroxide (Magnesium Hydrox/Alum Hydrox 30 Ml Oral.Susp) 30 ml PO Q6H PRN PRN Reason: Heartburn/Nausea Dextrose (Dextrose 50 % 25 Gm/50 Ml Syringe) 25 gm IVPUSH Q15M PRN; Protocol PRN Reason: per Hypoglycemia Standing Ord. Divalproex Sodium (Divalproex Sodium Er 500 Mg Tab.Er.24h) 500 mg PO BID GALA Glucose (Glucose Gel 15 Gm Gel..Gram.) 15 gm PO Q15M PRN; Protocol PRN Reason: per Hypoglycemia Standing Ord. Hydroxyzine HCl (Hydroxyzine Hcl 25 Mg Tablet) 25 mg PO Q6H PRN PRN Reason: mild anxiety Insulin Human Lispro (Insulin Lispro 100 Unit/Ml 3 Ml Vial) 0 unit SUBCUT QIDACHS [facility]; Protocol Last Admin: 03/05/25 12:33 Dose: Not Given Magnesium Hydroxide (Milk Of Magnesia 30 Ml Oral.Susp) 30 ml PO DAILY PRN PRN Reason: Constipation Nicotine (Nicotine 21 Mg Patch.Td24) 21 mg TRANSDERMA DAILY PRN PRN Reason: nicotine craving Nicotine Polacrilex (Nicotine Polacrilex 2 Mg Gum) 2 mg BUCCAL Q2H PRN PRN Reason: Nicotine Cravings Olanzapine (Olanzapine 5 Mg Tablet) 5 mg PO BID PRN PRN Reason: agitation Trazodone HCl (Trazodone Hcl 50 Mg Tablet) 50 mg PO BEDTIME MRX1 PRN PRN Reason: Insomnia Home Medications ?Medication ?Instructions ?Recorded ?Confirmed ?Last Taken ?Type No Known Home Meds 03/05/25 03/05/25 Un known History Physical Exam Vital Signs and Narrative: CONST: Alert and oriented, in NAD. Thin and disheveled, appears older than stated age. HEENT: Normocephalic, atraumatic RESP: Respiratory rate even and regular HEART: Decline GI: Decline : Decline SKIN: Color within normal limits, no visible lesions or rashes NEURO: Moves all extremities, Speech clear. Sitting cross-leg style on bed. PSYCH: Does not answer questions Assessment and Plan (1) HTN (hypertension): Status: Acute (2) Type 2 diabetes mellitus with microalbuminuria, without long-term current use of insulin: Status: Acute Plan 69-year-old male with past medical history listed below presented to the emergency room after a wellness check which was found to be living in a unsafe condemnable home with his non-ambulatory brother, appeared that they could not care for each other. Brought to the ED with aggressive behavior. Bipolar disorder/history of brain trauma/depression/unsafe living conditions Treatment per psychiatric team Hyperlipidemia Continue gemfibrozil, atorvastatin Follow Labs weekly Type 2 diabetes Continue metformin 1000 b.i.d. Refused labs this morning BPH Continue Flomax daily GERD Continue Pepcid b.i.d. Seizure disorder Continue Depakote 1000 mgs b.i.d. Seizure precautions Urinary tract infection Noted at outside hospital, started on Vantin Vantin not on formulary Will start Ceftin 250 b.i.d. for 7 days. Patient was uncooperative with a full examined H&P. Information obtained from outside records. If patient becomes more cooperative and amenable to exam please notify provider. Thank you for allowing me to participate in the care of this patient. Will follow with you, please notify medical provider with any changes in condition or concerns.
[2025-03-05 20:00] VITALS: RESP 15
--- NOTE | 2025-03-06 10:17 | HO.PSYCHPN ---
Subjective Subjective Date of Service: 03/06/25 Reason For Visit: Bipolar D/O Major Depressive D/O Subjective Notes: Section 12B Healthcare Proxy: No Guardianship: No Medical Problems Affecting Mental Status: No Interim History: Reviewed with team, reviewed plan of care. A calmer day for pt. Beginning to take his medication. Spending a good deal of time in his room-beginning to familiarize himself with the milieu and apologizing to some team members for his active symptoms on admission. Medication Compliance: Intermittent Side effects from medications: No Attending Groups: No Review of Systems Acute medical concerns: No Medical Review of Systems: unchanged Review of Systems Review of Systems Yes Unobtainable due to mental status Mental Status Exam Mental Status Exam Patient Appearance: Fatigued and Disheveled Patient Orientation: Person, Place and Situation Level of Consciousness: Alert Patient Behavior: Guarded, Talkative, Suspicious and Distractible Mood Description: Calm and Suspicious Affect Description: Calm Patient Cognition Impaired: Yes Ability to Follow Directions: Good Speech Pattern: Spontaneous Speech Memory Description: Remote Impaired Hallucinations: None Delusions: Paranoid Ideation Thought Process: Distracted and Rumination Thought Content: positive for Circumstantial, positive for Perseveration and positive for Preoccupation Judgement: Poor Diagnostics Vital Signs (24Hr): Vital Signs - 24 hr 03/05/25 20:00 Respiratory Rate 15 Medications Medications Current Medications Acetaminophen (Acetaminophen 325 Mg Tablet) 650 mg PO Q6H PRN PRN Reason: Headache/Pain, Scale 1-10 Al Hydroxide/Mg Hydroxide (Magnesium Hydrox/Alum Hydrox 30 Ml Oral.Susp) 30 ml PO Q6H PRN PRN Reason: Heartburn/Nausea Aspirin (Aspirin 325 Mg Tablet) 325 mg PO DAILY [facility] Last Admin: 03/06/25 09:10 Dose: Not Given Atorvastatin Calcium (Atorvastatin Calcium 40 Mg Tablet) 40 mg PO BEDTIME [facility] Last Admin: 03/05/25 21:36 Dose: Not Given Buspirone HCl (Buspirone Hcl 5 Mg Tablet) 15 mg PO TID [facility] Last Admin: 03/06/25 09:10 Dose: Not Given Cefuroxime Axetil (Cefuroxime Axetil 250 Mg Tablet) 250 mg PO Q12H [facility] Stop: 03/12/25 09:01 Last Admin: 03/06/25 09:11 Dose: Not Given Dextrose (Dextrose 50 % 25 Gm/50 Ml Syringe) 25 gm IVPUSH Q15M PRN; Protocol PRN Reason: per Hypoglycemia Standing Ord. Divalproex Sodium (Divalproex Sodium Er 500 Mg Tab.Er.24h) 1,000 mg PO BID [facility] Last Admin: 03/06/25 09:11 Dose: Not Given Escitalopram Oxalate (Escitalopram Oxalate 10 Mg Tablet) 10 mg PO DAILY [facility] Last Admin: 03/06/25 09:10 Dose: Not Given Ferrous Sulfate (Ferrous Sulfate 324 Mg Tablet.) 324 mg PO DAILY [facility] Last Admin: 03/06/25 09:10 Dose: Not Given Gemfibrozil (Gemfibrozil 600 Mg Tablet) 600 mg PO BIDAC [facility] Last Admin: 03/06/25 09:09 Dose: Not Given Glucose (Glucose Gel 15 Gm Gel..Gram.) 15 gm PO Q15M PRN; Protocol PRN Reason: per Hypoglycemia Standing Ord. Hydroxyzine HCl (Hydroxyzine Hcl 25 Mg Tablet) 25 mg PO Q6H PRN PRN Reason: mild anxiety Insulin Human Lispro (Insulin Lispro 100 Unit/Ml 3 Ml Vial) 0 unit SUBCUT QIDACHS [facility]; Protocol Last Admin: 03/06/25 09:09 Dose: Not Given Lidocaine (Lidocaine 5 % Ointment 35 Gm) 1 appl TOPICAL Q6H PRN; Protocol PRN Reason: Pain, Mild (Pain Scale 1-3) Magnesium Hydroxide (Milk Of Magnesia 30 Ml Oral.Susp) 30 ml PO DAILY PRN PRN Reason: Constipation Metformin HCl (Metformin Hcl 1,000 Mg Tablet) 1,000 mg PO BIDWM [facility] Last Admin: 03/06/25 09:10 Dose: Not Given Nicotine (Nicotine 21 Mg Patch.Td24) 21 mg TRANSDERMA DAILY PRN PRN Reason: nicotine craving Nicotine Polacrilex (Nicotine Polacrilex 2 Mg Gum) 2 mg BUCCAL Q2H PRN PRN Reason: Nicotine Cravings Olanzapine (Olanzapine 5 Mg Tablet) 5 mg PO BID PRN PRN Reason: agitation Omeprazole (Omeprazole 20 Mg Capsule.) 20 mg PO BID [facility] Last Admin: 03/06/25 09:10 Dose: Not Given Oxybutynin Chloride (Oxybutynin Chloride Er 5 Mg Tab.Er.24) 10 mg PO DAILY [facility] Last Admin: 03/06/25 09:10 Dose: Not Given Polyethylene Glycol (Polyethylene Glycol 3350 17 Gm Powd.Pack) 17 gm PO DAILY PRN PRN Reason: Constipation Risperidone (Risperidone 3 Mg Tablet) 3 mg PO BID [facility] Last Admin: 03/06/25 09:11 Dose: Not Given Tamsulosin HCl (Tamsulosin Hcl 0.4 Mg Capsule) 0.4 mg PO BEDTIME GALA Last Admin: 03/05/25 21:37 Dose: Not Given Trazodone HCl (Trazodone Hcl 50 Mg Tablet) 50 mg PO BEDTIME MRX1 PRN PRN Reason: Insomnia Allergies Allergies Allergy/AdvReac Type Severity Reaction Status Date / Time chlorpromazine Allergy Unknown Verified 03/04/25 19:57 fluphenazine Allergy Unknown Verified 03/04/25 19:57 haloperidol (From Haldol) Allergy Unknown Verified 03/04/25 19:57 levocetirizine Allergy Unknown Verified 03/04/25 19:57 prochlorperazine Allergy Unknown Verified 03/04/25 19:57 thiothixene Allergy Unknown Verified 03/04/25 19:57 Assessment & Plan Assessment & Plan (1) Bipolar 1 disorder: Status: Acute Code(s): F31.9 - Bipolar disorder, unspecified (2) Brain injury: Status: Acute Code(s): S06.9XAA - Unspecified intracranial injury with loss of consciousness status unknown, initial encounter Plan 69 yo male, hx of bipolar disorder, and cognitive damage secondary to substance abuse, transfer from [place] where he was brought in to their ER with EMS/Police after a safety check found him and his brother in a condemnable condition, with rotting food, urine, feces, trash and clutter in the home. Pt's brother Mike is non ambulatory and is medically hospitalized after this safety check. The home was condemned. EMS reported pt was combative, spitting, kicking yet was non psychotic, non suicidal, non homicidal and without delusional content, however with a lack of insight into the severity of his current situation. Pt is connected to [facility] who expressed longstanding concerns regarding self neglect, mood lability, explosive behaviors, paranoia, aggression. and being unable to provide self care. ER team reports significant weight loss. Several community providers tell ER team that pt has been declining in the past months. Met with pt and Karen BARGERW. Pt is agitated, requesting an insurance defense attorney- given [employer] number, stating he will be leaving. He is agitated and not forthcoming with history at this time. Several meetings with pt. Demands insurance defense attorney-he has the number, states he has an insurance defense attorney, Kingston Sinha, whom we are searching for. Demands discharge today Collateral contact made by team to PCP office, Dr. Malik, to Dr. Malik directly by this securities underwriter and to elder services. Psychopharm provider Daniel Torres of [facility] is off until Saturday, however we are encouraged to call on Saturday to see if they can reach him. Copies of PCP fax sheets given to pt as he reports he has talked with PCP and has been told that we should transfer him to [facility], which is not factual per Dr. Malik. 03/06/25: Reviewed with team, reviewed plan of care. A calmer day for pt. Beginning to take his medication. Spending a good deal of time in his room-beginning to familiarize himself with the milieu and apologizing to some team members for his active symptoms on admission. Plan: Admit, Section 12B, 15 minute checks Re-establish regime- refusing of meds at this time Ongoing collateral contact Diagnostics as needed Possible Section 7 Reason for continued inpatient stay Substantial Risk for: rapid decompensation Time Spent With Patient Time: Total time managing care of this patient today ____ minutes.
[2025-03-06 10:38] VITALS: BP 106/66; PULSE 98; RESP 18; TEMP 36.7; O2SAT 98
[2025-03-06] MEDS: oxyBUTYnin chloride ER 5 MG TAB.ER.24 10 MG PO (10:47)
[2025-03-06] MEDS: Ferrous Sulfate 324 MG TABLET.DR PO (10:48)
[2025-03-06 11:32] LABS: Glucose, Whole Blood 224 mg/dL (60-115)
[2025-03-06 20:18] LABS: Glucose, Whole Blood 153 mg/dL (60-115)
--- NOTE | 2025-03-07 05:53 | P.PNPSI_ITS ---
Subjective Subjective Date of Service: 03/07/25 Reason For Visit: Bipolar D/O Major Depressive D/O Subjective Notes: Section 12B Healthcare Proxy: No Guardianship: No Medical Problems Affecting Mental Status: No Interim History: I am sorry. I was mean to all of you. I know all of you are not going to hurt me. They hurt me at [facility] They told me I was a sex offender and they restrained me. I like it here. Pt is having a reasonable day. He is isolative, coming out intermittently, making needs known, asking appropriate questions about the football game and interacting with peers. He spoke briefly about his brother- we have each other. He asks if we can make arrangements to transfer brother [place] [facility] he would like it here. Pt is brother's HCP he reports and he does worry about him- and worries they (hospital) will treat brother as they treated him. Discussed that his treatment was possibly in response to him being very upset and agitated about the circumstances. Overall, calm, settled. No SI,HI,AH,VH. Pt refusing POC SS Insulin. Medication Compliance: Yes Side effects from medications: No Attending Groups: No Review of Systems Acute medical concerns: No Medical Review of Systems: unchanged Review of Systems Review of Systems I am tired, but OK. Mental Status Exam Mental Status Exam Patient Appearance: Fatigued and Appropriate Patient Orientation: Person, Place, Time and Situation Level of Consciousness: Alert Patient Behavior: Talkative, Cooperative and Good Eye Contact Mood Description: Apprehensive Affect Description: Apprehensive Patient Cognition Impaired: No Ability to Follow Directions: Good Speech Pattern: Spontaneous Speech and Soft-Spoken Memory Description: Episodic Impaired Hallucinations: None Delusions: Not Present Thought Process: Goal Oriented Thought Content: positive for Circumstantial and positive for Goal Oriented Depressive Symptoms: Increased Anxiety Judgement: Fair Diagnostics Vital Signs (24Hr): Vital Signs - 24 hr 03/06/25 10:38 Temperature 98.1 F Pulse Rate 98 Respiratory Rate 18 Blood Pressure 106/66 Pulse Oximetry 98 Oxygen Delivery Method Room Air Labs 03/08/25 07:54 Labs: Laboratory Results - last 48 hr 03/06/25 03/06/25 11:25 20:11 POC Glucose 224 H 153 H Medications Medications Current Medications Acetaminophen (Acetaminophen 325 Mg Tablet) 650 mg PO Q6H PRN PRN Reason: Headache/Pain, Scale 1-10 Al Hydroxide/Mg Hydroxide (Magnesium Hydrox/Alum Hydrox 30 Ml Oral.Susp) 30 ml PO Q6H PRN PRN Reason: Heartburn/Nausea Aspirin (Aspirin 325 Mg Tablet) 325 mg PO DAILY [facility] Last Admin: 03/06/25 10:47 Dose: 325 mg Atorvastatin Calcium (Atorvastatin Calcium 40 Mg Tablet) 40 mg PO BEDTIME [facility] Last Admin: 03/06/25 20:13 Dose: 40 mg Buspirone HCl (Buspirone Hcl 5 Mg Tablet) 15 mg PO TID [facility] Last Admin: 03/06/25 20:13 Dose: 15 mg Cefuroxime Axetil (Cefuroxime Axetil 250 Mg Tablet) 250 mg PO Q12H [facility] Stop: 03/12/25 09:01 Last Admin: 03/06/25 20:13 Dose: 250 mg Dextrose (Dextrose 50 % 25 Gm/50 Ml Syringe) 25 gm IVPUSH Q15M PRN; Protocol PRN Reason: per Hypoglycemia Standing Ord. Divalproex Sodium (Divalproex Sodium Er 500 Mg Tab.Er.24h) 1,000 mg PO BID [facility] Last Admin: 03/06/25 20:12 Dose: 1,000 mg Escitalopram Oxalate (Escitalopram Oxalate 10 Mg Tablet) 10 mg PO DAILY [facility] Last Admin: 03/06/25 10:49 Dose: 10 mg Ferrous Sulfate (Ferrous Sulfate 324 Mg Tablet.Dr) 324 mg PO DAILY [facility] Last Admin: 03/06/25 10:48 Dose: 324 mg Gemfibrozil (Gemfibrozil 600 Mg Tablet) 600 mg PO BIDAC [facility] Last Admin: 03/06/25 16:45 Dose: 600 mg Glucose (Glucose Gel 15 Gm Gel..Gram.) 15 gm PO Q15M PRN; Protocol PRN Reason: per Hypoglycemia Standing Ord. Hydroxyzine HCl (Hydroxyzine Hcl 25 Mg Tablet) 25 mg PO Q6H PRN PRN Reason: mild anxiety Insulin Human Lispro (Insulin Lispro 100 Unit/Ml 3 Ml Vial) 0 unit SUBCUT QIDACHS [facility]; Protocol Last Admin: 03/06/25 20:55 Dose: Not Given Lidocaine (Lidocaine 5 % Ointment 35 Gm) 1 appl TOPICAL Q6H PRN; Protocol PRN Reason: Pain, Mild (Pain Scale 1-3) Magnesium Hydroxide (Milk Of Magnesia 30 Ml Oral.Susp) 30 ml PO DAILY PRN PRN Reason: Constipation Metformin HCl (Metformin Hcl 1,000 Mg Tablet) 1,000 mg PO BIDWM [facility] Last Admin: 03/06/25 16:45 Dose: 1,000 mg Nicotine (Nicotine 21 Mg Patch.Td24) 21 mg TRANSDERMA DAILY PRN PRN Reason: nicotine craving Nicotine Polacrilex (Nicotine Polacrilex 2 Mg Gum) 2 mg BUCCAL Q2H PRN PRN Reason: Nicotine Cravings Olanzapine (Olanzapine 5 Mg Tablet) 5 mg PO BID PRN PRN Reason: agitation Omeprazole (Omeprazole 20 Mg Capsule.Dr) 20 mg PO BID [facility] Last Admin: 03/06/25 20:13 Dose: 20 mg Oxybutynin Chloride (Oxybutynin Chloride Er 5 Mg Tab.Er.24) 10 mg PO DAILY [facility] Last Admin: 03/06/25 10:47 Dose: 10 mg Polyethylene Glycol (Polyethylene Glycol 3350 17 Gm Powd.Pack) 17 gm PO DAILY PRN PRN Reason: Constipation Risperidone (Risperidone 3 Mg Tablet) 3 mg PO BID [facility] Last Admin: 03/06/25 20:13 Dose: 3 mg Tamsulosin HCl (Tamsulosin Hcl 0.4 Mg Capsule) 0.4 mg PO BEDTIME [facility] Last Admin: 03/06/25 20:13 Dose: 0.4 mg Trazodone HCl (Trazodone Hcl 50 Mg Tablet) 50 mg PO BEDTIME MRX1 PRN PRN Reason: Insomnia Allergies Allergies Allergy/AdvReac Type Severity Reaction Status Date / Time chlorpromazine Allergy Unknown Verified 03/04/25 19:57 fluphenazine Allergy Unknown Verified 03/04/25 19:57 haloperidol (From Haldol) Allergy Unknown Verified 03/04/25 19:57 levocetirizine Allergy Unknown Verified 03/04/25 19:57 prochlorperazine Allergy Unknown Verified 03/04/25 19:57 thiothixene Allergy Unknown Verified 03/04/25 19:57 Assessment & Plan Assessment & Plan (1) Bipolar 1 disorder: Status: Acute Code(s): F31.9 - Bipolar disorder, unspecified (2) Brain injury: Status: Acute Code(s): S06.9XAA - Unspecified intracranial injury with loss of consciousness status unknown, initial encounter Plan 69 yo male, hx of bipolar disorder, and cognitive damage secondary to substance abuse, transfer from [place] where he was brought in to their ER with EMS/Police after a safety check found him and his brother in a condemnable condition, with rotting food, urine, feces, trash and clutter in the home. Pt's brother Mike is non ambulatory and is medically hospitalized after this safety check. The home was condemned. EMS reported pt was combative, spitting, kicking yet was non psychotic, non suicidal, non homicidal and without delusional content, however with a lack of insight into the severity of his current situation. Pt is connected to [facility] who expressed longstanding concerns regarding self neglect, mood lability, explosive behaviors, paranoia, aggression. and being unable to provide self care. ER team reports significant weight loss. Several community providers tell ER team that pt has been declining in the past months. Met with pt and Karen Izquierdo [employer] WEIGHER HELPER. Pt is agitated, requesting an contract attorney- given [facility] number, stating he will be leaving. He is agitated and not forthcoming with history at this time. Several meetings with pt. Demands contract attorney-he has the number, states he has an contract attorney, Kingston Sinha, whom we are searching for. Demands discharge today Collateral contact made by team to PCP office, Dr. Malik, to Dr. Malik directly by this financial writer and [facility] Psychopharm provider Daniel Torres of [facility] is off until Saturday, however we are encouraged to call on Saturday to see if they can reach him. Copies of PCP fax sheets given to pt as he reports he has talked with PCP and has been told that we should transfer him to [facility], which is not factual per Dr. Malik. 03/06/25: Reviewed with team, reviewed plan of care. A calmer day for pt. Beginning to take his medication. Spending a good deal of time in his room-beginning to familiarize himself with the milieu and apologizing to some team members for his active symptoms on admission. 03/07: Continue tx Plan: Admit, Section 12B, 15 minute checks Re-establish regime- refusing of meds at this time Ongoing collateral contact Diagnostics as needed Possible Section 7 Reason for continued inpatient stay Substantial Risk for: rapid decompensation Time Spent With Patient Time: Total time managing care of this patient today ____ minutes.
[2025-03-07 08:05] VITALS: BP 124/73; PULSE 84; RESP 16; TEMP 37.1; O2SAT 98
[2025-03-07 08:09] LABS: Glucose, Whole Blood 145 mg/dL (60-115)
[2025-03-07 09:03] LABS: Estimated Glomerular Filt Rate > 60
[2025-03-07 09:13] LABS: Alanine Aminotransferase 14 U/L (0-40); Albumin Level 3.9 g/dL (3.5-5.0); Alkaline Phosphatase 56 U/L (39-117); Anion Gap 11 (12-20); Aspartate Amino Transferase 50 U/L (5-37); Blood Urea Nitrogen 26 mg/dL (9-16); Calcium 9.2 mg/dL (8.4-10.2); Carbon Dioxide 24 mmol/L (22-29); Chloride 111 mmol/L (96-108); Cholesterol 144 mg/dL (<200); Estimated Glomerular Filt Rate > 60; HDL Cholesterol 42 mg/dL (>40); Magnesium 1.8 mg/dL (1.6-2.6); Potassium 4.5 mmol/L (3.3-5.1); Sodium 141 mmol/L (135-145); Total Protein 6.9 g/dL (6.5-8.0); Triglycerides 114 mg/dL (<150)
[2025-03-07 09:23] LABS: Free T4 (Free Thyroxine) 1.01 ng/dL (0.71-1.85); Thyroid Stimulating Hormone 1.97 uIU/mL (0.32-4.0)
[2025-03-07] MEDS: Ferrous Sulfate 324 MG TABLET.DR PO (09:32)
[2025-03-07] MEDS: oxyBUTYnin chloride ER 5 MG TAB.ER.24 10 MG PO (09:32)
[2025-03-07 09:35] LABS: Folate 8.3 ng/mL (> or = 4.0); Vitamin B12 401 pg/mL (200-900)
[2025-03-07 20:00] VITALS: BP 137/106; PULSE 95; RESP 18; TEMP 36.6; O2SAT 98
[2025-03-07 21:51] LABS: Glucose, Whole Blood 140 mg/dL (60-115)
[2025-03-08 08:00] VITALS: BP 113/71; PULSE 98; TEMP 36.4; O2SAT 100
[2025-03-08 08:24] LABS: Alanine Aminotransferase 16 U/L (0-40); Albumin Level 4.1 g/dL (3.5-5.0); Alkaline Phosphatase 54 U/L (39-117); Anion Gap 13 (12-20); Aspartate Amino Transferase 19 U/L (5-37); Blood Urea Nitrogen 21 mg/dL (9-16); Calcium 9.5 mg/dL (8.4-10.2); Carbon Dioxide 28 mmol/L (22-29); Chloride 105 mmol/L (96-108); Estimated Glomerular Filt Rate > 60; Potassium 4.5 mmol/L (3.3-5.1); Sodium 141 mmol/L (135-145); Total Protein 7.3 g/dL (6.5-8.0)
[2025-03-08 08:28] LABS: Glucose, Whole Blood 126 mg/dL (60-115)
[2025-03-08] MEDS: Ferrous Sulfate 324 MG TABLET.DR PO (09:38)
[2025-03-08] MEDS: oxyBUTYnin chloride ER 5 MG TAB.ER.24 10 MG PO (09:39)
--- NOTE | 2025-03-08 10:09 | HO.PSYCHPN ---
Subjective Subjective Date of Service: 03/08/25 Reason For Visit: Bipolar D/O Major Depressive D/O Subjective Notes: Section 12B Healthcare Proxy: No Guardianship: No Medical Problems Affecting Mental Status: No Interim History: I'm OK. I am worried about my brother Call from [facility], health care assistant Barby [phone] or cell [phone] regarding pt's brother. He is doing better and they are beginning to plan discharge to SNF. They asked pt if they could send him to [facility] in [place]. Pt declined, I won't be able to get to [place] . We have each other and I want to be able to see him a lot. Pt's team at [facility] is working on housing for him. He may need to sign a CV. He asks to wait. If it were not for my brother, I would stay here, I like it here, but he needs me- we have each other. he is 10 years older than me. Pt denies SI, HI, AH, VH. No agitation, no sx of acute justin or psychosis. Medication Compliance: Yes Side effects from medications: No Attending Groups: No Review of Systems Acute medical concerns: No Medical Review of Systems: unchanged Review of Systems Review of Systems I feel good Mental Status Exam Mental Status Exam Patient Appearance: Appropriate Patient Orientation: Person, Place, Time and Situation Level of Consciousness: Alert Patient Behavior: Talkative, Cooperative and Good Eye Contact Mood Description: Calm and Constricted Affect Description: Calm and Constricted Patient Cognition Impaired: No Ability to Follow Directions: Good Speech Pattern: Spontaneous Speech and Soft-Spoken Memory Description: Episodic Impaired Hallucinations: None Delusions: Not Present Thought Process: Goal Oriented Thought Content: positive for Circumstantial and positive for Goal Oriented Depressive Symptoms: Increased Anxiety Judgement: Fair Diagnostics Vital Signs (24Hr): Vital Signs - 24 hr 03/07/25 20:00 03/08/25 08:00 Temperature 97.9 F 97.5 F Pulse Rate 95 98 Respiratory Rate 18 Blood Pressure 137/106 H 113/71 Pulse Oximetry 98 100 Oxygen Delivery Method Room Air Room Air Labs 03/08/25 07:54 Labs: Laboratory Results - last 48 hr 03/06/25 03/06/25 03/07/25 11:25 20:11 08:05 Sodium Potassium Chloride Carbon Dioxide Anion Gap BUN Creatinine Estim Creat Clear Calc Estimated GFR POC Glucose 224 H 153 H 145 H Random Glucose Estimat Average Glucose Hemoglobin A1c % Calcium Magnesium Total Bilirubin AST ALT Alkaline Phosphatase Total Protein Albumin Triglycerides Cholesterol LDL Cholesterol, Calc HDL Cholesterol Vitamin B12 Folate TSH Free T4 03/07/25 03/07/25 03/07/25 08:41 08:41 08:41 Sodium 141 Potassium 4.5 Chloride 111 H Carbon Dioxide 24 Anion Gap 11 L BUN 26 H Creatinine 0.62 0.63 Estim Creat Clear Calc TNP TNP Estimated GFR > 60 POC Glucose Random Glucose Estimat Average Glucose Hemoglobin A1c % Calcium Magnesium Total Bilirubin AST ALT Alkaline Phosphatase Total Protein Albumin Triglycerides Cholesterol LDL Cholesterol, Calc HDL Cholesterol Vitamin B12 Folate TSH Free T4 03/07/25 03/07/25 03/08/25 08:41 21:46 07:54 Sodium 141 Potassium 4.5 Chloride 105 Carbon Dioxide 28 Anion Gap 13 BUN 21 H Creatinine 0.72 Estim Creat Clear Calc TNP Estimated GFR > 60 > 60 POC Glucose 140 H Random Glucose 138 H 130 H Estimat Average Glucose 114 Hemoglobin A1c % 5.6 Calcium 9.2 9.5 Magnesium 1.8 Total Bilirubin 0.3 0.3 AST 50 H 19 ALT 14 16 Alkaline Phosphatase 56 54 Total Protein 6.9 7.3 Albumin 3.9 4.1 Triglycerides 114 Cholesterol 144 LDL Cholesterol, Calc 80 HDL Cholesterol 42 Vitamin B12 401 Folate 8.3 TSH 1.97 Free T4 1.01 03/08/25 08:25 Sodium Potassium Chloride Carbon Dioxide Anion Gap BUN Creatinine Estim Creat Clear Calc Estimated GFR POC Glucose 126 H Random Glucose Estimat Average Glucose Hemoglobin A1c % Calcium Magnesium Total Bilirubin AST ALT Alkaline Phosphatase Total Protein Albumin Triglycerides Cholesterol LDL Cholesterol, Calc HDL Cholesterol Vitamin B12 Folate TSH Free T4 Medications Medications Current Medications Acetaminophen (Acetaminophen 325 Mg Tablet) 650 mg PO Q6H PRN PRN Reason: Headache/Pain, Scale 1-10 Al Hydroxide/Mg Hydroxide (Magnesium Hydrox/Alum Hydrox 30 Ml Oral.Susp) 30 ml PO Q6H PRN PRN Reason: Heartburn/Nausea Aspirin (Aspirin 325 Mg Tablet) 325 mg PO DAILY [facility] Last Admin: 03/08/25 09:38 Dose: 325 mg Atorvastatin Calcium (Atorvastatin Calcium 40 Mg Tablet) 40 mg PO BEDTIME [facility] Last Admin: 03/07/25 21:50 Dose: 40 mg Buspirone HCl (Buspirone Hcl 5 Mg Tablet) 15 mg PO TID [facility] Last Admin: 03/08/25 09:39 Dose: 15 mg Cefuroxime Axetil (Cefuroxime Axetil 250 Mg Tablet) 250 mg PO Q12H [facility] Stop: 03/12/25 09:01 Last Admin: 03/08/25 09:39 Dose: 250 mg Dextrose (Dextrose 50 % 25 Gm/50 Ml Syringe) 25 gm IVPUSH Q15M PRN; Protocol PRN Reason: per Hypoglycemia Standing Ord. Divalproex Sodium (Divalproex Sodium Er 500 Mg Tab.Er.24h) 1,000 mg PO BID [facility] Last Admin: 03/08/25 09:39 Dose: 1,000 mg Escitalopram Oxalate (Escitalopram Oxalate 10 Mg Tablet) 10 mg PO DAILY [facility] Last Admin: 03/08/25 09:39 Dose: 10 mg Ferrous Sulfate (Ferrous Sulfate 324 Mg Tablet.Dr) 324 mg PO DAILY [facility] Last Admin: 03/08/25 09:38 Dose: 324 mg Gemfibrozil (Gemfibrozil 600 Mg Tablet) 600 mg PO BIDAC [facility] Last Admin: 03/08/25 09:38 Dose: 600 mg Glucose (Glucose Gel 15 Gm Gel..Gram.) 15 gm PO Q15M PRN; Protocol PRN Reason: per Hypoglycemia Standing Ord. Hydroxyzine HCl (Hydroxyzine Hcl 25 Mg Tablet) 25 mg PO Q6H PRN PRN Reason: mild anxiety Insulin Human Lispro (Insulin Lispro 100 Unit/Ml 3 Ml Vial) 0 unit SUBCUT BID [facility]; Protocol Last Admin: 03/07/25 21:53 Dose: Not Given Lidocaine (Lidocaine 5 % Ointment 35 Gm) 1 appl TOPICAL Q6H PRN; Protocol PRN Reason: Pain, Mild (Pain Scale 1-3) Magnesium Hydroxide (Milk Of Magnesia 30 Ml Oral.Susp) 30 ml PO DAILY PRN PRN Reason: Constipation Metformin HCl (Metformin Hcl 1,000 Mg Tablet) 1,000 mg PO BIDWM [facility] Last Admin: 03/08/25 09:38 Dose: 1,000 mg Nicotine (Nicotine 21 Mg Patch.Td24) 21 mg TRANSDERMA DAILY PRN PRN Reason: nicotine craving Nicotine Polacrilex (Nicotine Polacrilex 2 Mg Gum) 2 mg BUCCAL Q2H PRN PRN Reason: Nicotine Cravings Olanzapine (Olanzapine 5 Mg Tablet) 5 mg PO BID PRN PRN Reason: agitation Omeprazole (Omeprazole 20 Mg Capsule.Dr) 20 mg PO BID [facility] Last Admin: 03/08/25 09:38 Dose: 20 mg Oxybutynin Chloride (Oxybutynin Chloride Er 5 Mg Tab.Er.24) 10 mg PO DAILY [facility] Last Admin: 03/08/25 09:39 Dose: 10 mg Polyethylene Glycol (Polyethylene Glycol 3350 17 Gm Powd.Pack) 17 gm PO DAILY PRN PRN Reason: Constipation Risperidone (Risperidone 3 Mg Tablet) 3 mg PO BID [facility] Last Admin: 03/08/25 09:39 Dose: 3 mg Tamsulosin HCl (Tamsulosin Hcl 0.4 Mg Capsule) 0.4 mg PO BEDTIME [facility] Last Admin: 03/07/25 21:51 Dose: 0.4 mg Trazodone HCl (Trazodone Hcl 50 Mg Tablet) 50 mg PO BEDTIME MRX1 PRN PRN Reason: Insomnia Allergies Allergies Allergy/AdvReac Type Severity Reaction Status Date / Time chlorpromazine Allergy Unknown Verified 03/04/25 19:57 fluphenazine Allergy Unknown Verified 03/04/25 19:57 haloperidol (From Haldol) Allergy Unknown Verified 03/04/25 19:57 levocetirizine Allergy Unknown Verified 03/04/25 19:57 prochlorperazine Allergy Unknown Verified 03/04/25 19:57 thiothixene Allergy Unknown Verified 03/04/25 19:57 Assessment & Plan Assessment & Plan (1) Bipolar 1 disorder: Status: Acute Code(s): F31.9 - Bipolar disorder, unspecified (2) Brain injury: Status: Acute Code(s): S06.9XAA - Unspecified intracranial injury with loss of consciousness status unknown, initial encounter Plan 69 yo male, hx of bipolar disorder, and cognitive damage secondary to substance abuse, transfer from [place] where he was brought in to their ER with EMS/Police after a safety check found him and his brother in a condemnable condition, with rotting food, urine, feces, trash and clutter in the home. Pt's brother Mike is non ambulatory and is medically hospitalized after this safety check. The home was condemned. EMS reported pt was combative, spitting, kicking yet was non psychotic, non suicidal, non homicidal and without delusional content, however with a lack of insight into the severity of his current situation. Pt is connected to [facility] who expressed longstanding concerns regarding self neglect, mood lability, explosive behaviors, paranoia, aggression. and being unable to provide self care. ER team reports significant weight loss. Several community providers tell ER team that pt has been declining in the past months. Met with pt and Karen BARGERW. Pt is agitated, requesting an planning official- given [facility] number, stating he will be leaving. He is agitated and not forthcoming with history at this time. Several meetings with pt. Demands planning official-he has the number, states he has an planning official, Kingston Sinha, whom we are searching for. Demands discharge today Collateral contact made by team to PCP office, Dr. Malik, to Dr. Malik directly by this automotive service writer and to [facility]. Psychopharm provider Daniel Torres of [facility] is off until Saturday, however we are encouraged to call on Saturday to see if they can reach him. Copies of PCP fax sheets given to pt as he reports he has talked with PCP and has been told that we should transfer him to [facility], which is not factual per Dr. Malik. 03/06/25: Reviewed with team, reviewed plan of care. A calmer day for pt. Beginning to take his medication. Spending a good deal of time in his room-beginning to familiarize himself with the milieu and apologizing to some team members for his active symptoms on admission. 03/08/25: Continue tx Declined labs when discussed today. Plan: Admit, Section 12B, 15 minute checks Re-establish regime- refusing of meds at this time Ongoing collateral contact Diagnostics as needed Possible Section 7 Reason for continued inpatient stay Substantial Risk for: rapid decompensation Time Spent With Patient Time: Total time managing care of this patient today ____ minutes.
[2025-03-08 20:00] VITALS: BP 103/57; PULSE 98; TEMP 37; O2SAT 100
[2025-03-08 21:35] LABS: Glucose, Whole Blood 137 mg/dL (60-115)
[2025-03-09 08:00] VITALS: BP 114/58; PULSE 60; RESP 16; TEMP 36.4; O2SAT 95
[2025-03-09] MEDS: oxyBUTYnin chloride ER 5 MG TAB.ER.24 10 MG PO (09:27)
[2025-03-09] MEDS: Ferrous Sulfate 324 MG TABLET.DR PO (09:27)
[2025-03-09 12:31] LABS: Glucose, Whole Blood 97 mg/dL (60-115)
[2025-03-09 20:41] LABS: Glucose, Whole Blood 142 mg/dL (60-115)
--- NOTE | 2025-03-09 21:29 | HO.PSYCHPN ---
Subjective Subjective Date of Service: 03/09/25 Reason For Visit: Bipolar D/O Major Depressive D/O Subjective Notes: Section 7 Healthcare Proxy: No Guardianship: No Medical Problems Affecting Mental Status: No Interim History: Medical record and nursing notes reviewed; case discussed during rounds with team/nursing staff, and met with patient for supportive therapy/psychoeducation, as well as medication management. childcare worker and this provider met with patient in the assigned room, patient was lying in bed, but sits up we approach him. He asked over and over again when he will be discharged, and believe that he is discharged today. The adoption social worker and this provider explained to patient that he will not be discharged in good like him to signed voluntarily to be in the hospital for his treatment. He declines it saying that he can stay at [facility]. childcare worker confirmed with him that that is no information that he can stay there for this moment. And due to his safety, in for the safe discharge, patient would not be discharged today. Patient declines to sign in, therefore file for court commitment. Patient met with this provider again later on in the zeng asking when he is will be leaving. Patient said that he needs to well having his bladder checked out as my doctor told me I need to have my bladder check out as I have infection . Confirm with patient that he is not discharged, and that we are working on to see where he can stay safe why they can cleaning his his house, as soon as we have a better safer place for him to go, he can be discharged. Also remind patient that, tomorrow labs work need to be done as we need to withdrawal level from Depakote and other labs work to make sure that is not toxicity. Patient said getting lab work done tomorrow . He is quiet, mostly in his room, in and out for other requests/needs. No yelling. Poor ADLs, Malodorous but medication compliant, no side effects, slept and ate well. CBC w/ diff. VPA level, Ammonia, and Prolactin level ordered for 03/10/25. Medication Compliance: Yes Side effects from medications: No Attending Groups: No Review of Systems Acute medical concerns: No Medical Review of Systems: unchanged Review of Systems Review of Systems Constitutional: Denies fatigue and Denies fever(s) Cardiovascular: Denies chest pain and Denies dyspnea Respiratory: Denies dyspnea Gastrointestinal: Denies abdominal pain Psychiatric: denies suicidal ideation Endocrine: Denies fatigue Mental Status Exam Mental Status Exam Narrative: A+Ox2, not situation, wearing hospital attire, poor ADL's , malodorous, depressed, anxious with underline irritablity. Thought process is disorganized, declined in memory, not able to process well with information delivered. Thought content is perserverative on discharge. Do not want to be in the hospital. Poor judgment and poor insight. However, no aggressive behavior, more visible in the zeng in the afternoon. More acceptive to the plan later on of the day. Diagnostics Vital Signs (24Hr): Vital Signs - 24 hr 03/09/25 08:00 Temperature 97.5 F Pulse Rate 60 Respiratory Rate 16 Blood Pressure 114/58 L Pulse Oximetry 95 Oxygen Delivery Method Room Air Labs 03/08/25 07:54 Labs: Laboratory Results - last 48 hr 03/07/25 03/08/25 03/08/25 21:46 07:54 08:25 Sodium 141 Potassium 4.5 Chloride 105 Carbon Dioxide 28 Anion Gap 13 BUN 21 H Creatinine 0.72 Estim Creat Clear Calc TNP Estimated GFR > 60 POC Glucose 140 H 126 H Random Glucose 130 H Calcium 9.5 Total Bilirubin 0.3 AST 19 ALT 16 Alkaline Phosphatase 54 Total Protein 7.3 Albumin 4.1 03/08/25 03/09/25 03/09/25 21:27 12:27 20:35 Sodium Potassium Chloride Carbon Dioxide Anion Gap BUN Creatinine Estim Creat Clear Calc Estimated GFR POC Glucose 137 H 97 142 H Random Glucose Calcium Total Bilirubin AST ALT Alkaline Phosphatase Total Protein Albumin Medications Medications Current Medications Acetaminophen (Acetaminophen 325 Mg Tablet) 650 mg PO Q6H PRN PRN Reason: Headache/Pain, Scale 1-10 Al Hydroxide/Mg Hydroxide (Magnesium Hydrox/Alum Hydrox 30 Ml Oral.Susp) 30 ml PO Q6H PRN PRN Reason: Heartburn/Nausea Aspirin (Aspirin 325 Mg Tablet) 325 mg PO DAILY [facility] Last Admin: 03/09/25 09:26 Dose: 325 mg Atorvastatin Calcium (Atorvastatin Calcium 40 Mg Tablet) 40 mg PO BEDTIME [facility] Last Admin: 03/09/25 20:57 Dose: 40 mg Buspirone HCl (Buspirone Hcl 5 Mg Tablet) 15 mg PO TID [facility] Last Admin: 03/09/25 20:56 Dose: 15 mg Cefuroxime Axetil (Cefuroxime Axetil 250 Mg Tablet) 250 mg PO Q12H [facility] Stop: 03/12/25 09:01 Last Admin: 03/09/25 20:56 Dose: 250 mg Dextrose (Dextrose 50 % 25 Gm/50 Ml Syringe) 25 gm IVPUSH Q15M PRN; Protocol PRN Reason: per Hypoglycemia Standing Ord. Divalproex Sodium (Divalproex Sodium Er 500 Mg Tab.Er.24h) 1,000 mg PO BID [facility] Last Admin: 03/09/25 20:56 Dose: 1,000 mg Escitalopram Oxalate (Escitalopram Oxalate 10 Mg Tablet) 10 mg PO DAILY [facility] Last Admin: 03/09/25 09:27 Dose: 10 mg Ferrous Sulfate (Ferrous Sulfate 324 Mg Tablet.) 324 mg PO DAILY [facility] Last Admin: 03/09/25 09:27 Dose: 324 mg Gemfibrozil (Gemfibrozil 600 Mg Tablet) 600 mg PO BIDAC [facility] Last Admin: 03/09/25 16:37 Dose: 600 mg Glucose (Glucose Gel 15 Gm Gel..Gram.) 15 gm PO Q15M PRN; Protocol PRN Reason: per Hypoglycemia Standing Ord. Hydroxyzine HCl (Hydroxyzine Hcl 25 Mg Tablet) 25 mg PO Q6H PRN PRN Reason: mild anxiety Insulin Human Lispro (Insulin Lispro 100 Unit/Ml 3 Ml Vial) 0 unit SUBCUT BID [facility]; Protocol Last Admin: 03/09/25 20:42 Dose: Not Given Lidocaine (Lidocaine 5 % Ointment 35 Gm) 1 appl TOPICAL Q6H PRN; Protocol PRN Reason: Pain, Mild (Pain Scale 1-3) Magnesium Hydroxide (Milk Of Magnesia 30 Ml Oral.Susp) 30 ml PO DAILY PRN PRN Reason: Constipation Metformin HCl (Metformin Hcl 1,000 Mg Tablet) 1,000 mg PO BIDWM [facility] Last Admin: 03/09/25 16:37 Dose: 1,000 mg Nicotine (Nicotine 21 Mg Patch.Td24) 21 mg TRANSDERMA DAILY PRN PRN Reason: nicotine craving Nicotine Polacrilex (Nicotine Polacrilex 2 Mg Gum) 2 mg BUCCAL Q2H PRN PRN Reason: Nicotine Cravings Olanzapine (Olanzapine 5 Mg Tablet) 5 mg PO BID PRN PRN Reason: agitation Omeprazole (Omeprazole 20 Mg Capsule.) 20 mg PO BID [facility] Last Admin: 03/09/25 20:56 Dose: 20 mg Oxybutynin Chloride (Oxybutynin Chloride Er 5 Mg Tab.Er.24) 10 mg PO DAILY [facility] Last Admin: 03/09/25 09:27 Dose: 10 mg Polyethylene Glycol (Polyethylene Glycol 3350 17 Gm Powd.Pack) 17 gm PO DAILY PRN PRN Reason: Constipation Risperidone (Risperidone 3 Mg Tablet) 3 mg PO BID [facility] Last Admin: 03/09/25 20:57 Dose: 3 mg Tamsulosin HCl (Tamsulosin Hcl 0.4 Mg Capsule) 0.4 mg PO BEDTIME [facility] Last Admin: 03/09/25 20:57 Dose: 0.4 mg Trazodone HCl (Trazodone Hcl 50 Mg Tablet) 50 mg PO BEDTIME MRX1 PRN PRN Reason: Insomnia Allergies Allergies Allergy/AdvReac Type Severity Reaction Status Date / Time chlorpromazine Allergy Unknown Verified 03/04/25 19:57 fluphenazine Allergy Unknown Verified 03/04/25 19:57 haloperidol (From Haldol) Allergy Unknown Verified 03/04/25 19:57 levocetirizine Allergy Unknown Verified 03/04/25 19:57 prochlorperazine Allergy Unknown Verified 03/04/25 19:57 thiothixene Allergy Unknown Verified 03/04/25 19:57 Assessment & Plan Assessment & Plan (1) Bipolar 1 disorder: Status: Acute Code(s): F31.9 - Bipolar disorder, unspecified (2) Brain injury: Status: Acute Code(s): S06.9XAA - Unspecified intracranial injury with loss of consciousness status unknown, initial encounter Plan 69 yo male, hx of bipolar disorder, and cognitive damage secondary to substance abuse, transfer from [place] where he was brought in to their ER with EMS/Police after a safety check found him and his brother in a condemnable condition, with rotting food, urine, feces, trash and clutter in the home. Pt's brother Mike is non ambulatory and is medically hospitalized after this safety check. The home was condemned. EMS reported pt was combative, spitting, kicking yet was non psychotic, non suicidal, non homicidal and without delusional content, however with a lack of insight into the severity of his current situation. Pt is connected to [facility] who expressed longstanding concerns regarding self neglect, mood lability, explosive behaviors, paranoia, aggression. and being unable to provide self care. ER team reports significant weight loss. Several community providers tell ER team that pt has been declining in the past months. Met with pt and Karen Izquierdo LCSW. Pt is agitated, requesting an binder cutter hand- given [facility] number, stating he will be leaving. He is agitated and not forthcoming with history at this time. Several meetings with pt. Demands binder cutter hand-he has the number, states he has an binder cutter hand, Kingston Sinha, whom we are searching for. Demands discharge today Collateral contact made by team to PCP office, Dr. Malik, to Dr. Malik directly by this va underwriter and to elder services. Psychopharm provider Daniel Torres of [facility] is off until Saturday, however we are encouraged to call on Saturday to see if they can reach him. Copies of PCP fax sheets given to pt as he reports he has talked with PCP and has been told that we should transfer him to [facility], which is not factual per Dr. Malik. 03/06/25: Reviewed with team, reviewed plan of care. A calmer day for pt. Beginning to take his medication. Spending a good deal of time in his room-beginning to familiarize himself with the milieu and apologizing to some team members for his active symptoms on admission. 03/08/25: Continue tx Declined labs when discussed today. Plan: Admit, Section 12B, 15 minute checks Re-establish regime- refusing of meds at this time Ongoing collateral contact Diagnostics as needed Possible Section 7 03/09/25: childcare worker and this provider met with patient in the assigned room, patient was lying in bed, but sits up we approach him. He asked over and over again when he will be discharged, and believe that he is discharged today. The adoption social worker and this provider explained to patient that he will not be discharged in good like him to signed voluntarily to be in the hospital for his treatment. He declines it saying that he can stay at [facility]. childcare worker confirmed with him that that is no information that he can stay there for this moment. And due to his safety, in for the safe discharge, patient would not be discharged today. Patient declines to sign in, therefore file for court commitment. Patient met with this provider again later on in the zeng asking when he is will be leaving. Patient said that he needs to well having his bladder checked out as my doctor told me I need to have my bladder check out as I have infection . Confirm with patient that he is not discharged, and that we are working on to see where he can stay safe why they can cleaning his his house, as soon as we have a better safer place for him to go, he can be discharged. Also remind patient that, tomorrow labs work need to be done as we need to withdrawal level from Depakote and other labs work to make sure that is not toxicity. Patient said getting lab work done tomorrow . He is quiet, mostly in his room, in and out for other requests/needs. No yelling. Poor ADLs, poor judgment and insight of current situation. ? Memory issues. Patient does not process information well. Malodorous but medication compliant, no side effects, slept and ate well. CMP was done yesterday. WNL, slightly elevated on BUN. CBC w/ diff. VPA level, Ammonia, and Prolactin level ordered for 03/10/25. Patient educated on: medication risk/benefits and therapeutic strategies Informed Consent: does not understand Reason for continued inpatient stay Substantial Risk for: med/psych decompensation Time Spent With Patient Time: Total time managing care of this patient today ____ minutes.
[2025-03-10 08:00] VITALS: BP 129/82; PULSE 84; RESP 16; TEMP 36.3; O2SAT 99
[2025-03-10 08:01] LABS: Glucose, Whole Blood 126 mg/dL (60-115)
[2025-03-10 08:41] LABS: MANUAL DIFF FLAG NO
[2025-03-10 08:44] LABS: Hematocrit 42.6 % (42.0-52.0); Hemoglobin 14.3 g/dl (14.0-18.0); Imm Gran Abs Auto 0.03 X10*3/uL (0.00-0.03); Imm Gran Pct Auto 0.4 % (0.0-0.4); Lymphocytes Absolute Auto 2.2 X10*3/uL (1.2-4.9); Mean Corpuscular HGB Conc 33.6 g/dl (31.0-36.0); Mean Corpuscular Hemoglobin 33.7 pg (27.0-33.0); Mean Corpuscular Volume 100.5 fL (80.0-98.0); NRBC Abs Auto 0.000 X10*3/uL (0.0-0.012); NRBC Pct Auto 0.0 /100WBC (0.0-0.2); Platelet Count 191 X10*3/uL (160-400); Red Blood Count 4.24 X10*6/uL (4.60-5.80); White Blood Count 7.6 X10*3/uL (4.8-10.8)
[2025-03-10] MEDS: oxyBUTYnin chloride ER 5 MG TAB.ER.24 10 MG PO (08:58)
[2025-03-10] MEDS: Ferrous Sulfate 324 MG TABLET.DR PO (08:59)
--- NOTE | 2025-03-10 10:09 | P.PNPSI_ITS ---
Subjective Subjective Date of Service: 03/10/25 Reason For Visit: Bipolar D/O Major Depressive D/O Subjective Notes: Section 7 Healthcare Proxy: No Guardianship: No Medical Problems Affecting Mental Status: No Interim History: You know, I can stay for a while, but my brother is very important to me. You can bring him up here if you want to- I think he would like it. Pt participating in milieu, accepting of medicine and treatment, interactive with staff and peers. Behavior, Mood are appropriate and engaging Medication Compliance: Yes Side effects from medications: No Attending Groups: Yes Review of Systems Medical Review of Systems: unchanged Review of Systems Review of Systems Denies Mental Status Exam Mental Status Exam Patient Appearance: Disheveled Patient Orientation: Person, Place and Situation Level of Consciousness: Alert Patient Behavior: Talkative and Good Eye Contact Mood Description: Calm and Appropriate Affect Description: Calm and Appropriate Patient Cognition Impaired: No Ability to Follow Directions: Good Speech Pattern: Spontaneous Speech Memory Description: Intact Hallucinations: None Delusions: Not Present Thought Process: Goal Oriented Thought Content: positive for Goal Oriented and positive for Suicidal Ideation (denies) Depressive Symptoms: Thoughts of /Suicide (denies) Judgement: Fair Diagnostics Labs 03/10/25 08:26 03/08/25 07:54 Labs: Laboratory Results - last 48 hr 03/08/25 03/09/25 03/09/25 21:27 12:27 20:35 WBC RBC Hgb Hct MCV MCH MCHC RDW Plt Count MPV Immature Gran % (Auto) Neut % (Auto) Lymph % (Auto) [place] % (Auto) Eos % (Auto) Baso % (Auto) Lymph # (Auto) [place] # (Auto) Eos # (Auto) Baso # (Auto) Abs Immat Gran (auto) Absolute Neuts (auto) Absolute Nucleated RBC Nucleated RBC % (auto) Hold Purple Top POC Glucose 137 H 97 142 H Valproic Acid 03/10/25 03/10/25 07:53 08:26 WBC 7.6 RBC 4.24 L Hgb 14.3 Hct 42.6 MCV 100.5 H MCH 33.7 H MCHC 33.6 RDW 12.8 Plt Count 191 MPV 9.7 Immature Gran % (Auto) 0.4 Neut % (Auto) 61.8 Lymph % (Auto) 29.0 [place] % (Auto) 7.7 Eos % (Auto) 0.7 Baso % (Auto) 0.4 Lymph # (Auto) 2.2 [place] # (Auto) 0.6 Eos # (Auto) 0.1 Baso # (Auto) 0.0 Abs Immat Gran (auto) 0.03 Absolute Neuts (auto) 4.7 Absolute Nucleated RBC 0.000 Nucleated RBC % (auto) 0.0 Hold Purple Top SEE NOTE POC Glucose 126 H Valproic Acid 99.6 Medications Medications Current Medications Acetaminophen (Acetaminophen 325 Mg Tablet) 650 mg PO Q6H PRN PRN Reason: Headache/Pain, Scale 1-10 Al Hydroxide/Mg Hydroxide (Magnesium Hydrox/Alum Hydrox 30 Ml Oral.Susp) 30 ml PO Q6H PRN PRN Reason: Heartburn/Nausea Aspirin (Aspirin 325 Mg Tablet) 325 mg PO DAILY [facility] Last Admin: 03/10/25 08:58 Dose: 325 mg Atorvastatin Calcium (Atorvastatin Calcium 40 Mg Tablet) 40 mg PO BEDTIME [facility] Last Admin: 03/09/25 20:57 Dose: 40 mg Buspirone HCl (Buspirone Hcl 5 Mg Tablet) 15 mg PO TID [facility] Last Admin: 03/10/25 08:59 Dose: 15 mg Cefuroxime Axetil (Cefuroxime Axetil 250 Mg Tablet) 250 mg PO Q12H [facility] Stop: 03/12/25 09:01 Last Admin: 03/10/25 08:59 Dose: 250 mg Dextrose (Dextrose 50 % 25 Gm/50 Ml Syringe) 25 gm IVPUSH Q15M PRN; Protocol PRN Reason: per Hypoglycemia Standing Ord. Divalproex Sodium (Divalproex Sodium Er 500 Mg Tab.Er.24h) 1,000 mg PO BID [facility] Last Admin: 03/10/25 08:58 Dose: 1,000 mg Escitalopram Oxalate (Escitalopram Oxalate 10 Mg Tablet) 10 mg PO DAILY [facility] Last Admin: 03/10/25 08:59 Dose: 10 mg Ferrous Sulfate (Ferrous Sulfate 324 Mg Tablet.Dr) 324 mg PO DAILY [facility] Last Admin: 03/10/25 08:59 Dose: 324 mg Gemfibrozil (Gemfibrozil 600 Mg Tablet) 600 mg PO BIDAC [facility] Last Admin: 03/10/25 08:59 Dose: 600 mg Glucose (Glucose Gel 15 Gm Gel..Gram.) 15 gm PO Q15M PRN; Protocol PRN Reason: per Hypoglycemia Standing Ord. Hydroxyzine HCl (Hydroxyzine Hcl 25 Mg Tablet) 25 mg PO Q6H PRN PRN Reason: mild anxiety Insulin Human Lispro (Insulin Lispro 100 Unit/Ml 3 Ml Vial) 0 unit SUBCUT BID [facility]; Protocol Last Admin: 03/09/25 20:42 Dose: Not Given Lidocaine (Lidocaine 5 % Ointment 35 Gm) 1 appl TOPICAL Q6H PRN; Protocol PRN Reason: Pain, Mild (Pain Scale 1-3) Magnesium Hydroxide (Milk Of Magnesia 30 Ml Oral.Susp) 30 ml PO DAILY PRN PRN Reason: Constipation Metformin HCl (Metformin Hcl 1,000 Mg Tablet) 1,000 mg PO BIDWM [facility] Last Admin: 03/10/25 08:58 Dose: 1,000 mg Nicotine (Nicotine 21 Mg Patch.Td24) 21 mg TRANSDERMA DAILY PRN PRN Reason: nicotine craving Nicotine Polacrilex (Nicotine Polacrilex 2 Mg Gum) 2 mg BUCCAL Q2H PRN PRN Reason: Nicotine Cravings Olanzapine (Olanzapine 5 Mg Tablet) 5 mg PO BID PRN PRN Reason: agitation Omeprazole (Omeprazole 20 Mg Capsule.Dr) 20 mg PO BID [facility] Last Admin: 03/10/25 08:59 Dose: 20 mg Oxybutynin Chloride (Oxybutynin Chloride Er 5 Mg Tab.Er.24) 10 mg PO DAILY [facility] Last Admin: 03/10/25 08:58 Dose: 10 mg Polyethylene Glycol (Polyethylene Glycol 3350 17 Gm Powd.Pack) 17 gm PO DAILY PRN PRN Reason: Constipation Risperidone (Risperidone 3 Mg Tablet) 3 mg PO BID [facility] Last Admin: 03/10/25 08:59 Dose: 3 mg Tamsulosin HCl (Tamsulosin Hcl 0.4 Mg Capsule) 0.4 mg PO BEDTIME [facility] Last Admin: 03/09/25 20:57 Dose: 0.4 mg Trazodone HCl (Trazodone Hcl 50 Mg Tablet) 50 mg PO BEDTIME MRX1 PRN PRN Reason: Insomnia Allergies Allergies Allergy/AdvReac Type Severity Reaction Status Date / Time chlorpromazine Allergy Unknown Verified 03/04/25 19:57 fluphenazine Allergy Unknown Verified 03/04/25 19:57 haloperidol (From Haldol) Allergy Unknown Verified 03/04/25 19:57 levocetirizine Allergy Unknown Verified 03/04/25 19:57 prochlorperazine Allergy Unknown Verified 03/04/25 19:57 thiothixene Allergy Unknown Verified 03/04/25 19:57 Assessment & Plan Assessment & Plan (1) Bipolar 1 disorder: Status: Acute Code(s): F31.9 - Bipolar disorder, unspecified (2) Brain injury: Status: Acute Code(s): S06.9XAA - Unspecified intracranial injury with loss of consciousness status unknown, initial encounter Plan 69 yo male, hx of bipolar disorder, and cognitive damage secondary to substance abuse, transfer from [place] where he was brought in to their ER with EMS/Police after a safety check found him and his brother in a condemnable condition, with rotting food, urine, feces, trash and clutter in the home. Pt's brother Mike is non ambulatory and is medically hospitalized after this safety check. The home was condemned. EMS reported pt was combative, spitting, kicking yet was non psychotic, non suicidal, non homicidal and without delusional content, however with a lack of insight into the severity of his current situation. Pt is connected to [facility] who expressed longstanding concerns regarding self neglect, mood lability, explosive behaviors, paranoia, aggression. and being unable to provide self care. ER team reports significant weight loss. Several community providers tell ER team that pt has been declining in the past months. Met with pt and Karen BARGERW. Pt is agitated, requesting an criminal defense attorney- given [facility] number, stating he will be leaving. He is agitated and not forthcoming with history at this time. Several meetings with pt. Demands criminal defense attorney-he has the number, states he has an criminal defense attorney, Kingston Sinha, whom we are searching for. Demands discharge today Collateral contact made by team to PCP office, Dr. Malik, to Dr. Malik directly by this personal lines underwriter and to elder services. Psychopharm provider Daniel Torres of [facility] is off until Saturday, however we are encouraged to call on Saturday to see if they can reach him. Copies of PCP fax sheets given to pt as he reports he has talked with PCP and has been told that we should transfer him to [facility], which is not factual per Dr. Malik. 03/06/25: Reviewed with team, reviewed plan of care. A calmer day for pt. Beginning to take his medication. Spending a good deal of time in his room-beginning to familiarize himself with the milieu and apologizing to some team members for his active symptoms on admission. 03/08/25: Continue tx Declined labs when discussed today. Plan: Admit, Section 12B, 15 minute checks Re-establish regime- refusing of meds at this time Ongoing collateral contact Diagnostics as needed Possible Section 7 03/09/25: dye house worker and this provider met with patient in the assigned room, patient was lying in bed, but sits up we approach him. He asked over and over again when he will be discharged, and believe that he is discharged today. The social media content manager and this provider explained to patient that he will not be discharged in good like him to signed voluntarily to be in the hospital for his treatment. He declines it saying that he can stay at [facility]. dye house worker confirmed with him that that is no information that he can stay there for this moment. And due to his safety, in for the safe discharge, patient would not be discharged today. Patient declines to sign in, therefore file for court commitment. Patient met with this provider again later on in the zeng asking when he is will be leaving. Patient said that he needs to well having his bladder checked out as my doctor told me I need to have my bladder check out as I have infection . Confirm with patient that he is not discharged, and that we are working on to see where he can stay safe why they can cleaning his his house, as soon as we have a better safer place for him to go, he can be discharged. Also remind patient that, tomorrow labs work need to be done as we need to withdrawal level from Depakote and other labs work to make sure that is not toxicity. Patient said getting lab work done tomorrow . He is quiet, mostly in his room, in and out for other requests/needs. No yelling. Poor ADLs, poor judgment and insight of current situation. ? Memory issues. Patient does not process information well. Malodorous but medication compliant, no side effects, slept and ate well. CMP was done yesterday. WNL, slightly elevated on BUN. CBC w/ diff. VPA level, Ammonia, and Prolactin level ordered for 03/10/25. 03/10/25: You know, I can stay for a while, but my brother is very important to me. You can bring him up here if you want to- I think he would like it. Pt participating in milieu, accepting of medicine and treatment, interactive with staff and peers. Behavior, Mood are appropriate and engaging Plan: Continue tx Reason for continued inpatient stay Substantial Risk for: rapid decompensation Time Spent With Patient Time: Total time managing care of this patient today ____ minutes.
[2025-03-10 20:00] VITALS: BP 110/68; PULSE 103; TEMP 37.2; O2SAT 98
[2025-03-10 21:23] LABS: Glucose, Whole Blood 164 mg/dL (60-115)
[2025-03-11 08:00] VITALS: BP 127/74; PULSE 92; RESP 16; TEMP 36.6; O2SAT 97
[2025-03-11 08:12] LABS: Glucose, Whole Blood 120 mg/dL (60-115)
[2025-03-11] MEDS: Ferrous Sulfate 324 MG TABLET.DR PO (08:42)
[2025-03-11] MEDS: oxyBUTYnin chloride ER 5 MG TAB.ER.24 10 MG PO (08:42)
--- NOTE | 2025-03-11 10:03 | P.PNPSI_ITS ---
Subjective Subjective Date of Service: 03/11/25 Reason For Visit: Bipolar D/O Major Depressive D/O Subjective Notes: Section 7 Healthcare Proxy: No Guardianship: No Medical Problems Affecting Mental Status: No Interim History: Reviewed care with prescriber Nate [facility] [phone]. Pt is always med compliant, does miss appts due to transportation. Pt has been stable for a long while. He is described as generous, involved in community-gardens and brings vegetables to others in need. Gives away some of his funds to others in need. Pt's greatest fear per Nate is what will happen if he cannot be with his brother. Care of brother reviewed with pt isaías Dior (COLIN) of [facility] [phone]. If brother is placed in [place] they may be able to arrange visits and rides to see brother. Team learned later in the day that [employer] is not willing to help pt with funds for a hotel or funds to help clean the home so he may return. Medication Compliance: Yes Side effects from medications: No Attending Groups: Intermittent Review of Systems Acute medical concerns: No Medical Review of Systems: unchanged Review of Systems Review of Systems Denies Mental Status Exam Mental Status Exam Patient Appearance: Disheveled Patient Orientation: Person, Place and Situation Level of Consciousness: Alert Patient Behavior: Talkative and Good Eye Contact Mood Description: Calm and Appropriate Affect Description: Calm and Appropriate Patient Cognition Impaired: No Ability to Follow Directions: Good Speech Pattern: Spontaneous Speech Memory Description: Intact Hallucinations: None Delusions: Not Present Thought Process: Goal Oriented Thought Content: positive for Goal Oriented and positive for Suicidal Ideation (denies) Depressive Symptoms: Thoughts of /Suicide (denies) Judgement: Fair Diagnostics Vital Signs (24Hr): Vital Signs - 24 hr 03/10/25 20:00 Temperature 98.9 F Pulse Rate 103 H Blood Pressure 110/68 Pulse Oximetry 98 Oxygen Delivery Method Room Air Labs 03/10/25 08:26 03/08/25 07:54 Labs: Laboratory Results - last 48 hr 03/09/25 03/09/25 03/10/25 12:27 20:35 07:53 WBC RBC Hgb Hct MCV MCH MCHC RDW Plt Count MPV Immature Gran % (Auto) Neut % (Auto) Lymph % (Auto) Yell % (Auto) Eos % (Auto) Baso % (Auto) Lymph # (Auto) Yell # (Auto) Eos # (Auto) Baso # (Auto) Abs Immat Gran (auto) Absolute Neuts (auto) Absolute Nucleated RBC Nucleated RBC % (auto) Hold Purple Top POC Glucose 97 142 H 126 H Ammonia Prolactin Valproic Acid 03/10/25 03/10/25 03/11/25 08:26 21:20 08:06 WBC 7.6 RBC 4.24 L Hgb 14.3 Hct 42.6 MCV 100.5 H MCH 33.7 H MCHC 33.6 RDW 12.8 Plt Count 191 MPV 9.7 Immature Gran % (Auto) 0.4 Neut % (Auto) 61.8 Lymph % (Auto) 29.0 Yell % (Auto) 7.7 Eos % (Auto) 0.7 Baso % (Auto) 0.4 Lymph # (Auto) 2.2 Yell # (Auto) 0.6 Eos # (Auto) 0.1 Baso # (Auto) 0.0 Abs Immat Gran (auto) 0.03 Absolute Neuts (auto) 4.7 Absolute Nucleated RBC 0.000 Nucleated RBC % (auto) 0.0 Hold Purple Top SEE NOTE POC Glucose 164 H 120 H Ammonia Cancelled Prolactin 19.0 H Valproic Acid 99.6 Medications Medications Current Medications Acetaminophen (Acetaminophen 325 Mg Tablet) 650 mg PO Q6H PRN PRN Reason: Headache/Pain, Scale 1-10 Al Hydroxide/Mg Hydroxide (Magnesium Hydrox/Alum Hydrox 30 Ml Oral.Susp) 30 ml PO Q6H PRN PRN Reason: Heartburn/Nausea Aspirin (Aspirin 325 Mg Tablet) 325 mg PO DAILY REPLACED BY [facility] Last Admin: 03/11/25 08:43 Dose: 325 mg Atorvastatin Calcium (Atorvastatin Calcium 40 Mg Tablet) 40 mg PO BEDTIME REPLACED BY [facility] Last Admin: 03/10/25 21:51 Dose: 40 mg Buspirone HCl (Buspirone Hcl 5 Mg Tablet) 15 mg PO TID REPLACED BY [facility] Last Admin: 03/11/25 08:43 Dose: 15 mg Cefuroxime Axetil (Cefuroxime Axetil 250 Mg Tablet) 250 mg PO Q12H REPLACED BY [facility] Stop: 03/12/25 09:01 Last Admin: 03/11/25 08:44 Dose: 250 mg Dextrose (Dextrose 50 % 25 Gm/50 Ml Syringe) 25 gm IVPUSH Q15M PRN; Protocol PRN Reason: per Hypoglycemia Standing Ord. Divalproex Sodium (Divalproex Sodium Er 500 Mg Tab.Er.24h) 1,000 mg PO BID REPLACED BY [facility] Last Admin: 03/11/25 08:43 Dose: 1,000 mg Escitalopram Oxalate (Escitalopram Oxalate 10 Mg Tablet) 10 mg PO DAILY REPLACED BY [facility] Last Admin: 03/11/25 08:42 Dose: 10 mg Ferrous Sulfate (Ferrous Sulfate 324 Mg Tablet.) 324 mg PO DAILY REPLACED BY [facility] Last Admin: 03/11/25 08:42 Dose: 324 mg Gemfibrozil (Gemfibrozil 600 Mg Tablet) 600 mg PO BIDAC REPLACED BY [facility] Last Admin: 03/11/25 08:43 Dose: 600 mg Glucose (Glucose Gel 15 Gm Gel..Gram.) 15 gm PO Q15M PRN; Protocol PRN Reason: per Hypoglycemia Standing Ord. Hydroxyzine HCl (Hydroxyzine Hcl 25 Mg Tablet) 25 mg PO Q6H PRN PRN Reason: mild anxiety Insulin Human Lispro (Insulin Lispro 100 Unit/Ml 3 Ml Vial) 0 unit SUBCUT BID REPLACED BY [facility]; Protocol Last Admin: 03/11/25 08:48 Dose: Not Given Lidocaine (Lidocaine 5 % Ointment 35 Gm) 1 appl TOPICAL Q6H PRN; Protocol PRN Reason: Pain, Mild (Pain Scale 1-3) Magnesium Hydroxide (Milk Of Magnesia 30 Ml Oral.Susp) 30 ml PO DAILY PRN PRN Reason: Constipation Metformin HCl (Metformin Hcl 1,000 Mg Tablet) 1,000 mg PO BIDWM REPLACED BY [facility] Last Admin: 03/11/25 08:44 Dose: 1,000 mg Nicotine (Nicotine 21 Mg Patch.Td24) 21 mg TRANSDERMA DAILY PRN PRN Reason: nicotine craving Nicotine Polacrilex (Nicotine Polacrilex 2 Mg Gum) 2 mg BUCCAL Q2H PRN PRN Reason: Nicotine Cravings Olanzapine (Olanzapine 5 Mg Tablet) 5 mg PO BID PRN PRN Reason: agitation Omeprazole (Omeprazole 20 Mg Capsule.) 20 mg PO BID REPLACED BY [facility] Last Admin: 03/11/25 08:42 Dose: 20 mg Oxybutynin Chloride (Oxybutynin Chloride Er 5 Mg Tab.Er.24) 10 mg PO DAILY REPLACED BY [facility] Last Admin: 03/11/25 08:42 Dose: 10 mg Polyethylene Glycol (Polyethylene Glycol 3350 17 Gm Powd.Pack) 17 gm PO DAILY PRN PRN Reason: Constipation Risperidone (Risperidone 3 Mg Tablet) 3 mg PO BID REPLACED BY [facility] Last Admin: 03/11/25 08:41 Dose: 3 mg Tamsulosin HCl (Tamsulosin Hcl 0.4 Mg Capsule) 0.4 mg PO BEDTIME [facility] Last Admin: 03/10/25 21:51 Dose: 0.4 mg Trazodone HCl (Trazodone Hcl 50 Mg Tablet) 50 mg PO BEDTIME MRX1 PRN PRN Reason: Insomnia Allergies Allergies Allergy/AdvReac Type Severity Reaction Status Date / Time chlorpromazine Allergy Unknown Verified 03/04/25 19:57 fluphenazine Allergy Unknown Verified 03/04/25 19:57 haloperidol (From Haldol) Allergy Unknown Verified 03/04/25 19:57 levocetirizine Allergy Unknown Verified 03/04/25 19:57 prochlorperazine Allergy Unknown Verified 03/04/25 19:57 thiothixene Allergy Unknown Verified 03/04/25 19:57 Assessment & Plan Assessment & Plan (1) Bipolar 1 disorder: Status: Acute Code(s): F31.9 - Bipolar disorder, unspecified (2) Brain injury: Status: Acute Code(s): S06.9XAA - Unspecified intracranial injury with loss of consciousness status unknown, initial encounter Plan 69 yo male, hx of bipolar disorder, and cognitive damage secondary to substance abuse, transfer from [place] where he was brought in to their ER with EMS/Police after a safety check found him and his brother in a condemnable condition, with rotting food, urine, feces, trash and clutter in the home. Pt's brother Mike is non ambulatory and is medically hospitalized after this safety check. The home was condemned. EMS reported pt was combative, spitting, kicking yet was non psychotic, non suicidal, non homicidal and without delusional content, however with a lack of insight into the severity of his current situation. Pt is connected to [facility] who expressed longstanding concerns regarding self neglect, mood lability, explosive behaviors, paranoia, aggression. and being unable to provide self care. ER team reports significant weight loss. Several community providers tell ER team that pt has been declining in the past months. Met with pt and Karen BARGERW. Pt is agitated, requesting an para operator- given [facility] number, stating he will be leaving. He is agitated and not forthcoming with history at this time. Several meetings with pt. Demands para operator-he has the number, states he has an para operator, Kingston Sinha, whom we are searching for. Demands discharge today Collateral contact made by team to PCP office, Dr. Malik, to Dr. Malik directly by this procedure writer and to elder services. Psychopharm provider Daniel Torres of [facility] is off until Saturday, however we are encouraged to call on Saturday to see if they can reach him. Copies of PCP fax sheets given to pt as he reports he has talked with PCP and has been told that we should transfer him to [facility], which is not factual per Dr. Malik. 03/06/25: Reviewed with team, reviewed plan of care. A calmer day for pt. Beginning to take his medication. Spending a good deal of time in his room-beginning to familiarize himself with the milieu and apologizing to some team members for his active symptoms on admission. 03/08/25: Continue tx Declined labs when discussed today. Plan: Admit, Section 12B, 15 minute checks Re-establish regime- refusing of meds at this time Ongoing collateral contact Diagnostics as needed Possible Section 7 03/09/25: psychiatric social worker supervisor and this provider met with patient in the assigned room, patient was lying in bed, but sits up we approach him. He asked over and over again when he will be discharged, and believe that he is discharged today. The director of social work and this provider explained to patient that he will not be discharged in good like him to signed voluntarily to be in the hospital for his treatment. He declines it saying that he can stay at [place]. psychiatric social worker supervisor confirmed with him that that is no information that he can stay there for this moment. And due to his safety, in for the safe discharge, patient would not be discharged today. Patient declines to sign in, therefore file for court commitment. Patient met with this provider again later on in the zeng asking when he is will be leaving. Patient said that he needs to well having his bladder checked out as my doctor told me I need to have my bladder check out as I have infection . Confirm with patient that he is not discharged, and that we are working on to see where he can stay safe why they can cleaning his his house, as soon as we have a better safer place for him to go, he can be discharged. Also remind patient that, tomorrow labs work need to be done as we need to withdrawal level from Depakote and other labs work to make sure that is not toxicity. Patient said getting lab work done tomorrow . He is quiet, mostly in his room, in and out for other requests/needs. No yelling. Poor ADLs, poor judgment and insight of current situation. ? Memory issues. Patient does not process information well. Malodorous but medication compliant, no side effects, slept and ate well. CMP was done yesterday. WNL, slightly elevated on BUN. CBC w/ diff. VPA level, Ammonia, and Prolactin level ordered for 03/10/25. 03/11/25:Reviewed care with prescriber [facility] [phone]. Pt is always med compliant, does miss appts due to transportation. Pt has been stable for a long while. He is described as generous, involved in community-gardens and brings vegetables to others in need. Gives away some of his funds to others in need. Pt's greatest fear per Nate is what will happen if he cannot be with his brother. Care of brother reviewed with pt isaías Dior (COLIN) of [facility] [phone]. If brother is placed in [place] they may be able to arrange visits and rides to see brother. Team learned later in the day that [facility] is not willing to help pt with funds for a hotel or funds to help clean the home so he may return. Reason for continued inpatient stay Substantial Risk for: rapid decompensation Time Spent With Patient Time: Total time managing care of this patient today ____ minutes.
[2025-03-11 20:00] VITALS: BP 111/65; PULSE 88; TEMP 36.9; O2SAT 97
[2025-03-11 22:38] LABS: Glucose, Whole Blood 168 mg/dL (60-115)
[2025-03-12 08:00] VITALS: BP 130/77; PULSE 91; RESP 18; TEMP 36.5; O2SAT 97
[2025-03-12 08:33] LABS: Glucose, Whole Blood 142 mg/dL (60-115)
[2025-03-12] MEDS: oxyBUTYnin chloride ER 5 MG TAB.ER.24 10 MG PO (08:54)
[2025-03-12] MEDS: Ferrous Sulfate 324 MG TABLET.DR PO (08:55)
--- NOTE | 2025-03-12 10:19 | HO.PSYCHPN ---
Subjective Subjective Date of Service: 03/12/25 Reason For Visit: Bipolar D/O Major Depressive D/O Subjective Notes: Section 7 Healthcare Proxy: No Guardianship: No Medical Problems Affecting Mental Status: No Interim History: Pt denies SI,HI,AH,VH. He is visable in the milieu with no behavioral dyscontrol. Reports he likes the unit and his peers along with the staff. Met with pt and Karen Almazan LCSW. Discussed that pt will allow brother to go to subacute rehab. Reviewed fpc options and pt is more open to different facilities which team will apply. Pt plans to shave this weekend and begin to prepare to return to his home area. Medication Compliance: Yes Side effects from medications: No Attending Groups: Intermittent Review of Systems Acute medical concerns: No Medical Review of Systems: unchanged Review of Systems Review of Systems Denies Mental Status Exam Mental Status Exam Patient Appearance: Disheveled Patient Orientation: Person, Place and Situation Level of Consciousness: Alert Patient Behavior: Talkative and Good Eye Contact Mood Description: Calm and Appropriate Affect Description: Calm and Appropriate Patient Cognition Impaired: No Ability to Follow Directions: Good Speech Pattern: Spontaneous Speech Memory Description: Intact Hallucinations: None Delusions: Not Present Thought Process: Goal Oriented Thought Content: positive for Goal Oriented and positive for Suicidal Ideation (denies) Depressive Symptoms: Thoughts of /Suicide (denies) Judgement: Fair Diagnostics Vital Signs (24Hr): Vital Signs - 24 hr 03/11/25 20:00 03/12/25 08:00 Temperature 98.4 F 97.7 F Pulse Rate 88 91 Respiratory Rate 18 Blood Pressure 111/65 130/77 Pulse Oximetry 97 97 Oxygen Delivery Method Room Air Room Air Labs 03/10/25 08:26 03/08/25 07:54 Labs: Laboratory Results - last 48 hr 03/10/25 03/10/25 03/11/25 08:26 21:20 08:06 POC Glucose 164 H 120 H Ammonia Cancelled Prolactin 19.0 H 03/11/25 03/12/25 22:30 08:29 POC Glucose 168 H 142 H Ammonia Prolactin Medications Medications Current Medications Acetaminophen (Acetaminophen 325 Mg Tablet) 650 mg PO Q6H PRN PRN Reason: Headache/Pain, Scale 1-10 Al Hydroxide/Mg Hydroxide (Magnesium Hydrox/Alum Hydrox 30 Ml Oral.Susp) 30 ml PO Q6H PRN PRN Reason: Heartburn/Nausea Aspirin (Aspirin 325 Mg Tablet) 325 mg PO DAILY [facility] Last Admin: 03/12/25 08:55 Dose: 325 mg Atorvastatin Calcium (Atorvastatin Calcium 40 Mg Tablet) 40 mg PO BEDTIME [facility] Last Admin: 03/11/25 22:32 Dose: 40 mg Buspirone HCl (Buspirone Hcl 5 Mg Tablet) 15 mg PO TID [facility] Last Admin: 03/12/25 08:54 Dose: 15 mg Dextrose (Dextrose 50 % 25 Gm/50 Ml Syringe) 25 gm IVPUSH Q15M PRN; Protocol PRN Reason: per Hypoglycemia Standing Ord. Divalproex Sodium (Divalproex Sodium Er 500 Mg Tab.Er.24h) 1,000 mg PO BID [facility] Last Admin: 03/12/25 08:55 Dose: 1,000 mg Escitalopram Oxalate (Escitalopram Oxalate 10 Mg Tablet) 10 mg PO DAILY [facility] Last Admin: 03/12/25 08:55 Dose: 10 mg Ferrous Sulfate (Ferrous Sulfate 324 Mg Tablet.Dr) 324 mg PO DAILY [facility] Last Admin: 03/12/25 08:55 Dose: 324 mg Gemfibrozil (Gemfibrozil 600 Mg Tablet) 600 mg PO BIDAC [facility] Last Admin: 03/12/25 08:55 Dose: 600 mg Glucose (Glucose Gel 15 Gm Gel..Gram.) 15 gm PO Q15M PRN; Protocol PRN Reason: per Hypoglycemia Standing Ord. Hydroxyzine HCl (Hydroxyzine Hcl 25 Mg Tablet) 25 mg PO Q6H PRN PRN Reason: mild anxiety Insulin Human Lispro (Insulin Lispro 100 Unit/Ml 3 Ml Vial) 0 unit SUBCUT BID [facility]; Protocol Last Admin: 03/12/25 08:58 Dose: Not Given Lidocaine (Lidocaine 5 % Ointment 35 Gm) 1 appl TOPICAL Q6H PRN; Protocol PRN Reason: Pain, Mild (Pain Scale 1-3) Magnesium Hydroxide (Milk Of Magnesia 30 Ml Oral.Susp) 30 ml PO DAILY PRN PRN Reason: Constipation Metformin HCl (Metformin Hcl 1,000 Mg Tablet) 1,000 mg PO BIDWM [facility] Last Admin: 03/12/25 08:55 Dose: 1,000 mg Nicotine (Nicotine 21 Mg Patch.Td24) 21 mg TRANSDERMA DAILY PRN PRN Reason: nicotine craving Nicotine Polacrilex (Nicotine Polacrilex 2 Mg Gum) 2 mg BUCCAL Q2H PRN PRN Reason: Nicotine Cravings Olanzapine (Olanzapine 5 Mg Tablet) 5 mg PO BID PRN PRN Reason: agitation Omeprazole (Omeprazole 20 Mg Capsule.Dr) 20 mg PO BID [facility] Last Admin: 03/12/25 08:55 Dose: 20 mg Oxybutynin Chloride (Oxybutynin Chloride Er 5 Mg Tab.Er.24) 10 mg PO DAILY [facility] Last Admin: 03/12/25 08:54 Dose: 10 mg Polyethylene Glycol (Polyethylene Glycol 3350 17 Gm Powd.Pack) 17 gm PO DAILY PRN PRN Reason: Constipation Risperidone (Risperidone 3 Mg Tablet) 3 mg PO BID [facility] Last Admin: 03/12/25 08:55 Dose: 3 mg Tamsulosin HCl (Tamsulosin Hcl 0.4 Mg Capsule) 0.4 mg PO BEDTIME [facility] Last Admin: 03/11/25 22:32 Dose: 0.4 mg Trazodone HCl (Trazodone Hcl 50 Mg Tablet) 50 mg PO BEDTIME MRX1 PRN PRN Reason: Insomnia Allergies Allergies Allergy/AdvReac Type Severity Reaction Status Date / Time chlorpromazine Allergy Unknown Verified 03/04/25 19:57 fluphenazine Allergy Unknown Verified 03/04/25 19:57 haloperidol (From Haldol) Allergy Unknown Verified 03/04/25 19:57 levocetirizine Allergy Unknown Verified 03/04/25 19:57 prochlorperazine Allergy Unknown Verified 03/04/25 19:57 thiothixene Allergy Unknown Verified 03/04/25 19:57 Assessment & Plan Assessment & Plan (1) Bipolar 1 disorder: Status: Acute Code(s): F31.9 - Bipolar disorder, unspecified (2) Brain injury: Status: Acute Code(s): S06.9XAA - Unspecified intracranial injury with loss of consciousness status unknown, initial encounter Plan 69 yo male, hx of bipolar disorder, and cognitive damage secondary to substance abuse, transfer from [place] where he was brought in to their ER with EMS/Police after a safety check found him and his brother in a condemnable condition, with rotting food, urine, feces, trash and clutter in the home. Pt's brother Mike is non ambulatory and is medically hospitalized after this safety check. The home was condemned. EMS reported pt was combative, spitting, kicking yet was non psychotic, non suicidal, non homicidal and without delusional content, however with a lack of insight into the severity of his current situation. Pt is connected to [facility] who expressed longstanding concerns regarding self neglect, mood lability, explosive behaviors, paranoia, aggression. and being unable to provide self care. ER team reports significant weight loss. Several community providers tell ER team that pt has been declining in the past months. Met with pt and Karen Izquierdo LCSW. Pt is agitated, requesting an disability attorney- given [facility] number, stating he will be leaving. He is agitated and not forthcoming with history at this time. Several meetings with pt. Demands disability attorney-he has the number, states he has an disability attorney, Kingston Sinha, whom we are searching for. Demands discharge today Collateral contact made by team to PCP office, Dr. Malik, to Dr. Malik directly by this typewriters functional tester and to [facility]. Psychopharm provider Daniel Torres of [facility] is off until Saturday, however we are encouraged to call on Saturday to see if they can reach him. Copies of PCP fax sheets given to pt as he reports he has talked with PCP and has been told that we should transfer him to [facility], which is not factual per Dr. Malik. 03/06/25: Reviewed with team, reviewed plan of care. A calmer day for pt. Beginning to take his medication. Spending a good deal of time in his room-beginning to familiarize himself with the milieu and apologizing to some team members for his active symptoms on admission. 03/08/25: Continue tx Declined labs when discussed today. Plan: Admit, Section 12B, 15 minute checks Re-establish regime- refusing of meds at this time Ongoing collateral contact Diagnostics as needed Possible Section 7 03/09/25: footwear factory worker and this provider met with patient in the assigned room, patient was lying in bed, but sits up we approach him. He asked over and over again when he will be discharged, and believe that he is discharged today. The forensic social worker and this provider explained to patient that he will not be discharged in good like him to signed voluntarily to be in the hospital for his treatment. He declines it saying that he can stay at [place]. footwear factory worker confirmed with him that that is no information that he can stay there for this moment. And due to his safety, in for the safe discharge, patient would not be discharged today. Patient declines to sign in, therefore file for court commitment. Patient met with this provider again later on in the zeng asking when he is will be leaving. Patient said that he needs to well having his bladder checked out as my doctor told me I need to have my bladder check out as I have infection . Confirm with patient that he is not discharged, and that we are working on to see where he can stay safe why they can cleaning his his house, as soon as we have a better safer place for him to go, he can be discharged. Also remind patient that, tomorrow labs work need to be done as we need to withdrawal level from Depakote and other labs work to make sure that is not toxicity. Patient said getting lab work done tomorrow . He is quiet, mostly in his room, in and out for other requests/needs. No yelling. Poor ADLs, poor judgment and insight of current situation. ? Memory issues. Patient does not process information well. Malodorous but medication compliant, no side effects, slept and ate well. CMP was done yesterday. WNL, slightly elevated on BUN. CBC w/ diff. VPA level, Ammonia, and Prolactin level ordered for 03/10/25. 03/10/25: You know, I can stay for a while, but my brother is very important to me. You can bring him up here if you want to- I think he would like it. Pt participating in milieu, accepting of medicine and treatment, interactive with staff and peers. Behavior, Mood are appropriate and engaging Plan: Continue tx 03/11/25: 03/11/25:Reviewed care with prescriber Nate [facility] [phone]. Pt is always med compliant, does miss appts due to transportation. Pt has been stable for a long while. He is described as generous, involved in community-gardens and brings vegetables to others in need. Gives away some of his funds to others in need. Pt's greatest fear per Nate is what will happen if he cannot be with his brother. Care of brother reviewed with pt isaías Dior (COL[facility]) of [facility] [phone]. If brother is placed in [place] they may be able to arrange visits and rides to see brother. Team learned later in the day that [facility] is not willing to help pt with funds for a hotel or funds to help clean the home so he may return. 03/12/25: Pt denies SI,HI,AH,VH. He is visable in the milieu with no behavioral dyscontrol. Reports he likes the unit and his peers along with the staff. Met with pt and Karen Almazan LCSW. Discussed that pt will allow brother to go to subacute rehab. Reviewed fpc options and pt is more open to different facilities which team will apply. Pt plans to shave this weekend and begin to prepare to return to his home area. Reason for continued inpatient stay Substantial Risk for: rapid decompensation Time Spent With Patient Time: Total time managing care of this patient today ____ minutes.
[2025-03-12 16:47] LABS: Glucose, Whole Blood 153 mg/dL (60-115)
[2025-03-12 20:00] VITALS: BP 109/66; PULSE 90; TEMP 36.8; O2SAT 100
[2025-03-12 20:55] LABS: Glucose, Whole Blood 145 mg/dL (60-115)
[2025-03-13 08:00] VITALS: BP 118/67; PULSE 84; RESP 16; TEMP 36.8; O2SAT 98
[2025-03-13 08:01] LABS: Glucose, Whole Blood 128 mg/dL (60-115)
[2025-03-13] MEDS: Ferrous Sulfate 324 MG TABLET.DR PO (08:34)
[2025-03-13] MEDS: oxyBUTYnin chloride ER 5 MG TAB.ER.24 10 MG PO (08:34)
--- NOTE | 2025-03-13 09:55 | HO.PSYCHPN ---
Subjective Subjective Date of Service: 03/13/25 Reason For Visit: Bipolar D/O Major Depressive D/O Interim History: met with patient; discussed with team; reviewed chart Patient says he is good and has no complaints or requests. He expressed appreciation for the help received and said someone's going to help him gonna went to coat and shoes. Patient says he is sleeping good. Patient asks repairer typewriter about [employer] its game expressed enthusiasm for seeing it tomorrow. Mental Status Exam Mental Status Exam Narrative: Pt is alert and oriented; behavior is cooperative, friendly and calm; patient is not in distress; dressed in hospital attire, kind of disheveled; mood is described as good and affect congruent, bright; eye contact appropriate; Speech is normal rate, volume and prosody and not pressured; no psychomotor agitation/retardation present; thought process is organized and goal directed; Thought content is on tx; otherwise pertinent to relevant topics and without any delusional content, paranoid ideations or grandiosity; denies any SI/HI. Denies AVH and there is no evidence of perceptual disturbance. Patients insight and judgment impaired but likely close to baseline Diagnostics Vital Signs (24Hr): Vital Signs - 24 hr 03/12/25 20:00 03/13/25 08:00 Temperature 98.2 F 98.2 F Pulse Rate 90 84 Respiratory Rate 16 Blood Pressure 109/66 118/67 Pulse Oximetry 100 98 Oxygen Delivery Method Room Air Room Air Labs 03/10/25 08:26 03/14/25 15:32 Labs: Laboratory Results - last 48 hr 03/11/25 03/12/25 03/12/25 22:30 08:29 16:43 POC Glucose 168 H 142 H 153 H 03/12/25 03/13/25 19:40 07:58 POC Glucose 145 H 128 H Medications Medications Current Medications Acetaminophen (Acetaminophen 325 Mg Tablet) 650 mg PO Q6H PRN PRN Reason: Headache/Pain, Scale 1-10 Last Admin: 03/12/25 21:09 Dose: 650 mg Al Hydroxide/Mg Hydroxide (Magnesium Hydrox/Alum Hydrox 30 Ml Oral.Susp) 30 ml PO Q6H PRN PRN Reason: Heartburn/Nausea Aspirin (Aspirin 325 Mg Tablet) 325 mg PO DAILY [facility] Last Admin: 03/13/25 08:34 Dose: 325 mg Atorvastatin Calcium (Atorvastatin Calcium 40 Mg Tablet) 40 mg PO BEDTIME [facility] Last Admin: 03/12/25 21:10 Dose: 40 mg Buspirone HCl (Buspirone Hcl 5 Mg Tablet) 15 mg PO TID [facility] Last Admin: 03/13/25 08:34 Dose: 15 mg Dextrose (Dextrose 50 % 25 Gm/50 Ml Syringe) 25 gm IVPUSH Q15M PRN; Protocol PRN Reason: per Hypoglycemia Standing Ord. Divalproex Sodium (Divalproex Sodium Er 500 Mg Tab.Er.24h) 1,000 mg PO BID [facility] Last Admin: 03/13/25 08:34 Dose: 1,000 mg Escitalopram Oxalate (Escitalopram Oxalate 10 Mg Tablet) 10 mg PO DAILY [facility] Last Admin: 03/13/25 08:34 Dose: 10 mg Ferrous Sulfate (Ferrous Sulfate 324 Mg Tablet.Dr) 324 mg PO DAILY [facility] Last Admin: 03/13/25 08:34 Dose: 324 mg Gemfibrozil (Gemfibrozil 600 Mg Tablet) 600 mg PO BIDAC [facility] Last Admin: 03/13/25 08:34 Dose: 600 mg Glucose (Glucose Gel 15 Gm Gel..Gram.) 15 gm PO Q15M PRN; Protocol PRN Reason: per Hypoglycemia Standing Ord. Hydroxyzine HCl (Hydroxyzine Hcl 25 Mg Tablet) 25 mg PO Q6H PRN PRN Reason: mild anxiety Insulin Human Lispro (Insulin Lispro 100 Unit/Ml 3 Ml Vial) 0 unit SUBCUT BID [facility]; Protocol Last Admin: 03/13/25 08:33 Dose: Not Given Lidocaine (Lidocaine 5 % Ointment 35 Gm) 1 appl TOPICAL Q6H PRN; Protocol PRN Reason: Pain, Mild (Pain Scale 1-3) Magnesium Hydroxide (Milk Of Magnesia 30 Ml Oral.Susp) 30 ml PO DAILY PRN PRN Reason: Constipation Metformin HCl (Metformin Hcl 1,000 Mg Tablet) 1,000 mg PO BIDWM [facility] Last Admin: 03/13/25 08:34 Dose: 1,000 mg Nicotine (Nicotine 21 Mg Patch.Td24) 21 mg TRANSDERMA DAILY PRN PRN Reason: nicotine craving Nicotine Polacrilex (Nicotine Polacrilex 2 Mg Gum) 2 mg BUCCAL Q2H PRN PRN Reason: Nicotine Cravings Olanzapine (Olanzapine 5 Mg Tablet) 5 mg PO BID PRN PRN Reason: agitation Omeprazole (Omeprazole 20 Mg Capsule.Dr) 20 mg PO BID [facility] Last Admin: 03/13/25 08:34 Dose: 20 mg Oxybutynin Chloride (Oxybutynin Chloride Er 5 Mg Tab.Er.24) 10 mg PO DAILY [facility] Last Admin: 03/13/25 08:34 Dose: 10 mg Polyethylene Glycol (Polyethylene Glycol 3350 17 Gm Powd.Pack) 17 gm PO DAILY PRN PRN Reason: Constipation Risperidone (Risperidone 3 Mg Tablet) 3 mg PO BID [facility] Last Admin: 03/13/25 08:34 Dose: 3 mg Tamsulosin HCl (Tamsulosin Hcl 0.4 Mg Capsule) 0.4 mg PO BEDTIME [facility] Last Admin: 03/12/25 21:11 Dose: 0.4 mg Trazodone HCl (Trazodone Hcl 50 Mg Tablet) 50 mg PO BEDTIME MRX1 PRN PRN Reason: Insomnia Allergies Allergies Allergy/AdvReac Type Severity Reaction Status Date / Time chlorpromazine Allergy Unknown Verified 03/04/25 19:57 fluphenazine Allergy Unknown Verified 03/04/25 19:57 haloperidol (From Haldol) Allergy Unknown Verified 03/04/25 19:57 levocetirizine Allergy Unknown Verified 03/04/25 19:57 prochlorperazine Allergy Unknown Verified 03/04/25 19:57 thiothixene Allergy Unknown Verified 03/04/25 19:57 Assessment & Plan Assessment & Plan (1) Bipolar 1 disorder: Status: Acute Code(s): F31.9 - Bipolar disorder, unspecified (2) Brain injury: Status: Acute Code(s): S06.9XAA - Unspecified intracranial injury with loss of consciousness status unknown, initial encounter Plan 69 yo male, hx of bipolar disorder, and cognitive damage secondary to substance abuse, transfer from [place] where he was brought in to their ER with EMS/Police after a safety check found him and his brother in a condemnable condition, with rotting food, urine, feces, trash and clutter in the home. Pt's brother Mike is non ambulatory and is medically hospitalized after this safety check. The home was condemned. EMS reported pt was combative, spitting, kicking yet was non psychotic, non suicidal, non homicidal and without delusional content, however with a lack of insight into the severity of his current situation. Pt is connected to [facility] who expressed longstanding concerns regarding self neglect, mood lability, explosive behaviors, paranoia, aggression. and being unable to provide self care. ER team reports significant weight loss. Several community providers tell ER team that pt has been declining in the past months. Met with pt and Karen Izquierdo LCSW. Pt is agitated, requesting an employment law attorney- given [employer] number, stating he will be leaving. He is agitated and not forthcoming with history at this time. Several meetings with pt. Demands employment law attorney-he has the number, states he has an employment law attorney, Kingston Sinha, whom we are searching for. Demands discharge today Collateral contact made by team to PCP office, Dr. Malik, to Dr. Malik directly by this repairer typewriter and to [facility]. Psychopharm provider Daniel Torres of [facility] is off until Saturday, however we are encouraged to call on Saturday to see if they can reach him. Copies of PCP fax sheets given to pt as he reports he has talked with PCP and has been told that we should transfer him to [facility], which is not factual per Dr. Malik. 03/06/25: Reviewed with team, reviewed plan of care. A calmer day for pt. Beginning to take his medication. Spending a good deal of time in his room-beginning to familiarize himself with the milieu and apologizing to some team members for his active symptoms on admission. 03/08/25: Continue tx Declined labs when discussed today. Plan: Admit, Section 12B, 15 minute checks Re-establish regime- refusing of meds at this time Ongoing collateral contact Diagnostics as needed Possible Section 7 03/09/25: production utility worker and this provider met with patient in the assigned room, patient was lying in bed, but sits up we approach him. He asked over and over again when he will be discharged, and believe that he is discharged today. The health care social worker and this provider explained to patient that he will not be discharged in good like him to signed voluntarily to be in the hospital for his treatment. He declines it saying that he can stay at [facility]. production utility worker confirmed with him that that is no information that he can stay there for this moment. And due to his safety, in for the safe discharge, patient would not be discharged today. Patient declines to sign in, therefore file for court commitment. Patient met with this provider again later on in the zeng asking when he is will be leaving. Patient said that he needs to well having his bladder checked out as my doctor told me I need to have my bladder check out as I have infection . Confirm with patient that he is not discharged, and that we are working on to see where he can stay safe why they can cleaning his his house, as soon as we have a better safer place for him to go, he can be discharged. Also remind patient that, tomorrow labs work need to be done as we need to withdrawal level from Depakote and other labs work to make sure that is not toxicity. Patient said getting lab work done tomorrow . He is quiet, mostly in his room, in and out for other requests/needs. No yelling. Poor ADLs, poor judgment and insight of current situation. ? Memory issues. Patient does not process information well. Malodorous but medication compliant, no side effects, slept and ate well. CMP was done yesterday. WNL, slightly elevated on BUN. CBC w/ diff. VPA level, Ammonia, and Prolactin level ordered for 03/10/25. 03/10/25: You know, I can stay for a while, but my brother is very important to me. You can bring him up here if you want to- I think he would like it. Pt participating in milieu, accepting of medicine and treatment, interactive with staff and peers. Behavior, Mood are appropriate and engaging Plan: Continue tx 03/11/25: 03/11/25:Reviewed care with prescriber Nate [facility] [phone]. Pt is always med compliant, does miss appts due to transportation. Pt has been stable for a long while. He is described as generous, involved in community-gardens and brings vegetables to others in need. Gives away some of his funds to others in need. Pt's greatest fear per Nate is what will happen if he cannot be with his brother. Care of brother reviewed with pt isaías Dior ([facility]) of [facility] [phone]. If brother is placed in [place] they may be able to arrange visits and rides to see brother. Team learned later in the day that [facility] is not willing to help pt with funds for a hotel or funds to help clean the home so he may return. 03/12/25: Pt denies SI,HI,AH,VH. He is visable in the milieu with no behavioral dyscontrol. Reports he likes the unit and his peers along with the staff. Met with pt and Karen Almazan LCSW. Discussed that pt will allow brother to go to subacute rehab. Reviewed senior living options and pt is more open to different facilities which team will apply. Pt plans to shave this weekend and begin to prepare to return to his home area. 03/13 patient reports he is in a good mood; expressed appreciation for help received. No behavioral issues; Appropriate with peers and staff Patient educated on: diagnosis Informed Consent: understands and further education needed Reason for continued inpatient stay Substantial Risk for: rapid decompensation Time Spent With Patient Time: Total time managing care of this patient today ____ minutes.
[2025-03-13 12:05] LABS: Glucose, Whole Blood 135 mg/dL (60-115)
[2025-03-13 19:52] VITALS: BP 110/67; PULSE 101; RESP 16; TEMP 37.6; O2SAT 98
[2025-03-13 21:29] LABS: Glucose, Whole Blood 153 mg/dL (60-115)
[2025-03-14 08:00] VITALS: BP 126/66; PULSE 57; RESP 16; TEMP 36.4; O2SAT 96
[2025-03-14 08:09] LABS: Glucose, Whole Blood 109 mg/dL (60-115)
[2025-03-14] MEDS: Ferrous Sulfate 324 MG TABLET.DR PO (08:25)
[2025-03-14] MEDS: oxyBUTYnin chloride ER 5 MG TAB.ER.24 10 MG PO (08:25)
[2025-03-14 16:16] LABS: Estimated Glomerular Filt Rate > 60
--- NOTE | 2025-03-14 16:42 | HO.PSYCHPN ---
Subjective Subjective Date of Service: 03/14/25 Reason For Visit: Bipolar D/O Major Depressive D/O Interim History: Met with patient; discussed with team Patient reports he is good and denies psych symptoms. No change in presentation Mental Status Exam Mental Status Exam Narrative: Pt is alert and oriented; behavior is cooperative, friendly and calm; patient is not in distress; dressed in hospital attire, kind of disheveled; mood is described as good and affect congruent, bright; eye contact appropriate; Speech is normal rate, volume and prosody and not pressured; no psychomotor agitation/retardation present; thought process is organized and goal directed; Thought content is on tx; otherwise pertinent to relevant topics and without any delusional content, paranoid ideations or grandiosity; denies any SI/HI. Denies AVH and there is no evidence of perceptual disturbance. Patients insight and judgment impaired but likely close to baseline Diagnostics Vital Signs (24Hr): Vital Signs - 24 hr 03/13/25 19:52 03/14/25 08:00 Temperature 99.7 F 97.5 F Pulse Rate 101 H 57 Respiratory Rate 16 16 Blood Pressure 110/67 126/66 Pulse Oximetry 98 96 Oxygen Delivery Method Room Air Room Air Labs 03/10/25 08:26 03/14/25 15:32 Labs: Laboratory Results - last 48 hr 03/12/25 03/12/25 03/13/25 16:43 19:40 07:58 Creatinine Estim Creat Clear Calc Estimated GFR POC Glucose 153 H 145 H 128 H 03/13/25 03/13/25 03/14/25 12:01 21:20 08:02 Creatinine Estim Creat Clear Calc Estimated GFR POC Glucose 135 H 153 H 109 03/14/25 15:32 Creatinine 0.68 Estim Creat Clear Calc TNP Estimated GFR > 60 POC Glucose Medications Medications Current Medications Acetaminophen (Acetaminophen 325 Mg Tablet) 650 mg PO Q6H PRN PRN Reason: Headache/Pain, Scale 1-10 Last Admin: 03/12/25 21:09 Dose: 650 mg Al Hydroxide/Mg Hydroxide (Magnesium Hydrox/Alum Hydrox 30 Ml Oral.Susp) 30 ml PO Q6H PRN PRN Reason: Heartburn/Nausea Aspirin (Aspirin 325 Mg Tablet) 325 mg PO DAILY [facility] Last Admin: 03/14/25 08:25 Dose: 325 mg Atorvastatin Calcium (Atorvastatin Calcium 40 Mg Tablet) 40 mg PO BEDTIME [facility] Last Admin: 03/13/25 21:13 Dose: 40 mg Buspirone HCl (Buspirone Hcl 5 Mg Tablet) 15 mg PO TID [facility] Last Admin: 03/14/25 15:36 Dose: 15 mg Dextrose (Dextrose 50 % 25 Gm/50 Ml Syringe) 25 gm IVPUSH Q15M PRN; Protocol PRN Reason: per Hypoglycemia Standing Ord. Divalproex Sodium (Divalproex Sodium Er 500 Mg Tab.Er.24h) 1,000 mg PO BID [facility] Last Admin: 03/14/25 08:25 Dose: 1,000 mg Escitalopram Oxalate (Escitalopram Oxalate 10 Mg Tablet) 10 mg PO DAILY [facility] Last Admin: 03/14/25 08:25 Dose: 10 mg Ferrous Sulfate (Ferrous Sulfate 324 Mg Tablet.) 324 mg PO DAILY [facility] Last Admin: 03/14/25 08:25 Dose: 324 mg Gemfibrozil (Gemfibrozil 600 Mg Tablet) 600 mg PO BIDAC [facility] Last Admin: 03/14/25 08:25 Dose: 600 mg Glucose (Glucose Gel 15 Gm Gel..Gram.) 15 gm PO Q15M PRN; Protocol PRN Reason: per Hypoglycemia Standing Ord. Hydroxyzine HCl (Hydroxyzine Hcl 25 Mg Tablet) 25 mg PO Q6H PRN PRN Reason: mild anxiety Insulin Human Lispro (Insulin Lispro 100 Unit/Ml 3 Ml Vial) 0 unit SUBCUT BID [facility]; Protocol Last Admin: 03/14/25 08:27 Dose: Not Given Lidocaine (Lidocaine 5 % Ointment 35 Gm) 1 appl TOPICAL Q6H PRN; Protocol PRN Reason: Pain, Mild (Pain Scale 1-3) Magnesium Hydroxide (Milk Of Magnesia 30 Ml Oral.Susp) 30 ml PO DAILY PRN PRN Reason: Constipation Metformin HCl (Metformin Hcl 1,000 Mg Tablet) 1,000 mg PO BIDWM [facility] Last Admin: 03/14/25 08:25 Dose: 1,000 mg Nicotine (Nicotine 21 Mg Patch.Td24) 21 mg TRANSDERMA DAILY PRN PRN Reason: nicotine craving Nicotine Polacrilex (Nicotine Polacrilex 2 Mg Gum) 2 mg BUCCAL Q2H PRN PRN Reason: Nicotine Cravings Olanzapine (Olanzapine 5 Mg Tablet) 5 mg PO BID PRN PRN Reason: agitation Omeprazole (Omeprazole 20 Mg Capsule.) 20 mg PO BID [facility] Last Admin: 03/14/25 08:25 Dose: 20 mg Oxybutynin Chloride (Oxybutynin Chloride Er 5 Mg Tab.Er.24) 10 mg PO DAILY [facility] Last Admin: 03/14/25 08:25 Dose: 10 mg Polyethylene Glycol (Polyethylene Glycol 3350 17 Gm Powd.Pack) 17 gm PO DAILY PRN PRN Reason: Constipation Risperidone (Risperidone 3 Mg Tablet) 3 mg PO BID [facility] Last Admin: 03/14/25 08:25 Dose: 3 mg Tamsulosin HCl (Tamsulosin Hcl 0.4 Mg Capsule) 0.4 mg PO BEDTIME [facility] Last Admin: 03/13/25 21:13 Dose: 0.4 mg Trazodone HCl (Trazodone Hcl 50 Mg Tablet) 50 mg PO BEDTIME MRX1 PRN PRN Reason: Insomnia Allergies Allergies Allergy/AdvReac Type Severity Reaction Status Date / Time chlorpromazine Allergy Unknown Verified 03/04/25 19:57 fluphenazine Allergy Unknown Verified 03/04/25 19:57 haloperidol (From Haldol) Allergy Unknown Verified 03/04/25 19:57 levocetirizine Allergy Unknown Verified 03/04/25 19:57 prochlorperazine Allergy Unknown Verified 03/04/25 19:57 thiothixene Allergy Unknown Verified 03/04/25 19:57 Assessment & Plan Assessment & Plan (1) Bipolar 1 disorder: Status: Acute Code(s): F31.9 - Bipolar disorder, unspecified (2) Brain injury: Status: Acute Code(s): S06.9XAA - Unspecified intracranial injury with loss of consciousness status unknown, initial encounter Plan 69 yo male, hx of bipolar disorder, and cognitive damage secondary to substance abuse, transfer from [place] where he was brought in to their ER with EMS/Police after a safety check found him and his brother in a condemnable condition, with rotting food, urine, feces, trash and clutter in the home. Pt's brother Mike is non ambulatory and is medically hospitalized after this safety check. The home was condemned. EMS reported pt was combative, spitting, kicking yet was non psychotic, non suicidal, non homicidal and without delusional content, however with a lack of insight into the severity of his current situation. Pt is connected to [facility] who expressed longstanding concerns regarding self neglect, mood lability, explosive behaviors, paranoia, aggression. and being unable to provide self care. ER team reports significant weight loss. Several community providers tell ER team that pt has been declining in the past months. Met with pt and Karen Izquierdo LCSW. Pt is agitated, requesting an compliance attorney- given [employer] number, stating he will be leaving. He is agitated and not forthcoming with history at this time. Several meetings with pt. Demands compliance attorney-he has the number, states he has an compliance attorney, Kingston Sinha, whom we are searching for. Demands discharge today Collateral contact made by team to PCP office, Dr. Malik, to Dr. Malik directly by this quality analyst/technical writer and to elder services. Psychopharm provider Daniel Torres of [facility] is off until Saturday, however we are encouraged to call on Saturday to see if they can reach him. Copies of PCP fax sheets given to pt as he reports he has talked with PCP and has been told that we should transfer him to [facility], which is not factual per Dr. Malik. 03/06/25: Reviewed with team, reviewed plan of care. A calmer day for pt. Beginning to take his medication. Spending a good deal of time in his room-beginning to familiarize himself with the milieu and apologizing to some team members for his active symptoms on admission. 03/08/25: Continue tx Declined labs when discussed today. Plan: Admit, Section 12B, 15 minute checks Re-establish regime- refusing of meds at this time Ongoing collateral contact Diagnostics as needed Possible Section 7 03/09/25: studio set up worker and this provider met with patient in the assigned room, patient was lying in bed, but sits up we approach him. He asked over and over again when he will be discharged, and believe that he is discharged today. The rn social work and this provider explained to patient that he will not be discharged in good like him to signed voluntarily to be in the hospital for his treatment. He declines it saying that he can stay at [facility]. studio set up worker confirmed with him that that is no information that he can stay there for this moment. And due to his safety, in for the safe discharge, patient would not be discharged today. Patient declines to sign in, therefore file for court commitment. Patient met with this provider again later on in the zeng asking when he is will be leaving. Patient said that he needs to well having his bladder checked out as my doctor told me I need to have my bladder check out as I have infection . Confirm with patient that he is not discharged, and that we are working on to see where he can stay safe why they can cleaning his his house, as soon as we have a better safer place for him to go, he can be discharged. Also remind patient that, tomorrow labs work need to be done as we need to withdrawal level from Depakote and other labs work to make sure that is not toxicity. Patient said getting lab work done tomorrow . He is quiet, mostly in his room, in and out for other requests/needs. No yelling. Poor ADLs, poor judgment and insight of current situation. ? Memory issues. Patient does not process information well. Malodorous but medication compliant, no side effects, slept and ate well. CMP was done yesterday. WNL, slightly elevated on BUN. CBC w/ diff. VPA level, Ammonia, and Prolactin level ordered for 03/10/25. 03/10/25: You know, I can stay for a while, but my brother is very important to me. You can bring him up here if you want to- I think he would like it. Pt participating in milieu, accepting of medicine and treatment, interactive with staff and peers. Behavior, Mood are appropriate and engaging Plan: Continue tx 03/11/25: 03/11/25:Reviewed care with prescriber Nate [facility] [phone]. Pt is always med compliant, does miss appts due to transportation. Pt has been stable for a long while. He is described as generous, involved in community-gardens and brings vegetables to others in need. Gives away some of his funds to others in need. Pt's greatest fear per Nate is what will happen if he cannot be with his brother. Care of brother reviewed with pt isaías Dior ([facility]) of [facility] [phone]. If brother is placed in [place] they may be able to arrange visits and rides to see brother. Team learned later in the day that [facility] is not willing to help pt with funds for a hotel or funds to help clean the home so he may return. 03/12/25: Pt denies SI,HI,AH,VH. He is visable in the milieu with no behavioral dyscontrol. Reports he likes the unit and his peers along with the staff. Met with pt and Karen Almazan LCSW. Discussed that pt will allow brother to go to subacute rehab. Reviewed longterm options and pt is more open to different facilities which team will apply. Pt plans to shave this weekend and begin to prepare to return to his home area. 03/13 patient reports he is in a good mood; expressed appreciation for help received. No behavioral issues; Appropriate with peers and staff 03/14 patient later complained to nurse of sore throat; throat swab ordered Patient educated on: therapeutic strategies Informed Consent: understands Reason for continued inpatient stay Substantial Risk for: rapid decompensation Time Spent With Patient Time: Total time managing care of this patient today ____ minutes.
[2025-03-14 17:03] LABS: Resp Syncy Virus RNA Qual PCR NEGATIVE (Negative); SARS COV2 PCR INHOUSE NEGATIVE (Negative)
[2025-03-14 21:55] LABS: Glucose, Whole Blood 122 mg/dL (60-115)
[2025-03-15 08:00] VITALS: BP 118/77; PULSE 121; RESP 20; TEMP 36.9; O2SAT 96
[2025-03-15 08:25] LABS: Glucose, Whole Blood 137 mg/dL (60-115)
--- NOTE | 2025-03-15 10:07 | HO.PSYCHPN ---
Subjective Subjective Date of Service: 03/15/25 Reason For Visit: Bipolar D/O Major Depressive D/O Subjective Notes: Section 7 Healthcare Proxy: No Guardianship: No Medical Problems Affecting Mental Status: No Interim History: Slept five hours. Not attending groups. Flu A-pt reports sx are decreasing. Anxious, angry and agitated at times with some lability- Pt spoke with brother's MD today, Dr. Velazquez [phone] who asked for history which pt provided clearly. Pt looking forward to moving out of the hospital and returning to his home area. Medication Compliance: Yes Side effects from medications: No Attending Groups: No Review of Systems flu a Medical Review of Systems: unchanged Review of Systems Review of Systems flu a Mental Status Exam Mental Status Exam Patient Appearance: Appropriate Patient Orientation: Person, Place, Time and Situation Level of Consciousness: Alert Patient Behavior: Talkative and Good Eye Contact Mood Description: Hostile, Cheerful and Labile Affect Description: Labile Patient Cognition Impaired: No Ability to Follow Directions: Good Speech Pattern: Spontaneous Speech Memory Description: Intact Hallucinations: None Delusions: Not Present Thought Process: Distracted Thought Content: positive for Circumstantial, positive for Perseveration and positive for Suicidal Ideation (denies) Depressive Symptoms: Thoughts of /Suicide (denies) Judgement: Fair Diagnostics Vital Signs (24Hr): Vital Signs - 24 hr 03/15/25 08:00 Temperature 98.5 F Pulse Rate 121 H Respiratory Rate 20 Blood Pressure 118/77 Pulse Oximetry 96 Oxygen Delivery Method Nasal Cannula Labs 03/10/25 08:26 03/14/25 15:32 Labs: Laboratory Results - last 48 hr 03/13/25 03/13/25 03/14/25 12:01 21:20 08:02 Creatinine Estim Creat Clear Calc Estimated GFR POC Glucose 135 H 153 H 109 Influenza Type A (PCR) Influenza Type B (PCR) RSV RNA Qual (PCR) SARS-CoV-2 RNA (RT-PCR) 03/14/25 03/14/25 03/14/25 15:32 16:19 21:51 Creatinine 0.68 Estim Creat Clear Calc TNP Estimated GFR > 60 POC Glucose 122 H Influenza Type A (PCR) POSITIVE A Influenza Type B (PCR) NEGATIVE RSV RNA Qual (PCR) NEGATIVE SARS-CoV-2 RNA (RT-PCR) NEGATIVE 03/15/25 08:20 Creatinine Estim Creat Clear Calc Estimated GFR POC Glucose 137 H Influenza Type A (PCR) Influenza Type B (PCR) RSV RNA Qual (PCR) SARS-CoV-2 RNA (RT-PCR) Medications Medications Current Medications Acetaminophen (Acetaminophen 325 Mg Tablet) 650 mg PO Q6H PRN PRN Reason: Headache/Pain, Scale 1-10 Last Admin: 03/12/25 21:09 Dose: 650 mg Al Hydroxide/Mg Hydroxide (Magnesium Hydrox/Alum Hydrox 30 Ml Oral.Susp) 30 ml PO Q6H PRN PRN Reason: Heartburn/Nausea Aspirin (Aspirin 325 Mg Tablet) 325 mg PO DAILY [facility] Last Admin: 03/14/25 08:25 Dose: 325 mg Atorvastatin Calcium (Atorvastatin Calcium 40 Mg Tablet) 40 mg PO BEDTIME [facility] Last Admin: 03/14/25 20:44 Dose: 40 mg Buspirone HCl (Buspirone Hcl 5 Mg Tablet) 15 mg PO TID [facility] Last Admin: 03/14/25 20:43 Dose: 15 mg Dextrose (Dextrose 50 % 25 Gm/50 Ml Syringe) 25 gm IVPUSH Q15M PRN; Protocol PRN Reason: per Hypoglycemia Standing Ord. Divalproex Sodium (Divalproex Sodium Er 500 Mg Tab.Er.24h) 1,000 mg PO BID [facility] Last Admin: 03/14/25 20:44 Dose: 1,000 mg Escitalopram Oxalate (Escitalopram Oxalate 10 Mg Tablet) 10 mg PO DAILY [facility] Last Admin: 03/14/25 08:25 Dose: 10 mg Ferrous Sulfate (Ferrous Sulfate 324 Mg Tablet.Dr) 324 mg PO DAILY [facility] Last Admin: 03/14/25 08:25 Dose: 324 mg Gemfibrozil (Gemfibrozil 600 Mg Tablet) 600 mg PO BIDAC [facility] Last Admin: 03/14/25 17:30 Dose: 600 mg Glucose (Glucose Gel 15 Gm Gel..Gram.) 15 gm PO Q15M PRN; Protocol PRN Reason: per Hypoglycemia Standing Ord. Hydroxyzine HCl (Hydroxyzine Hcl 25 Mg Tablet) 25 mg PO Q6H PRN PRN Reason: mild anxiety Insulin Human Lispro (Insulin Lispro 100 Unit/Ml 3 Ml Vial) 0 unit SUBCUT BID [facility]; Protocol Last Admin: 03/14/25 21:52 Dose: Not Given Lidocaine (Lidocaine 5 % Ointment 35 Gm) 1 appl TOPICAL Q6H PRN; Protocol PRN Reason: Pain, Mild (Pain Scale 1-3) Magnesium Hydroxide (Milk Of Magnesia 30 Ml Oral.Susp) 30 ml PO DAILY PRN PRN Reason: Constipation Metformin HCl (Metformin Hcl 1,000 Mg Tablet) 1,000 mg PO BIDWM [facility] Last Admin: 03/14/25 17:30 Dose: 1,000 mg Nicotine (Nicotine 21 Mg Patch.Td24) 21 mg TRANSDERMA DAILY PRN PRN Reason: nicotine craving Nicotine Polacrilex (Nicotine Polacrilex 2 Mg Gum) 2 mg BUCCAL Q2H PRN PRN Reason: Nicotine Cravings Olanzapine (Olanzapine 5 Mg Tablet) 5 mg PO BID PRN PRN Reason: agitation Omeprazole (Omeprazole 20 Mg Capsule.Dr) 20 mg PO BID [facility] Last Admin: 03/14/25 20:44 Dose: 20 mg Oxybutynin Chloride (Oxybutynin Chloride Er 5 Mg Tab.Er.24) 10 mg PO DAILY [facility] Last Admin: 03/14/25 08:25 Dose: 10 mg Polyethylene Glycol (Polyethylene Glycol 3350 17 Gm Powd.Pack) 17 gm PO DAILY PRN PRN Reason: Constipation Risperidone (Risperidone 3 Mg Tablet) 3 mg PO BID [facility] Last Admin: 03/14/25 20:44 Dose: 3 mg Tamsulosin HCl (Tamsulosin Hcl 0.4 Mg Capsule) 0.4 mg PO BEDTIME [facility] Last Admin: 03/14/25 20:44 Dose: 0.4 mg Trazodone HCl (Trazodone Hcl 50 Mg Tablet) 50 mg PO BEDTIME MRX1 PRN PRN Reason: Insomnia Allergies Allergies Allergy/AdvReac Type Severity Reaction Status Date / Time chlorpromazine Allergy Unknown Verified 03/04/25 19:57 fluphenazine Allergy Unknown Verified 03/04/25 19:57 haloperidol (From Haldol) Allergy Unknown Verified 03/04/25 19:57 levocetirizine Allergy Unknown Verified 03/04/25 19:57 prochlorperazine Allergy Unknown Verified 03/04/25 19:57 thiothixene Allergy Unknown Verified 03/04/25 19:57 Assessment & Plan Assessment & Plan (1) Bipolar 1 disorder: Status: Acute Code(s): F31.9 - Bipolar disorder, unspecified (2) Brain injury: Status: Acute Code(s): S06.9XAA - Unspecified intracranial injury with loss of consciousness status unknown, initial encounter Plan 69 yo male, hx of bipolar disorder, and cognitive damage secondary to substance abuse, transfer from [facility] where he was brought in to their ER with EMS/Police after a safety check found him and his brother in a condemnable condition, with rotting food, urine, feces, trash and clutter in the home. Pt's brother Mike is non ambulatory and is medically hospitalized after this safety check. The home was condemned. EMS reported pt was combative, spitting, kicking yet was non psychotic, non suicidal, non homicidal and without delusional content, however with a lack of insight into the severity of his current situation. Pt is connected to [facility] who expressed longstanding concerns regarding self neglect, mood lability, explosive behaviors, paranoia, aggression. and being unable to provide self care. ER team reports significant weight loss. Several community providers tell ER team that pt has been declining in the past months. Met with pt and Karen Izquierdo LCSW. Pt is agitated, requesting an commonwealth attorney- given [facility] number, stating he will be leaving. He is agitated and not forthcoming with history at this time. Several meetings with pt. Demands commonwealth attorney-he has the number, states he has an commonwealth attorney, Kingston Sinha, whom we are searching for. Demands discharge today Collateral contact made by team to PCP office, Dr. Malik, to Dr. Malik directly by this commercial lines underwriter and to [facility] services. Psychopharm provider Daniel Torres of [facility] is off until Saturday, however we are encouraged to call on Saturday to see if they can reach him. Copies of PCP fax sheets given to pt as he reports he has talked with PCP and has been told that we should transfer him to [facility], which is not factual per Dr. Malik. 03/06/25: Reviewed with team, reviewed plan of care. A calmer day for pt. Beginning to take his medication. Spending a good deal of time in his room-beginning to familiarize himself with the milieu and apologizing to some team members for his active symptoms on admission. 03/08/25: Continue tx Declined labs when discussed today. Plan: Admit, Section 12B, 15 minute checks Re-establish regime- refusing of meds at this time Ongoing collateral contact Diagnostics as needed Possible Section 7 03/09/25: paper and pulp [employer] worker and this provider met with patient in the assigned room, patient was lying in bed, but sits up we approach him. He asked over and over again when he will be discharged, and believe that he is discharged today. The manager social responsibility and this provider explained to patient that he will not be discharged in good like him to signed voluntarily to be in the hospital for his treatment. He declines it saying that he can stay at [facility]. paper and pulp mill worker confirmed with him that that is no information that he can stay there for this moment. And due to his safety, in for the safe discharge, patient would not be discharged today. Patient declines to sign in, therefore file for court commitment. Patient met with this provider again later on in the zeng asking when he is will be leaving. Patient said that he needs to well having his bladder checked out as my doctor told me I need to have my bladder check out as I have infection . Confirm with patient that he is not discharged, and that we are working on to see where he can stay safe why they can cleaning his his house, as soon as we have a better safer place for him to go, he can be discharged. Also remind patient that, tomorrow labs work need to be done as we need to withdrawal level from Depakote and other labs work to make sure that is not toxicity. Patient said getting lab work done tomorrow . He is quiet, mostly in his room, in and out for other requests/needs. No yelling. Poor ADLs, poor judgment and insight of current situation. ? Memory issues. Patient does not process information well. Malodorous but medication compliant, no side effects, slept and ate well. CMP was done yesterday. WNL, slightly elevated on BUN. CBC w/ diff. VPA level, Ammonia, and Prolactin level ordered for 03/10/25. 03/10/25: You know, I can stay for a while, but my brother is very important to me. You can bring him up here if you want to- I think he would like it. Pt participating in milieu, accepting of medicine and treatment, interactive with staff and peers. Behavior, Mood are appropriate and engaging Plan: Continue tx 03/11/25: 03/11/25:Reviewed care with prescriber [facility] [phone]. Pt is always med compliant, does miss appts due to transportation. Pt has been stable for a long while. He is described as generous, involved in community-gardens and brings vegetables to others in need. Gives away some of his funds to others in need. Pt's greatest fear per Nate is what will happen if he cannot be with his brother. Care of brother reviewed with pt isaías Dior (COLIN) of [facility] [phone]. If brother is placed in [place] they may be able to arrange visits and rides to see brother. Team learned later in the day that [facility] is not willing to help pt with funds for a hotel or funds to help clean the home so he may return. 03/12/25: Pt denies SI,HI,AH,VH. He is visable in the milieu with no behavioral dyscontrol. Reports he likes the unit and his peers along with the staff. Met with pt and Karen Almazan LCSW. Discussed that pt will allow brother to go to subacute rehab. Reviewed group home options and pt is more open to different facilities which team will apply. Pt plans to shave this weekend and begin to prepare to return to his home area. 03/13 patient reports he is in a good mood; expressed appreciation for help received. No behavioral issues; Appropriate with peers and staff 03/14 patient later complained to nurse of sore throat; throat swab ordered 03/15/25: Slept five hours. Not attending groups. Flu A-pt reports sx are decreasing. Anxious, angry and agitated at times with some lability- Pt spoke with brother's MD today, Dr. Velazquez [phone] who asked for history which pt provided clearly. Pt looking forward to moving out of the hospital and returning to his home area. Reason for continued inpatient stay Substantial Risk for: rapid decompensation and med/psych decompensation Time Spent With Patient Time: Total time managing care of this patient today ____ minutes.
[2025-03-15] MEDS: oxyBUTYnin chloride ER 5 MG TAB.ER.24 10 MG PO (10:09)
[2025-03-15] MEDS: Ferrous Sulfate 324 MG TABLET.DR PO (10:11)
--- NOTE | 2025-03-15 18:26 | PC.NURSE ---
Patient was on the phone, upon getting up from phone call the patient looked at visitor of another patient who was preparing to exit the floor and stated, I'm gonna take that bag . There was a brief moment and then the patient reached their arm up stated again, I'm gonna take that bag and started walking towards the visitor. This RN moved inbetween the patient and visitor, TESSY Mera next to this RN. Patient become louder and angry saying to get out of his way, this RN instructed TESSY Mera to get the visitor off the unit. The visitor was helped off the unit, the patient did not make any further attempts towards the visitor or bag. Stated to this RN, You punk, you're bethanie I didn't belt you . Patient self-deescalated from that point and ambulated back to their room without further incident.
[2025-03-15 20:00] VITALS: BP 111/66; PULSE 101; RESP 20; TEMP 36.8; O2SAT 97
[2025-03-15 21:51] LABS: Glucose, Whole Blood 141 mg/dL (60-115)
--- NOTE | 2025-03-16 09:00 | ECG_ITS ---
Test Reason : check qtc Blood Pressure : */* mmHG Vent. Rate : 68 BPM Atrial Rate : 68 BPM P-R Int : 134 ms QRS Dur : 78 ms QT Int : 390 ms P-R-T Axes : 60 34 66 degrees QTcB Int : 414 ms Normal sinus rhythm Normal ECG No previous ECGs available Referred By: Heather Jennings Electronically Signed By: Dave Rae
[2025-03-16 09:20] LABS: Glucose, Whole Blood 114 mg/dL (60-115)
[2025-03-16] MEDS: Ferrous Sulfate 324 MG TABLET.DR PO (09:31)
[2025-03-16] MEDS: oxyBUTYnin chloride ER 5 MG TAB.ER.24 10 MG PO (09:31)
--- NOTE | 2025-03-16 10:22 | HO.PSYCHPN ---
Subjective Subjective Date of Service: 03/16/25 Reason For Visit: Bipolar D/O Major Depressive D/O Subjective Notes: Section 7 Healthcare Proxy: No Guardianship: No Medical Problems Affecting Mental Status: No Interim History: Slept 8 hours per team report. Reports flu sx but I can handle them. Struggling with wearing a mask in the milieu. Denies SI,HI,AH,VH. Anxious-worried about his brother, going home, [place], cleaning the home so his brother may return- I have a lot to think about and do. Denies depressive sx. Labile, irritable at times Medication Compliance: Yes Side effects from medications: No Attending Groups: No Review of Systems flu sx Medical Review of Systems: unchanged Review of Systems Review of Systems flu sx Mental Status Exam Mental Status Exam Patient Appearance: Appropriate Patient Orientation: Person, Place, Time and Situation Level of Consciousness: Alert Patient Behavior: Talkative and Good Eye Contact Mood Description: Hostile, Cheerful and Labile Affect Description: Labile Patient Cognition Impaired: No Ability to Follow Directions: Good Speech Pattern: Spontaneous Speech Memory Description: Intact Hallucinations: None Delusions: Not Present Thought Process: Distracted Thought Content: positive for Circumstantial, positive for Perseveration and positive for Suicidal Ideation (denies) Depressive Symptoms: Thoughts of /Suicide (denies) Judgement: Fair Diagnostics Vital Signs (24Hr): Vital Signs - 24 hr 03/15/25 20:00 Temperature 98.3 F Pulse Rate 101 H Respiratory Rate 20 Blood Pressure 111/66 Pulse Oximetry 97 Oxygen Delivery Method Room Air Labs 03/16/25 16:33 03/16/25 16:33 Labs: Laboratory Results - last 48 hr 03/14/25 03/14/25 03/14/25 15:32 16:19 21:51 Creatinine 0.68 Estim Creat Clear Calc TNP Estimated GFR > 60 POC Glucose 122 H Influenza Type A (PCR) POSITIVE A Influenza Type B (PCR) NEGATIVE RSV RNA Qual (PCR) NEGATIVE SARS-CoV-2 RNA (RT-PCR) NEGATIVE 03/15/25 03/15/25 03/16/25 08:20 21:47 09:17 Creatinine Estim Creat Clear Calc Estimated GFR POC Glucose 137 H 141 H 114 Influenza Type A (PCR) Influenza Type B (PCR) RSV RNA Qual (PCR) SARS-CoV-2 RNA (RT-PCR) Medications Medications Current Medications Acetaminophen (Acetaminophen 325 Mg Tablet) 650 mg PO Q6H PRN PRN Reason: Headache/Pain, Scale 1-10 Last Admin: 03/12/25 21:09 Dose: 650 mg Al Hydroxide/Mg Hydroxide (Magnesium Hydrox/Alum Hydrox 30 Ml Oral.Susp) 30 ml PO Q6H PRN PRN Reason: Heartburn/Nausea Aspirin (Aspirin 325 Mg Tablet) 325 mg PO DAILY [facility] Last Admin: 03/16/25 09:31 Dose: 325 mg Atorvastatin Calcium (Atorvastatin Calcium 40 Mg Tablet) 40 mg PO BEDTIME [facility] Last Admin: 03/15/25 20:22 Dose: 40 mg Buspirone HCl (Buspirone Hcl 5 Mg Tablet) 15 mg PO TID [facility] Last Admin: 03/16/25 09:31 Dose: 15 mg Dextrose (Dextrose 50 % 25 Gm/50 Ml Syringe) 25 gm IVPUSH Q15M PRN; Protocol PRN Reason: per Hypoglycemia Standing Ord. Divalproex Sodium (Divalproex Sodium Er 500 Mg Tab.Er.24h) 1,000 mg PO BID [facility] Last Admin: 03/16/25 09:31 Dose: 1,000 mg Escitalopram Oxalate (Escitalopram Oxalate 10 Mg Tablet) 10 mg PO DAILY [facility] Last Admin: 03/16/25 09:30 Dose: 10 mg Ferrous Sulfate (Ferrous Sulfate 324 Mg Tablet.Dr) 324 mg PO DAILY [facility] Last Admin: 03/16/25 09:31 Dose: 324 mg Gemfibrozil (Gemfibrozil 600 Mg Tablet) 600 mg PO BIDAC [facility] Last Admin: 03/16/25 09:32 Dose: 600 mg Glucose (Glucose Gel 15 Gm Gel..Gram.) 15 gm PO Q15M PRN; Protocol PRN Reason: per Hypoglycemia Standing Ord. Hydroxyzine HCl (Hydroxyzine Hcl 25 Mg Tablet) 25 mg PO Q6H PRN PRN Reason: mild anxiety Insulin Human Lispro (Insulin Lispro 100 Unit/Ml 3 Ml Vial) 0 unit SUBCUT BID [facility]; Protocol Last Admin: 03/16/25 09:36 Dose: Not Given Lidocaine (Lidocaine 5 % Ointment 35 Gm) 1 appl TOPICAL Q6H PRN; Protocol PRN Reason: Pain, Mild (Pain Scale 1-3) Magnesium Hydroxide (Milk Of Magnesia 30 Ml Oral.Susp) 30 ml PO DAILY PRN PRN Reason: Constipation Metformin HCl (Metformin Hcl 1,000 Mg Tablet) 1,000 mg PO BIDWM [facility] Last Admin: 03/16/25 09:31 Dose: 1,000 mg Nicotine (Nicotine 21 Mg Patch.Td24) 21 mg TRANSDERMA DAILY PRN PRN Reason: nicotine craving Nicotine Polacrilex (Nicotine Polacrilex 2 Mg Gum) 2 mg BUCCAL Q2H PRN PRN Reason: Nicotine Cravings Olanzapine (Olanzapine 5 Mg Tablet) 5 mg PO BID PRN PRN Reason: agitation Omeprazole (Omeprazole 20 Mg Capsule.Dr) 20 mg PO BID [facility] Last Admin: 03/16/25 09:31 Dose: 20 mg Oxybutynin Chloride (Oxybutynin Chloride Er 5 Mg Tab.Er.24) 10 mg PO DAILY [facility] Last Admin: 03/16/25 09:31 Dose: 10 mg Polyethylene Glycol (Polyethylene Glycol 3350 17 Gm Powd.Pack) 17 gm PO DAILY PRN PRN Reason: Constipation Risperidone (Risperidone 3 Mg Tablet) 3 mg PO BID [facility] Last Admin: 03/16/25 09:30 Dose: 3 mg Tamsulosin HCl (Tamsulosin Hcl 0.4 Mg Capsule) 0.4 mg PO BEDTIME [facility] Last Admin: 03/15/25 20:22 Dose: 0.4 mg Trazodone HCl (Trazodone Hcl 50 Mg Tablet) 50 mg PO BEDTIME MRX1 PRN PRN Reason: Insomnia Allergies Allergies Allergy/AdvReac Type Severity Reaction Status Date / Time chlorpromazine Allergy Unknown Verified 03/04/25 19:57 fluphenazine Allergy Unknown Verified 03/04/25 19:57 haloperidol (From Haldol) Allergy Unknown Verified 03/04/25 19:57 levocetirizine Allergy Unknown Verified 03/04/25 19:57 prochlorperazine Allergy Unknown Verified 03/04/25 19:57 thiothixene Allergy Unknown Verified 03/04/25 19:57 Assessment & Plan Assessment & Plan (1) Bipolar 1 disorder: Status: Acute Code(s): F31.9 - Bipolar disorder, unspecified (2) Brain injury: Status: Acute Code(s): S06.9XAA - Unspecified intracranial injury with loss of consciousness status unknown, initial encounter Plan 69 yo male, hx of bipolar disorder, and cognitive damage secondary to substance abuse, transfer from [facility] where he was brought in to their ER with EMS/Police after a safety check found him and his brother in a condemnable condition, with rotting food, urine, feces, trash and clutter in the home. Pt's brother Mike is non ambulatory and is medically hospitalized after this safety check. The home was condemned. EMS reported pt was combative, spitting, kicking yet was non psychotic, non suicidal, non homicidal and without delusional content, however with a lack of insight into the severity of his current situation. Pt is connected to [facility] who expressed longstanding concerns regarding self neglect, mood lability, explosive behaviors, paranoia, aggression. and being unable to provide self care. ER team reports significant weight loss. Several community providers tell ER team that pt has been declining in the past months. Met with pt and Karen Izquierdo LCSW. Pt is agitated, requesting an civil attorney- given [facility] number, stating he will be leaving. He is agitated and not forthcoming with history at this time. Several meetings with pt. Demands civil attorney-he has the number, states he has an civil attorney, Kingston Sinha, whom we are searching for. Demands discharge today Collateral contact made by team to PCP office, Dr. Malik, to Dr. Malik directly by this board writer and to [facility] services. Psychopharm provider Daniel Torres of [facility] is off until Saturday, however we are encouraged to call on Saturday to see if they can reach him. Copies of PCP fax sheets given to pt as he reports he has talked with PCP and has been told that we should transfer him to [facility], which is not factual per Dr. Malik. 03/06/25: Reviewed with team, reviewed plan of care. A calmer day for pt. Beginning to take his medication. Spending a good deal of time in his room-beginning to familiarize himself with the milieu and apologizing to some team members for his active symptoms on admission. 03/08/25: Continue tx Declined labs when discussed today. Plan: Admit, Section 12B, 15 minute checks Re-establish regime- refusing of meds at this time Ongoing collateral contact Diagnostics as needed Possible Section 7 03/09/25: binding bench worker and this provider met with patient in the assigned room, patient was lying in bed, but sits up we approach him. He asked over and over again when he will be discharged, and believe that he is discharged today. The social service worker and this provider explained to patient that he will not be discharged in good like him to signed voluntarily to be in the hospital for his treatment. He declines it saying that he can stay at [facility]. binding bench worker confirmed with him that that is no information that he can stay there for this moment. And due to his safety, in for the safe discharge, patient would not be discharged today. Patient declines to sign in, therefore file for court commitment. Patient met with this provider again later on in the zeng asking when he is will be leaving. Patient said that he needs to well having his bladder checked out as my doctor told me I need to have my bladder check out as I have infection . Confirm with patient that he is not discharged, and that we are working on to see where he can stay safe why they can cleaning his his house, as soon as we have a better safer place for him to go, he can be discharged. Also remind patient that, tomorrow labs work need to be done as we need to withdrawal level from Depakote and other labs work to make sure that is not toxicity. Patient said getting lab work done tomorrow . He is quiet, mostly in his room, in and out for other requests/needs. No yelling. Poor ADLs, poor judgment and insight of current situation. ? Memory issues. Patient does not process information well. Malodorous but medication compliant, no side effects, slept and ate well. CMP was done yesterday. WNL, slightly elevated on BUN. CBC w/ diff. VPA level, Ammonia, and Prolactin level ordered for 03/10/25. 03/10/25: You know, I can stay for a while, but my brother is very important to me. You can bring him up here if you want to- I think he would like it. Pt participating in milieu, accepting of medicine and treatment, interactive with staff and peers. Behavior, Mood are appropriate and engaging Plan: Continue tx 03/11/25: 03/11/25:Reviewed care with prescriber Nate [facility] [phone]. Pt is always med compliant, does miss appts due to transportation. Pt has been stable for a long while. He is described as generous, involved in community-gardens and brings vegetables to others in need. Gives away some of his funds to others in need. Pt's greatest fear per Nate is what will happen if he cannot be with his brother. Care of brother reviewed with pt isaías Dior (COLIN) of [facility] [phone]. If brother is placed in [place] they may be able to arrange visits and rides to see brother. Team learned later in the day that [facility] [facility] is not willing to help pt with funds for a hotel or funds to help clean the home so he may return. 03/12/25: Pt denies SI,HI,AH,VH. He is visable in the milieu with no behavioral dyscontrol. Reports he likes the unit and his peers along with the staff. Met with pt and Karen Almazan LCSW. Discussed that pt will allow brother to go to subacute rehab. Reviewed skilled nursing options and pt is more open to different facilities which team will apply. Pt plans to shave this weekend and begin to prepare to return to his home area. 03/13 patient reports he is in a good mood; expressed appreciation for help received. No behavioral issues; Appropriate with peers and staff 03/14 patient later complained to nurse of sore throat; throat swab ordered 03/15/25: Slept five hours. Not attending groups. Flu A-pt reports sx are decreasing. Anxious, angry and agitated at times with some lability- Pt spoke with brother's MD today, Dr. Velazquez [phone] who asked for history which pt provided clearly. Pt looking forward to moving out of the hospital and returning to his home area. 03/16/25:Slept 8 hours per team report. Reports flu sx but I can handle them. Struggling with wearing a mask in the milieu. Denies SI,HI,AH,VH. Anxious-worried about his brother, going home, [place], cleaning the home so his brother may return- I have a lot to think about and do. Denies depressive sx. Labile, irritable at times Plan: Continue tx Reason for continued inpatient stay Substantial Risk for: rapid decompensation and med/psych decompensation Time Spent With Patient Time: Total time managing care of this patient today ____ minutes.
[2025-03-16 13:10] LABS: Glucose, Whole Blood 89 mg/dL (60-115)
[2025-03-16 16:55] LABS: Ammonia 17 umol/L (13-55)
[2025-03-16 16:56] LABS: Hematocrit 42.4 % (42.0-52.0); Hemoglobin 14.1 g/dl (14.0-18.0); Imm Gran Abs Auto 0.02 X10*3/uL (0.00-0.03); Imm Gran Pct Auto 0.3 % (0.0-0.4); Lymphocytes Absolute Auto 2.8 X10*3/uL (1.2-4.9); MANUAL DIFF FLAG SCAN; Mean Corpuscular HGB Conc 33.3 g/dl (31.0-36.0); Mean Corpuscular Hemoglobin 33.5 pg (27.0-33.0); Mean Corpuscular Volume 100.7 fL (80.0-98.0); NRBC Abs Auto 0.000 X10*3/uL (0.0-0.012); NRBC Pct Auto 0.0 /100WBC (0.0-0.2); Platelet Count 207 X10*3/uL (160-400); Red Blood Count 4.21 X10*6/uL (4.60-5.80); SCAN SMEAR FLAG 1; White Blood Count 6.5 X10*3/uL (4.8-10.8)
[2025-03-16 17:05] LABS: Alanine Aminotransferase 10 U/L (0-40); Albumin Level 3.9 g/dL (3.5-5.0); Alkaline Phosphatase 66 U/L (39-117); Anion Gap 13 (12-20); Aspartate Amino Transferase 17 U/L (5-37); Blood Urea Nitrogen 26 mg/dL (9-16); Calcium 9.5 mg/dL (8.4-10.2); Carbon Dioxide 28 mmol/L (22-29); Chloride 104 mmol/L (96-108); Estimated Glomerular Filt Rate > 60; Potassium 4.5 mmol/L (3.3-5.1); Sodium 140 mmol/L (135-145); Total Protein 7.1 g/dL (6.5-8.0)
[2025-03-16 20:00] VITALS: BP 113/71; PULSE 89; RESP 15; TEMP 36.9; O2SAT 99
[2025-03-16 21:48] LABS: Glucose, Whole Blood 133 mg/dL (60-115)
[2025-03-17 07:57] VITALS: RESP 18
[2025-03-17] MEDS: Ferrous Sulfate 324 MG TABLET.DR PO (09:41)
[2025-03-17] MEDS: oxyBUTYnin chloride ER 5 MG TAB.ER.24 10 MG PO (09:42)
--- NOTE | 2025-03-17 10:03 | HO.PSYCHPN ---
Subjective Subjective Date of Service: 03/17/25 Reason For Visit: Bipolar D/O Major Depressive D/O Subjective Notes: Section 7 Healthcare Proxy: No Guardianship: No Medical Problems Affecting Mental Status: No Interim History: Wanting discharge. Flu sx present with confusion, lability, agitation. Pt unable to wear a mask on the unit as it makes me claustrophobic. No sx of behavioral dyscontrol. Connecting to milieu, peers, team. Medication Compliance: Yes Side effects from medications: No Attending Groups: Intermittent Review of Systems flu sx Review of Systems Review of Systems flu sx Mental Status Exam Mental Status Exam Patient Appearance: Appropriate Patient Orientation: Person, Place, Time and Situation Level of Consciousness: Alert Patient Behavior: Talkative and Good Eye Contact Mood Description: Hostile, Cheerful and Labile Affect Description: Labile Patient Cognition Impaired: No Ability to Follow Directions: Good Speech Pattern: Spontaneous Speech Memory Description: Intact Hallucinations: None Delusions: Not Present Thought Process: Distracted Thought Content: positive for Circumstantial, positive for Perseveration and positive for Suicidal Ideation (denies) Depressive Symptoms: Thoughts of /Suicide (denies) Judgement: Fair Diagnostics Vital Signs (24Hr): Vital Signs - 24 hr 03/16/25 20:00 03/17/25 07:57 Temperature 98.4 F Pulse Rate 89 Respiratory Rate 15 18 Blood Pressure 113/71 Pulse Oximetry 99 Labs 03/16/25 16:33 03/16/25 16:33 Labs: Laboratory Results - last 48 hr 03/15/25 03/16/25 03/16/25 21:47 09:17 13:06 WBC RBC Hgb Hct MCV MCH MCHC RDW Plt Count MPV Immature Gran % (Auto) Neut % (Auto) Lymph % (Auto) [place] % (Auto) Eos % (Auto) Baso % (Auto) Lymph # (Auto) [place] # (Auto) Eos # (Auto) Baso # (Auto) Abs Immat Gran (auto) Absolute Neuts (auto) Absolute Nucleated RBC Nucleated RBC % (auto) Smear Tech's Comments Sodium Potassium Chloride Carbon Dioxide Anion Gap BUN Creatinine Estim Creat Clear Calc Estimated GFR POC Glucose 141 H 114 89 Random Glucose Calcium Total Bilirubin AST ALT Alkaline Phosphatase Ammonia Total Protein Albumin Valproic Acid 03/16/25 03/16/25 16:33 21:17 WBC 6.5 RBC 4.21 L Hgb 14.1 Hct 42.4 MCV 100.7 H MCH 33.5 H MCHC 33.3 RDW 12.5 Plt Count 207 MPV 9.6 Immature Gran % (Auto) 0.3 Neut % (Auto) 42.0 L Lymph % (Auto) 43.3 H [place] % (Auto) 13.4 H Eos % (Auto) 0.5 Baso % (Auto) 0.5 Lymph # (Auto) 2.8 [place] # (Auto) 0.9 Eos # (Auto) 0.0 Baso # (Auto) 0.0 Abs Immat Gran (auto) 0.02 Absolute Neuts (auto) 2.7 Absolute Nucleated RBC 0.000 Nucleated RBC % (auto) 0.0 Smear Tech's Comments VERIFIED Sodium 140 Potassium 4.5 Chloride 104 Carbon Dioxide 28 Anion Gap 13 BUN 26 H Creatinine 0.74 Estim Creat Clear Calc TNP Estimated GFR > 60 POC Glucose 133 H Random Glucose 153 H Calcium 9.5 Total Bilirubin 0.1 AST 17 ALT 10 Alkaline Phosphatase 66 Ammonia 17 Total Protein 7.1 Albumin 3.9 Valproic Acid 92.9 Medications Medications Current Medications Acetaminophen (Acetaminophen 325 Mg Tablet) 650 mg PO Q6H PRN PRN Reason: Headache/Pain, Scale 1-10 Last Admin: 03/16/25 20:49 Dose: 650 mg Al Hydroxide/Mg Hydroxide (Magnesium Hydrox/Alum Hydrox 30 Ml Oral.Susp) 30 ml PO Q6H PRN PRN Reason: Heartburn/Nausea Aspirin (Aspirin 325 Mg Tablet) 325 mg PO DAILY [facility] Last Admin: 03/17/25 09:41 Dose: 325 mg Atorvastatin Calcium (Atorvastatin Calcium 40 Mg Tablet) 40 mg PO BEDTIME [facility] Last Admin: 03/16/25 20:49 Dose: 40 mg Buspirone HCl (Buspirone Hcl 5 Mg Tablet) 15 mg PO TID [facility] Last Admin: 03/17/25 09:42 Dose: 15 mg Dextrose (Dextrose 50 % 25 Gm/50 Ml Syringe) 25 gm IVPUSH Q15M PRN; Protocol PRN Reason: per Hypoglycemia Standing Ord. Divalproex Sodium (Divalproex Sodium Er 500 Mg Tab.Er.24h) 1,000 mg PO BID [facility] Last Admin: 03/17/25 09:41 Dose: 1,000 mg Escitalopram Oxalate (Escitalopram Oxalate 10 Mg Tablet) 10 mg PO DAILY [facility] Last Admin: 03/17/25 09:41 Dose: 10 mg Ferrous Sulfate (Ferrous Sulfate 324 Mg Tablet.) 324 mg PO DAILY [facility] Last Admin: 03/17/25 09:41 Dose: 324 mg Gemfibrozil (Gemfibrozil 600 Mg Tablet) 600 mg PO BIDAC [facility] Last Admin: 03/17/25 09:41 Dose: 600 mg Glucose (Glucose Gel 15 Gm Gel..Gram.) 15 gm PO Q15M PRN; Protocol PRN Reason: per Hypoglycemia Standing Ord. Hydroxyzine HCl (Hydroxyzine Hcl 25 Mg Tablet) 25 mg PO Q6H PRN PRN Reason: mild anxiety Insulin Human Lispro (Insulin Lispro 100 Unit/Ml 3 Ml Vial) 0 unit SUBCUT BID [facility]; Protocol Last Admin: 03/17/25 08:47 Dose: Not Given Lidocaine (Lidocaine 5 % Ointment 35 Gm) 1 appl TOPICAL Q6H PRN; Protocol PRN Reason: Pain, Mild (Pain Scale 1-3) Magnesium Hydroxide (Milk Of Magnesia 30 Ml Oral.Susp) 30 ml PO DAILY PRN PRN Reason: Constipation Metformin HCl (Metformin Hcl 1,000 Mg Tablet) 1,000 mg PO BIDWM [facility] Last Admin: 03/17/25 09:41 Dose: 1,000 mg Nicotine (Nicotine 21 Mg Patch.Td24) 21 mg TRANSDERMA DAILY PRN PRN Reason: nicotine craving Nicotine Polacrilex (Nicotine Polacrilex 2 Mg Gum) 2 mg BUCCAL Q2H PRN PRN Reason: Nicotine Cravings Olanzapine (Olanzapine 5 Mg Tablet) 5 mg PO BID PRN PRN Reason: agitation Omeprazole (Omeprazole 20 Mg Capsule.) 20 mg PO BID [facility] Last Admin: 03/17/25 09:41 Dose: 20 mg Oxybutynin Chloride (Oxybutynin Chloride Er 5 Mg Tab.Er.24) 10 mg PO DAILY [facility] Last Admin: 03/17/25 09:42 Dose: 10 mg Polyethylene Glycol (Polyethylene Glycol 3350 17 Gm Powd.Pack) 17 gm PO DAILY PRN PRN Reason: Constipation Risperidone (Risperidone 3 Mg Tablet) 3 mg PO BID [facility] Last Admin: 03/17/25 09:41 Dose: 3 mg Tamsulosin HCl (Tamsulosin Hcl 0.4 Mg Capsule) 0.4 mg PO BEDTIME [facility] Last Admin: 03/16/25 20:49 Dose: 0.4 mg Trazodone HCl (Trazodone Hcl 50 Mg Tablet) 50 mg PO BEDTIME MRX1 PRN PRN Reason: Insomnia Allergies Allergies Allergy/AdvReac Type Severity Reaction Status Date / Time chlorpromazine Allergy Unknown Verified 03/04/25 19:57 fluphenazine Allergy Unknown Verified 03/04/25 19:57 haloperidol (From Haldol) Allergy Unknown Verified 03/04/25 19:57 levocetirizine Allergy Unknown Verified 03/04/25 19:57 prochlorperazine Allergy Unknown Verified 03/04/25 19:57 thiothixene Allergy Unknown Verified 03/04/25 19:57 Assessment & Plan Assessment & Plan (1) Bipolar 1 disorder: Status: Acute Code(s): F31.9 - Bipolar disorder, unspecified (2) Brain injury: Status: Acute Code(s): S06.9XAA - Unspecified intracranial injury with loss of consciousness status unknown, initial encounter Plan 69 yo male, hx of bipolar disorder, and cognitive damage secondary to substance abuse, transfer from [facility] where he was brought in to their ER with EMS/Police after a safety check found him and his brother in a condemnable condition, with rotting food, urine, feces, trash and clutter in the home. Pt's brother Mike is non ambulatory and is medically hospitalized after this safety check. The home was condemned. EMS reported pt was combative, spitting, kicking yet was non psychotic, non suicidal, non homicidal and without delusional content, however with a lack of insight into the severity of his current situation. Pt is connected to [facility] who expressed longstanding concerns regarding self neglect, mood lability, explosive behaviors, paranoia, aggression. and being unable to provide self care. ER team reports significant weight loss. Several community providers tell ER team that pt has been declining in the past months. Met with pt and Karen BARGERW. Pt is agitated, requesting an deputy commonwealth's attorney- given [facility] number, stating he will be leaving. He is agitated and not forthcoming with history at this time. Several meetings with pt. Demands deputy commonwealth's attorney-he has the number, states he has an deputy commonwealth's attorney, Kingston Sinha, whom we are searching for. Demands discharge today Collateral contact made by team to PCP office, Dr. Malik, to Dr. Malik directly by this writer editor and to elder services. Psychopharm provider Daniel Torres of [facility] is off until Saturday, however we are encouraged to call on Saturday to see if they can reach him. Copies of PCP fax sheets given to pt as he reports he has talked with PCP and has been told that we should transfer him to [facility], which is not factual per Dr. Malik. 03/06/25: Reviewed with team, reviewed plan of care. A calmer day for pt. Beginning to take his medication. Spending a good deal of time in his room-beginning to familiarize himself with the milieu and apologizing to some team members for his active symptoms on admission. 03/08/25: Continue tx Declined labs when discussed today. Plan: Admit, Section 12B, 15 minute checks Re-establish regime- refusing of meds at this time Ongoing collateral contact Diagnostics as needed Possible Section 7 03/09/25: side door worker and this provider met with patient in the assigned room, patient was lying in bed, but sits up we approach him. He asked over and over again when he will be discharged, and believe that he is discharged today. The social work coordinator and this provider explained to patient that he will not be discharged in good like him to signed voluntarily to be in the hospital for his treatment. He declines it saying that he can stay at [facility]. side door worker confirmed with him that that is no information that he can stay there for this moment. And due to his safety, in for the safe discharge, patient would not be discharged today. Patient declines to sign in, therefore file for court commitment. Patient met with this provider again later on in the zeng asking when he is will be leaving. Patient said that he needs to well having his bladder checked out as my doctor told me I need to have my bladder check out as I have infection . Confirm with patient that he is not discharged, and that we are working on to see where he can stay safe why they can cleaning his his house, as soon as we have a better safer place for him to go, he can be discharged. Also remind patient that, tomorrow labs work need to be done as we need to withdrawal level from Depakote and other labs work to make sure that is not toxicity. Patient said getting lab work done tomorrow . He is quiet, mostly in his room, in and out for other requests/needs. No yelling. Poor ADLs, poor judgment and insight of current situation. ? Memory issues. Patient does not process information well. Malodorous but medication compliant, no side effects, slept and ate well. CMP was done yesterday. WNL, slightly elevated on BUN. CBC w/ diff. VPA level, Ammonia, and Prolactin level ordered for 03/10/25. 03/10/25: You know, I can stay for a while, but my brother is very important to me. You can bring him up here if you want to- I think he would like it. Pt participating in milieu, accepting of medicine and treatment, interactive with staff and peers. Behavior, Mood are appropriate and engaging Plan: Continue tx 03/11/25: 03/11/25:Reviewed care with prescriber Nate [facility] [phone]. Pt is always med compliant, does miss appts due to transportation. Pt has been stable for a long while. He is described as generous, involved in community-gardens and brings vegetables to others in need. Gives away some of his funds to others in need. Pt's greatest fear per Nate is what will happen if he cannot be with his brother. Care of brother reviewed with pt isaías Dior (COLIN) of [facility] [phone]. If brother is placed in [place] they may be able to arrange visits and rides to see brother. Team learned later in the day that [facility] is not willing to help pt with funds for a hotel or funds to help clean the home so he may return. 03/12/25: Pt denies SI,HI,AH,VH. He is visable in the milieu with no behavioral dyscontrol. Reports he likes the unit and his peers along with the staff. Met with pt and Karen Almazan LCSW. Discussed that pt will allow brother to go to subacute rehab. Reviewed usp options and pt is more open to different facilities which team will apply. Pt plans to shave this weekend and begin to prepare to return to his home area. 03/13 patient reports he is in a good mood; expressed appreciation for help received. No behavioral issues; Appropriate with peers and staff 03/14 patient later complained to nurse of sore throat; throat swab ordered 03/15/25: Slept five hours. Not attending groups. Flu A-pt reports sx are decreasing. Anxious, angry and agitated at times with some lability- Pt spoke with brother's MD today, Dr. Velazquez [phone] who asked for history which pt provided clearly. Pt looking forward to moving out of the hospital and returning to his home area. 03/16: 03/16/25:Slept 8 hours per team report. Reports flu sx but I can handle them. Struggling with wearing a mask in the milieu. Denies SI,HI,AH,VH. Anxious-worried about his brother, going home, [place], cleaning the home so his brother may return- I have a lot to think about and do. Denies depressive sx. Labile, irritable at times Plan: Continue tx 03/17/25: Wanting discharge. Flu sx present with confusion, lability, agitation. Pt unable to wear a mask on the unit as it makes me claustrophobic. No sx of behavioral dyscontrol. Connecting to milieu, peers, team. Reason for continued inpatient stay Substantial Risk for: rapid decompensation Time Spent With Patient Time: Total time managing care of this patient today ____ minutes.
[2025-03-17 19:48] VITALS: BP 122/77; PULSE 71; RESP 16; TEMP 36.8; O2SAT 98
[2025-03-17 21:41] LABS: Glucose, Whole Blood 125 mg/dL (60-115)
[2025-03-18 07:00] VITALS: BMI 23.2
[2025-03-18 08:07] LABS: Glucose, Whole Blood 117 mg/dL (60-115)
[2025-03-18 08:34] VITALS: BP 97/59; PULSE 84; TEMP 36.9; O2SAT 95
[2025-03-18] MEDS: Ferrous Sulfate 324 MG TABLET.DR PO (09:00)
[2025-03-18] MEDS: oxyBUTYnin chloride ER 5 MG TAB.ER.24 10 MG PO (09:00)
--- NOTE | 2025-03-18 09:25 | P.PNPSI_ITS ---
Subjective Subjective Date of Service: 03/18/25 Reason For Visit: Bipolar D/O Major Depressive D/O Subjective Notes: Section 7 Healthcare Proxy: No Guardianship: No Medical Problems Affecting Mental Status: No Interim History: Appears to be recovering from flu. Alert, interactive, visable in milieu, with a decrease in lability of mood. Denies current concerns, except finding housing and discharging. MRI ordered along with MOCA and ACLS. Urine culture remains pending. Medication Compliance: Yes Side effects from medications: No Attending Groups: Intermittent Review of Systems Acute medical concerns: No Medical Review of Systems: unchanged Review of Systems Review of Systems Pt denies sx Mental Status Exam Mental Status Exam Patient Appearance: Appropriate Patient Orientation: Person, Place, Time and Situation Level of Consciousness: Alert Patient Behavior: Talkative and Good Eye Contact Mood Description: Hostile, Cheerful and Labile Affect Description: Labile Patient Cognition Impaired: No Ability to Follow Directions: Good Speech Pattern: Spontaneous Speech Memory Description: Intact Hallucinations: None Delusions: Not Present Thought Process: Distracted Thought Content: positive for Circumstantial, positive for Perseveration and positive for Suicidal Ideation (denies) Depressive Symptoms: Thoughts of /Suicide (denies) Judgement: Fair Diagnostics Vital Signs (24Hr): Vital Signs - 24 hr 03/17/25 19:48 03/18/25 08:34 Temperature 98.3 F 98.4 F Pulse Rate 71 84 Respiratory Rate 16 Blood Pressure 122/77 97/59 L Pulse Oximetry 98 95 Oxygen Delivery Method Room Air Room Air Labs 03/16/25 16:33 03/16/25 16:33 Labs: Laboratory Results - last 48 hr 03/16/25 03/16/25 03/16/25 13:06 16:33 21:17 WBC 6.5 RBC 4.21 L Hgb 14.1 Hct 42.4 MCV 100.7 H MCH 33.5 H MCHC 33.3 RDW 12.5 Plt Count 207 MPV 9.6 Immature Gran % (Auto) 0.3 Neut % (Auto) 42.0 L Lymph % (Auto) 43.3 H [place] % (Auto) 13.4 H Eos % (Auto) 0.5 Baso % (Auto) 0.5 Lymph # (Auto) 2.8 [place] # (Auto) 0.9 Eos # (Auto) 0.0 Baso # (Auto) 0.0 Abs Immat Gran (auto) 0.02 Absolute Neuts (auto) 2.7 Absolute Nucleated RBC 0.000 Nucleated RBC % (auto) 0.0 Smear Tech's Comments VERIFIED Sodium 140 Potassium 4.5 Chloride 104 Carbon Dioxide 28 Anion Gap 13 BUN 26 H Creatinine 0.74 Estim Creat Clear Calc TNP Estimated GFR > 60 POC Glucose 89 133 H Random Glucose 153 H Calcium 9.5 Total Bilirubin 0.1 AST 17 ALT 10 Alkaline Phosphatase 66 Ammonia 17 Total Protein 7.1 Albumin 3.9 Valproic Acid 92.9 03/17/25 03/18/25 21:38 08:03 WBC RBC Hgb Hct MCV MCH MCHC RDW Plt Count MPV Immature Gran % (Auto) Neut % (Auto) Lymph % (Auto) [place] % (Auto) Eos % (Auto) Baso % (Auto) Lymph # (Auto) [place] # (Auto) Eos # (Auto) Baso # (Auto) Abs Immat Gran (auto) Absolute Neuts (auto) Absolute Nucleated RBC Nucleated RBC % (auto) Smear Tech's Comments Sodium Potassium Chloride Carbon Dioxide Anion Gap BUN Creatinine Estim Creat Clear Calc Estimated GFR POC Glucose 125 H 117 H Random Glucose Calcium Total Bilirubin AST ALT Alkaline Phosphatase Ammonia Total Protein Albumin Valproic Acid Imaging Radiology Impressions: ITS Impressions Chest X-Ray 03/17/25 13:54 IMPRESSION: Metallic foreign body. Chronic interstitial lung disease EXAMINATION: XR ABDOMEN KUB CLINICAL INDICATION: pre mri COMPARISON: None available. TECHNIQUE: AP view of the abdomen. FINDINGS: No metallic foreign body. No gross central levels. No intestinal dilatation. Gas throughout intestine. Multilevel spondylosis. No lytic or blastic lesions. IMPRESSION: No metallic foreign body. Electronically signed by: Anant Johnson MD 03/17/2025 02:08 PM EST RP Abdomen X-Ray 03/17/25 13:55 IMPRESSION: Metallic foreign body. Chronic interstitial lung disease EXAMINATION: XR ABDOMEN KUB CLINICAL INDICATION: pre mri COMPARISON: None available. TECHNIQUE: AP view of the abdomen. FINDINGS: No metallic foreign body. No gross central levels. No intestinal dilatation. Gas throughout intestine. Multilevel spondylosis. No lytic or blastic lesions. IMPRESSION: No metallic foreign body. Electronically signed by: Anant Johnson MD 03/17/2025 02:08 PM EST RP Skull X-Ray 03/17/25 13:57 IMPRESSION: No absolute contraindication to MRI is identified. Electronically signed by: Sahil Akbar MD 03/17/2025 02:08 PM EST RP Medications Medications Current Medications Acetaminophen (Acetaminophen 325 Mg Tablet) 650 mg PO Q6H PRN PRN Reason: Headache/Pain, Scale 1-10 Last Admin: 03/16/25 20:49 Dose: 650 mg Al Hydroxide/Mg Hydroxide (Magnesium Hydrox/Alum Hydrox 30 Ml Oral.Susp) 30 ml PO Q6H PRN PRN Reason: Heartburn/Nausea Aspirin (Aspirin 325 Mg Tablet) 325 mg PO DAILY PENDING SALE TO [facility] Last Admin: 03/17/25 09:41 Dose: 325 mg Atorvastatin Calcium (Atorvastatin Calcium 40 Mg Tablet) 40 mg PO BEDTIME PENDING SALE TO [facility] Last Admin: 03/17/25 21:28 Dose: 40 mg Buspirone HCl (Buspirone Hcl 5 Mg Tablet) 15 mg PO TID PENDING SALE TO [facility] Last Admin: 03/17/25 21:28 Dose: 15 mg Dextrose (Dextrose 50 % 25 Gm/50 Ml Syringe) 25 gm IVPUSH Q15M PRN; Protocol PRN Reason: per Hypoglycemia Standing Ord. Divalproex Sodium (Divalproex Sodium Er 500 Mg Tab.Er.24h) 1,000 mg PO BID PENDING SALE TO [facility] Last Admin: 03/17/25 21:28 Dose: 1,000 mg Escitalopram Oxalate (Escitalopram Oxalate 10 Mg Tablet) 10 mg PO DAILY PENDING SALE TO [facility] Last Admin: 03/17/25 09:41 Dose: 10 mg Ferrous Sulfate (Ferrous Sulfate 324 Mg Tablet.) 324 mg PO DAILY PENDING SALE TO [facility] Last Admin: 03/17/25 09:41 Dose: 324 mg Gemfibrozil (Gemfibrozil 600 Mg Tablet) 600 mg PO BIDAC PENDING SALE TO [facility] Last Admin: 03/17/25 17:21 Dose: 600 mg Glucose (Glucose Gel 15 Gm Gel..Gram.) 15 gm PO Q15M PRN; Protocol PRN Reason: per Hypoglycemia Standing Ord. Hydroxyzine HCl (Hydroxyzine Hcl 25 Mg Tablet) 25 mg PO Q6H PRN PRN Reason: mild anxiety Insulin Human Lispro (Insulin Lispro 100 Unit/Ml 3 Ml Vial) 0 unit SUBCUT BID PENDING SALE TO [facility]; Protocol Last Admin: 03/17/25 22:15 Dose: Not Given Lidocaine (Lidocaine 5 % Ointment 35 Gm) 1 appl TOPICAL Q6H PRN; Protocol PRN Reason: Pain, Mild (Pain Scale 1-3) Magnesium Hydroxide (Milk Of Magnesia 30 Ml Oral.Susp) 30 ml PO DAILY PRN PRN Reason: Constipation Metformin HCl (Metformin Hcl 1,000 Mg Tablet) 1,000 mg PO BIDWM PENDING SALE TO [facility] Last Admin: 03/17/25 17:21 Dose: 1,000 mg Nicotine (Nicotine 21 Mg Patch.Td24) 21 mg TRANSDERMA DAILY PRN PRN Reason: nicotine craving Nicotine Polacrilex (Nicotine Polacrilex 2 Mg Gum) 2 mg BUCCAL Q2H PRN PRN Reason: Nicotine Cravings Olanzapine (Olanzapine 5 Mg Tablet) 5 mg PO BID PRN PRN Reason: agitation Omeprazole (Omeprazole 20 Mg Capsule.Dr) 20 mg PO BID PENDING SALE TO [facility] Last Admin: 03/17/25 21:28 Dose: 20 mg Oxybutynin Chloride (Oxybutynin Chloride Er 5 Mg Tab.Er.24) 10 mg PO DAILY PENDING SALE TO [facility] Last Admin: 03/17/25 09:42 Dose: 10 mg Polyethylene Glycol (Polyethylene Glycol 3350 17 Gm Powd.Pack) 17 gm PO DAILY PRN PRN Reason: Constipation Risperidone (Risperidone 3 Mg Tablet) 3 mg PO BID PENDING SALE TO [facility] Last Admin: 03/17/25 21:28 Dose: 3 mg Tamsulosin HCl (Tamsulosin Hcl 0.4 Mg Capsule) 0.4 mg PO BEDTIME PENDING SALE TO [facility] Last Admin: 03/17/25 21:28 Dose: 0.4 mg Trazodone HCl (Trazodone Hcl 50 Mg Tablet) 50 mg PO BEDTIME MRX1 PRN PRN Reason: Insomnia Allergies Allergies Allergy/AdvReac Type Severity Reaction Status Date / Time chlorpromazine Allergy Unknown Verified 03/04/25 19:57 fluphenazine Allergy Unknown Verified 03/04/25 19:57 haloperidol (From Haldol) Allergy Unknown Verified 03/04/25 19:57 levocetirizine Allergy Unknown Verified 03/04/25 19:57 prochlorperazine Allergy Unknown Verified 03/04/25 19:57 thiothixene Allergy Unknown Verified 03/04/25 19:57 Assessment & Plan Assessment & Plan (1) Bipolar 1 disorder: Status: Acute Code(s): F31.9 - Bipolar disorder, unspecified (2) Brain injury: Status: Acute Code(s): S06.9XAA - Unspecified intracranial injury with loss of consciousness status unknown, initial encounter Plan 69 yo male, hx of bipolar disorder, and cognitive damage secondary to substance abuse, transfer from [place] where he was brought in to their ER with EMS/Police after a safety check found him and his brother in a condemnable condition, with rotting food, urine, feces, trash and clutter in the home. Pt's brother Mike is non ambulatory and is medically hospitalized after this safety check. The home was condemned. EMS reported pt was combative, spitting, kicking yet was non psychotic, non suicidal, non homicidal and without delusional content, however with a lack of insight into the severity of his current situation. Pt is connected to [facility] who expressed longstanding concerns regarding self neglect, mood lability, explosive behaviors, paranoia, aggression. and being unable to provide self care. ER team reports significant weight loss. Several community providers tell ER team that pt has been declining in the past months. Met with pt and Karen Izquierdo LCSW. Pt is agitated, requesting an pouncer machine- given [facility] number, stating he will be leaving. He is agitated and not forthcoming with history at this time. Several meetings with pt. Demands pouncer machine-he has the number, states he has an pouncer machine, Kingston Sinha, whom we are searching for. Demands discharge today Collateral contact made by team to PCP office, Dr. Malik, to Dr. Malik directly by this promotion writer and to [facility]. Psychopharm provider Daniel Torres of [facility] is off until Saturday, however we are encouraged to call on Saturday to see if they can reach him. Copies of PCP fax sheets given to pt as he reports he has talked with PCP and has been told that we should transfer him to [facility], which is not factual per Dr. Malik. 03/06/25: Reviewed with team, reviewed plan of care. A calmer day for pt. Beginning to take his medication. Spending a good deal of time in his room-beginning to familiarize himself with the milieu and apologizing to some team members for his active symptoms on admission. 03/08/25: Continue tx Declined labs when discussed today. Plan: Admit, Section 12B, 15 minute checks Re-establish regime- refusing of meds at this time Ongoing collateral contact Diagnostics as needed Possible Section 7 03/09/25: hospital food service worker and this provider met with patient in the assigned room, patient was lying in bed, but sits up we approach him. He asked over and over again when he will be discharged, and believe that he is discharged today. The social work msw and this provider explained to patient that he will not be discharged in good like him to signed voluntarily to be in the hospital for his treatment. He declines it saying that he can stay at [place]. hospital food service worker confirmed with him that that is no information that he can stay there for this moment. And due to his safety, in for the safe discharge, patient would not be discharged today. Patient declines to sign in, therefore file for court commitment. Patient met with this provider again later on in the zeng asking when he is will be leaving. Patient said that he needs to well having his bladder checked out as my doctor told me I need to have my bladder check out as I have infection . Confirm with patient that he is not discharged, and that we are working on to see where he can stay safe why they can cleaning his his house, as soon as we have a better safer place for him to go, he can be discharged. Also remind patient that, tomorrow labs work need to be done as we need to withdrawal level from Depakote and other labs work to make sure that is not toxicity. Patient said getting lab work done tomorrow . He is quiet, mostly in his room, in and out for other requests/needs. No yelling. Poor ADLs, poor judgment and insight of current situation. ? Memory issues. Patient does not process information well. Malodorous but medication compliant, no side effects, slept and ate well. CMP was done yesterday. WNL, slightly elevated on BUN. CBC w/ diff. VPA level, Ammonia, and Prolactin level ordered for 03/10/25. 03/10/25: You know, I can stay for a while, but my brother is very important to me. You can bring him up here if you want to- I think he would like it. Pt participating in milieu, accepting of medicine and treatment, interactive with staff and peers. Behavior, Mood are appropriate and engaging Plan: Continue tx 03/11/25: 03/11/25:Reviewed care with prescriber [facility] [phone]. Pt is always med compliant, does miss appts due to transportation. Pt has been stable for a long while. He is described as generous, involved in community-gardens and brings vegetables to others in need. Gives away some of his funds to others in need. Pt's greatest fear per Nate is what will happen if he cannot be with his brother. Care of brother reviewed with pt isaías Dior (COLIN) of [facility] [phone]. If brother is placed in [place] they may be able to arrange visits and rides to see brother. Team learned later in the day that [facility] is not willing to help pt with funds for a hotel or funds to help clean the home so he may return. 03/12/25: Pt denies SI,HI,AH,VH. He is visable in the milieu with no behavioral dyscontrol. Reports he likes the unit and his peers along with the staff. Met with pt and Karen Almazan LCSW. Discussed that pt will allow brother to go to subacute rehab. Reviewed long-term options and pt is more open to different facilities which team will apply. Pt plans to shave this weekend and begin to prepare to return to his home area. 03/13 patient reports he is in a good mood; expressed appreciation for help received. No behavioral issues; Appropriate with peers and staff 03/14 patient later complained to nurse of sore throat; throat swab ordered 03/15/25: Slept five hours. Not attending groups. Flu A-pt reports sx are decreasing. Anxious, angry and agitated at times with some lability- Pt spoke with brother's MD today, Dr. Velazquez [phone] who asked for history which pt provided clearly. Pt looking forward to moving out of the hospital and returning to his home area. 03/16/25:Slept 8 hours per team report. Reports flu sx but I can handle them. Struggling with wearing a mask in the milieu. Denies SI,HI,AH,VH. Anxious-worried about his brother, going home, [place], cleaning the home so his brother may return- I have a lot to think about and do. Denies depressive sx. Labile, irritable at times Plan: Continue tx 03/17:03/17/25: Wanting discharge. Flu sx present with confusion, lability, agitation. Pt unable to wear a mask on the unit as it makes me claustrophobic. No sx of behavioral dyscontrol. Connecting to milieu, peers, team. 03/18/25: Appears to be recovering from flu. Alert, interactive, visable in milieu, with a decrease in lability of mood. Denies current concerns, except finding housing and discharging. MRI ordered along with MOCA and ACLS. Urine culture remains pending. Reason for continued inpatient stay Substantial Risk for: rapid decompensation Time Spent With Patient Time: Total time managing care of this patient today ____ minutes.
[2025-03-18 20:00] VITALS: BP 140/72; PULSE 97; TEMP 36.7; O2SAT 94
[2025-03-18 22:44] LABS: Glucose, Whole Blood 122 mg/dL (60-115)
[2025-03-19 09:30] VITALS: BP 120/73; PULSE 92; TEMP 36.8; O2SAT 95
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
[2025-03-19] MEDS: oxyBUTYnin chloride ER 5 MG TAB.ER.24 10 MG PO (10:21)
[2025-03-19] MEDS: Ferrous Sulfate 324 MG TABLET.DR PO (10:26)
[2025-03-19 20:20] LABS: Glucose, Whole Blood 130 mg/dL (60-115)
[2025-03-19 20:30] VITALS: BP 105/59; PULSE 84; TEMP 36.7; O2SAT 98
[2025-03-20] MEDS: oxyBUTYnin chloride ER 5 MG TAB.ER.24 10 MG PO (09:12)
[2025-03-20] MEDS: Ferrous Sulfate 324 MG TABLET.DR PO (09:12)
[2025-03-20 11:53] LABS: Glucose, Whole Blood 176 mg/dL (60-115)
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
--- NOTE | 2025-03-20 18:43 | PM.EVENT ---
Event Note Date of Service: 03/20/25 Event Note: Pt's urine culture came back positive for multiple organisms, including Pseudomonas and ESBL E coli. Pt noted to have sedimented and foul-smelling urine. Pt will need to be treated with IV meropenem 1 g q12h, renally dosed, x7 days. If pt is discharged from [facility] prior to being treated for 7 days, he will need to go with a midline for administration of IV antibiotics outpatient. Time Spent With Patient Time: Total time managing care of this patient today ____ minutes.
[2025-03-20 20:00] VITALS: BP 114/78; PULSE 75; TEMP 36.4; O2SAT 97
[2025-03-20 20:54] LABS: Glucose, Whole Blood 198 mg/dL (60-115)
[2025-03-21 07:34] LABS: Glucose, Whole Blood 127 mg/dL (60-115)
[2025-03-21 07:55] VITALS: BP 108/68; PULSE 66; RESP 16; TEMP 36.7; O2SAT 96
[2025-03-21] MEDS: oxyBUTYnin chloride ER 5 MG TAB.ER.24 10 MG PO (08:53)
[2025-03-21] MEDS: Ferrous Sulfate 324 MG TABLET.DR PO (08:53)
[2025-03-21 10:40] LABS: Creatinine Clr Calc Pharmacy 113.9; Estimated Glomerular Filt Rate > 60
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
[2025-03-21 20:00] VITALS: BP 110/70; PULSE 81; RESP 16; TEMP 36.5; O2SAT 97
[2025-03-21 20:50] LABS: Glucose, Whole Blood 181 mg/dL (60-115)
[2025-03-22 08:08] LABS: Glucose, Whole Blood 137 mg/dL (60-115)
[2025-03-22] MEDS: oxyBUTYnin chloride ER 5 MG TAB.ER.24 10 MG PO (09:31)
[2025-03-22] MEDS: Ferrous Sulfate 324 MG TABLET.DR PO (09:31)
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
[2025-03-22 20:00] VITALS: BP 106/70; PULSE 78; RESP 16; TEMP 36.7; O2SAT 99
[2025-03-22 22:23] LABS: Glucose, Whole Blood 156 mg/dL (60-115)
[2025-03-23] MEDS: Ferrous Sulfate 324 MG TABLET.DR PO (08:51)
[2025-03-23] MEDS: oxyBUTYnin chloride ER 5 MG TAB.ER.24 10 MG PO (08:52)
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
[2025-03-23 20:00] VITALS: BP 97/65; PULSE 82; RESP 20; TEMP 36.6; O2SAT 100
[2025-03-23 21:36] LABS: Glucose, Whole Blood 145 mg/dL (60-115)
[2025-03-24 08:00] VITALS: BP 105/66; PULSE 73; RESP 16; TEMP 36.4; O2SAT 96
[2025-03-24] MEDS: oxyBUTYnin chloride ER 5 MG TAB.ER.24 10 MG PO (10:44)
[2025-03-24] MEDS: Ferrous Sulfate 324 MG TABLET.DR PO (10:45)
[2025-03-24 11:00] LABS: Glucose, Whole Blood 111 mg/dL (60-115)
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
--- NOTE | 2025-03-24 14:43 | PC.NURSE ---
pt previously received flu vaccine per pt
[2025-03-24 20:38] VITALS: BP 104/68; PULSE 77; RESP 18; TEMP 36.7; O2SAT 99
[2025-03-24 21:22] LABS: Glucose, Whole Blood 163 mg/dL (60-115)
[2025-03-25 08:12] LABS: Glucose, Whole Blood 134 mg/dL (60-115)
[2025-03-25 08:20] VITALS: BP 114/58; PULSE 67; RESP 17; TEMP 36.4; O2SAT 96
[2025-03-25] MEDS: oxyBUTYnin chloride ER 5 MG TAB.ER.24 10 MG PO (09:26)
[2025-03-25] MEDS: Ferrous Sulfate 324 MG TABLET.DR PO (09:28)
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
[2025-03-25 20:00] VITALS: BP 130/78; PULSE 88; RESP 18; TEMP 36.3; O2SAT 96
[2025-03-25 22:33] LABS: Glucose, Whole Blood 173 mg/dL (60-115)
[2025-03-26 08:00] VITALS: BP 104/64; PULSE 58; RESP 16; TEMP 36.5; O2SAT 96
[2025-03-26] MEDS: Ferrous Sulfate 324 MG TABLET.DR PO (09:13)
[2025-03-26] MEDS: oxyBUTYnin chloride ER 5 MG TAB.ER.24 10 MG PO (09:14)
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
[2025-03-26 20:00] VITALS: BP 114/66; PULSE 109; RESP 16; TEMP 36.6; O2SAT 95
[2025-03-26 22:34] LABS: Glucose, Whole Blood 158 mg/dL (60-115)
[2025-03-27 08:00] VITALS: BP 84/53; PULSE 84; RESP 17; TEMP 2.4; TEMP 36.4; O2SAT 98
[2025-03-27] MEDS: Ferrous Sulfate 324 MG TABLET.DR PO (08:52)
[2025-03-27] MEDS: oxyBUTYnin chloride ER 5 MG TAB.ER.24 10 MG PO (08:52)
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
[2025-03-27 19:42] VITALS: BP 94/60; PULSE 78; RESP 16; TEMP 36.9; O2SAT 98
[2025-03-27 21:38] LABS: Glucose, Whole Blood 149 mg/dL (60-115)
[2025-03-28 08:00] VITALS: BP 112/62; PULSE 59; RESP 18; TEMP 36.6; O2SAT 96
[2025-03-28 08:08] LABS: Glucose, Whole Blood 130 mg/dL (60-115)
[2025-03-28] MEDS: oxyBUTYnin chloride ER 5 MG TAB.ER.24 10 MG PO (09:16)
[2025-03-28] MEDS: Ferrous Sulfate 324 MG TABLET.DR PO (09:17)
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
[2025-03-28 16:51] LABS: Glucose, Whole Blood 139 mg/dL (60-115)
[2025-03-28 19:34] VITALS: BP 110/65; PULSE 75; TEMP 36.4; O2SAT 98
[2025-03-28 20:52] LABS: Glucose, Whole Blood 147 mg/dL (60-115)
[2025-03-29 08:00] VITALS: BP 112/59; PULSE 60; RESP 19; TEMP 36.8; O2SAT 96
[2025-03-29 08:13] LABS: Glucose, Whole Blood 124 mg/dL (60-115)
[2025-03-29] MEDS: oxyBUTYnin chloride ER 5 MG TAB.ER.24 10 MG PO (08:51)
[2025-03-29] MEDS: Ferrous Sulfate 324 MG TABLET.DR PO (08:53)
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
[2025-03-29 20:00] VITALS: BP 126/60; PULSE 65; RESP 18; TEMP 37
[2025-03-29 21:03] LABS: Glucose, Whole Blood 133 mg/dL (60-115)
[2025-03-30 08:00] VITALS: BP 116/74; PULSE 60; RESP 16; TEMP 36.4; O2SAT 98
[2025-03-30 08:03] LABS: MANUAL DIFF FLAG NO
[2025-03-30 08:06] LABS: Hematocrit 41.4 % (42.0-52.0); Hemoglobin 14.3 g/dl (14.0-18.0); Imm Gran Abs Auto 0.02 X10*3/uL (0.00-0.03); Imm Gran Pct Auto 0.3 % (0.0-0.4); Lymphocytes Absolute Auto 3.0 X10*3/uL (1.2-4.9); Mean Corpuscular HGB Conc 34.5 g/dl (31.0-36.0); Mean Corpuscular Hemoglobin 33.1 pg (27.0-33.0); Mean Corpuscular Volume 95.8 fL (80.0-98.0); NRBC Abs Auto 0.000 X10*3/uL (0.0-0.012); NRBC Pct Auto 0.0 /100WBC (0.0-0.2); Platelet Count 325 X10*3/uL (160-400); Red Blood Count 4.32 X10*6/uL (4.60-5.80); White Blood Count 7.2 X10*3/uL (4.8-10.8)
[2025-03-30 08:38] LABS: Alanine Aminotransferase 13 U/L (0-40); Albumin Level 4.0 g/dL (3.5-5.0); Alkaline Phosphatase 72 U/L (39-117); Anion Gap 11 (12-20); Aspartate Amino Transferase 35 U/L (5-37); Blood Urea Nitrogen 25 mg/dL (9-16); Calcium 10.0 mg/dL (8.4-10.2); Carbon Dioxide 26 mmol/L (22-29); Chloride 107 mmol/L (96-108); Cholesterol 145 mg/dL (<200); Creatinine Clr Calc Pharmacy 119.2; Estimated Glomerular Filt Rate > 60; HDL Cholesterol 51 mg/dL (>40); Potassium 5.0 mmol/L (3.3-5.1); Sodium 139 mmol/L (135-145); Total Protein 7.0 g/dL (6.5-8.0); Triglycerides 88 mg/dL (<150)
[2025-03-30 08:43] LABS: Glucose, Whole Blood 121 mg/dL (60-115)
[2025-03-30 08:52] LABS: Thyroid Stimulating Hormone 3.75 uIU/mL (0.32-4.0)
[2025-03-30 09:05] LABS: Folate 6.1 ng/mL (> or = 4.0); Vitamin B12 446 pg/mL (200-900)
[2025-03-30] MEDS: oxyBUTYnin chloride ER 5 MG TAB.ER.24 10 MG PO (09:54)
[2025-03-30] MEDS: Ferrous Sulfate 324 MG TABLET.DR PO (09:54)
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
== END 2025-03-30 11:13 | disposition home or self-care (01) | DRG 885 ==
PROVIDERS: Nurse Practitioner Family; Nurse Practitioner Psychiatric/Mental Health; Admitting Provider Psychiatry & Neurology Psychiatry; Visit Provider Clinical Nurse Specialist Psychiatric/Mental Health, Adult
DX: F31.9 Bipolar disorder, unspecified (principal); N39.0 Urinary tract infection, site not specified; Z59.19 Other inadequate housing; J84.9 Interstitial pulmonary disease, unspecified; B96.20 Unspecified Escherichia coli [E. coli] as the cause of diseases classified elsewhere; B96.5 Pseudomonas (aeruginosa) (mallei) (pseudomallei) as the cause of diseases classified elsewhere; J10.1 Influenza due to other identified influenza virus with other respiratory manifestations; G93.89 Other specified disorders of brain; F18.188 Inhalant abuse with other inhalant-induced disorder; I10 Essential (primary) hypertension; E78.5 Hyperlipidemia, unspecified; E11.9 Type 2 diabetes mellitus without complications; N40.0 Benign prostatic hyperplasia without lower urinary tract symptoms; K21.9 Gastro-esophageal reflux disease without esophagitis; G40.909 Epilepsy, unspecified, not intractable, without status epilepticus; J43.9 Emphysema, unspecified; Z87.820 Personal history of traumatic brain injury; Z79.84 Long term (current) use of oral hypoglycemic drugs; Z79.899 Other long term (current) drug therapy; Z88.8 Allergy status to other drugs, medicaments and biological substances
CPT/HCPCS: 36415; 70250; 71045; 74018; 80053; 80061; 80164; 82140; 82565; 82607; 82746; 82947; 83036; 83735; 84146; 84439; 84443; 85025; 87086; 87088; 87186; 87637; 93005; J2185

== ENCOUNTER → 2025-03-04 19:02 | Outpatient (BNV) | payer OTHER, MEDICAID, SELFPAY | PROVIDERS: Admitting Provider Psychiatry & Neurology Psychiatry; Visit Provider Nurse Practitioner Family | DX: I10 Essential (primary) hypertension (principal); E11.29 Type 2 diabetes mellitus with other diabetic kidney complication; R80.8 Other proteinuria | CPT/HCPCS: 99221 ==

== ENCOUNTER → 2025-03-04 19:02 | Outpatient (BNV) | payer OTHER, SELFPAY | PROVIDERS: Admitting Provider Psychiatry & Neurology Psychiatry; Visit Provider Clinical Nurse Specialist Psychiatric/Mental Health, Adult | DX: F31.9 Bipolar disorder, unspecified (principal); S06.9XAD Unspecified intracranial injury with loss of consciousness status unknown, subsequent encounter | CPT/HCPCS: 90792; 99231; 99232 ==